=== PATIENT | female | born 1955 | race Caucasian/White ===

== ENCOUNTER 2016-04-29 08:54 | Day surgery (SDC) | payer OTHER ==
[2016-04-29 10:25] LABS: PROTHROMBIN TIME 15.6 SEC (11.4-15.4)
[2016-04-29 10:26] LABS: PARTIAL THROMBOPLASTIN TIME 40.1 SEC (23.5-35.8)
[2016-04-29 15:28] VITALS: BP 128/88
== END 2016-04-29 14:30 | disposition home or self-care (01) ==
LOC: RAD 08:54
PROVIDERS: ATTEND Orthopaedic Surgery
PROC: B01BYZZ Fluoroscopy of Spinal Cord using Other Contrast (ICD-10-PCS; principal; 2016-04-29)
DX: M54.5 Low back pain (principal); M43.12 Spondylolisthesis, cervical region; M54.12 Radiculopathy, cervical region; M54.16 Radiculopathy, lumbar region; K74.60 Unspecified cirrhosis of liver
CPT/HCPCS: 36415; 72126; 72132; 72270; 85610; 85730

== ENCOUNTER 2016-12-21 07:02 | Emergency (ER) | payer MEDICAID ==
--- NOTE | 2016-12-21 07:30 | ER Document Report ---
ED GI/ - General Chief Complaint: Vomiting Stated Complaint: ABDOMINAL PAIN Time Seen by Provider: 12/21/16 07:30 Mode of Arrival: Ambulatory Information source: Patient Notes: 61 yo female "problems for over a year", cirrhosis- no etoh in 2 years, seizures -dilantin, hiatel hernia, chronic neck and back pain, chronic constipation (due to oxycontin 20mg bid: actually having to take 20mg tid to manage the pain this month:, oxycodone 10mg qid- [facility] sees java web architect at [facility]. [facility] for cervical spine fx-1 year. Extreme Vomiting and dull abdominal pain 5/5 since 4 pm yesterday-saw blood, worsening swelled-bloated abdomen (chronic), diarrhea this am (black in stool few days ago-no pepto) No chest pain or SOB. No hx bowel obstruction, Hysterectomy. Ran out of opiates on . TRAVEL OUTSIDE OF THE [place] IN LAST 30 DAYS: No - Related Data Allergies/Adverse Reactions: tetracycline Allergy (Verified 01/02/16 04:01) Past Medical History - General Information source: Patient - Social History Smoking Status: Current Every Day Smoker Frequency of alcohol use: None Drug Abuse: None Lives with: Family Family History: COPD, Hypertension Patient has suicidal ideation: No Patient has homicidal ideation: No Neurological Medical History: Reports: Hx Seizures - ON MEDICATION Renal/ Medical History: Denies: Hx Peritoneal Dialysis GI Medical History: Reports: Hx Cirrhosis Musculoskeltal Medical History: Reports Other - cervical spine fx 1 year ago Psychiatric Medical History: Reports: Hx Depression Past Surgical History: Reports: Hx Orthopedic Surgery - C-spine fusion summer - Immunizations Hx Diphtheria, Pertussis, Tetanus Vaccination: Yes Review of Systems - Review of Systems Constitutional: No symptoms reported EENT: No symptoms reported Cardiovascular: No symptoms reported Respiratory: No symptoms reported Gastrointestinal: See HPI Genitourinary: No symptoms reported Female Genitourinary: No symptoms reported Musculoskeletal: No symptoms reported Skin: No symptoms reported Hematologic/Lymphatic: No symptoms reported Neurological/Psychological: No symptoms reported Physical Exam - Vital signs Vitals: Temp Pulse Resp BP Pulse Ox 98.5 F 71 18 162/81 H 99 12/21/16 07:03 12/21/16 07:03 12/21/16 07:03 12/21/16 07:03 12/21/16 07:03 Interpretation: Normal - General General appearance: Alert Notes: chronically ill, dry - HEENT Head: Normocephalic, Atraumatic Eyes: Normal Conjunctiva: Icteric Pupils: PERRL Neck: Supple. No: Lymphadenopathy - Respiratory Respiratory status: No respiratory distress Chest status: Nontender Breath sounds: Normal Chest palpation: Normal - Cardiovascular Rhythm: Regular Heart sounds: Normal auscultation Murmur: No - Abdominal Inspection: Normal Distension: No distension, Tympanitic, Fluid wave - possible. No: Distended Bowel sounds: Normal Tenderness: Nontender. No: Guarding, Rebound Organomegaly: No organomegaly. No: Hepatomegaly, Splenomegaly - Back Back: Normal, Nontender. No: CVA tenderness - Extremities General upper extremity: Normal inspection, Nontender, Normal color, Normal ROM , Normal temperature General lower extremity: Normal inspection, Nontender, Normal color, Normal ROM , Normal temperature, Normal weight bearing. No: Jazzmine's sign - Neurological Neuro grossly intact: Yes Cognition: Normal Orientation: AAOx4 Traphill Coma Scale Eye Opening: Spontaneous Arcadio Coma Scale Verbal: Oriented Arcadio Coma Scale Motor: Obeys Commands Arcadio Coma Scale Total: 15 Speech: Normal Motor strength normal: LUE, RUE, LLE, RLE Sensory: Normal - Psychological Associated symptoms: Normal affect, Normal mood, Confused, Excessive sleeping - Skin Skin Temperature: Warm Skin Moisture: Dry Skin Color: Normal Course - Re-evaluation Re-evalutation: 12/21/16 07:35 [place] controlled substance database Oxycontin 20mg #60 on 11-24-16, [facility]. 12/21/16 08:52 stool for hem positive, emesis was coffee ground., 12/21/16 09:[address] espinosa, no vomiting at this time, had to awaken her, states she is still nauseated, fell back asleep. 12/21/16 11:44 pt has been able to keep gingerale down and some crackers. She states that the Haldol helped the nausea. No abd pain at this time. 12/21/16 11:54 copy of labwork given to the pt. Dr espinosa said to have her see her gastroenterolist. No vomiting for several hours, no diarrhea.pt saw her GI on , given nexium prescription and has not filled yet - Vital Signs Vital signs: Temp Pulse Resp BP Pulse Ox 98.9 F 69 18 151/62 H 96 12/21/16 12:52 12/21/16 12:52 12/21/16 12:52 12/21/16 12:52 12/21/16 12:52 - Laboratory Result Diagrams: 12/21/16 07:45 12/21/16 07:45 Laboratory results interpreted by me: 12/21/16 12/21/16 12/21/16 07:45 07:45 07:45 Hct 35.2 L RDW 15.0 H Plt Count 111 L Seg Neutrophils % 83.0 H Lymphocytes % 12.1 L PT 22.5 H APTT 47.3 H Potassium 3.2 L Creatinine 0.37 L Glucose 118 H Total Bilirubin 3.3 H Direct Bilirubin 2.7 H AST 76 H ALT 57 H Alkaline Phosphatase 615 H Urine Protein Urine Blood Urine Bilirubin Urine Urobilinogen Ur Leukocyte Esterase Phenytoin 12/21/16 12/21/16 08:11 09:33 Hct RDW Plt Count Seg Neutrophils % Lymphocytes % PT APTT Potassium Creatinine Glucose Total Bilirubin Direct Bilirubin AST ALT Alkaline Phosphatase Urine Protein 30 H Urine Blood LARGE H Urine Bilirubin SMALL H Urine Urobilinogen 4.0 H Ur Leukocyte Esterase TRACE H Phenytoin 23.7 H* Discharge - Discharge Clinical Impression: Hyperbilirubinemia, Dehydration, Liver enzyme elevation, microscopic blood in stool Nausea and vomiting Qualifiers: Vomiting type: unspecified Vomiting Intractability: non-intractable Qualified Code(s): R11.2 - Nausea with vomiting, unspecified Abdominal pain Qualifiers: Abdominal location: generalized Qualified Code(s): R10.84 - Generalized abdominal pain Cirrhosis of liver Qualifiers: Hepatic cirrhosis type: other cirrhosis Qualified Code(s): K74.69 - Other cirrhosis of liver Opiate dependence Qualifiers: Substance use status: uncomplicated Qualified Code(s): F11.20 - Opioid dependence, uncomplicated Urinary tract infection Qualifiers: Urinary tract infection type: site unspecified Hematuria presence: without hematuria Qualified Code(s): N39.0 - Urinary tract infection, site not specified Vomiting blood Qualifiers: Nausea presence: with nausea Qualified Code(s): K92.0 - Hematemesis Condition: Good Disposition: HOME, SELF-CARE Instructions: Antinausea Medication ([facility]), Dehydration ([facility]), Intravenous (IV) Fluids ([facility]), Liver Function Abnormality ([facility]) Additional Instructions: urine culture is pending phenergan and reglan for nausea get the nexium filled that the java web architect gave you on and take daily! drink plenty of fluids see your java web architect for the vomiting and the abnormal liver enzymes, altered clotting studies reduce your dilantin to 400mg per day, the 500mg per day made your level too high see your neurolgoist for follow up dilantin levels to ER if worse Prescriptions: Promethazine HCl [Phenergan 25 mg Tablet] 25 mg PO Q4HP PRN #30 tablet PRN Reason: Cephalexin Monohydrate [Keflex 500 mg Capsule] 500 mg PO QID #28 capsule Metoclopramide HCl [Reglan 10 mg Tablet] 10 mg PO QID #30 tablet Referrals: CRISTELA MERA MD [Primary Care Provider] - Follow up as needed
[2016-12-21] MEDS ORDERED: NORMAL SALINE 1000 ML 2,000 ML IV ONE (07:31)
[2016-12-21] MEDS ORDERED: METOCLOPRAMIDE HCL INJ/PF 10 MG/2 ML SDV IV ONE (07:35)
[2016-12-21] MEDS ORDERED: ONDANSETRON HCL INJ/PF 4 MG/2 ML SDV IV ONE ×2 (07:35→09:18)
[2016-12-21] MEDS ORDERED: DIPHENHYDRAMINE HCL 50 MG/ML VIAL IV ONE (07:35)
[2016-12-21 07:55] LABS: ABSOLUTE MONOCYTES (AUTO) 0.3 10^3/uL (0.1-1.4); ABSOLUTE NEUT (AUTO) 6.6 10^3/uL (1.7-8.2); BASOPHILS % (AUTO) 0.3 % (0-2); EOSINOPHILS % (AUTO) 0.2 % (0-6); HEMATOCRIT 35.2 % (36.0-47.0); HEMOGLOBIN 12.2 g/dL (12.0-15.5); HGB HCT DIFFERENCE 1.4; LYMPHOCYTES % (AUTO) 12.1 % (13-45); MEAN CORPUSCULAR HEMOGLOBIN 32.1 pg (27.0-33.4); MEAN CORPUSCULAR HGB CONC 34.8 g/dL (32.0-36.0); MEAN CORPUSCULAR VOLUME 92 fl (80-97); MONOCYTES % (AUTO) 4.4 % (3-13)
[2016-12-21] MEDS ORDERED: FAMOTIDINE 20 MG TABLET PO ONE (08:08)
[2016-12-21 08:11] LABS: PROTHROMBIN TIME 22.5 SEC (11.4-15.4)
[2016-12-21] MEDS ORDERED: FAMOTIDINE INJ/PF 20 MG/2 ML SDV IV ONE (08:11)
[2016-12-21 08:12] LABS: PARTIAL THROMBOPLASTIN TIME 47.3 SEC (23.5-35.8)
[2016-12-21 08:47] LABS: ALANINE AMINOTRANSFERASE 57 U/L (9-52); ALBUMIN 3.5 g/dL (3.5-5.0); ALKALINE PHOSPHATASE 615 U/L (38-126); ANION GAP 12 (5-19); ASPARTATE AMINO TRANSFERASE 76 U/L (14-36); BILIRUBIN,DIRECT 2.7 mg/dL (0.0-0.4); BILIRUBIN,TOTAL 3.3 mg/dL (0.2-1.3); BLOOD UREA NITROGEN 10 mg/dL (7-20); CALCIUM 8.8 mg/dL (8.4-10.2); CARBON DIOXIDE 23 mmol/L (22-30); CHLORIDE 105 mmol/L (98-107); CREATININE RESULT 0.37 mg/dL (0.52-1.25); GLUCOSE 118 mg/dL (75-110); LIPASE 160.7 U/L (23-300); POTASSIUM 3.2 mmol/L (3.6-5.0); SODIUM 140.1 mmol/L (137-145)
[2016-12-21] MEDS ORDERED: LANSOPRAZOLE 30 MG TAB.RAP.DR PO ONE (09:18)
[2016-12-21 09:52] LABS: AMORPHOUS SEDIMENT,URINE TRACE /HPF; APPEARANCE,URINE CLOUDY; BILIRUBIN,URINE SMALL (NEGATIVE); GLUCOSE, URINE NEGATIVE (NEGATIVE); KETONES,URINE NEGATIVE (NEGATIVE); LEUKOCYTE ESTERASE,URINE TRACE (NEGATIVE); NITRITE,URINE NEGATIVE (NEGATIVE); PROTEIN,URINE 30 mg/dL (NEGATIVE); URINE SPECIFIC GRAVITY 1.018
[2016-12-21] MEDS ORDERED: HALOPERIDOL LACTATE INJ 5 MG/1 ML VIAL IV ONE (10:33)
[2016-12-21] MEDS ORDERED: CEFTRIAXONE 1 GM/D5W RTU 1 GM/50 ML RTUPB IV ONE (12:45)
[2016-12-21 12:53] VITALS: BP 151/62
[2016-12-21] MEDS ORDERED: ACETAMINOPHEN 325 MG TABLET PO ONE (12:55)
[2016-12-21] MEDS ORDERED: PROMETHAZINE HCL INJ 25 MG/1 ML VIAL IM ONE (13:10)
== END 2016-12-21 13:38 | disposition home or self-care (01) ==
LOC: ER 07:02
DX: E80.6 Other disorders of bilirubin metabolism (principal); E86.0 Dehydration; K92.1 Melena; R74.8 Abnormal levels of other serum enzymes; K92.0 Hematemesis; N39.0 Urinary tract infection, site not specified; F11.20 Opioid dependence, uncomplicated; K74.69 Other cirrhosis of liver; R10.84 Generalized abdominal pain; G89.29 Other chronic pain; M54.9 Dorsalgia, unspecified; M54.2 Cervicalgia; F17.200 Nicotine dependence, unspecified, uncomplicated; Z98.1 Arthrodesis status
CPT/HCPCS: 96376; 99284; 96372; 96361; 96375; 96365; 36415; 87086; 83690; 80185; 85025; 85610; 85730; 82272; 80053; 81001; J1200; J1630; J2765; J2550; J2405; J7030; S0028; J0696

== ENCOUNTER 2016-12-23 13:58 | Inpatient (IN) | payer MEDICAID ==
[2016-12-23] MEDS ORDERED: NORMAL SALINE 1000 ML 1,000 ML IV ONE (15:32)
[2016-12-23] MEDS ORDERED: OXYCODONE HCL SR 10 MG TABLET PO ONE (15:32)
[2016-12-23] MEDS ORDERED: ONDANSETRON HCL INJ/PF 4 MG/2 ML SDV IV ONE (15:32)
--- NOTE | 2016-12-23 16:00 | RADIOLOGY REPORT (SQ) ---
EXAM DESCRIPTION: CT HEAD WITHOUT COMPLETED DATE/TIME: 12/23/2016 3:52 pm REASON FOR STUDY: AMS COMPARISON: Postmyelogram CT cervical spine 04/29/2016 TECHNIQUE: Axial images acquired through the brain without intravenous contrast. Images reviewed wi th bone, brain and subdural windows. Images stored on PACS. All CT scanners at this facility use dose modulation, iterative reconstruction, and/or weight based d osing when appropriate to reduce radiation dose to as low as reasonably achievable (ALARA). [facility]: Dose Right [facility]: CareDose [facility]: Dose Right [facility]: Teradose 4D [facility]: Xochitl (So-Shee) [place] RADIATION DOSE: 64 mGy. LIMITATIONS: None. FINDINGS: VENTRICLES: Normal size and contour. CEREBRUM: No masses. No hemorrhage. No midline shift. No evidence for acute infarction. Normal gra y/white matter differentiation. No areas of low density in the white matter. CEREBELLUM: No masses. No hemorrhage. No alteration of density. No evidence for acute infarction. EXTRAAXIAL SPACES: No fluid collections. No masses. ORBITS AND GLOBE: No intra- or extraconal masses. Normal contour of globe without masses. CALVARIUM: No fracture. PARANASAL SINUSES: No fluid or mucosal thickening. SOFT TISSUES: No mass or hematoma. OTHER: Fusion hardware in the upper cervical spine, unchanged from previous cervical spine CT 04/30/19 17 IMPRESSION: No acute findings EVIDENCE OF ACUTE STROKE: NO. COMMENT: Quality ID # [id number]: Final reports with documentation of one or more dose reduction techniques (e.g., Automated exposure control, adjustment of the mA and/or kV according to patient size, use of iterative reconstruction technique) TECHNICAL DOCUMENTATION: JOB ID: [id number]- All Rights Reserved
[2016-12-23 16:03] LABS: ALANINE AMINOTRANSFERASE 94 U/L (9-52); ALBUMIN 2.8 g/dL (3.5-5.0); ALKALINE PHOSPHATASE 325 U/L (38-126); ANION GAP 14 (5-19); ASPARTATE AMINO TRANSFERASE 159 U/L (14-36); BILIRUBIN,DIRECT 3.1 mg/dL (0.0-0.4); BILIRUBIN,TOTAL 3.6 mg/dL (0.2-1.3); BLOOD UREA NITROGEN 32 mg/dL (7-20); CALCIUM 8.2 mg/dL (8.4-10.2); CARBON DIOXIDE 22 mmol/L (22-30); CHLORIDE 104 mmol/L (98-107); CREATINE KINASE 231 U/L (30-135); CREATININE RESULT 0.58 mg/dL (0.52-1.25); GLUCOSE 104 mg/dL (75-110); LIPASE 233.8 U/L (23-300); POTASSIUM 3.6 mmol/L (3.6-5.0); SODIUM 139.8 mmol/L (137-145); TOTAL PROTEIN 5.7 g/dL (6.3-8.2)
[2016-12-23 16:05] LABS: ALCOHOL < 10 mg/dL (NONE DETECTED)
[2016-12-23] MEDS ORDERED: LACTULOSE SYRUP 20 GM/30 ML UDCUP PR ONE ×2 (16:11→20:15)
--- NOTE | 2016-12-23 16:11 | RADIOLOGY REPORT (SQ) ---
EXAM DESCRIPTION: CHEST SINGLE VIEW COMPLETED DATE/TIME: 12/23/2016 3:57 pm REASON FOR STUDY: SOB COMPARISON: CT abdomen pelvis 01/02/2016 EXAM PARAMETERS: NUMBER OF VIEWS: One view. TECHNIQUE: Single frontal radiographic view of the chest acquired. RADIATION DOSE: NA LIMITATIONS: None. FINDINGS: LUNGS AND PLEURA: There is airspace disease in the right lower lobe, atelectasis versus pn eumonia. Aspiration should be considered. Left lung grossly clear. Moderate size retrocardiac hiatal hernia. No pleural effusion. No pneumothorax. MEDIASTINUM AND HILAR STRUCTURES: No masses. Moderate size retrocardiac hiatal hernia HEART AND VASCULAR STRUCTURES: Heart normal in size. Normal vasculature. BONES: Old right humeral head replacement, old healed bilateral upper rib fractures HARDWARE: None in the chest. OTHER: No other significant finding. IMPRESSION: Right lower lobe airspace disease worrisome for pneumonia. Aspiration should be conside red. Large retrocardiac hiatal hernia. TECHNICAL DOCUMENTATION: JOB ID: [id number] [email or web address]- All Rights Reserved
--- NOTE | 2016-12-23 16:13 | ER Document Report ---
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 Patient has been out of her pain medications for the past 2 days and is having vomiting and diarrhea and feeling like she is going through withdrawal. Her orthopedic surgeon and will maintain called in a refill of her pain medications and they are sitting at the pharmacy. Patient also was diagnosed with pyelonephritis a few days ago, but the daughter does not think that she took her antibiotics. Patient is silent and will not answer any questions. TRAVEL OUTSIDE OF THE [place] IN LAST 30 DAYS: No - Related Data Allergies/Adverse Reactions: tetracycline Allergy (Verified 01/02/16 04:01) Past Medical History - General Information source: Relative - Daughter, Emergency Med Personnel - Social History Smoking Status: Current Every Day Smoker Chew tobacco use (# tins/day): No Frequency of alcohol use: Former, Stopped 2 years ago Drug Abuse: None Family History: COPD, Hypertension Patient has suicidal ideation: - unknown Patient has homicidal ideation: - unknown - Past Medical History Cardiac Medical History: Denies: Hx Coronary Artery Disease, Hx Heart Attack, Hx Hypertension Pulmonary Medical History: Denies: Hx Asthma, Hx Bronchitis, Hx COPD, Hx Pneumonia Neurological Medical History: Reports: Hx Seizures - ON MEDICATION. Denies: Hx Cerebrovascular Accident Renal/ Medical History: Comment Only: Hx Peritoneal Dialysis - unknown GI Medical History: Reports: Hx Cirrhosis Musculoskeltal Medical History: Denies Hx Arthritis Psychiatric Medical History: Reports: Hx Depression Past Surgical History: Reports: Hx Hysterectomy, Hx Orthopedic Surgery - C- spine fusion summer - Immunizations Hx Diphtheria, Pertussis, Tetanus Vaccination: Yes Review of Systems - Review of Systems -: Yes ROS unobtainable due to patient's medical condition Physical Exam - Vital signs Vitals: Resp Pulse Ox 38 H 97 12/23/16 16:12 12/23/16 16:12 - Notes Notes: PHYSICAL EXAMINATION: GENERAL: Ill-appearing. Malodorous smell. HEAD: Atraumatic, normocephalic. EYES: Pupils 4mm to 3mm reactive, jaundiced eyes. ENT: nares patent, oropharynx clear without exudates. Moist mucous membranes. NECK: Pt in soft collar (for the past 2 years) LUNGS: Tachypnea. Crackles in right lower lobe. HEART: Tachycardia. ABDOMEN: Soft, nontender, normoactive bowel sounds. Ascites. No guarding, no rebound. EXTREMITIES: No pitting or edema. No cyanosis. Contracted upper extremities. NEUROLOGICAL: Will track people in room with eyes. Non-cooperative. Moving all 4 extremities. Clonic upper extremities. SKIN: Jaundiced skin. Ecchymosis over right upper arm. Course - Re-evaluation Re-evalutation: Patient presents very confused with elevated ammonia. In addition, she has a large right sided pneumonia, which may be related to aspiration. She is in severe sepsis with a lactate of 4.7, new leukocytosis from the past 2 days, elevation of INR from 1.8 to 4.07 today, new anemia from 12 to 7.5, evidence of end-organ damage with elevation of troponin. BP is remaining normal. GI is controls design engineer today to consult for heme positive stool and new anemia. Pt typed and screened. 30 mL/kg IVF provided to the patient with Broad-spectrum Abx. 12/23/16 18:[address] Curtis (Hospitalist) and she has accepted patient to ICU for close monitoring and treatment. - Vital Signs Vital signs: Temp Pulse Resp BP Pulse Ox 33 H 114/72 98 12/23/16 17:07 12/23/16 17:07 12/23/16 17:07 - Laboratory Result Diagrams: 12/23/16 17:03 12/23/16 15:20 Laboratory results interpreted by me: 12/23/16 12/23/16 12/23/16 15:20 15:20 15:20 WBC RBC Hgb Hct RDW Abs Neuts (Manual) Abs Monocytes (Manual) PT APTT VBG pH VBG pCO2 BUN 32 H Lactic Acid 4.9 H Calcium 8.2 L Total Bilirubin 3.6 H Direct Bilirubin 3.1 H AST 159 H ALT 94 H Alkaline Phosphatase 325 H Ammonia 110.7 H Creatine Kinase 231 H Total Protein 5.7 L Albumin 2.8 L Acetaminophen < 10 L 12/23/16 12/23/16 12/23/16 15:20 17:03 17:03 WBC 23.1 H D RBC 2.38 L Hgb 7.5 L D Hct 22.3 L RDW 15.2 H Abs Neuts (Manual) 17.1 H Abs Monocytes (Manual) 2.3 H PT 41.3 H D APTT 42.9 H VBG pH 7.54 H VBG pCO2 29.8 L BUN Lactic Acid Calcium Total Bilirubin Direct Bilirubin AST ALT Alkaline Phosphatase Ammonia Creatine Kinase Total Protein Albumin Acetaminophen - Diagnostic Test Radiology reviewed: Image reviewed, Reports reviewed Radiology results interpreted by me: CXR: RLL pneumonia, possibly aspiration - EKG Interpretation by Me EKG shows normal: Sinus rhythm, [place], Intervals, QRS Complexes Rate: Tachycardia Critical Care Note - Critical Care Note Total time excluding time spent on procedures (mins): 45 Discharge - Discharge Clinical Impression: Severe sepsis, Hepatic encephalopathy, Blood in stool, Multiorgan failure Pneumonia Qualifiers: Pneumonia type: due to unspecified organism Laterality: right Lung location: lower lobe of lung Qualified Code(s): J18.1 - Lobar pneumonia, unspecified organism Anemia Qualifiers: Anemia type: other cause Other causes of anemia: other cause, not classified Qualified Code(s): D64.89 - Other specified anemias Condition: Serious Disposition: ADMITTED INPATIENT Admitting Provider: Hospitalist - [facility] Admitted: ICU
[2016-12-23 16:18] LABS: TROPONIN I 0.108 ng/mL
[2016-12-23] MEDS ORDERED: AZITHROMYCIN INJ 500 MG VIAL IV ONE (16:42)
[2016-12-23] MEDS ORDERED: CEFTRIAXONE 1 GM/D5W RTU 1 GM/50 ML RTUPB IV ONE (16:42)
[2016-12-23] MEDS ORDERED: CLINDAMYCIN 600 MG/D5W RTU 600 MG/50 ML RTUPB IV ONE (16:42)
[2016-12-23 16:47] LABS: VENOUS BLOOD BASE EXCESS 2.5 mmol/L; VENOUS BLOOD HCO3 24.8 mmol/L (20-32); VENOUS BLOOD PCO2 29.8 mmHg (35-63); VENOUS BLOOD PH 7.54 (7.30-7.42)
[2016-12-23] MEDS ORDERED: NORMAL SALINE 500 ML IV ONE (17:12)
[2016-12-23 17:26] LABS: HEMATOCRIT 22.3 % (36.0-47.0); HGB HCT DIFFERENCE 0.2; MEAN CORPUSCULAR HEMOGLOBIN 31.6 pg (27.0-33.4); MEAN CORPUSCULAR HGB CONC 33.8 g/dL (32.0-36.0); MEAN CORPUSCULAR VOLUME 93 fl (80-97); RED BLOOD COUNT 2.38 10^6/uL (3.72-5.28); RED CELL DISTRIBUTION WIDTH 15.2 % (11.5-14.0)
[2016-12-23 17:38] LABS: PARTIAL THROMBOPLASTIN TIME 42.9 SEC (23.5-35.8); WHITE BLOOD COUNT 23.1 10^3/uL (4.0-10.5)
[2016-12-23 17:41] LABS: HEMOGLOBIN 7.5 g/dL (12.0-15.5)
[2016-12-23 17:48] LABS: PROTHROMBIN TIME 41.3 SEC (11.4-15.4)
[2016-12-23 17:50] LABS: BASOPHILS % (MANUAL) 0 % (0-2); EOSINOPHILS % (MANUAL) 0 % (0-6); LYMPHOCYTES % (MANUAL) 16 % (13-45); TOTAL CELLS COUNTED 100
[2016-12-23 17:51] LABS: ANISOCYTOSIS SLIGHT; POIKILOCYTOSIS SLIGHT; POLYCHROMASIA SLIGHT; TOXIC GRANULATION SLIGHT
[2016-12-23 18:55] LABS: APPEARANCE,URINE CLEAR; BILIRUBIN,URINE NEGATIVE (NEGATIVE); GLUCOSE, URINE NEGATIVE (NEGATIVE); KETONES,URINE TRACE mg/dL (NEGATIVE); LEUKOCYTE ESTERASE,URINE NEGATIVE (NEGATIVE); NITRITE,URINE NEGATIVE (NEGATIVE); PROTEIN,URINE NEGATIVE (NEGATIVE)
[2016-12-23] MEDS ORDERED: DEXTROSE 40% GEL 15 GM TUBE PO PRN ×2 (19:00)
[2016-12-23] MEDS ORDERED: NORMAL SALINE 1000 ML 1,000 ML IV PRN (19:00)
[2016-12-23] MEDS ORDERED: GLUCAGON,HUMAN RECOMB 1 MG INJ SUBCUT PRN (19:00)
[2016-12-23] MEDS ORDERED: ONDANSETRON HCL INJ/PF 4 MG/2 ML SDV IV PRN (19:00)
[2016-12-23] MEDS ORDERED: PHARMACY COMMUNICATION ORDER MC NR (19:00)
[2016-12-23] MEDS ORDERED: DEXTROSE 50%-WATER 25 GM/50 ML DISP.SYRIN IV PRN ×2 (19:00)
[2016-12-23] MEDS ORDERED: FUROSEMIDE INJ/PF 40 MG/4 ML SDV IV PRN (19:11)
[2016-12-23] MEDS ORDERED: NORMAL SALINE 250 ML IV PRN ×2 (19:11)
[2016-12-23 19:12] LABS: URINE BARBITURATES SCREEN NEGATIVE; URINE METHADONE SCREEN NEGATIVE; URINE OPIATES LOW NEGATIVE; URINE PHENCYCLIDINE SCREEN NEGATIVE
--- NOTE | 2016-12-23 19:29 | PDOC H&P ---
History of Present Illness Admission Date/PCP: 12/23/16 18:13 History of Present Illness: JENNA BUCHANAN is a 61 year old white female with a past medical history significant for alcoholic cirrhosis who presented to the ED 2 days ago and was diagnosed with pyelonephritis and now Represents today with altered mental status. At her initial ED visit, she was diagnosed with urinary tract infection and was sent home with Keflex. She also was diagnosed with hematemesis and was noted to vomit coffee-ground emesis in the ED and heme positive stools.. She was instructed to follow-up with her raspberry checker, Dr. Wright. It was also noted that her Dilantin level was too high and she was advised to decrease the dose from 500 a day to 400 a day. She was advised to follow with her neurologist and to return to the ED if her symptoms worsened. During that visit her hemoglobin was 12.2 and her INR was normal. She was found to be confused and was brought in by her family member. Apparently during his state of confusion the patient could not take her medications. On re -presentation today, the patient was noted to have an elevated white count of 23 , an ammonia level of 110, hemoglobin of 7.5, and guaiac positive stools. Lactic acid was noted to be 4.9 and an INR of 4. To be tachycardic in the 120s. Cultures from her previous ED visit came back showing it to be a mixed specimen. The patient was given a dose of Rocephin, clindamycin and azithromycin down in the emergency room. She was also given a dose of lactulose as well as Zofran a fluid bolus. CT scan of the head was done and was negative. Chest x-ray shows possible aspiration pneumonia with a right lower lobe infiltrate. Past Medical History Past Medical History: History is obtained from chart review and discussion with the ED. The patient is not conversant at this time. Neurological Medical History: Reports: Seizures - ON MEDICATION GI Medical History: Reports: Cirrhosis Psychiatric Medical History: Reports: Depression Hematology: Reports: Anemia Past Surgical History Past Surgical History: Past surgical history is taken from chart review. The patient is not able to participate in the interview. Past Surgical History: Reports: Hysterectomy, Orthopedic Surgery - C-spine fusion summer Social History Smoking Status: Current Every Day Smoker Frequency of Alcohol Use: Heavy Hx Recreational Drug Use: No Hx Prescription Drug Abuse: No - Advance Directive Resuscitation Status: Full Code Family History Family History: COPD, Hypertension Parental Family History Reviewed: No - The patient is not able to give family history. Children Family History Reviewed: No - The patient is not able to give her history. Sibling(s) Family History Reviewed.: No - The patient is not able to give her history. Medication/Allergy Home Medications: Phenytoin Sodium Extended [Dilantin 100 mg Capsule.er] 500 mg PO DAILY 01/02/16 Cephalexin Monohydrate [Keflex 500 mg Capsule] 500 mg PO Q6 12/23/16 Metoclopramide HCl [Reglan 10 mg Tablet] 10 mg PO Q6 12/23/16 Promethazine HCl [Phenergan 25 mg Tablet] 25 mg PO Q4HP PRN 12/23/16 Allergies/Adverse Reactions: tetracycline Allergy (Verified 01/02/16 04:01) Review of Systems ROS unobtainable: Due to mental status Physical Exam Vital Signs: Temp Pulse Resp BP Pulse Ox 37 H 105/63 100 12/23/16 18:01 12/23/16 18:01 12/23/16 18:01 GENERAL: This is a well-developed frail and chronically ill-appearing white female resting in bed currently looking quite sick. The patient is jaundiced. HEENT: Normocephalic atraumatic. Scleral icterus is present. Dry mucous membranes. Pupillary response on the right is not reactive the left is sluggish. No submandibular lymphadenopathy. Trachea is midline. HEART: Tachycardic at the bedside at 123. No obvious murmurs rubs or gallops. LUNGS: Clear to auscultation from the anterior perspective bilaterally with equal rise and fall of the chest. The patient is tachypneic at around 28. Her breaths are shallow. ABDOMEN: Soft, I do not elicit any grimace on palpation. Positive distention. Diminished bowel sounds. EXTREMETIES: [No clubbing, cyanosis or edema. 2+ peripheral pulses bilaterally. ] NEURO: Awake. The patient is not alert. She barely moans at the sound of my voice. although her eyes are open she is not responsive. Skin: Spider angiomata are present across the neck chest and a few in the abdomen. Caput medusa is not present. No palmar erythema. Her skin is overly bronzed and jaundiced the patient has a very large Area of ecchymosis and induration of the right AC. Results Impressions: Chest X-Ray 12/23/16 14:51 IMPRESSION: Right lower lobe airspace disease worrisome for pneumonia. Aspiration should be considered. Large retrocardiac hiatal hernia. Head CT 12/23/16 14:54 IMPRESSION: No acute findings EVIDENCE OF ACUTE STROKE: NO. Assessment & Plan - Diagnosis (1) Severe sepsis Plan: The patient presents with underlying pneumonia. In the setting of what is likely an acute GI bleed. She has an elevated white count. She has altered mental status that could be traveling sales representative of end organ damage from severe sepsis. Or from underlying encephalopathy due to cirrhosis. Lactic acid is currently at 4 we will repeat this at 730 this evening. (2) Anemia Qualifiers: Anemia type: other cause Plan: This is anemia of acute blood loss. The patient had a declination in her hemoglobin from 12-7 over the last 48 hours. I am going to order stat transfusion of 2 units of packed red blood cells. In addition to this I am going to have the staff place an NG tube. Coffee-ground emesis was witnessed 2 days ago and the patient has a history of underlying cirrhosis. It is unknown to me whether or not she has esophageal varices so we will need to be cautious with placement of the tube. I am also going to start an octreotide drip as well as IV Protonix. We will consult Dr. Wright. (3) Encephalopathy acute Plan: This could be due to either underlying cirrhosis or secondary to her severe sepsis. Patient apparently at baseline is not confused and normal thinking. This would be considered a definite change. Continue to monitor. She received a dose of lactulose p.o. down in the ED. I am going to try to avoid lactulose IN because of suspected underlying GI bleed. GI service has been consulted. Repeat ammonia in the a.m. (4) Alcoholic cirrhosis of liver Plan: She is status post a dose of lactulose down in the ED. (5) Metabolic acidosis Plan: Repeat lactic acid. (6) Urinary tract infection Qualifiers: Urinary tract infection type: site unspecified Hematuria presence: without hematuria Qualified Code(s): N39.0 - Urinary tract infection, site not specified Plan: There was no infection on the recent cultures. Blood cultures and urine cultures are currently pending. The patient is status post antibiotics in the ED. (7) Pneumonia Qualifiers: Pneumonia type: aspiration pneumonia Aspiration pneumonia type: unspecified Laterality: right Lung location: lower lobe of lung Qualified Code(s): J69.0 - Pneumonitis due to inhalation of food and vomit Plan: This is an aspiration pneumonia most likely. The patient has been confused recently and she certainly could have aspirated her own secretions. Continue antibiotics with Levaquin. Continue antibiotics. She is already received 3 different antibiotics done in the ED. (8) GI bleed Plan: This may be upper GI bleed. The patient was noted to have coffee-ground emesis 2 days ago. She is still Hemoccult positive and has had a 5 unit drop in her blood count. Stat transfusion has been ordered. We will cautiously insert NG tube. Repeat H&H is every 4 hours. Begin Protonix and octreotide. Consult was placed to GI. - Time Critical Time spent with patient: 35 or more minutes - Inpatient Certification Medical Necessity: Need Close Monitoring Due to Risk of Patient Decompensation
[2016-12-23 20:26] LABS: HEMATOCRIT 19.9 % (36.0-47.0); HGB HCT DIFFERENCE 0.2; MEAN CORPUSCULAR HEMOGLOBIN 31.9 pg (27.0-33.4); MEAN CORPUSCULAR HGB CONC 33.6 g/dL (32.0-36.0); MEAN CORPUSCULAR VOLUME 95 fl (80-97); RED BLOOD COUNT 2.09 10^6/uL (3.72-5.28); RED CELL DISTRIBUTION WIDTH 15.4 % (11.5-14.0)
[2016-12-23 20:33] LABS: HEMOGLOBIN 6.7 g/dL (12.0-15.5)
[2016-12-23 20:41] LABS: ARTERIAL BLOOD BASE EXCESS -0.2 mmol/L; ARTERIAL BLOOD O2 SATURATION 96.8 % (94-98)
[2016-12-23 20:46] LABS: BASOPHILS % (MANUAL) 0 % (0-2); EOSINOPHILS % (MANUAL) 0 % (0-6); LYMPHOCYTES % (MANUAL) 19 % (13-45); TOTAL CELLS COUNTED 100
[2016-12-23 20:47] LABS: ANISOCYTOSIS SLIGHT; POIKILOCYTOSIS SLIGHT; POLYCHROMASIA SLIGHT; TOXIC GRANULATION SLIGHT
[2016-12-23] MEDS: NORMAL SALINE 500 ML with OCTREOTIDE ACETATE 500 MCG IV PRN ×4 (20:47→20:52)
--- NOTE | 2016-12-23 21:13 | PDOC CONSULTATION ---
Consultation Consult Date: 12/23/16 Attending physician:: BROCK VICTORIA Consult reason:: Etoh use, cirrhosis. new onset anemia likely secondary to GI bleed. elevated coagulation profile History of Present Illness Admission Date/PCP: 12/23/16 18:13 History of Present Illness: Asked to see this patient by the admitting hospitalist I should be noted that patient is actually followed by GI at [facility] Dr Ever had dictated that she was told to follow up me when she presented to the ED 2 days ago, this should reflect that she was told to follow up with her primary GI who she has seen recently when she presented 2 days ago, she was sent home, it is apparent that she may have had a recent EGD , she was told to take Nexium but did not do so she does have a history of cirrhosis, ? due to previous alcohol use and presented to our ED here with a mental status changes consistent with an encphalopathy patient also has noted to have drop of her H/H since 2 days ago, although she likely could have been dehydrated several days ago patient noted to have heme positive stools it is unclear what her previous EGD showed she also has what appears to be sepsis due to a pneumonia, she is receiving antibiotics patient has an elevated coagulation profile, her INR is> 4.0 she is being admitted to the ICU, I do note that she is on a PPI drip, patient also getting antibiotics and in addition Sandostatin , she has a high likelihood of having a previous upper GI bleeding, based on her presentation however her BUN to Creat ratio is also elevated patient however has a an elevated INR, this needs to be corrected to at least < 1.5 prior to being able to be scoped she will need either large volumes of VitK or FFP for this until then she is not a candidate for EGD since her primary GI is at [facility], I would suggest that they be contacted to see if they are able to accept the patient in transfer in the meanwhile , she can receive antibiotics, have her coags reversed, transfusion of blood as needed I would agree with the use of PPI and a Sandostatin drip Past Medical History Cardiac Medical History: Denies: Coronary Artery Disease, Myocardial Infarction, Hypertension Pulmonary Medical History: Denies: Asthma, Bronchitis, Chronic Obstructive Pulmonary Disease (COPD), Pneumonia Neurological Medical History: Reports: Seizures - ON MEDICATION GI Medical History: Reports: Cirrhosis Musculoskeltal Medical History: Denies: Arthritis Psychiatric Medical History: Reports: Depression Hematology: Reports: Anemia Past Surgical History Past Surgical History: Reports: Hysterectomy, Orthopedic Surgery - C-spine fusion summer Social History Smoking Status: Current Every Day Smoker Frequency of Alcohol Use: Heavy Hx Recreational Drug Use: No Hx Prescription Drug Abuse: No - Advance Directive Resuscitation Status: Full Code Family History Family History: COPD, Hypertension Parental Family History Reviewed: Yes Children Family History Reviewed: Unknown Sibling(s) Family History Reviewed.: Unknown Medication/Allergy Home Medications: Phenytoin Sodium Extended [Dilantin 100 mg Capsule.er] 500 mg PO DAILY 01/02/16 Cephalexin Monohydrate [Keflex 500 mg Capsule] 500 mg PO Q6 12/23/16 Metoclopramide HCl [Reglan 10 mg Tablet] 10 mg PO Q6 12/23/16 Promethazine HCl [Phenergan 25 mg Tablet] 25 mg PO Q4HP PRN 12/23/16 Allergies/Adverse Reactions: tetracycline Allergy (Verified 01/02/16 04:01) Review of Systems Constitutional: PRESENT: weakness. ABSENT: fever(s), headache(s), night sweats Eyes: ABSENT: visual disturbances Nose, Mouth, and Throat: ABSENT: sore throat Cardiovascular: ABSENT: chest pain, palpitations Respiratory: ABSENT: dyspnea, hemoptysis Gastrointestinal: PRESENT: melena, nausea, vomiting Genitourinary: ABSENT: dysuria, hematuria Musculoskeletal: ABSENT: deformity, joint swelling Integumentary: ABSENT: lesions, pruritus Neurological: PRESENT: abnormal speech, lack of coordination, weakness. ABSENT : syncope, tremor(s), vertigo Endocrine: ABSENT: polydipsia, polyphagia, polyuria Hematologic/Lymphatic: ABSENT: easy bruising, lymphadenopathy Physical Exam Vital Signs: Temp Pulse Resp BP Pulse Ox 37 H 105/63 100 12/23/16 18:01 12/23/16 18:01 12/23/16 18:01 General appearance: PRESENT: mild distress Head exam: PRESENT: atraumatic, normocephalic Eye exam: PRESENT: EOMI, PERRLA, scleral icterus. ABSENT: periorbital swelling Mouth exam: PRESENT: moist, neck supple Throat exam: ABSENT: tonsillar exudate, tonsillogmegaly Neck exam: ABSENT: meningismus, tenderness, thyromegaly, tracheal deviation Respiratory exam: PRESENT: symmetrical, tachypnea. ABSENT: stridor, wheezes Cardiovascular exam: PRESENT: RRR, +S1, +S2 GI/Abdominal exam: PRESENT: diminished bowel sounds, soft, tenderness. ABSENT: Carcamo's sign, rebound, rigid Gentrourinary exam: ABSENT: testicular tenderness Extremities exam: ABSENT: pedal edema Musculoskeletal exam: PRESENT: normal inspection Neurological exam: PRESENT: altered, CN II-XII grossly intact Skin exam: PRESENT: normal color. ABSENT: mottled, pallor, petechiae, urticaria , vesicles Results Laboratory Results: 12/23/16 12/23/16 12/23/16 19:55 19:55 20:25 Seg Neutrophils % Not Reportable Lymphocytes % Not Reportable Monocytes % Not Reportable Eosinophils % Not Reportable Basophils % Not Reportable Absolute Neutrophils Not Reportable Absolute Lymphocytes Not Reportable Absolute Monocytes Not Reportable Absolute Eosinophils Not Reportable Absolute Basophils Not Reportable Carbonic Acid 0.66 L HCO3/H2CO3 Ratio 31:1 ABG pH 7.60 H* ABG pCO2 21.8 L ABG pO2 71.5 L ABG HCO3 20.8 ABG O2 Saturation 96.8 ABG Base Excess -0.2 FiO2 ROOM AIR Lactic Acid 5.4 H Impressions: Chest X-Ray 12/23/16 14:51 IMPRESSION: Right lower lobe airspace disease worrisome for pneumonia. Aspiration should be considered. Large retrocardiac hiatal hernia. Head CT 12/23/16 14:54 IMPRESSION: No acute findings EVIDENCE OF ACUTE STROKE: NO. Assessment & Plan - Diagnosis (1) Anemia Qualifiers: Anemia type: other cause Plan: multifactorial but likely due to chronic anemia along with acute blood loss she has dropped her Hgb from about 12 to 7 would consider transfusion (2) GI bleed Plan: she likely has bled from esophageal varices would agree with a PPI drip and Sandostatin since she is not currently a candidate for EGD given her profound coagulopathy she will need FPP and correction to INR < 1.5 for EGD to be done (3) Hepatic encephalopathy Plan: she will need lactulose, either per NG tube or per rectum titrate to diarrhea do not need to follow ammonia and clinically she will improve once her ammonia decrease will need treat on going infection as well would cover with broad spectrum antibiotics since she does have cirrhosis, would also have gram negative coverage she may potentially develop ascites along with SBP given all the fluids that she will receive (4) Alcohol abuse Plan: her Hepatitis studies are negative could be due previous alcohol ingestion and abuse her abnormal LFT's would certainly suggest an alcoholic hepatitis at this time (5) Alcoholic cirrhosis of liver Plan: would rule out for other sources would try to get records from [facility] to see if any other etiology has been found would also recommend contacting primary GI and transfer patient to a tertiary institution where there is availability of interventional radiology is present to consider TIPS placement if needed (6) Liver enzyme elevation Plan: likely due to alcoholic hepatitis at this point - Time Time Spent: Greater than 70 Minutes
--- NOTE | 2016-12-23 21:21 | RADIOLOGY REPORT (SQ) ---
EXAM DESCRIPTION: KUB/ABDOMEN (SINGLE VIEW) COMPLETED DATE/TIME: 12/23/2016 9:01 pm REASON FOR STUDY: Check Placement of NG Tube COMPARISON: None. TECHNIQUE: AP view of the lower thorax and upper abdomen LIMITATIONS: None. FINDINGS: NG tube is identified with its tip just to the right of midline presumably in the distal s tomach. IMPRESSION: NG tube with its tip just to the right of midline presumably in the distal stomach. TECHNICAL DOCUMENTATION: JOB ID: [id number] [employer]- All Rights Reserved
[2016-12-23] MEDS ORDERED: LORAZEPAM INJ 2 MG/1 ML VIAL IV PRN (21:41)
[2016-12-23] MEDS ORDERED: FUROSEMIDE INJ/PF 20 MG/2 ML SDV IV PRN (21:45)
[2016-12-23] MEDS ORDERED: PANTOPRAZOLE SODIUM 40 MG VIAL IV ONE (21:49)
[2016-12-23] MEDS ORDERED: PANTOPRAZOLE SODIUM 80 MG in NORMAL SALINE 100 ML IV ONE (22:00)
[2016-12-23] MEDS ORDERED: PHYTONADIONE INJ 10 MG/1 ML AMPULE SUBCUT ONE (22:00)
[2016-12-23] MEDS ORDERED: PANTOPRAZOLE SODIUM 40 MG VIAL IV SCH (22:00)
[2016-12-23] MEDS ORDERED: LEVOFLOXACIN 500 MG/D5W RTU 500 MG/100 ML RTUPB IV SCH (22:00)
[2016-12-23] MEDS: NORMAL SALINE 100 ML with PANTOPRAZOLE SODIUM 80 MG IV PRN ×2 (22:44)
--- NOTE | 2016-12-23 23:18 | OPERATIVE REPORT E ---
Operative Report NAME: JENNA BUCHANAN : 1955 AGE: 61Y DATE OF SURGERY: 12/23/2016 ROOM: [facility] PREOPERATIVE DIAGNOSIS: POOR VEINS FOR IV ACCESS AND COAGULOPATHY. POSTOPERATIVE DIAGNOSIS: POOR VEINS FOR IV ACCESS AND COAGULOPATHY. OPERATION: Insertion of right femoral vein catheter. SURGEON: ANUEL DIANA M.D. ANESTHESIA: Local. INDICATIONS: This is a 61-year-old female who has a history of cirrhosis of the liver and pneumonia and INRs up to 4. She needed a lot of medications and blood and fresh frozen plasma and she does not have any peripheral veins for IV access. PROCEDURE: Patient was placed in the supine position and the right groin prepped and draped in the usual sterile fashion. With the use of ultrasound, the right common femoral vein was then identified. Local anesthesia infiltrated on the path of the common femoral vein. The common femoral vein was then punctured and guidewire passed through the needle into the direction of the inferior vena cava. Needle was removed and the puncture site enlarged. Next, triple lumen catheter was inserted for the guidewire up to about 1 cm from the *------*. All of the three ports were then aspirated of blood easily and infused saline easily. Next, the catheter was anchored to the skin with 3-0 silk. A bypass phase of the insertion site *------* transparent sterile dressing was placed over the Biopatch and catheter. Patient tolerated the procedure well. DICTATING PHYSICIAN: ANUEL DIANA M.D. [id number] Y#: [id number] ID: [id number] JOB#: [id number] ACCT: [id number] cc:ANUEL DIANA M.D. >
--- NOTE | 2016-12-23 23:58 | EKG REPORT ---
SEVERITY:- BORDERLINE ECG - SINUS TACHYCARDIA BORDERLINE T WAVE ABNORMALITIES : Confirmed by: Mandeep Wadsworth 23-Dec-2016 23:57:46
[2016-12-24] MEDS ORDERED: IPRATROPIUM/ALBUTEROL 0.5-2.5 MG/3 ML AMPUL NEB ONE (02:13)
[2016-12-24] MEDS: IPRATROPIUM/ALBUTEROL 0.5-2.5 MG/3 ML AMPUL NEB PRN ×2 (02:56→17:06)
[2016-12-24] MEDS ORDERED: FUROSEMIDE INJ/PF 20 MG/2 ML SDV IV ONE (03:27)
[2016-12-24] MEDS ORDERED: METHYLPREDNISOLONE INJ 40 MG/1 ML SDV IV ONE (03:38)
[2016-12-24 05:23] LABS: ARTERIAL BLOOD BASE EXCESS 2.2 mmol/L
[2016-12-24 05:37] LABS: HEMATOCRIT 32.9 % (36.0-47.0); HGB HCT DIFFERENCE 0.7; MEAN CORPUSCULAR HEMOGLOBIN 30.7 pg (27.0-33.4); MEAN CORPUSCULAR HGB CONC 34.2 g/dL (32.0-36.0); RED BLOOD COUNT 3.66 10^6/uL (3.72-5.28); RED CELL DISTRIBUTION WIDTH 15.5 % (11.5-14.0); WHITE BLOOD COUNT 20.6 10^3/uL (4.0-10.5)
[2016-12-24 05:43] LABS: ANION GAP 13 (5-19); BLOOD UREA NITROGEN 34 mg/dL (7-20); CALCIUM 7.9 mg/dL (8.4-10.2); CARBON DIOXIDE 23 mmol/L (22-30); CHLORIDE 114 mmol/L (98-107); CREATININE RESULT 0.55 mg/dL (0.52-1.25); GLUCOSE 138 mg/dL (75-110); MAGNESIUM 1.6 mg/dL (1.6-2.3); SODIUM 150.3 mmol/L (137-145)
[2016-12-24 05:44] LABS: PROTHROMBIN TIME 21.6 SEC (11.4-15.4)
[2016-12-24 05:48] LABS: POTASSIUM 2.9 mmol/L (3.6-5.0)
[2016-12-24] MEDS ORDERED: POTASSIUM CHLORIDE 20 MEQ/15 ML UDCUP NG ONE (05:57)
[2016-12-24 05:58] LABS: FREE T3 2.63 pg/mL (2.77-5.27)
[2016-12-24] MEDS ORDERED: LACTULOSE SYRUP 20 GM/30 ML UDCUP NG SCH (06:00)
[2016-12-24] MEDS ORDERED: METHYLPREDNISOLONE INJ 40 MG/1 ML SDV IV SCH ×2 (06:00→22:00)
[2016-12-24 06:12] LABS: THYROID STIMULATING HORMONE 0.16 uIU/mL (0.47-4.68)
[2016-12-24 06:22] LABS: BASOPHILS % (MANUAL) 0 % (0-2); EOSINOPHILS % (MANUAL) 0 % (0-6); LYMPHOCYTES % (MANUAL) 13 % (13-45); TOTAL CELLS COUNTED 100
[2016-12-24 06:26] LABS: ANISOCYTOSIS 1+; BURR CELLS SLIGHT; POLYCHROMASIA 1+; SCHISTOCYTES SLIGHT; TOXIC GRANULATION SLIGHT
[2016-12-24 06:27] LABS: HEMOGLOBIN 11.2 g/dL (12.0-15.5)
[2016-12-24 06:28] LABS: MEAN CORPUSCULAR VOLUME 90 fl (80-97)
[2016-12-24] MEDS: MAGNESIUM SULFATE/D5W 1 GM/100 ML RTUPB IV SCH ×3 (06:49→08:39)
[2016-12-24] MEDS: POTASSI CL 20 MEQ/50 ML RIDER 20 MEQ/50 ML RTUPB IV SCH ×2 (06:50→08:38)
[2016-12-24] MEDS: PHENYTOIN SODIUM INJ/PF 100 MG/2 ML SDV IV SCH ×2 (06:50→14:35)
[2016-12-24] MEDS: NORMAL SALINE 500 ML with OCTREOTIDE ACETATE 500 MCG IV PRN ×4 (07:05→18:16)
[2016-12-24] MEDS: NORMAL SALINE 100 ML with PANTOPRAZOLE SODIUM 80 MG IV PRN ×2 (09:52)
[2016-12-24] MEDS ORDERED: ACETAMINOPHEN 100 ML IV PRN (09:59)
--- NOTE | 2016-12-24 10:15 | PDOC PROGRESS REPORT ---
Subjective Progress Note for:: 12/24/16 Subjective:: This is a follow-up visit for GI bleed. The patient is still not responsive. Overnight she had correction of her multiple electrolyte derangements. NG tube was placed and she had approximately 400 mL out of coffee-ground emesis. The GI service did come and see her and clarified that the patient usually follows at [facility] and that she likely had a recent upper endoscopy. We will try and obtain those records. Overnight the patient developed liquid stools. She did receive a dose of lactulose down in the ED and I believe further doses here on the floor. It is unclear as to whether or not she had these liquid stools prior to admission or not. The patient had been prescribed Keflex as an outpatient but as per my conversation with the ED, the patient was not able to take the medication secondary to her mental status change. It seems that overnight her pulse rate did come down from 120s. However, the patient still remains tachypneic at 30. In addition, overnight the patient received a total of 4 units of packed red blood cells as well as FFP to correct Her coagulopathy. Physical Exam Vital Signs: Temp Pulse Resp BP Pulse Ox 100.4 F 101 H 25 H 109/68 99 12/24/16 08:15 12/24/16 08:15 12/24/16 08:15 12/24/16 08:15 12/24/16 08:15 Intake & Output 12/23/16 12/24/16 12/25/16 06:59 06:59 06:59 Intake Total 2405 609 Output Total 1860 250 Balance 545 359 Weight 56 kg Lines: Right femoral CVL Drips: Octreotide GENERAL: This is a well-developed frail and chronically ill-appearing white female resting in bed currently looking quite sick. The patient is jaundiced. HEENT: Normocephalic atraumatic. Scleral icterus is present. Dry mucous membranes. Pupillary response on the right is not reactive the left is sluggish. No submandibular lymphadenopathy. Trachea is midline. NG tube is in place. Scant amount of maroon colored discharges in the container. (It appears as though the container has been emptied) HEART: Regular rate and rhythm in the 90s at the bedside. 1 out of 6 to 2 out of 6 systolic ejection murmur heard best over the left upper sternal border. No gallops or rubs. LUNGS: Clear to auscultation from the anterior perspective bilaterally with equal rise and fall of the chest. Laterally, the patient sounds diminished and slightly coarse. The patient is tachypneic at around 30 at the bedside. Her breaths are shallow. ABDOMEN: Soft, I do not elicit any grimace on palpation. Positive distention, but much less by comparison from yesterday. Diminished bowel sounds. EXTREMETIES: No clubbing, cyanosis or edema. 2+ peripheral pulses bilaterally. Right femoral line is now present. NEURO: Somnolent. the patient is not alert. She does not awaken with shaking of her shoulder, to the sound of my voice or with light nonaggressive sternal rub. Skin: Spider angiomata are present across the neck chest and a few in the abdomen. Caput medusa is not present. No palmar erythema. Her skin is overly bronzed and jaundiced. the patient has a very large Area of ecchymosis and induration of the right AC. Results Laboratory Results: 12/24/16 05:00 12/24/16 05:00 12/23/16 12/23/16 12/23/16 19:55 19:55 20:25 WBC 26.0 H RBC 2.09 L Hgb 6.7 L Hct 19.9 L MCV 95 MCH 31.9 MCHC 33.6 RDW 15.4 H Plt Count 203 Seg Neutrophils % Not Reportable Lymphocytes % Not Reportable Monocytes % Not Reportable Eosinophils % Not Reportable Basophils % Not Reportable Absolute Neutrophils Not Reportable Absolute Lymphocytes Not Reportable Absolute Monocytes Not Reportable Absolute Eosinophils Not Reportable Absolute Basophils Not Reportable Carbonic Acid 0.66 L HCO3/H2CO3 Ratio 31:1 ABG pH 7.60 H* ABG pCO2 21.8 L ABG pO2 71.5 L ABG HCO3 20.8 ABG O2 Saturation 96.8 ABG Base Excess -0.2 FiO2 ROOM AIR Sodium Potassium Chloride Carbon Dioxide Anion Gap BUN Creatinine Est GFR ( Amer) Est GFR (Non-Af Amer) Glucose Lactic Acid 5.4 H Calcium Magnesium Ammonia TSH Free T3 pg/mL 12/24/16 12/24/16 12/24/16 05:00 05:00 05:00 WBC RBC Hgb Hct MCV MCH MCHC RDW Plt Count Seg Neutrophils % Lymphocytes % Monocytes % Eosinophils % Basophils % Absolute Neutrophils Absolute Lymphocytes Absolute Monocytes Absolute Eosinophils Absolute Basophils Carbonic Acid HCO3/H2CO3 Ratio ABG pH ABG pCO2 ABG pO2 ABG HCO3 ABG O2 Saturation ABG Base Excess FiO2 Sodium 150.3 H Potassium 2.9 L* Chloride 114 H Carbon Dioxide 23 Anion Gap 13 BUN 34 H Creatinine 0.55 Est GFR ( Amer) > 60 Est GFR (Non-Af Amer) > 60 Glucose 138 H Lactic Acid Calcium 7.9 L Magnesium 1.6 Ammonia 38.0 H TSH 0.16 L Free T3 pg/mL 2.63 L 12/24/16 12/24/16 05:00 05:00 WBC 20.6 H RBC 3.66 L Hgb 11.2 L D Hct 32.9 L MCV 90 D MCH 30.7 MCHC 34.2 RDW 15.5 H Plt Count 116 L Seg Neutrophils % Not Reportable Lymphocytes % Not Reportable Monocytes % Not Reportable Eosinophils % Not Reportable Basophils % Not Reportable Absolute Neutrophils Not Reportable Absolute Lymphocytes Not Reportable Absolute Monocytes Not Reportable Absolute Eosinophils Not Reportable Absolute Basophils Not Reportable Carbonic Acid 0.79 L HCO3/H2CO3 Ratio 29:1 ABG pH 7.56 H ABG pCO2 26.3 L ABG pO2 62.8 L ABG HCO3 23.2 ABG O2 Saturation 95.0 ABG Base Excess 2.2 FiO2 2L Sodium Potassium Chloride Carbon Dioxide Anion Gap BUN Creatinine Est GFR ( Amer) Est GFR (Non-Af Amer) Glucose Lactic Acid Calcium Magnesium Ammonia TSH Free T3 pg/mL 12/24/16 05:00 NT-Pro-B Natriuret Pep 409 Impressions: Chest X-Ray 12/23/16 14:51 IMPRESSION: Right lower lobe airspace disease worrisome for pneumonia. Aspiration should be considered. Large retrocardiac hiatal hernia. Head CT 12/23/16 14:54 IMPRESSION: No acute findings EVIDENCE OF ACUTE STROKE: NO. KUB X-Ray 12/23/16 19:03 IMPRESSION: NG tube with its tip just to the right of midline presumably in the distal stomach. Assessment & Plan - Diagnosis (1) GI bleed Plan: This may be upper GI bleed. The patient was noted to have coffee-ground emesis 11/13 days ago in the ED prior to being sent home. She is still Hemoccult positive and has had a 5 unit drop in her blood count. Status post 4 units of packed red blood cells. NG tube is in place. Repeat H&H is pending. Continue Protonix and octreotide. GI is following. We will try to identify who her primary planning manager is at [facility] and obtain records. Abdomen appears much less distended. (2) Severe sepsis Plan: Severe sepsis still remains on the differential. The patient did present with tachypnea, tachycardia, fever, and hypotension requiring fluid boluses. She does have a source of underlying aspiration pneumonia and an elevated white blood cell count, and lactic acidosis. Also presented with mental status changes which indicate end organ damage. However, she has other issues going on that could explain all of these things. While severe sepsis still remains part of the differential, I suspect that this is mostly her anemia of acute blood loss that is leading to tachycardia. White blood cell count can typically go up transiently during a GI bleed. Her altered mental status can be accounted for by her underlying alcoholic cirrhosis and ammonia of 110. We will continue her on antibiotics. And continue to monitor. We will provide her with IV Tylenol max dose 2 g per day due to her cirrhosis. (3) Anemia Qualifiers: Anemia type: other cause Other causes of anemia: acute posthemorrhagic Qualified Code(s): D62 - Acute posthemorrhagic anemia Plan: This is anemia of acute blood loss. The patient had a declination in her hemoglobin from 12-7 over a 48 hour period. She is status post a total of 4 units of packed red blood cells at this point. See management of GI bleed further details and management. Repeat H&H is pending. (4) Encephalopathy acute Plan: This could be due to either underlying cirrhosis or secondary to her severe sepsis. Patient apparently at baseline is not confused and normal thinking. This would be considered a definite change. Continue to monitor. She received a dose of lactulose p.o. down in the ED. I am going to try to avoid lactulose TN because of suspected underlying GI bleed. Waiting for repeat ammonia level. (5) Alcoholic cirrhosis of liver Plan: She is status post a dose of lactulose down in the ED. avoid TN lactulose for now. (6) Metabolic acidosis Plan: Patient has combined respiratory alkalosis with metabolic acidosis. Repeat lactic acid up higher at 5.4. Patient is hyperchloremic. See hyponatremia below. The patient is tachypneic. PH on arterial blood gas was 7.6 yesterday and is currently 7.5 today. (7) Urinary tract infection Qualifiers: Urinary tract infection type: site unspecified Hematuria presence: without hematuria Qualified Code(s): N39.0 - Urinary tract infection, site not specified Plan: There was no infection on the recent cultures, as the sample was contaminated. She was sent out 2 days ago on Keflex but not able take the medicine due to confusion. Repeat blood cultures and urine cultures are currently pending. The patient is status post antibiotics in the ED. (8) Pneumonia Qualifiers: Pneumonia type: aspiration pneumonia Aspiration pneumonia type: unspecified Laterality: right Lung location: lower lobe of lung Qualified Code(s): J69.0 - Pneumonitis due to inhalation of food and vomit Plan: This is an aspiration pneumonia most likely. The patient has been confused recently and she certainly could have aspirated her own secretions. Continue antibiotics with Levaquin. The patient was felt to be wheezy overnight and was started on Solu-Medrol 80 every 8 8. We will decrease his today to 40 every 12 and hopefully be able to taper off if appropriate. (9) Coagulopathy Plan: Likely secondary from underlying cirrhosis. The patient has received transfusion of FFP as well as vitamin K. Her INR is now down to 1.7. (10) Hypokalemia Plan: This is currently being replaced. Repeat is pending. (11) Diarrhea Plan: The patient has had copious liquid stools. She had a dose of lactulose in the ER and apparently more doses here rectally down in the ICU. I suspect that this is what caused her diarrhea. Discontinue TN lactulose. Obtain C. difficile specimen. The patient was on outpatient antibiotics but from my understanding she did get to take much of it due to her confusion. Since I cannot verify this will go ahead and check C. difficile. (12) Hypernatremia Plan: Likely secondary to underlying boluses in the ED and any fluids received with transfusion. She is also hyperchloremic. I am going to discontinue normal saline solution and change her to half-normal. Repeat BMP later today. (13) DJD (degenerative joint disease), cervical Plan: Patient is s/p cervical fusion as per family and has been in a soft collar for almost one year (14) Seizure Plan: On dilantin at home. levels pending. No active convulsions. EEG to be considered given mental status changes. Will wait to see if ammonia level improves. CT head negative. - Time Critical Time spent with patient: 35 or more minutes - Inpatient Certification Medical Necessity: Need Close Monitoring Due to Risk of Patient Decompensation - Plan Summary Plan Summary: 47 minutes were spent in the care of this patient.
[2016-12-24 10:17] LABS: ABSOLUTE BASOPHILS # (AUTO) 0.1 10^3/uL (0.0-0.2); ABSOLUTE LYMPHOCYTES (AUTO) 1.8 10^3/uL (0.5-4.7); ABSOLUTE MONOCYTES (AUTO) 0.8 10^3/uL (0.1-1.4); ABSOLUTE NEUT (AUTO) 11.7 10^3/uL (1.7-8.2); BASOPHILS % (AUTO) 0.4 % (0-2); HEMATOCRIT 29.7 % (36.0-47.0); HEMOGLOBIN 10.3 g/dL (12.0-15.5); HGB HCT DIFFERENCE 1.2; LYMPHOCYTES % (AUTO) 12.4 % (13-45); MEAN CORPUSCULAR HEMOGLOBIN 30.8 pg (27.0-33.4); MEAN CORPUSCULAR HGB CONC 34.5 g/dL (32.0-36.0); MEAN CORPUSCULAR VOLUME 89 fl (80-97); MONOCYTES % (AUTO) 5.8 % (3-13); RED BLOOD COUNT 3.33 10^6/uL (3.72-5.28); RED CELL DISTRIBUTION WIDTH 15.3 % (11.5-14.0); SEGMENTED NEUTROPHILS % (AUTO) 81.4 % (42-78); WHITE BLOOD COUNT 14.4 10^3/uL (4.0-10.5)
[2016-12-24] MEDS ORDERED: DEXTROSE 5%-1/2 NORMAL SALINE 1,000 ML IV PRN (10:17)
--- NOTE | 2016-12-24 13:34 | PDOC PROGRESS REPORT ---
Subjective Progress Note for:: 12/24/16 Subjective:: patient is seen at bedside cervical collar is on NG not draining blood vital signs are much improved patient's family member by bedside confirms that patient had EGD at [facility] noted to have varices likely has sustained a variceal bleed, no likely resolved patient's family requesting transfer to [facility] RN is letting Hospitalist physician know about that request patient continue on PPI drip, continue Sandostatin about 72 hours H/H following blood transfusion is stable Coagulopathy has been corrected now has hypernatremia and hypokalemia Physical Exam Vital Signs: Temp Pulse Resp BP Pulse Ox 100.4 F 103 H 27 H 115/70 98 12/24/16 09:40 12/24/16 09:45 12/24/16 09:40 12/24/16 09:40 12/24/16 09:40 Intake & Output 12/23/16 12/24/16 12/25/16 06:59 06:59 06:59 Intake Total 2405 609 Output Total 1860 415 Balance 545 194 Weight 56 kg General appearance: PRESENT: no acute distress Head exam: PRESENT: atraumatic, normocephalic Eye exam: PRESENT: EOMI, PERRLA. ABSENT: nystagmus Mouth exam: PRESENT: moist Throat exam: ABSENT: tonsillar exudate, tonsillogmegaly Neck exam: ABSENT: meningismus, tenderness, thyromegaly Respiratory exam: PRESENT: symmetrical, unlabored. ABSENT: tachypnea, wheezes Cardiovascular exam: PRESENT: RRR, +S1, +S2 GI/Abdominal exam: PRESENT: soft. ABSENT: rebound, rigid, tenderness Extremities exam: ABSENT: joint swelling Musculoskeletal exam: PRESENT: full ROM Neurological exam: PRESENT: CN II-XII grossly intact Skin exam: PRESENT: normal color. ABSENT: mottled, pallor, urticaria, vesicles Results Laboratory Results: 12/24/16 10:03 12/24/16 05:00 12/23/16 12/23/16 12/23/16 19:55 19:55 20:25 WBC 26.0 H RBC 2.09 L Hgb 6.7 L Hct 19.9 L MCV 95 MCH 31.9 MCHC 33.6 RDW 15.4 H Plt Count 203 Seg Neutrophils % Not Reportable Lymphocytes % Not Reportable Monocytes % Not Reportable Eosinophils % Not Reportable Basophils % Not Reportable Absolute Neutrophils Not Reportable Absolute Lymphocytes Not Reportable Absolute Monocytes Not Reportable Absolute Eosinophils Not Reportable Absolute Basophils Not Reportable Carbonic Acid 0.66 L HCO3/H2CO3 Ratio 31:1 ABG pH 7.60 H* ABG pCO2 21.8 L ABG pO2 71.5 L ABG HCO3 20.8 ABG O2 Saturation 96.8 ABG Base Excess -0.2 FiO2 ROOM AIR Sodium Potassium Chloride Carbon Dioxide Anion Gap BUN Creatinine Est GFR ( Amer) Est GFR (Non-Af Amer) Glucose Lactic Acid 5.4 H Calcium Magnesium Ammonia TSH Free T3 pg/mL 12/24/16 12/24/16 12/24/16 05:00 05:00 05:00 WBC RBC Hgb Hct MCV MCH MCHC RDW Plt Count Seg Neutrophils % Lymphocytes % Monocytes % Eosinophils % Basophils % Absolute Neutrophils Absolute Lymphocytes Absolute Monocytes Absolute Eosinophils Absolute Basophils Carbonic Acid HCO3/H2CO3 Ratio ABG pH ABG pCO2 ABG pO2 ABG HCO3 ABG O2 Saturation ABG Base Excess FiO2 Sodium 150.3 H Potassium 2.9 L* Chloride 114 H Carbon Dioxide 23 Anion Gap 13 BUN 34 H Creatinine 0.55 Est GFR ( Amer) > 60 Est GFR (Non-Af Amer) > 60 Glucose 138 H Lactic Acid Calcium 7.9 L Magnesium 1.6 Ammonia 38.0 H TSH 0.16 L Free T3 pg/mL 2.63 L 12/24/16 12/24/16 12/24/16 05:00 05:00 10:03 WBC 20.6 H 14.4 H RBC 3.66 L 3.33 L Hgb 11.2 L D 10.3 L Hct 32.9 L 29.7 L MCV 90 D 89 MCH 30.7 30.8 MCHC 34.2 34.5 RDW 15.5 H 15.3 H Plt Count 116 L 63 L Seg Neutrophils % Not Reportable 81.4 H Lymphocytes % Not Reportable 12.4 L Monocytes % Not Reportable 5.8 Eosinophils % Not Reportable 0.0 Basophils % Not Reportable 0.4 Absolute Neutrophils Not Reportable 11.7 H Absolute Lymphocytes Not Reportable 1.8 Absolute Monocytes Not Reportable 0.8 Absolute Eosinophils Not Reportable 0.0 Absolute Basophils Not Reportable 0.1 Carbonic Acid 0.79 L HCO3/H2CO3 Ratio 29:1 ABG pH 7.56 H ABG pCO2 26.3 L ABG pO2 62.8 L ABG HCO3 23.2 ABG O2 Saturation 95.0 ABG Base Excess 2.2 FiO2 2L Sodium Potassium Chloride Carbon Dioxide Anion Gap BUN Creatinine Est GFR ( Amer) Est GFR (Non-Af Amer) Glucose Lactic Acid Calcium Magnesium Ammonia TSH Free T3 pg/mL 12/24/16 05:00 NT-Pro-B Natriuret Pep 409 Impressions: Chest X-Ray 12/23/16 14:51 IMPRESSION: Right lower lobe airspace disease worrisome for pneumonia. Aspiration should be considered. Large retrocardiac hiatal hernia. Head CT 12/23/16 14:54 IMPRESSION: No acute findings EVIDENCE OF ACUTE STROKE: NO. KUB X-Ray 12/23/16 19:03 IMPRESSION: NG tube with its tip just to the right of midline presumably in the distal stomach. Assessment & Plan - Diagnosis (1) Anemia Qualifiers: Anemia type: other cause Other causes of anemia: acute posthemorrhagic Qualified Code(s): D62 - Acute posthemorrhagic anemia Plan: has improved with blood transfusion patient has a known history of cirrhosis, and esophageal varices by report patient's family says was turned down for hiatal hernia reduction surgery given the above risks. keep systolic on the lower side 120-130 SBP as it will increase the risk of repeat variceal bleeding if > 140mm Hg (2) GI bleed Plan: due to varices as he has had EGD done in the past at [facility] continue transfusion continue with PPI keep on Sandostatin patient's family requesting transfer Dr Curtis will be initiating transfer if rebleed , may need Interventional radiology which is not available yet (3) Hepatic encephalopathy Plan: continue lactulose (4) Alcohol abuse Plan: likely a cause for her cirrhosis (5) Alcoholic cirrhosis of liver Plan: alcoholic hepatitis - Time Time Spent with patient: 25-34 minutes
[2016-12-24] MEDS ORDERED: INFLUENZA ADLT QUAD (36MOS+) 2017-18 VAC 0.5 ML SYR IM PRN (13:59)
[2016-12-24 14:59] LABS: ABSOLUTE LYMPHOCYTES (AUTO) 2.7 10^3/uL (0.5-4.7); BASOPHILS % (AUTO) 0.2 % (0-2); EOSINOPHILS % (AUTO) 0.1 % (0-6); HEMATOCRIT 29.3 % (36.0-47.0); HEMOGLOBIN 10.2 g/dL (12.0-15.5); HGB HCT DIFFERENCE 1.3; LYMPHOCYTES % (AUTO) 18.2 % (13-45); MEAN CORPUSCULAR HEMOGLOBIN 31.1 pg (27.0-33.4); MEAN CORPUSCULAR HGB CONC 34.9 g/dL (32.0-36.0); MEAN CORPUSCULAR VOLUME 89 fl (80-97); MONOCYTES % (AUTO) 6.8 % (3-13); RED BLOOD COUNT 3.29 10^6/uL (3.72-5.28); RED CELL DISTRIBUTION WIDTH 15.4 % (11.5-14.0); SEGMENTED NEUTROPHILS % (AUTO) 74.7 % (42-78); WHITE BLOOD COUNT 14.7 10^3/uL (4.0-10.5)
--- NOTE | 2016-12-24 16:03 | PDOC DISCHARGE SUMMARY ---
General - Admit/Disc Date/PCP Admission Date/Primary Care Provider: 12/23/16 18:13 - Discharge Diagnosis (1) GI bleed Summary: Patient has received a total of 4 units of packed red blood cells. Ultimately her hemoglobin came up to 11.4. At last check it was now down to 10.2. I believe the patient is still actively bleeding. We will transfer her to [facility] for urgent EGD. I suspect she has underlying esophageal varices. Continue Protonix and octreotide drips while in route. We will plan on air lifting the patient to [facility]. She will be accepted to the ICU and GI will be on standby for scoping. (2) Severe sepsis Summary: See today's note (3) Anemia Summary: See today's note (4) Encephalopathy acute Summary: See today's note (5) Alcoholic cirrhosis of liver Summary: See today's note (6) Metabolic acidosis Summary: See today's note (7) Urinary tract infection Summary: See today's note (8) Pneumonia Summary: See today's note (9) Coagulopathy Summary: The patient was transferred 2 units of FFP. INR is come down from 4-1.7. (10) Hypokalemia Summary: See today's note. This is been replaced. Repeat BMP was pending at the time of discharge. (11) Diarrhea Summary: See today's note (12) Hypernatremia Summary: See today's note (13) DJD (degenerative joint disease), cervical Summary: see todays's note (14) Seizure Summary: dilantin level pending - Additional Information Resuscitation Status: Full Code Home Medications: Phenytoin Sodium Extended [Dilantin 100 mg Capsule.er] 500 mg PO DAILY 01/02/16 Cephalexin Monohydrate [Keflex 500 mg Capsule] 500 mg PO Q6 12/23/16 Metoclopramide HCl [Reglan 10 mg Tablet] 10 mg PO Q6 12/23/16 Promethazine HCl [Phenergan 25 mg Tablet] 25 mg PO Q4HP PRN 12/23/16 Ergocalciferol (Vitamin D2) [Drisdol 50,000 Unit (1.25MG) Capsule] 50,000 unit PO 12/24/16 Oxycodone HCl [Oxy-Ir 5 mg Tablet] 10 mg PO Q6HP PRN MDD 4 TABS 12/24/16 Oxycodone HCl [Oxycontin] 20 mg PO Q12 12/24/16 Pregabalin [Lyrica 100 Mg Capsule] 100 mg PO QPM 12/24/16 History of Present Illness History of Present Illness: JENNA BUCHANAN is a 61 year old white female with a past medical history significant for alcoholic cirrhosis who presented to the ED 2 days ago and was diagnosed with pyelonephritis and now Represents today with altered mental status. At her initial ED visit, she was diagnosed with urinary tract infection and was sent home with Keflex. She also was diagnosed with hematemesis and was noted to vomit coffee-ground emesis in the ED and heme positive stools.. She was instructed to follow-up with her sales and service engineer, Dr. Wright. It was also noted that her Dilantin level was too high and she was advised to decrease the dose from 500 a day to 400 a day. She was advised to follow with her neurologist and to return to the ED if her symptoms worsened. During that visit her hemoglobin was 12.2 and her INR was normal. She was found to be confused and was brought in by her family member. Apparently during his state of confusion the patient could not take her medications. On re -presentation today, the patient was noted to have an elevated white count of 23 , an ammonia level of 110, hemoglobin of 7.5, and guaiac positive stools. Lactic acid was noted to be 4.9 and an INR of 4. To be tachycardic in the 120s. Cultures from her previous ED visit came back showing it to be a mixed specimen. The patient was given a dose of Rocephin, clindamycin and azithromycin down in the emergency room. She was also given a dose of lactulose as well as Zofran a fluid bolus. CT scan of the head was done and was negative. Chest x-ray shows possible aspiration pneumonia with a right lower lobe infiltrate. Hospital Course Hospital Course: Patient was admitted to the hospital overnight. She has been treated for multiple electrolyte derangements, received a total of 4 units of packed red blood cells, FFP for her coagulopathy and antibiotics for underlying aspiration pneumonia. She has been seen by the sales and service engineer here who does not feel comfortable performing an EGD on the patient given that we do not have backup of interventional radiology and the patient's primary sales and service engineer is at [facility]. Please see his notes for details. Please see today's notes for details of the patient's current medical management. I have spoken with Dr. Guadarrama in the ICU and Dr. BELLE with gastroenterology at [facility]. They each agreed to see the patient and care for her there. Physical Exam Vital Signs: Temp Pulse Resp BP Pulse Ox 99.9 F 103 H 29 H 112/69 97 12/24/16 14:26 12/24/16 09:45 12/24/16 14:26 12/24/16 14:26 12/24/16 14:26 Intake & Output 12/23/16 12/24/16 12/25/16 06:59 06:59 06:59 Intake Total 2405 1010 Output Total 1860 730 Balance 545 280 Weight 56 kg Unchanged from exam earlier today. Please see today's progress note. Results Laboratory Results: 12/24/16 13:41 12/24/16 05:00 12/23/16 12/23/16 12/23/16 19:55 19:55 20:25 WBC 26.0 H RBC 2.09 L Hgb 6.7 L Hct 19.9 L MCV 95 MCH 31.9 MCHC 33.6 RDW 15.4 H Plt Count 203 Seg Neutrophils % Not Reportable Lymphocytes % Not Reportable Monocytes % Not Reportable Eosinophils % Not Reportable Basophils % Not Reportable Absolute Neutrophils Not Reportable Absolute Lymphocytes Not Reportable Absolute Monocytes Not Reportable Absolute Eosinophils Not Reportable Absolute Basophils Not Reportable Carbonic Acid 0.66 L HCO3/H2CO3 Ratio 31:1 ABG pH 7.60 H* ABG pCO2 21.8 L ABG pO2 71.5 L ABG HCO3 20.8 ABG O2 Saturation 96.8 ABG Base Excess -0.2 FiO2 ROOM AIR Sodium Potassium Chloride Carbon Dioxide Anion Gap BUN Creatinine Est GFR ( Amer) Est GFR (Non-Af Amer) Glucose Lactic Acid 5.4 H Calcium Ionized Calcium Zen Magnesium Ammonia TSH Free T3 pg/mL 12/24/16 12/24/16 12/24/16 05:00 05:00 05:00 WBC RBC Hgb Hct MCV MCH MCHC RDW Plt Count Seg Neutrophils % Lymphocytes % Monocytes % Eosinophils % Basophils % Absolute Neutrophils Absolute Lymphocytes Absolute Monocytes Absolute Eosinophils Absolute Basophils Carbonic Acid HCO3/H2CO3 Ratio ABG pH ABG pCO2 ABG pO2 ABG HCO3 ABG O2 Saturation ABG Base Excess FiO2 Sodium 150.3 H Potassium 2.9 L* Chloride 114 H Carbon Dioxide 23 Anion Gap 13 BUN 34 H Creatinine 0.55 Est GFR ( Amer) > 60 Est GFR (Non-Af Amer) > 60 Glucose 138 H Lactic Acid Calcium 7.9 L Ionized Calcium Zen Magnesium 1.6 Ammonia 38.0 H TSH 0.16 L Free T3 pg/mL 2.63 L 12/24/16 12/24/16 12/24/16 05:00 05:00 10:03 WBC 20.6 H 14.4 H RBC 3.66 L 3.33 L Hgb 11.2 L D 10.3 L Hct 32.9 L 29.7 L MCV 90 D 89 MCH 30.7 30.8 MCHC 34.2 34.5 RDW 15.5 H 15.3 H Plt Count 116 L 63 L Seg Neutrophils % Not Reportable 81.4 H Lymphocytes % Not Reportable 12.4 L Monocytes % Not Reportable 5.8 Eosinophils % Not Reportable 0.0 Basophils % Not Reportable 0.4 Absolute Neutrophils Not Reportable 11.7 H Absolute Lymphocytes Not Reportable 1.8 Absolute Monocytes Not Reportable 0.8 Absolute Eosinophils Not Reportable 0.0 Absolute Basophils Not Reportable 0.1 Carbonic Acid 0.79 L HCO3/H2CO3 Ratio 29:1 ABG pH 7.56 H ABG pCO2 26.3 L ABG pO2 62.8 L ABG HCO3 23.2 ABG O2 Saturation 95.0 ABG Base Excess 2.2 FiO2 2L Sodium Potassium Chloride Carbon Dioxide Anion Gap BUN Creatinine Est GFR ( Amer) Est GFR (Non-Af Amer) Glucose Lactic Acid Calcium Ionized Calcium Zen Magnesium Ammonia TSH Free T3 pg/mL 12/24/16 12/24/16 11:00 13:41 WBC 14.7 H RBC 3.29 L Hgb 10.2 L Hct 29.3 L MCV 89 MCH 31.1 MCHC 34.9 RDW 15.4 H Plt Count 66 L Seg Neutrophils % 74.7 Lymphocytes % 18.2 Monocytes % 6.8 Eosinophils % 0.1 Basophils % 0.2 Absolute Neutrophils 11.0 H Absolute Lymphocytes 2.7 Absolute Monocytes 1.0 Absolute Eosinophils 0.0 Absolute Basophils 0.0 Carbonic Acid HCO3/H2CO3 Ratio ABG pH ABG pCO2 ABG pO2 ABG HCO3 ABG O2 Saturation ABG Base Excess FiO2 Sodium Potassium Chloride Carbon Dioxide Anion Gap BUN Creatinine Est GFR ( Amer) Est GFR (Non-Af Amer) Glucose Lactic Acid Calcium Ionized Calcium Zen 1.04 L Magnesium Ammonia TSH Free T3 pg/mL 12/24/16 05:00 NT-Pro-B Natriuret Pep 409 Impressions: Chest X-Ray 12/23/16 14:51 IMPRESSION: Right lower lobe airspace disease worrisome for pneumonia. Aspiration should be considered. Large retrocardiac hiatal hernia. Head CT 12/23/16 14:54 IMPRESSION: No acute findings EVIDENCE OF ACUTE STROKE: NO. KUB X-Ray 12/23/16 19:03 IMPRESSION: NG tube with its tip just to the right of midline presumably in the distal stomach. Qualifiers PATEINT BEING DISCHARGED WITH ANY OF THE FOLLOWING DIAGNOSIS?: No Plan Time Spent: Greater than 30 Minutes - This time includes coordination of care with [facility], our staff here and consultants here.
[2016-12-24 17:59] VITALS: BP 124/76
[2016-12-24 18:44] LABS: ABSOLUTE LYMPHOCYTES (AUTO) 2.3 10^3/uL (0.5-4.7); ABSOLUTE NEUT (AUTO) 10.3 10^3/uL (1.7-8.2); BASOPHILS % (AUTO) 0.2 % (0-2); EOSINOPHILS % (AUTO) 0.3 % (0-6); HEMATOCRIT 29.4 % (36.0-47.0); HEMOGLOBIN 10.2 g/dL (12.0-15.5); HGB HCT DIFFERENCE 1.2; LYMPHOCYTES % (AUTO) 16.7 % (13-45); MEAN CORPUSCULAR HEMOGLOBIN 31.5 pg (27.0-33.4); MEAN CORPUSCULAR HGB CONC 34.8 g/dL (32.0-36.0); MEAN CORPUSCULAR VOLUME 90 fl (80-97); MONOCYTES % (AUTO) 7.2 % (3-13); RED BLOOD COUNT 3.25 10^6/uL (3.72-5.28); RED CELL DISTRIBUTION WIDTH 15.7 % (11.5-14.0); SEGMENTED NEUTROPHILS % (AUTO) 75.6 % (42-78); WHITE BLOOD COUNT 13.7 10^3/uL (4.0-10.5)
== END 2016-12-24 19:20 | disposition short-term general hospital (02) | DRG 432 ==
LOC: ER 13:58 → EH 18:13 → ICU 20:07
PROVIDERS: ADMIT Hospitalist; ATTEND Emergency Medicine
PROC: 06H033Z Insertion of Infusion Device into Inferior Vena Cava, Percutaneous Approach (ICD-10-PCS; principal; 2016-12-23)
DX: K70.30 Alcoholic cirrhosis of liver without ascites (principal); G93.41 Metabolic encephalopathy; A41.9 Sepsis, unspecified organism; R65.20 Severe sepsis without septic shock; J69.0 Pneumonitis due to inhalation of food and vomit; I85.11 Secondary esophageal varices with bleeding; K92.2 Gastrointestinal hemorrhage, unspecified; N39.0 Urinary tract infection, site not specified; E87.0 Hyperosmolality and hypernatremia; D62 Acute posthemorrhagic anemia; E87.4 Mixed disorder of acid-base balance; K72.90 Hepatic failure, unspecified without coma; D64.9 Anemia, unspecified; E87.6 Hypokalemia; R19.7 Diarrhea, unspecified; M19.90 Unspecified osteoarthritis, unspecified site; G40.909 Epilepsy, unspecified, not intractable, without status epilepticus; F32.9 Major depressive disorder, single episode, unspecified; Z90.710 Acquired absence of both cervix and uterus; Z79.899 Other long term (current) drug therapy; Z88.1 Allergy status to other antibiotic agents; F17.200 Nicotine dependence, unspecified, uncomplicated
CPT/HCPCS: 36415; 36430; 51702; 70450; 71010; 74000; 80048; 80053; 80185; 80186; 80307; 81001; 82140; 82272; 82330; 82550; 82803; 82962; 83010; 83605; 83615; 83690; 83735; 83880; 84443; 84481; 84484; 85025; 85362; 85384; 85610; 85730; 86850; 86900; 86901; 86920; 87040; 87086; 87493; 93005; 93010; 94640; 96365; 99291; C1751; J0696; J1165; J1940; J1956; J2354; J2920; J3430; J3475; J3480; J3490; J7030; J7040; J7620; P9016; P9017; S0164

== ENCOUNTER 2017-01-10 15:41 | Emergency (ER) | payer MEDICAID ==
--- NOTE | 2017-01-10 17:13 | ER Document Report ---
ED Skin Rash/Insect Bite/Abscs - General Chief Complaint: Skin Problem Stated Complaint: LEG PAIN Time Seen by Provider: 01/10/17 16:47 Notes: Patient is complaining of painful red feet. Visiting home health nurse on [place] some lines around the red areas and took pictures and these pictures were sent to this patient's performance consultant at [facility]. Patient was just at this hospital on December 23 and was having internal bleeding and hepatic encephalopathy and was transferred to [facility] where she was hospitalized for 5 days. She came home on December 29, about 12 days ago, and had swelling of both feet, but only a small amount of redness from the ankle area down of both feet when she was discharged from [facility]. It began to get very significantly red , 3 days ago.. Patient has severe cirrhosis of the liver with ascites and esophageal varices and is under the care of the performance consultant at [facility]. Does not have a local PMD. Patient denies any nausea or vomiting or diarrhea. She does not have any significant abdominal pain either. She thinks her abdominal swelling has decreased in recent days. Patient is wearing a soft cervical collar because she had a broken neck a year ago and had a fusion that was not successful. TRAVEL OUTSIDE OF THE [place] IN LAST 30 DAYS: No - Related Data Allergies/Adverse Reactions: tetracycline Allergy (Verified 01/02/16 04:01) Home Medications: Current Home Medications Aspirin [Aspirin EC] 81 mg PO DAILY 01/10/17 [History] Biotin 1,000 mcg PO DAILY 01/10/17 [History] Ferrous Sulfate 325 mg PO DAILY 01/10/17 [History] Folic Acid 1 mg PO DAILY 01/10/17 [History] Furosemide [Lasix 20 mg Tablet] 1 tab PO DAILY 01/10/17 [History] Lactulose [Constulose] 20 gm PO DAILY 01/10/17 [History] Spironolactone 50 mg PO DAILY 01/10/17 [History] Past Medical History - Social History Smoking Status: Unknown if Ever Smoked Frequency of alcohol use: No alcohol intake for 16 months. Family History: Reviewed & Not Pertinent, COPD, Hypertension - Past Medical History Cardiac Medical History: Denies: Hx Coronary Artery Disease, Hx Heart Attack, Hx Hypertension Pulmonary Medical History: Denies: Hx Asthma, Hx Bronchitis, Hx COPD, Hx Pneumonia Neurological Medical History: Reports: Hx Seizures - ON MEDICATION. Denies: Hx Cerebrovascular Accident Endocrine Medical History: Denies: Hx Diabetes Mellitus Type 2 GI Medical History: Reports: Hx Cirrhosis Musculoskeltal Medical History: Denies Hx Arthritis Psychiatric Medical History: Reports: Hx Depression Past Surgical History: Reports: Hx Hysterectomy, Hx Orthopedic Surgery - C- spine fusion summer - Immunizations Hx Diphtheria, Pertussis, Tetanus Vaccination: Yes Review of Systems - Review of Systems Notes: REVIEW OF SYSTEMS: CONSTITUTIONAL : Denies fever. EENT: Denies eye, ear, nose or mouth or throat pain or other symptoms. CARDIOVASCULAR: Denies chest pain. RESPIRATORY: Denies cough, chest congestion, or shortness of breath. GASTROINTESTINAL: Denies abdominal pain or nausea, vomiting, or diarrhea. Patient appears to have a significant amount of ascitic fluid in her abdomen. GENITOURINARY: Denies difficulty or painful urinating, urinary frequency, blood in urine. MUSCULOSKELETAL: Denies back or neck pain. Denies joint pain or swelling. Has swelling of both ankles and eet. SKIN: see HPI. NEUROLOGICAL: Denies LOC or altered mental status. Denies headache. Denies sensory loss or motor deficits. ALL OTHER SYSTEMS REVIEWED AND NEGATIVE. Physical Exam - Vital signs Vitals: Temp Pulse Resp BP Pulse Ox 99.3 F 92 20 99/60 L 95 01/10/17 16:08 01/10/17 16:08 01/10/17 16:08 01/10/17 16:08 01/10/17 16:08 Interpretation: Hypotensive - Very slightly low and probably normal for her because of her size as well as her history of liver disease. - Notes Notes: PHYSICAL EXAMINATION: GENERAL: Well-appearing, in no acute distress. HEAD: Atraumatic, normocephalic. EYES: Pupils equal round and reactive to light, extraocular movements intact. ENT: oropharynx clear without exudates. Moist mucous membranes. NECK: Normal range of motion, supple. LUNGS: Breath sounds clear and equal bilaterally. HEART: Regular rate and rhythm without murmurs. ABDOMEN: Soft, nontender but protuberant and appears to be filled with fluid. Cannot palpate organs. No guarding or rebound. BACK: No tenderness throughout entire back. EXTREMITIES: Patient's lower extremities show erythematous rash from about mid oseguera down the dorsal aspect of both feet. Is rather dark red in color,even blackish or deep burgundy on dorsal feet. Modest swelling of both ankles and proximal feet Patient has warm pink toes and good capillary filling of the toes on both feet. From the distribution and appearance of the red rash, I am not sure if it is an infectious rash or if it could be some form of allergic reaction to socks or some other clothing objects or foot where that stops at mid oseguera and is not anywhere else on her body. NEUROLOGICAL: Normal speech, normal gait. Normal sensory, motor, and reflex exams. Awake, alert, and oriented x3. Cranial nerves normal. PSYCH: Normal mood, normal affect. SKIN: Warm, dry, no rashes. Course - Re-evaluation Re-evalutation: 01/10/17 20:30 Discussed treatment plan with patient. She is on cephalexin 500 mg 4 times a day. I recommended that the patient be admitted for IV antibiotics and further evaluation, but she said she would rather receive antibiotics IV now and go home and come back tomorrow if she is not doing any better. Since we would not actually be doing anything differently with her tonight after getting the Rocephin that she is now getting, that is probably a reasonable alternative , especially since I am not even certain that this is an infectious condition. Patient was advised to return if she starts running a fever, if the red area extends above the mid oseguera area and is elsewhere on her body, etc. Told her that she can return for reevaluation tomorrow, or at anytime that she is concerned and thinks that she needs to have us look at this again. I am going to give her a prescription for triamcinolone cream to try on the rash to see if it might help it if there is an allergic contact dermatitis component. 01/10/17 20:33 - Vital Signs Vital signs: Temp Pulse Resp BP Pulse Ox 99.6 F 84 18 101/61 100 01/10/17 21:21 01/10/17 21:21 01/10/17 21:21 01/10/17 21:21 01/10/17 21:21 - Laboratory Result Diagrams: 01/10/17 17:30 01/10/17 17:30 Laboratory results interpreted by me: 01/10/17 01/10/17 01/10/17 17:30 17:30 17:30 RBC 3.11 L Hgb 9.9 L Hct 28.9 L RDW 16.4 H Plt Count 84 L Seg Neutrophils % 87.9 H Lymphocytes % 6.3 L PT 16.6 H Sodium 133.5 L Potassium 2.6 L* Chloride 91 L Carbon Dioxide 31 H Creatinine 0.44 L Calcium 7.7 L Total Bilirubin 4.4 H Direct Bilirubin 3.6 H AST 65 H ALT 54 H Alkaline Phosphatase 453 H Total Protein 6.0 L Albumin 2.6 L Discharge - Discharge Clinical Impression: Rash Condition: Stable Disposition: HOME, SELF-CARE Additional Instructions: CELLULITIS: You have an infection of your skin and underlying soft tissues called cellulitis. This is due to bacteria, which can enter through any break in the skin, or even through an irritated hair follicle. Untreated, cellulitis will usually worsen. Antibiotics are required. Usually, warm packs or warm soaks, and elevation of the infected area are recommended. You should start getting better within 24 to 36 hours. Most infections respond quickly to the right medication. Follow-up care is important, however, to check for abscess (boil) formation, unsuspected foreign body, or resistant infection. If you develop fever, chills, or if the area of infection is becoming rapidly more swollen or painful, call the doctor at once. Possible allergic Contact Dermatitis You have a local allergic reaction, called contact dermatitis. This an allergy to something in contact with your skin. Poison mirna, jewelry, soaps, perfumes, and chemicals are common causes. Typically, an itchy rash develops a few days after the exposure. If the reaction is severe, blisters may develop. Two to three weeks may be required for healing. Generally, treatment consists of: (1) a thorough washing with soap to remove the offending substance, (2) application of a cortisone cream, and (3) antihistamines for itching. If the reaction is particularly severe, further measures may be required. These can include soaking in epsom salts or Kush's solution, and oral cortisone medications. Call the doctor if the rash worsens despite treatment, or if signs of infection occur such as spreading redness, red streaks, swollen glands, swelling , or fever. Keep taking the cephalexin that you have been prescribed. The antibiotic you've been prescribed is a member of the cephalosporin class. This type of antibiotic covers a wide variety of infections, including those of the skin, lungs, and urinary tract. It's useful for staph infections. This antibiotic is slightly similar to the penicillin family. In rare cases , a person who is allergic to penicillin will also be allergic to this medication. If you have had a severe allergic reaction to penicillin, and have not taken this antibiotic since that time, notify your doctor. Antibiotics which cover many germs ("broad spectrum" antibiotics) are more likely to cause diarrhea or "yeast" infections. Women prone to vaginal yeast problems may suffer an attack after taking this antibiotic. In infants, oral thrush (white spots "stuck" on the cheek) or yeast diaper rash may result. See your doctor if these problems occur. Call at once if you develop itching, hives , shortness of breath, or lightheadedness. STEROID MEDICATION: You have been given a medicine of the cortisone/steroid class. This medication is used to control inflammation or allergy. It is usually only given for a short period of time, until the acute process subsides. There are usually no side effects from short-term use of cortisone-like medications. Some persons feel an increased sense of well-being and are not sleepy at bedtime. Long-term use of cortisone medications is best avoided, unless required for a severe condition. If your condition does not remit, or relapses after the course of corticosteroid medication, you should consult your physician. FOLLOW-UP CARE: If you have been referred to a physician for follow-up care, call the physician s office for an appointment as you were instructed or within the next two days. If you experience worsening or a significant change in your symptoms, notify the physician immediately or return to the Emergency Department at any time for re-evaluation. Return for us to reevaluate your situation if your rash gets worse, you began having fever, or other new symptoms occur. Prescriptions: Triamcinolone Acetonide 80 gm TP TID #1 cream.gm. Referrals: CRISTELA MERA MD [Primary Care Provider] - Follow up as needed
[2017-01-10 17:53] LABS: PROTHROMBIN TIME 16.6 SEC (11.4-15.4)
[2017-01-10 17:54] LABS: ABSOLUTE LYMPHOCYTES (AUTO) 0.5 10^3/uL (0.5-4.7); ABSOLUTE MONOCYTES (AUTO) 0.4 10^3/uL (0.1-1.4); ABSOLUTE NEUT (AUTO) 6.4 10^3/uL (1.7-8.2); BASOPHILS % (AUTO) 0.2 % (0-2); EOSINOPHILS % (AUTO) 0.5 % (0-6); HEMATOCRIT 28.9 % (36.0-47.0); HEMOGLOBIN 9.9 g/dL (12.0-15.5); HGB HCT DIFFERENCE 0.8; LYMPHOCYTES % (AUTO) 6.3 % (13-45); MEAN CORPUSCULAR HEMOGLOBIN 31.8 pg (27.0-33.4); MEAN CORPUSCULAR HGB CONC 34.3 g/dL (32.0-36.0); MEAN CORPUSCULAR VOLUME 93 fl (80-97); MONOCYTES % (AUTO) 5.1 % (3-13); RED BLOOD COUNT 3.11 10^6/uL (3.72-5.28); RED CELL DISTRIBUTION WIDTH 16.4 % (11.5-14.0); SEGMENTED NEUTROPHILS % (AUTO) 87.9 % (42-78); WHITE BLOOD COUNT 7.3 10^3/uL (4.0-10.5)
[2017-01-10 18:08] LABS: ALANINE AMINOTRANSFERASE 54 U/L (9-52); ALBUMIN 2.6 g/dL (3.5-5.0); ALKALINE PHOSPHATASE 453 U/L (38-126); ANION GAP 12 (5-19); ASPARTATE AMINO TRANSFERASE 65 U/L (14-36); BILIRUBIN,DIRECT 3.6 mg/dL (0.0-0.4); BILIRUBIN,TOTAL 4.4 mg/dL (0.2-1.3); BLOOD UREA NITROGEN 8 mg/dL (7-20); CALCIUM 7.7 mg/dL (8.4-10.2); CARBON DIOXIDE 31 mmol/L (22-30); CHLORIDE 91 mmol/L (98-107); CREATININE RESULT 0.44 mg/dL (0.52-1.25); GLUCOSE 91 mg/dL (75-110); SODIUM 133.5 mmol/L (137-145)
[2017-01-10 18:10] LABS: POTASSIUM 2.6 mmol/L (3.6-5.0)
[2017-01-10] MEDS ORDERED: CEFTRIAXONE 1 GM/D5W RTU 1 GM/50 ML RTUPB IV ONE (19:27)
[2017-01-10] MEDS ORDERED: OXYCODONE HCL SR 10 MG TABLET PO ONE (19:28)
[2017-01-10] MEDS ORDERED: POTASSIUM CHLORIDE 10 MEQ TABLET.SA PO ONE (19:29)
[2017-01-10 21:22] VITALS: BP 101/61
== END 2017-01-10 21:22 | disposition home or self-care (01) ==
LOC: ER 15:41
DX: R21 Rash and other nonspecific skin eruption (principal); K74.60 Unspecified cirrhosis of liver; I85.00 Esophageal varices without bleeding; Z98.1 Arthrodesis status; Z90.710 Acquired absence of both cervix and uterus
CPT/HCPCS: 99284; 96365; 36415; 87040; 82140; 85025; 85610; 80053; J3490; J0696

== ENCOUNTER 2017-02-03 07:25 | Day surgery (SDC) | payer MEDICAID ==
[2017-02-03 08:16] LABS: HEMATOCRIT 25.4 % (36.0-47.0); HEMOGLOBIN 8.5 g/dL (12.0-15.5); MEAN CORPUSCULAR HEMOGLOBIN 31.6 pg (27.0-33.4); MEAN CORPUSCULAR HGB CONC 33.5 g/dL (32.0-36.0); MEAN CORPUSCULAR VOLUME 94 fl (80-97); PLATELET COUNT 106 10^3/uL (150-450); RED BLOOD COUNT 2.69 10^6/uL (3.72-5.28); RED CELL DISTRIBUTION WIDTH 18.6 % (11.5-14.0); WHITE BLOOD COUNT 4.2 10^3/uL (4.0-10.5)
[2017-02-03 08:23] LABS: INTERNATIONAL RATION (INR) 1.15; PROTHROMBIN TIME 15.5 SEC (11.4-15.4)
[2017-02-03 08:24] LABS: PARTIAL THROMBOPLASTIN TIME 39.4 SEC (23.5-35.8)
[2017-02-03 08:35] LABS: BLOOD UREA NITROGEN 4 mg/dL (7-20)
--- NOTE | 2017-02-03 10:51 | RADIOLOGY REPORT (SQ) ---
EXAM DESCRIPTION: U/S ABD PARACENTESIS COMPLETED DATE/TIME: 02/03/2017 10:24 am REASON FOR STUDY: ASCITES K74.3 PRIMARY BILIARY CIRRHOSIS R18.8 OTHER ASCITES COMPARISON: None. LIMITATIONS: None. PROCEDURE: Procedure, risks, benefit, and alternative explained to patient who then gave written con sent. The right lower quadrant abdominal wall marked using ultrasound guidance. A time-out was call ed for correct marking verification. Abdomen prepped and draped using sterile technique. Local anest hesia achieved using 10 ml of 1% lidocaine injection. A 6fr [id number]-[id number] set was introduced into the peritoneal cavity. Fluid was drained. The catheter was removed and entry site was covered with sterile bandage. No immediate complications noted. Images acquired during the procedure were stored on PACS. FINDINGS: ENTRY SITE: Right lower quadrant. FLUID VOLUME: 1000 mL. FLUID ANALYSIS: Clear straw-colored. OTHER: Fluid sent to the lab for testing. IMPRESSION: SUCCESSFUL ULTRASOUND GUIDED PARACENTESIS. COMMENT: Patient medication list reviewed:Yes- Quality ID# [id number]:Eligible professional attests to docu menting in the medical record they obtained, updated, or reviewed the patient's current medications. TECHNICAL DOCUMENTATION: JOB ID: [id number] [employer]- All Rights Reserved
[2017-02-03 11:25] VITALS: BP 114/71
[2017-02-03 11:41] LABS: FLUID APPEARANCE CLEAR; FLUID COLOR YELLOW; FLUID SOURCE ASCITES; FLUID TYPE PERITONEAL; FLUID VISCOSITY LIQUID
[2017-02-04 11:54] LABS: ALBUMIN BODY FLUID 0.3 g/dL (.)
== END 2017-02-03 11:25 | disposition home or self-care (01) ==
LOC: RAD 07:25
PROVIDERS: ATTEND Internal Medicine Gastroenterology
PROC: 0W9F3ZZ Drainage of Abdominal Wall, Percutaneous Approach (ICD-10-PCS; principal; 2017-02-03)
DX: K74.3 Primary biliary cirrhosis (principal); R18.8 Other ascites; I10 Essential (primary) hypertension; F17.210 Nicotine dependence, cigarettes, uncomplicated
CPT/HCPCS: 36415; 49083; 82042; 82565; 84157; 84520; 85027; 85610; 85730; 87070; 87075; 87205; 89050

== ENCOUNTER → 2017-03-31 | Day surgery (SDC) | payer MEDICAID ==
[2017-03-31 08:01] VITALS: BP 115/71
[2017-03-31 08:19] LABS: INTERNATIONAL RATION (INR) 1.13; PROTHROMBIN TIME 15.3 SEC (11.4-15.4)
[2017-03-31 08:20] LABS: PARTIAL THROMBOPLASTIN TIME 41.2 SEC (23.5-35.8)
[2017-03-31 08:26] LABS: HEMATOCRIT 26.3 % (36.0-47.0); HEMOGLOBIN 8.9 g/dL (12.0-15.5); MEAN CORPUSCULAR HEMOGLOBIN 29.2 pg (27.0-33.4); MEAN CORPUSCULAR HGB CONC 33.7 g/dL (32.0-36.0); MEAN CORPUSCULAR VOLUME 87 fl (80-97); RED BLOOD COUNT 3.03 10^6/uL (3.72-5.28); RED CELL DISTRIBUTION WIDTH 17.8 % (11.5-14.0); WHITE BLOOD COUNT 3.7 10^3/uL (4.0-10.5)
[2017-03-31 08:31] LABS: BLOOD UREA NITROGEN 6 mg/dL (7-20)
[2017-03-31 09:08] LABS: PLATELET COUNT 93 10^3/uL (150-450)
--- NOTE | 2017-03-31 12:31 | RADIOLOGY REPORT (SQ) ---
EXAM DESCRIPTION: U/S ABDOMEN LIMITED W/O DOP COMPLETED DATE/TIME: 03/31/2017 9:50 am REASON FOR STUDY: ASCITES COMPARISON: None. TECHNIQUE: Limited scanning of the abdomen to evaluate for ascites in the 4 quadrants. Grayscale im ages are submitted. LIMITATIONS: None. FINDINGS: No ascites identified. Paracentesis therefore not performed. IMPRESSION: No abdominal ascites. TECHNICAL DOCUMENTATION: JOB ID: [id number] [employer]- All Rights Reserved
== END ==
LOC: RAD 07:30
PROVIDERS: ATTEND Internal Medicine Gastroenterology
DX: R18.8 Other ascites (principal); Z88.8 Allergy status to other drugs, medicaments and biological substances
CPT/HCPCS: 36415; 76705; 82565; 84520; 85027; 85610; 85730

== ENCOUNTER → 2017-05-31 | Outpatient (CLI) | payer MEDICAID ==
--- NOTE | 2017-05-31 12:26 | RADIOLOGY REPORT (SQ) ---
EXAM DESCRIPTION: U/S ABDOMEN LIMITED W/O DOP COMPLETED DATE/TIME: 05/31/2017 11:42 am REASON FOR STUDY: UNSPECIFIED CIRRHOSIS OF LIVER K74.60 UNSPECIFIED CIRRHOSIS OF LIVER COMPARISON: None. TECHNIQUE: Dynamic and static grayscale images acquired of the abdomen and recorded on PACS. Additio nal selected color Doppler and spectral images recorded. LIMITATIONS: None. FINDINGS: PANCREAS: No masses. Visualized pancreatic duct normal caliber. LIVER: Diffuse coarse echotexture. No masses. LIVER VASCULATURE: Normal directional flow of the main portal vein and hepatic veins. GALLBLADDER: Gallbladder wall is thickened at 7 mm. No gallstones. No pericholecystic fluid. ULTRASOUND-DETECTED CASTANO'S SIGN: Negative. INTRAHEPATIC DUCTS AND COMMON DUCT: CBD and intrahepatic ducts normal caliber. No filling defects. INFERIOR VENA CAVA: Normal flow. AORTA: No aneurysm. RIGHT KIDNEY: Normal size. Normal echogenicity. No solid or suspicious masses. No hydronephrosis. No calcifications. PERITONEAL AND RIGHT PLEURAL SPACE: No ascites or effusions. OTHER: No other significant findings. IMPRESSION: 1. Gallbladder wall thickening, likely related to chronic ascites. No significant ascites on the cur rent exam. 2. Cirrhosis. TECHNICAL DOCUMENTATION: JOB ID: [id number] [employer]- All Rights Reserved Reading location - IP/workstation name: [email or web address]
== END ==
LOC: RAD 10:42
PROVIDERS: ATTEND Internal Medicine Gastroenterology
DX: K74.60 Unspecified cirrhosis of liver (principal)
CPT/HCPCS: 76705

== ENCOUNTER 2017-08-08 18:19 | Inpatient (IN) | payer MEDICAID ==
--- NOTE | 2017-08-08 19:07 | EKG REPORT ---
SEVERITY:- BORDERLINE ECG - SINUS RHYTHM BORDERLINE R WAVE PROGRESSION, ANTERIOR LEADS : Confirmed by: Chary Beach MD 08-Aug-2017 19:07:07
[2017-08-08] MEDS ORDERED: OXYCODONE HCL IR 5 MG TABLET PO ONE (19:58)
[2017-08-08] MEDS ORDERED: IPRATROPIUM/ALBUTEROL 0.5-2.5 MG/3 ML AMPUL NEB ONE (19:58)
[2017-08-08] MEDS ORDERED: METHYLPREDNISOLONE INJ 125 MG/2 ML SDV IV ONE (20:01)
--- NOTE | 2017-08-08 20:02 | ER Document Report ---
ED Respiratory Problem - General Chief Complaint: Shortness Of Breath Stated Complaint: DIFFICULTY BREATHING,CHEST PAIN Time Seen by Provider: 08/08/17 19:46 Notes: Patient is a 61-year-old female who comes emergency department for chief complaint of cough, body aches, chills, and small amount of productive sputum mostly clear, yellow, a little bit of brown. She denies fever. She reports pain across the front of her chest is generally with some soreness, worse with deep breaths and coughing. She reports feeling shortness of breath since last night. She smokes intermittently, she denies history of COPD or asthma. She denies history of pneumonia. Past medical history includes cirrhosis of the liver, ascites, on liver transplant list, on Lasix and Spironolactone, chronic back and neck pain. She is also taking lactulose. TRAVEL OUTSIDE OF THE [place] IN LAST 30 DAYS: No - Related Data Allergies/Adverse Reactions: tetracycline Allergy (Verified 08/08/17 19:22) Past Medical History - Social History Smoking Status: Current Every Day Smoker Frequency of alcohol use: None Drug Abuse: None Family History: Reviewed & Not Pertinent, COPD, Hypertension Patient has suicidal ideation: No Patient has homicidal ideation: No - Past Medical History Cardiac Medical History: Denies: Hx Coronary Artery Disease, Hx Heart Attack, Hx Hypertension Pulmonary Medical History: Denies: Hx Asthma, Hx Bronchitis, Hx COPD, Hx Pneumonia Neurological Medical History: Reports: Hx Seizures - ON MEDs, last seizure 5-6 yrs ago. Denies: Hx Cerebrovascular Accident Endocrine Medical History: Denies: Hx Diabetes Mellitus Type 2 Renal/ Medical History: Denies: Hx Peritoneal Dialysis GI Medical History: Reports: Hx Cirrhosis Musculoskeltal Medical History: Denies Hx Arthritis Psychiatric Medical History: Reports: Hx Depression Past Surgical History: Reports: Hx Hysterectomy, Hx Orthopedic Surgery - C- spine fusion summer - Immunizations Hx Diphtheria, Pertussis, Tetanus Vaccination: No Physical Exam - Vital signs Vitals: Temp Pulse Resp BP Pulse Ox 98.8 F 77 24 H 103/61 98 08/08/17 18:37 08/08/17 18:37 08/08/17 18:37 08/08/17 18:37 08/08/17 18:37 - Notes Notes: GENERAL: Alert, interacts well. Frail and chronically ill-appearing. HEAD: Normocephalic, atraumatic. EYES: Pupils equal, round, and reactive to light. Extraocular movements intact. ENT: Oral mucosa moist, tongue midline. NECK: Full range of motion. Supple. Trachea midline. LUNGS: Expiratory wheezes, mild tachypnea, occasional cough, decreased breath sounds in the right lung. HEART: Regular rate and rhythm. No murmur ABDOMEN: Soft, non-tender. Mild distention suggestive of ascites. Bowel sounds present in all 4 quadrants. EXTREMITIES: Moves all 4 extremities spontaneously. No edema, normal radial and dorsalis pedis pulses bilaterally. No cyanosis. BACK: no cervical, thoracic, lumbar midline tenderness. No saddle anesthesia, normal distal neurovascular exam. NEUROLOGICAL: Alert and oriented x3. Normal speech. [cranial nerves II through XII grossly intact]. PSYCH: Normal affect, normal mood. SKIN: Warm, dry, normal turgor. No rashes or lesions noted. Course - Re-evaluation Re-evalutation: On initial presentation patient has mild tachypnea, expiratory wheezes, decreased breath sounds on the right. However she does not appear to be in respiratory distress, she has no hypoxia. She reports productive cough and chills, no here fever, no hypotension. CBC shows likely chronic microcytic anemia, chemistry shows low potassium, check magnesium. Bilirubin is at patient's baseline. Nonspecific blood gas. Cardiac enzymes are not elevated. On reevaluation after DuoNeb and Solu-Medrol patient's wheezing has resolved. She states she actually feels a lot better. Chest x-ray showing right-sided pneumonia which is large, large pleural effusion as well. Patient is able to get up and ambulate although she does so with some labored breathing, oxygen goes down to 92%. Because of patient's multiple comorbidities, large pneumonia with large pleural effusion concern of risk of severe decompensation at home. Patient states she would like to go home however after I discussed her workup in more detail she states that she would be more comfortable staying. Discussed with Dr. Lovett. Blood cultures pending, antibiotics have been given already. I discussed with . Discussed with Dr. Scanlon, hospitalist, patient will be admitted to telemetry full admission. - Vital Signs Vital signs: Temp Pulse Resp BP Pulse Ox 98.8 F 77 24 H 103/61 98 08/08/17 18:37 08/08/17 18:37 08/08/17 18:37 08/08/17 18:37 08/08/17 18:37 - Laboratory Result Diagrams: 08/08/17 20:51 08/08/17 20:51 Laboratory results interpreted by me: 08/08/17 08/08/17 08/08/17 20:51 20:51 20:51 RBC 3.40 L Hgb 10.7 L Hct 31.0 L RDW 17.0 H Plt Count 108 L Lymphocytes % 12.5 L VBG pH 7.52 H Potassium 3.1 L Creatinine 0.41 L Calcium 8.2 L Total Bilirubin 3.5 H Direct Bilirubin 3.0 H AST 77 H Alkaline Phosphatase 472 H Albumin 3.1 L Discharge - Discharge Clinical Impression: Productive cough, Pleural effusion Pneumonia Qualifiers: Pneumonia type: due to unspecified organism Laterality: right Lung location: lower lobe of lung Qualified Code(s): J18.1 - Lobar pneumonia, unspecified organism Condition: Stable Disposition: ADMITTED INPATIENT Admitting Provider: Hospitalist Unit Admitted: Telemetry
--- NOTE | 2017-08-08 20:28 | RADIOLOGY REPORT (SQ) ---
EXAM DESCRIPTION: CHEST SINGLE VIEW COMPLETED DATE/TIME: 08/08/2017 8:19 pm REASON FOR STUDY: productive cough, chills COMPARISON: 12/23/2016 EXAM PARAMETERS: NUMBER OF VIEWS: One view. TECHNIQUE: Single frontal radiographic view of the chest acquired. RADIATION DOSE: NA LIMITATIONS: None. FINDINGS: LUNGS AND PLEURA: Extensive right basilar opacity and large right effusion. Left lung is clear. MEDIASTINUM AND HILAR STRUCTURES: No masses. Contour normal. HEART AND VASCULAR STRUCTURES: Heart normal in size. Normal vasculature. BONES: No acute findings. HARDWARE: Shoulder replacement on the right. OTHER: No other significant finding. IMPRESSION: Extensive right lower lobe pneumonia and large right effusion. TECHNICAL DOCUMENTATION: JOB ID: [id number] [employer]- All Rights Reserved Reading location - IP/workstation name: [email or web address]
[2017-08-08] MEDS ORDERED: AZITHROMYCIN INJ 500 MG VIAL IV ONE (20:51)
[2017-08-08] MEDS ORDERED: CEFTRIAXONE INJ 1000 MG VIAL IV ONE (20:51)
[2017-08-08 21:13] LABS: ABSOLUTE LYMPHOCYTES (AUTO) 0.9 10^3/uL (0.5-4.7); ABSOLUTE MONOCYTES (AUTO) 0.7 10^3/uL (0.1-1.4); ABSOLUTE NEUT (AUTO) 5.3 10^3/uL (1.7-8.2); BASOPHILS % (AUTO) 0.3 % (0-2); EOSINOPHILS % (AUTO) 0.4 % (0-6); HEMOGLOBIN 10.7 g/dL (12.0-15.5); LYMPHOCYTES % (AUTO) 12.5 % (13-45); MEAN CORPUSCULAR HEMOGLOBIN 31.4 pg (27.0-33.4); MEAN CORPUSCULAR HGB CONC 34.5 g/dL (32.0-36.0); MEAN CORPUSCULAR VOLUME 91 fl (80-97); MONOCYTES % (AUTO) 10.3 % (3-13); PLATELET COUNT 108 10^3/uL (150-450); SEGMENTED NEUTROPHILS % (AUTO) 76.5 % (42-78); TOTAL CELLS COUNTED % (AUTO) 100 %; VENOUS BLOOD BASE EXCESS 5.2 mmol/L; VENOUS BLOOD HCO3 28.1 mmol/L (20-32); VENOUS BLOOD PCO2 35.3 mmHg (35-63); VENOUS BLOOD PH 7.52 (7.30-7.42); WHITE BLOOD COUNT 6.9 10^3/uL (4.0-10.5)
[2017-08-08 21:33] LABS: ALANINE AMINOTRANSFERASE 44 U/L (9-52); ALBUMIN 3.1 g/dL (3.5-5.0); ALKALINE PHOSPHATASE 472 U/L (38-126); ANION GAP 12 (5-19); ASPARTATE AMINO TRANSFERASE 77 U/L (14-36); BILIRUBIN,TOTAL 3.5 mg/dL (0.2-1.3); BLOOD UREA NITROGEN 10 mg/dL (7-20); CALCIUM 8.2 mg/dL (8.4-10.2); CARBON DIOXIDE 28 mmol/L (22-30); CHLORIDE 101 mmol/L (98-107); CREATINE KINASE 74 U/L (30-135); GLUCOSE 82 mg/dL (75-110); POTASSIUM 3.1 mmol/L (3.6-5.0); SODIUM 140.9 mmol/L (137-145); TOTAL PROTEIN 7.1 g/dL (6.3-8.2)
[2017-08-08 21:44] LABS: CREATINE KINASE MB 1.38 ng/mL (<4.55); TROPONIN I 0.012 ng/mL
[2017-08-09] MEDS ORDERED: GUAIFENESIN SYRP 200 MG/10 ML UDC PO PRN (00:20)
--- NOTE | 2017-08-09 00:53 | PDOC H&P ---
History of Present Illness Admission Date/PCP: 08/08/17 23:10 CRISTELA MERA MD Patient complains of: Shortness of breath and cough History of Present Illness: JENNA BUCHANAN is a 61 year old woman with cirrhosis related to what sounds like primary biliary cirrhosis though she does not know that for sure, also underlying past history of alcohol abuse disorder. She states that she is really working with the [facility] liver transplant team but is not yet on the transplant list. She has been feeling wheezy and congested in her chest with a cough for about a week. On Wednesday she started to develop shortness of breath and Wednesday her symptoms became worse and so today she came into the ER because she was scared and she could not breathe. Symptoms are worse with exertion. Chest pain is worse deep inspiration. No fevers or chills. He has been very weak feeling. In the ER she was found to have a right lower lobe extensive pneumonia with right pleural effusion. She is being admitted to the hospitalist service. Past Medical History Cardiac Medical History: Denies: Coronary Artery Disease, Myocardial Infarction, Hypertension Pulmonary Medical History: Denies: Asthma, Bronchitis, Chronic Obstructive Pulmonary Disease (COPD), Pneumonia Neurological Medical History: Reports: Seizures - ON MEDs, last seizure 5-6 yrs ago Endocrine Medical History: Denies: Diabetes Mellitus Type 2 Renal/ Medical History: Denies: Chronic Kidney Disease Malignancy Medical History: Denies: None GI Medical History: Reports: Cirrhosis, Other - Possible primary biliary cirrhosis Musculoskeltal Medical History: Reports: Other - Osteoporosis, hx of C-spine fracture, what sounds like degen T-spine dx Psychiatric Medical History: Reports: Depression Denies: Alcohol Dependency, Substance Abuse, Tobacco Dependency Traumatic Medical History: Reports: Other - Patient has had falls which have led to C-spine fracture and left hip fx Hematology: Denies: Anemia Infectious Medical History: Reports: None Past Surgical History Past Surgical History: Reports: Hysterectomy, Orthopedic Surgery - Failed C- spine fusion summer, left hip fracture repair Social History Information Source: Patient Lives with: Family Smoking Status: Current Every Day Smoker Frequency of Alcohol Use: None Hx Recreational Drug Use: No Drugs: None Hx Prescription Drug Abuse: No Past Social History Note: Quit drinking alcohol years ago she does not recall how many years. She is working with the transplant team at [facility] but is not yet on the transplant list. She moved to [place] from [place] and lives with her daughter and her . Family History Family History: COPD, Hypertension Parental Family History Reviewed: Yes - She is adopted and does not know her parents Children Family History Reviewed: Yes - She has a healthy daughter who is 4 months who works for the [employer] [facility] Sibling(s) Family History Reviewed.: Yes - She is adopted and does not know her siblings Medication/Allergy Home Medications: Phenytoin Sodium Extended [Dilantin 100 mg Capsule.er] 200 mg PO QAM 01/02/16 Oxycodone HCl [Oxy-Ir 5 mg Tablet] 10 mg PO Q6HP PRN MDD 4 TABS 12/24/16 Oxycodone HCl [Oxycontin] 20 mg PO Q12 12/24/16 Aspirin [Aspirin EC] 81 mg PO DAILY 01/10/17 Biotin 1,000 mcg PO DAILY 01/10/17 Ferrous Sulfate 325 mg PO DAILY 01/10/17 Folic Acid 1 mg PO DAILY 01/10/17 Spironolactone 50 mg PO DAILY 01/10/17 Esomeprazole Magnesium [Nexium] 20 mg PO DAILY 02/02/17 Mirtazapine 7.5 mg PO QHS 02/02/17 Naloxegol Oxalate [Movantik] 2 tab PO DAILY 02/02/17 Phenytoin Sodium Extended [Dilantin] 300 mg PO QPM 02/02/17 Furosemide [Lasix 20 mg Tablet] 30 mg PO DAILY 03/31/17 Rifaximin [Xifaxan 550 Mg Tablet] 550 mg PO BID 03/31/17 Thiamine HCl [Vitamin B-1] 250 mg PO DAILY 03/31/17 Ursodiol 750 mg PO DAILY 03/31/17 Allergies/Adverse Reactions: tetracycline Allergy (Verified 08/08/17 19:22) Review of Systems Constitutional: PRESENT: fatigue, weakness Eyes: ABSENT: visual disturbances Ears: ABSENT: hearing changes Nose, Mouth, and Throat: ABSENT: headache(s), mouth pain, sore throat Cardiovascular: PRESENT: dyspnea on exertion, edema. ABSENT: palpitations Respiratory: PRESENT: cough, dyspnea, sputum Gastrointestinal: PRESENT: diarrhea. ABSENT: abdominal pain, bloating, coffee ground emesis, constipation, nausea, vomiting Genitourinary: ABSENT: difficulty urinating, dysuria, hematuria Musculoskeletal: PRESENT: deformity Integumentary: ABSENT: wounds Neurological: PRESENT: weakness. ABSENT: confusion, frequent falls, syncope Psychiatric: PRESENT: anxiety, depression Hematologic/Lymphatic: ABSENT: easy bleeding, easy bruising Physical Exam Vital Signs: Temp Pulse Resp BP Pulse Ox 97.9 F 77 24 H 103/61 98 08/09/17 00:31 08/08/17 18:37 08/08/17 18:37 08/08/17 18:37 08/08/17 18:37 General appearance: PRESENT: no acute distress, cooperative, thin. ABSENT: hard of hearing Head exam: PRESENT: atraumatic, normocephalic Eye exam: PRESENT: conjunctiva pink, EOMI. ABSENT: scleral icterus Ear exam: PRESENT: normal external ear exam Mouth exam: PRESENT: moist, other - Neck in soft collar chronically Respiratory exam: PRESENT: decreased breath sounds, unlabored. ABSENT: chest wall tenderness, clear to auscultation jose g, crackles, rales, rhonchi, tachypnea , wheezes Cardiovascular exam: PRESENT: tachycardia. ABSENT: systolic murmur Pulses: PRESENT: normal radial pulses GI/Abdominal exam: PRESENT: ascites. ABSENT: diminished bowel sounds, distended , guarding, tenderness Rectal exam: PRESENT: deferred Gentrourinary exam: ABSENT: indwelling catheter Extremities exam: ABSENT: pedal edema, tenderness Musculoskeletal exam: PRESENT: normal inspection Neurological exam: PRESENT: alert, awake, oriented to person, oriented to place , oriented to situation Psychiatric exam: PRESENT: anxious, appropriate affect Skin exam: PRESENT: dry, intact, warm Results Impressions: Chest X-Ray 08/08/17 19:56 IMPRESSION: Extensive right lower lobe pneumonia and large right effusion. Assessment & Plan - Diagnosis (1) Pleural effusion Is this a current diagnosis for this admission?: Yes Plan: Patient has right-sided pleural effusion which may be parapneumonic. She also has significant ascites from cirrhosis which may be playing a role with the effusion. Will treat pneumonia and start her on her diuretics and consider thoracentesis if pleural effusion does not improve. (2) Pneumonia Qualifiers: Pneumonia type: due to unspecified organism Laterality: right Lung location: lower lobe of lung Qualified Code(s): J18.1 - Lobar pneumonia, unspecified organism Is this a current diagnosis for this admission?: Yes Plan: Patient will be started on ceftriaxone and azithromycin. Not been hospitalized since May. Hemodynamically stable. (3) Alcoholic cirrhosis of liver Qualifiers: Ascites presence: with ascites Qualified Code(s): K70.31 - Alcoholic cirrhosis of liver with ascites Is this a current diagnosis for this admission?: Yes Plan: Patient has chronic liver disease. She tells me it is a combination of alcohol history and also what sounds like primary biliary cirrhosis but she does not know for sure. She is working with the transplant team at [facility] but is not yet on the transplant list. As soon as we have her medications we will start her on her diuretics and lactulose. No abdominal pain today. (4) Chronic pain Qualifiers: Chronic pain type: due to trauma Qualified Code(s): G89.21 - Chronic pain due to trauma Is this a current diagnosis for this admission?: Yes Plan: Patient has chronic neck, C-spine, and thoracic spine pain. She is up until recently on OxyContin and as needed oxycodone. She does not know her dosing. She was recently weaned down off of these medications and she reports too quickly. Her pain is significant and she is looking for a new pain specialist. I am still awaiting her medication list for reconciliation. (5) DJD (degenerative joint disease), cervical Is this a current diagnosis for this admission?: Yes Plan: Patient has chronic C-spine pain related to a fracture and failed spine fusion surgery. She was up until recently on OxyContin and oxycodone. She was weaned off of those and is now seeking a new pain clinic. I think secondary to her multiple symptoms palliative care consultation is appropriate and I will place that. She is chronically and is see spine soft collar. - Time Time Spent: 50 to 70 Minutes Medications reviewed and adjusted accordingly: Yes - Inpatient Certification Based on my medical assessment, after consideration of the patient's comorbidities, presenting symptoms, or acuity I expect that the services needed warrant INPATIENT care.: Yes I certify that my determination is in accordance with my understanding of Medicare's requirements for reasonable and necessary INPATIENT services [42 CFR 412.3e].: Yes Medical Necessity: Need for IV Antibiotics
[2017-08-09] MEDS ORDERED: AZITHROMYCIN 500 MG in DEXTROSE 5%-WATER 250 ML IV ONE (01:30)
[2017-08-09] MEDS ORDERED: MIRTAZAPINE 15 MG TABLET PO ONE (01:30)
[2017-08-09] MEDS ORDERED: AZITHROMYCIN INJ 500 MG VIAL IV ONE (02:00)
[2017-08-09] MEDS ORDERED: CEFTRIAXONE 1 GM/D5W RTU 1 GM/50 ML RTUPB IV ONE (02:00)
[2017-08-09] MEDS ORDERED: RINGERS SOLUTION,LACTATED 1,000 ML IV PRN (03:14)
[2017-08-09] MEDS ORDERED: HYDROMORPHONE HCL INJ/PF 2 MG/ML AMPULE IV ONE (04:00)
[2017-08-09] MEDS ORDERED: HYDROMORPHONE HCL INJ/PF 2 MG/ML AMPULE IV PRN ×2 (04:42→05:07)
[2017-08-09] MEDS: IPRATROPIUM/ALBUTEROL 0.5-2.5 MG/3 ML AMPUL NEB PRN (09:00)
[2017-08-09] MEDS: RIFAXIMIN 550 MG TABLET PO SCH ×2 (09:54→18:20)
[2017-08-09] MEDS ORDERED: POTASSIUM CHLORIDE 10 MEQ CAPSULE.ER PO ONE (10:00)
[2017-08-09] MEDS ORDERED: MAGNESIUM SULFATE/D5W 1 GM/100 ML RTUPB IV ONE (10:00)
[2017-08-09] MEDS ORDERED: POTASSI CL 20 MEQ/50 ML RIDER 20 MEQ/50 ML RTUPB IV SCH (11:00)
[2017-08-09 11:56] LABS: INTERNATIONAL RATION (INR) 1.28; PROTHROMBIN TIME 16.6 SEC (11.4-15.4)
[2017-08-09] MEDS: MORPHINE SULFATE 10 MG/ML INJ IV PRN ×2 (14:34→22:00)
--- NOTE | 2017-08-09 15:58 | Physician Advisory Note ---
Physician Advisor ProgressNote .: [facility] I have reviewed the medical record for this patient. Physician Advisor Statement: Please consider documenting, if you agree: 1. Type Pneumonia - likely pathogen suspected (GNeg? GPos? ...) STatus: agree w/Inpt. Thanks! CK
[2017-08-09 16:56] LABS: FLUID TYPE PLEURAL
[2017-08-09 16:57] LABS: FLUID APPEARANCE CLEAR; FLUID COLOR YELLOW; FLUID SOURCE LUNG; FLUID VISCOSITY LIQUID
[2017-08-09] MEDS ORDERED: FUROSEMIDE 20 MG TABLET PO SCH (17:30)
--- NOTE | 2017-08-09 17:37 | Progress Note ---
Provider Note Provider Note: JENNA BUCHANAN is a 61 Y.O. F with PMH cirrhosis, primary biliary cirrhosis ETOH abuse, spinal fusion s/p multiple fractures. CXR reveals right lower lobe extensive pneumonia with right pleural effusion. Agree with finger lift operator plan of care: 1. PLEURAL EFFUSION: R sided pleural effusion. Pleural effusion vs. ascites. Initially diuresed overnight for effusion. Plan for thoracentesis today pending COAGS. 2. PNA: Continue empiric antibiotics for community acquired PNA - ceftriaxone and azithromycin 3. CIRRHOSIS: Endorses ETOH abuse history. Continue home dose lasix, spironolactone, rifaxamin 4. CHRONIC PAIN: chronic pain secondary to history of c-spine and thoracic fractures. Currently on Morphine 5mg q 6hr PRN 5. DJD: Continue PRN pain regimen. Chronically in a C spine soft collar
[2017-08-09] MEDS ORDERED: ASPIRIN 81 MG TABLET, ENT COATED PO ONE (18:00)
[2017-08-09] MEDS ORDERED: FUROSEMIDE 40 MG TABLET PO ONE (18:00)
[2017-08-09] MEDS: PHENYTOIN SODIUM EXTENDED 100 MG CAPSULE PO SCH (18:18)
--- NOTE | 2017-08-09 18:32 | RADIOLOGY REPORT (SQ) ---
EXAM DESCRIPTION: CHEST SINGLE VIEW COMPLETED DATE/TIME: 08/09/2017 3:51 pm REASON FOR STUDY: S/P RT THORACENTESIS COMPARISON: 08/08/2017 EXAM PARAMETERS: NUMBER OF VIEWS: One view. TECHNIQUE: Single frontal radiographic view of the chest acquired. RADIATION DOSE: NA LIMITATIONS: None. FINDINGS: LUNGS AND PLEURA: Pulmonary vascular congestion. Mild pulmonary edema. No pneumothorax. Prominent residual right pleural effusion. MEDIASTINUM AND HILAR STRUCTURES: No masses. Contour normal. HEART AND VASCULAR STRUCTURES: Heart size borderline. BONES: No acute findings. HARDWARE: None in the chest. OTHER: No other significant finding. IMPRESSION: No pneumothorax. Residual right pleural effusion. Mild pulmonary edema with borderline cardiomegaly. TECHNICAL DOCUMENTATION: JOB ID: [id number] [email or web address]- All Rights Reserved Reading location - IP/workstation name: [email or web address]
--- NOTE | 2017-08-09 18:36 | RADIOLOGY REPORT (SQ) ---
EXAM DESCRIPTION: CHEST SINGLE VIEW COMPLETED DATE/TIME: 08/09/2017 5:50 pm REASON FOR STUDY: 2 HOURS S/P RT THORACENTESIS COMPARISON: 08/09/2017 EXAM PARAMETERS: NUMBER OF VIEWS: One view. TECHNIQUE: Single frontal radiographic view of the chest acquired. RADIATION DOSE: NA LIMITATIONS: None. FINDINGS: LUNGS AND PLEURA: Residual right pleural effusion. Residual pulmonary edema. No pneumoth orax. MEDIASTINUM AND HILAR STRUCTURES: No masses. Contour normal. Hiatal hernia. HEART AND VASCULAR STRUCTURES: Borderline heart size. BONES: No acute findings. HARDWARE: None in the chest. OTHER: No other significant finding. IMPRESSION: Residual right pleural effusion. No pneumothorax. Borderline cardiomegaly with residua l pulmonary edema. Hiatal hernia. TECHNICAL DOCUMENTATION: JOB ID: [id number]- All Rights Reserved Reading location - IP/workstation name: [email or web address]
--- NOTE | 2017-08-09 18:56 | RADIOLOGY REPORT (SQ) ---
EXAM DESCRIPTION: U/S THORACENTESIS WITH IMAGING COMPLETED DATE/TIME: 08/09/2017 3:29 pm REASON FOR STUDY: R PLEURAL EFFUSION COMPARISON: AP chest 08/08/2017, 12/23/2016 LIMITATIONS: None. PROCEDURE: Procedure, risks, benefit, and alternative explained to patient who then gave written con sent. The posterior right chest wall was marked using ultrasound guidance. A time-out was called fo r correct marking verification. Chest prepped and draped using sterile technique. Local anesthesia a chieved using 6 ml of 1% lidocaine injection. A 6fr Safe-T- Centesis set was introduced into the rig ht pleural space. Fluid was aspirated. The catheter was removed and the entry site was covered with sterile bandage. No immediate complications noted. Fluid was sent for testing. Images acquired during the procedure were stored on PACS. FINDINGS: ENTRY SITE: Right posterior pleural space FLUID VOLUME: 1050 mL FLUID ANALYSIS: Clear yellow fluid OTHER: Sent for testing IMPRESSION: SUCCESSFUL THORACENTESIS USING ULTRASOUND GUIDANCE. COMMENT: Patient medication list reviewed: Yes- Quality ID# [id number]:Eligible professional attests to doc umenting in the medical record they obtained, updated, or reviewed the patient's current medications. TECHNICAL DOCUMENTATION: JOB ID: [id number] [employer]- All Rights Reserved Reading location - IP/workstation name: [email or web address]
[2017-08-09] MEDS: CEFTRIAXONE SODIUM 1,000 MG in DEXTROSE 5%-WATER 50 ML IV SCH (22:00)
[2017-08-09] MEDS: MIRTAZAPINE 15 MG TABLET PO SCH (22:00)
[2017-08-09] MEDS ORDERED: CEFTRIAXONE 1 GM/D5W RTU 1 GM/50 ML RTUPB IV SCH (22:00)
[2017-08-09] MEDS: AZITHROMYCIN 500 MG in DEXTROSE 5%-WATER 250 ML IV SCH (23:02)
[2017-08-10] MEDS: MORPHINE SULFATE 10 MG/ML INJ IV PRN (05:01)
[2017-08-10 05:37] LABS: HEMATOCRIT 30.8 % (36.0-47.0); HEMOGLOBIN 10.6 g/dL (12.0-15.5); MEAN CORPUSCULAR HEMOGLOBIN 31.3 pg (27.0-33.4); MEAN CORPUSCULAR HGB CONC 34.4 g/dL (32.0-36.0); MEAN CORPUSCULAR VOLUME 91 fl (80-97); RED BLOOD COUNT 3.39 10^6/uL (3.72-5.28); RED CELL DISTRIBUTION WIDTH 17.2 % (11.5-14.0); WHITE BLOOD COUNT 7.2 10^3/uL (4.0-10.5)
[2017-08-10 06:15] LABS: ALANINE AMINOTRANSFERASE 41 U/L (9-52); ALBUMIN 2.6 g/dL (3.5-5.0); ALKALINE PHOSPHATASE 410 U/L (38-126); ANION GAP 9 (5-19); ASPARTATE AMINO TRANSFERASE 70 U/L (14-36); BILIRUBIN,DIRECT 2.5 mg/dL (0.0-0.4); BLOOD UREA NITROGEN 7 mg/dL (7-20); CALCIUM 7.9 mg/dL (8.4-10.2); CARBON DIOXIDE 27 mmol/L (22-30); CHLORIDE 108 mmol/L (98-107); GLUCOSE 73 mg/dL (75-110); POTASSIUM 3.2 mmol/L (3.6-5.0); SODIUM 144.2 mmol/L (137-145); TOTAL PROTEIN 6.3 g/dL (6.3-8.2)
[2017-08-10 06:24] LABS: PLATELET COUNT 96 10^3/uL (150-450)
[2017-08-10] MEDS: IPRATROPIUM/ALBUTEROL 0.5-2.5 MG/3 ML AMPUL NEB PRN ×2 (07:56→18:25)
[2017-08-10] MEDS ORDERED: POTASSIUM CHLORIDE 10 MEQ CAPSULE.ER PO ONE ×2 (08:30→13:00)
[2017-08-10] MEDS ORDERED: (PENDING PHARMACY ID) (Thiamine Hcl [Vitamin B-1] 250 MG) PO SCH (10:00)
[2017-08-10] MEDS ORDERED: URSODIOL PO SCH (10:00)
[2017-08-10] MEDS ORDERED: (PENDING PHARMACY ID) (Spironolactone [Spironolactone] 100 MG) PO SCH (10:00)
[2017-08-10] MEDS ORDERED: OXYCODONE HCL IR 5 MG TABLET PO PRN ×2 (10:48→10:50)
[2017-08-10] MEDS: LACTULOSE SYRUP 20 GM/30 ML UDCUP PO SCH ×2 (11:23→17:25)
[2017-08-10] MEDS: PHENYTOIN SODIUM EXTENDED 100 MG CAPSULE PO SCH ×2 (11:24→17:24)
[2017-08-10] MEDS: SPIRONOLACTONE 25 MG TABLET PO SCH (11:24)
[2017-08-10] MEDS: THIAMINE HCL 100 MG TABLET PO SCH (11:25)
[2017-08-10] MEDS: RIFAXIMIN 550 MG TABLET PO SCH ×2 (11:26→17:25)
[2017-08-10] MEDS: FOLIC ACID 1 MG TABLET PO SCH (11:26)
[2017-08-10] MEDS: ASPIRIN 81 MG TABLET, ENT COATED PO SCH (11:27)
[2017-08-10] MEDS: FUROSEMIDE 40 MG TABLET PO SCH (11:27)
[2017-08-10] MEDS ORDERED: PREGABALIN 100 MG CAPSULE PO ONE (11:30)
[2017-08-10] MEDS: OXYCODONE HCL IR 5 MG TABLET PO PRN ×2 (12:45→18:52)
--- NOTE | 2017-08-10 16:06 | RADIOLOGY REPORT (SQ) ---
EXAM DESCRIPTION: U/S ABDOMEN LIMITED W/O DOP COMPLETED DATE/TIME: 08/10/2017 3:40 pm REASON FOR STUDY: acites; therapeutic paracebtesis COMPARISON: Abdominal ultrasound 05/31/2017 TECHNIQUE: 4 quadrant abdominal ultrasound was performed to look for ascites for paracentesis. LIMITATIONS: None. FINDINGS: 4 quadrant abdominal ultrasound was performed. No loculated ascites. No paracentesis was performed. IMPRESSION: No ascites TECHNICAL DOCUMENTATION: JOB ID: [id number] [employer]- All Rights Reserved Reading location - IP/workstation name: [email or web address]
--- NOTE | 2017-08-10 17:17 | PDOC PROGRESS REPORT ---
Subjective Progress Note for:: 08/10/17 Subjective:: The patient is a 61-year-old female with past medical history significant for cirrhosis, primarily biliary cirrhosis with previous EtOH abuse, spinal fusion s /p multiple fractures, osteoporosis, and seizure disorder who was admitted on 08/09/17 for a right lower lobe pneumonia. Patient is seen on morning rounds. She states that she is feeling slightly better today, however, continues to have dyspnea at rest, orthopnea, productive cough, generalized malaise and fatigue. She reports that she feels somewhat improved following thoracentesis yesterday. Primary complaint today is constipation; she reports that her last bowel movement was approximately 4-5 days ago. She also feels that it she has a significant amount of ascites would benefit from a paracentesis. We discussed her current pain medication regimen; patient is agreeable to returning to oral analgesics today. She has no other questions or concerns at this time. Reason For Visit: PNEUMONIA WITH PLEURAL EFFUSION Physical Exam Vital Signs: Temp Pulse Resp BP Pulse Ox 98.6 F 84 20 121/61 99 08/10/17 16:00 08/10/17 16:00 08/10/17 16:00 08/10/17 16:00 08/10/17 16:00 Intake & Output 08/09/17 08/10/17 08/11/17 06:59 06:59 06:59 Intake Total 800 5880 Balance 800 5880 Weight 49.5 kg 55 kg General appearance: PRESENT: no acute distress, cooperative, well-developed, well-nourished Head exam: PRESENT: atraumatic, normocephalic Eye exam: PRESENT: conjunctiva pink, EOMI, PERRLA. ABSENT: scleral icterus Ear exam: PRESENT: normal external ear exam Mouth exam: PRESENT: moist, tongue midline Neck exam: ABSENT: carotid bruit, JVD, lymphadenopathy, thyromegaly Respiratory exam: PRESENT: decreased breath sounds - Bibasilar, prolonged expiratory phas, rhonchi, symmetrical. ABSENT: rales, wheezes Cardiovascular exam: PRESENT: RRR, +S1, +S2. ABSENT: diastolic murmur, rubs, systolic murmur Pulses: PRESENT: normal dorsalis pedis pul Vascular exam: PRESENT: normal capillary refill GI/Abdominal exam: PRESENT: normal bowel sounds, soft. ABSENT: distended, guarding, mass, organolmegaly, rebound, tenderness Rectal exam: PRESENT: deferred Extremities exam: PRESENT: full ROM. ABSENT: calf tenderness, clubbing, pedal edema Neurological exam: PRESENT: alert, awake, oriented to person, oriented to place , oriented to time, oriented to situation, CN II-XII grossly intact. ABSENT: motor sensory deficit Psychiatric exam: PRESENT: appropriate affect, normal mood. ABSENT: homicidal ideation, suicidal ideation Skin exam: PRESENT: dry, intact, warm. ABSENT: cyanosis, rash Results Laboratory Results: 08/10/17 05:09 08/10/17 05:09 08/09/17 08/10/17 08/10/17 15:20 05:09 05:09 WBC 7.2 RBC 3.39 L Hgb 10.6 L Hct 30.8 L MCV 91 MCH 31.3 MCHC 34.4 RDW 17.2 H Plt Count 96 L Sodium 144.2 Potassium 3.2 L Chloride 108 H Carbon Dioxide 27 Anion Gap 9 BUN 7 Creatinine 0.41 L Est GFR ( Amer) > 60 Est GFR (Non-Af Amer) > 60 Glucose 73 L Lactic Acid Calcium 7.9 L Total Bilirubin 3.0 H AST 70 H ALT 41 Alkaline Phosphatase 410 H Total Protein 6.3 Albumin 2.6 L Fluid Type PLEURAL Fluid Source LUNG Fluid Color YELLOW Fluid Appearance CLEAR Fluid Viscosity LIQUID Fluid WBC 16 Fluid RBC 184 08/10/17 05:09 WBC RBC Hgb Hct MCV MCH MCHC RDW Plt Count Sodium Potassium Chloride Carbon Dioxide Anion Gap BUN Creatinine Est GFR ( Amer) Est GFR (Non-Af Amer) Glucose Lactic Acid 1.3 Calcium Total Bilirubin AST ALT Alkaline Phosphatase Total Protein Albumin Fluid Type Fluid Source Fluid Color Fluid Appearance Fluid Viscosity Fluid WBC Fluid RBC Impressions: Chest X-Ray 08/09/17 00:00 IMPRESSION: Residual right pleural effusion. No pneumothorax. Borderline cardiomegaly with residual pulmonary edema. Hiatal hernia. Thoracentesis Ultrasound 08/09/17 10:34 IMPRESSION: SUCCESSFUL THORACENTESIS USING ULTRASOUND GUIDANCE. Abdomen Ultrasound 08/10/17 11:32 IMPRESSION: No ascites Assessment & Plan - Diagnosis (1) Pleural effusion Is this a current diagnosis for this admission?: Yes Plan: The patient had is a right-sided pleural effusion; multifactorial secondary to right lower lobe pneumonia and may also be related to her cirrhosis. However, evaluation for ascites today was negative. She is now status post thoracentesis with removal of approximately 1 L yesterday. Laboratory evaluation and culture results are reassuring. We will continue supportive care with antibiotics for pneumonia, diuretics for ascites, and supplemental oxygen as needed. We will reevaluate with chest x-ray tomorrow morning. (2) Pneumonia Qualifiers: Pneumonia type: due to unspecified organism Laterality: right Lung location: lower lobe of lung Qualified Code(s): J18.1 - Lobar pneumonia, unspecified organism Is this a current diagnosis for this admission?: Yes Plan: Initial chest x-ray revealed an extensive right lower lobe pneumonia with superimposed large pleural effusion; now s/p thoracentesis. Blood cultures have no growth at 24 hours. Sputum cultures are pending. We will continue IV azithromycin and Rocephin. Continue supplemental oxygen as needed to maintain oxygen saturations greater than 90%; wean as able. As needed nebulizer treatments. Incentive spirometry to bedside. Encourage ambulation. (3) Chronic pain Is this a current diagnosis for this admission?: Yes Plan: The patient has chronic pain related to DJD with multiple spinal fusion surgeries per report. [place] database reviewed; it appears that the patient's pain management physician has weaned her off of OxyContin and has begun weaning down on oxycodone. Per patient report, she did have abnormal pill counts 2 which have prompted her pain management doctor to begin weaning her from her opiate medications. Discussed with patient plan for pain management; IV morphine discontinued. Oxycodone 10 mg every 6 hours as needed is initiated (this is admittedly more than her twice daily dose she is currently receiving from her outpatient provider). Patient is aware that she will not be provided a chronic pain medication prescription at time of discharge. Resume outpatient Lyrica. Encourage nonpharmacological intervention; heat, stretching, ambulation, distraction. (4) Opiate dependence, continuous Is this a current diagnosis for this admission?: Yes Plan: As above. (5) Constipation Is this a current diagnosis for this admission?: Yes Plan: Likely a combination of missed lactulose dosing and opiate use. Have resumed the patient's outpatient lactulose dosing. Dulcolax suppository 1 today. The patient does have a prescription for Relistor; if no relief overnight, will have pharmacy reconcile medication allow for home med use tomorrow. (6) Cirrhosis Is this a current diagnosis for this admission?: Yes Plan: Biliary versus EtOH induced; patient reports that she is followed by the [place] liver transplant team and has been actively working towards approval for liver transplant. Abdominal ultrasound today is negative for accumulated ascites; no indication for paracentesis. We will continue the patient's home medications: Rifaximin, lactulose, Lasix, and spironolactone. (7) Seizure Is this a current diagnosis for this admission?: Yes Plan: Continue patient's home dosed Dilantin. (8) History of alcohol abuse Is this a current diagnosis for this admission?: Yes Plan: Remote history of EtOH abuse per patient. Continue thiamine and folate supplementation. - Time Time Spent with patient: 15-24 minutes Medications reviewed and adjusted accordingly: Yes Anticipated discharge: Home - Inpatient Certification Based on my medical assessment, after consideration of the patient's comorbidities, presenting symptoms, or acuity I expect that the services needed warrant INPATIENT care.: Yes I certify that my determination is in accordance with my understanding of Medicare's requirements for reasonable and necessary INPATIENT services [42 CFR 412.3e].: Yes Medical Necessity: Need for Nebulizer Therapy and Monitoring of Response, Need for IV Antibiotics
[2017-08-10] MEDS: PREGABALIN 100 MG CAPSULE PO SCH (17:25)
[2017-08-10] MEDS ORDERED: BISACODYL 10 MG SUPP.RECT PR ONE (18:00)
[2017-08-10] MEDS: MIRTAZAPINE 15 MG TABLET PO SCH (22:29)
[2017-08-10] MEDS: AZITHROMYCIN 500 MG in DEXTROSE 5%-WATER 250 ML IV SCH (22:36)
[2017-08-10] MEDS: CEFTRIAXONE SODIUM 1,000 MG in DEXTROSE 5%-WATER 50 ML IV SCH (22:37)
[2017-08-11] MEDS: IPRATROPIUM/ALBUTEROL 0.5-2.5 MG/3 ML AMPUL NEB PRN ×2 (00:40→10:22)
[2017-08-11] MEDS: OXYCODONE HCL IR 5 MG TABLET PO PRN ×3 (01:17→13:58)
[2017-08-11 05:38] LABS: HEMATOCRIT 31.5 % (36.0-47.0); HEMOGLOBIN 10.6 g/dL (12.0-15.5); MEAN CORPUSCULAR HEMOGLOBIN 30.9 pg (27.0-33.4); MEAN CORPUSCULAR HGB CONC 33.5 g/dL (32.0-36.0); MEAN CORPUSCULAR VOLUME 92 fl (80-97); PLATELET COUNT 104 10^3/uL (150-450); RED BLOOD COUNT 3.43 10^6/uL (3.72-5.28); RED CELL DISTRIBUTION WIDTH 17.5 % (11.5-14.0); WHITE BLOOD COUNT 11.7 10^3/uL (4.0-10.5)
[2017-08-11 05:53] LABS: ALANINE AMINOTRANSFERASE 37 U/L (9-52); ALBUMIN 3.1 g/dL (3.5-5.0); ALKALINE PHOSPHATASE 416 U/L (38-126); ANION GAP 12 (5-19); ASPARTATE AMINO TRANSFERASE 117 U/L (14-36); BILIRUBIN,DIRECT 3.1 mg/dL (0.0-0.4); BILIRUBIN,TOTAL 3.7 mg/dL (0.2-1.3); BLOOD UREA NITROGEN 7 mg/dL (7-20); CALCIUM 8.1 mg/dL (8.4-10.2); CARBON DIOXIDE 26 mmol/L (22-30); CHLORIDE 104 mmol/L (98-107); GLUCOSE 124 mg/dL (75-110); POTASSIUM 3.8 mmol/L (3.6-5.0); SODIUM 141.9 mmol/L (137-145); TOTAL PROTEIN 7.3 g/dL (6.3-8.2)
[2017-08-11] MEDS: PHENYTOIN SODIUM EXTENDED 100 MG CAPSULE PO SCH ×2 (07:41→17:45)
--- NOTE | 2017-08-11 08:39 | RADIOLOGY REPORT (SQ) ---
EXAM DESCRIPTION: CHEST SINGLE VIEW COMPLETED DATE/TIME: 08/11/2017 8:18 am REASON FOR STUDY: PNA COMPARISON: Chest films 08/09/2017, 12/23/2016 EXAM PARAMETERS: NUMBER OF VIEWS: One view. TECHNIQUE: Single frontal radiographic view of the chest acquired. RADIATION DOSE: NA LIMITATIONS: None. FINDINGS: LUNGS AND PLEURA: Dense consolidation is present in the left lung, worrisome for pneumonia . No left pleural effusion. No pneumothorax. On the right side, persistent pleural effusion is present, similar compared to the post thoracentesis films 08/09/2017. MEDIASTINUM AND HILAR STRUCTURES: No masses. Contour normal. HEART AND VASCULAR STRUCTURES: Stable mild cardiomegaly BONES: No acute findings. HARDWARE: Right humeral head replacement OTHER: No other significant finding. IMPRESSION: Dense pneumonia in the left lung. Persistent right pleural effusion TECHNICAL DOCUMENTATION: JOB ID: [id number] [email or web address]- All Rights Reserved Reading location - IP/workstation name: [email or web address]
[2017-08-11] MEDS: ASPIRIN 81 MG TABLET, ENT COATED PO SCH (10:09)
[2017-08-11] MEDS: FUROSEMIDE 40 MG TABLET PO SCH (10:09)
[2017-08-11] MEDS: THIAMINE HCL 100 MG TABLET PO SCH (10:09)
[2017-08-11] MEDS: RIFAXIMIN 550 MG TABLET PO SCH ×2 (10:10→17:46)
[2017-08-11] MEDS: PREGABALIN 100 MG CAPSULE PO SCH ×2 (10:10→17:45)
[2017-08-11] MEDS: SPIRONOLACTONE 25 MG TABLET PO SCH (10:10)
[2017-08-11] MEDS: FOLIC ACID 1 MG TABLET PO SCH (10:10)
[2017-08-11] MEDS: LACTULOSE SYRUP 20 GM/30 ML UDCUP PO SCH ×3 (10:11→21:28)
[2017-08-11] MEDS ORDERED: LORAZEPAM 1 MG TABLET PO ONE (12:30)
[2017-08-11 13:54] LABS: ARTERIAL BLOOD BASE EXCESS 3.8 mmol/L; ARTERIAL BLOOD H2CO3 1.17 mmol/L (1.05-1.35); ARTERIAL BLOOD HCO3 27.7 mmol/L (20-26); ARTERIAL BLOOD O2 SATURATION 90.2 % (94-98); ARTERIAL BLOOD PCO2 38.8 mmHg (35-45); ARTERIAL BLOOD PH 7.47 (7.35-7.45); ARTERIAL BLOOD PO2 54.3 mmHg (80-100); ARTERIAL BLOOD TOTAL CO2 28.9 mmol/L (21-25)
[2017-08-11 13:59] LABS: ARTERIAL BLOOD FIO2 3L
[2017-08-11] MEDS: IPRATROPIUM/ALBUTEROL 0.5-2.5 MG/3 ML AMPUL NEB SCH ×2 (14:47→20:26)
[2017-08-11] MEDS: PREDNISONE 20 MG TABLET PO SCH (17:46)
--- NOTE | 2017-08-11 18:22 | PDOC PROGRESS REPORT ---
Subjective Progress Note for:: 08/11/17 Subjective:: The patient is a 61-year-old female with past medical history significant for cirrhosis, primarily biliary cirrhosis with previous EtOH abuse, spinal fusion s /p multiple fractures, osteoporosis, and seizure disorder who was admitted on 08/09/17 for a right lower lobe pneumonia. Patient is seen on rounds early this afternoon with her present. She is found sitting up to the edge of the bed on supplemental oxygen via nasal cannula at 3 L/min. She is slightly tachypneic with accessory muscle use, but maintaining oxygen saturations in the mid to high 90s and is fully conversational without pauses to catch her breath. She reports that she feels like her dyspnea and cough have actually improved. She reports positive bowel movements yesterday with resolution of her constipation. Her primary complaint at present is a sensation of anxiety and "panic attacks" that worsen when she lies down and resulting in her having not slept in approximately 36 hours. She attributes her anxiety to difficulty breathing, however, shortly thereafter states that she feels that her breathing is better today than it was yesterday. We had a long discussion regarding the likelihood that her pneumonia and dyspnea are causing some anxiety and that her anxiety is further worsening her dyspnea. She seems to be relieved by the correlation as she "thought I was going crazy." At the time of my assessment, the patient was fully alert and oriented 4 without evidence of mental status changes. Approximately 2 hours later I received a phone call from the nursing staff reporting that the patient seemed acutely confused; talking about needing to find a baby and unable to sit still. Stat ABG revealed pH 7.47, pCO2 38.8, pO2 54.3, HCO3 28.9. Discussed with RT; pt is being placed on nonrebreather and will have repeat ABG done in 1 hour. Patient is a FULL CODE. It also was noted that the patient has been refusing her lactulose. At time of dictation, stat Ammonia level is pending. Reason For Visit: PNEUMONIA WITH PLEURAL EFFUSION Physical Exam Vital Signs: Temp Pulse Resp BP Pulse Ox 98.4 F 101 H 19 129/59 H 87 L 08/11/17 15:48 08/11/17 15:48 08/11/17 15:48 08/11/17 15:48 08/11/17 15:48 Intake & Output 08/10/17 08/11/17 08/12/17 06:59 06:59 06:59 Intake Total 5880 5977 Balance 5880 5977 Weight 55 kg 54.9 kg General appearance: PRESENT: cooperative, mild distress, thin, well-developed, well-nourished Head exam: PRESENT: atraumatic, normocephalic Eye exam: PRESENT: conjunctiva pink, EOMI, PERRLA. ABSENT: scleral icterus Ear exam: PRESENT: normal external ear exam Mouth exam: PRESENT: moist, tongue midline Neck exam: ABSENT: carotid bruit, JVD, lymphadenopathy, thyromegaly Respiratory exam: PRESENT: accessory muscle use, decreased breath sounds - Absent right lower lobe, prolonged expiratory phas, rhonchi, tachypnea, other - Supplemental oxygen by nasal cannula. ABSENT: rales, wheezes Cardiovascular exam: PRESENT: RRR, +S1, +S2. ABSENT: diastolic murmur, rubs, systolic murmur Pulses: PRESENT: normal dorsalis pedis pul Vascular exam: PRESENT: normal capillary refill GI/Abdominal exam: PRESENT: ascites, distended, normal bowel sounds, soft. ABSENT: guarding, mass, organolmegaly, rebound, tenderness Rectal exam: PRESENT: deferred Extremities exam: PRESENT: full ROM. ABSENT: calf tenderness, clubbing, pedal edema Neurological exam: PRESENT: alert, awake, oriented to person, oriented to place , oriented to time, oriented to situation, CN II-XII grossly intact. ABSENT: motor sensory deficit Psychiatric exam: PRESENT: anxious, appropriate affect. ABSENT: homicidal ideation, suicidal ideation Skin exam: PRESENT: dry, intact, warm. ABSENT: cyanosis, rash Results Laboratory Results: 08/11/17 04:21 08/11/17 04:21 08/11/17 08/11/17 08/11/17 04:21 04:21 13:35 WBC 11.7 H RBC 3.43 L Hgb 10.6 L Hct 31.5 L MCV 92 MCH 30.9 MCHC 33.5 RDW 17.5 H Plt Count 104 L Carbonic Acid 1.17 HCO3/H2CO3 Ratio 23:1 ABG pH 7.47 H ABG pCO2 38.8 ABG pO2 54.3 L ABG HCO3 27.7 H ABG O2 Saturation 90.2 L ABG Base Excess 3.8 FiO2 3L Sodium 141.9 Potassium 3.8 Chloride 104 Carbon Dioxide 26 Anion Gap 12 BUN 7 Creatinine 0.38 L Est GFR ( Amer) > 60 Est GFR (Non-Af Amer) > 60 Glucose 124 H Calcium 8.1 L Total Bilirubin 3.7 H AST 117 H ALT 37 Alkaline Phosphatase 416 H Total Protein 7.3 Albumin 3.1 L 08/11/17 04:21 NT-Pro-B Natriuret Pep 232 Impressions: Thoracentesis Ultrasound 08/09/17 10:34 IMPRESSION: SUCCESSFUL THORACENTESIS USING ULTRASOUND GUIDANCE. Abdomen Ultrasound 08/10/17 11:32 IMPRESSION: No ascites Chest X-Ray 08/11/17 06:00 IMPRESSION: Dense pneumonia in the left lung. Persistent right pleural effusion Assessment & Plan - Diagnosis (1) Pleural effusion Is this a current diagnosis for this admission?: Yes Plan: The patient had is a right-sided pleural effusion; multifactorial secondary to right lower lobe pneumonia and may also be related to her cirrhosis. However, evaluation for ascites yesterday was negative. She is now status post thoracentesis with removal of approximately 1 L 08/09/17 Laboratory evaluation of pleural effusion is reassuring; transudative. Pleural fluid culture has no growth at 2 days. Repeat chest x-ray today shows persistent right-sided pleural effusion with dense left lung pneumonia. We will continue supportive care with antibiotics for pneumonia, diuretics for ascites, and supplemental oxygen as needed. (2) Pneumonia Qualifiers: Pneumonia type: due to unspecified organism Laterality: right Lung location: lower lobe of lung Qualified Code(s): J18.1 - Lobar pneumonia, unspecified organism Is this a current diagnosis for this admission?: Yes Plan: Initial chest x-ray revealed an extensive right lower lobe pneumonia with superimposed large pleural effusion; now s/p thoracentesis. Blood cultures have no growth at 48 hours. Sputum cultures demonstrating gram positive cocci and rods. ABG demonstrates respiratory alkalosis with hypoxia. We will continue IV azithromycin and Rocephin. Athough sputum culture demonstrates gram positive cocci in pairs, not clusters, will escalate antibiotic coverage to include Vancomycin for possible MRSA as the patient has clinically worsening pneumonia (worsened chest xray, increased WBCs, and profound hypoxia while on supplemental oxygen). Continue supplemental oxygen as needed to maintain oxygen saturations greater than 90%. Discussed with RT; will place patient on nonrebreather and repeat ABG in one hour. Scheduled and as needed nebulizer treatments. Initiate prednisone therapy. Mucinex twice daily. Incentive spirometry to bedside. Encourage ambulation. (3) Chronic pain Is this a current diagnosis for this admission?: Yes Plan: The patient has chronic pain related to DJD with multiple spinal fusion surgeries per report. [place] database reviewed; it appears that the patient's pain management physician has weaned her off of OxyContin and has begun weaning down on oxycodone. Per patient report, she did have abnormal pill counts 2 which have prompted her pain management doctor to begin weaning her from her opiate medications. Continue Oxycodone 10 mg every 6 hours as needed is initiated (this is admittedly more than her twice daily dose she is currently receiving from her outpatient provider). Patient is aware that she will not be provided a chronic pain medication prescription at time of discharge. Resume outpatient Lyrica. Encourage nonpharmacological intervention; heat, stretching, ambulation, distraction. (4) Opiate dependence, continuous Is this a current diagnosis for this admission?: Yes Plan: As above. (5) Constipation Is this a current diagnosis for this admission?: Yes Plan: Resolved. Likely a combination of missed lactulose dosing and opiate use. Have resumed lactulose; will adjust dose to effect. (6) Cirrhosis Is this a current diagnosis for this admission?: Yes Plan: Biliary versus EtOH induced; patient reports that she is followed by the [place] liver transplant team and has been actively working towards approval for liver transplant. Abdominal ultrasound yesterday is negative for accumulated ascites; no indication for paracentesis. LFTs trending up today. Ammonia level is pending. We will continue the patient's home medications: Rifaximin, lactulose, Lasix, and spironolactone. (7) Seizure Is this a current diagnosis for this admission?: Yes Plan: Dilantin level was subtherapeutic. Have increased her a.m. dose from 200 mg to 300 mg. Continue current evening dose of 300 mg. (8) History of alcohol abuse Is this a current diagnosis for this admission?: Yes Plan: Remote history of EtOH abuse per patient; last EtOH intake proximately 3 years ago. Continue thiamine and folate supplementation. (9) Acute encephalopathy Is this a current diagnosis for this admission?: Yes Plan: Multifactorial secondary to acute respiratory failure with hypoxia and missed lactulose dosing. Ammonia level is pending. Plan to correct hypoxia and manage liver disease as above. Minimize sedating medications as able. Provide for patient safety. - Time Time Spent with patient: 35 or more minutes Medications reviewed and adjusted accordingly: Yes
[2017-08-11] MEDS ORDERED: VANCOMYCIN HCL INJ 1000 MG VIAL IV PRN (18:25)
[2017-08-11] MEDS ORDERED: VANCOMYCIN HCL 0 MG in DEXTROSE 5%-WATER 250 ML IV NR (18:30)
[2017-08-11] MEDS ORDERED: VANCOMYCIN HCL 1,000 MG in DEXTROSE 5%-WATER 250 ML IV ONE (18:30)
[2017-08-11 19:08] LABS: ARTERIAL BLOOD BASE EXCESS 3.9 mmol/L; ARTERIAL BLOOD H2CO3 1.58 mmol/L (1.05-1.35); ARTERIAL BLOOD PCO2 52.4 mmHg (35-45); ARTERIAL BLOOD PH 7.38 (7.35-7.45); ARTERIAL BLOOD TOTAL CO2 31.6 mmol/L (21-25)
[2017-08-11 19:35] LABS: ARTERIAL BLOOD FIO2 100%
[2017-08-11 19:36] LABS: ARTERIAL BLOOD PO2 38.1 mmHg (80-100)
[2017-08-11] MEDS ORDERED: VANCOMYCIN HCL 1,000 MG in NORMAL SALINE 250 ML IV ONE (19:45)
[2017-08-11 21:19] LABS: ABSOLUTE LYMPHOCYTES (AUTO) 0.6 10^3/uL (0.5-4.7); ABSOLUTE MONOCYTES (AUTO) 0.6 10^3/uL (0.1-1.4); ABSOLUTE NEUT (AUTO) 9.7 10^3/uL (1.7-8.2); BASOPHILS % (AUTO) 0.2 % (0-2); EOSINOPHILS % (AUTO) 0.4 % (0-6); HEMATOCRIT 31.4 % (36.0-47.0); HEMOGLOBIN 10.7 g/dL (12.0-15.5); LYMPHOCYTES % (AUTO) 5.5 % (13-45); MEAN CORPUSCULAR HEMOGLOBIN 31.3 pg (27.0-33.4); MEAN CORPUSCULAR VOLUME 92 fl (80-97); MONOCYTES % (AUTO) 5.5 % (3-13); PLATELET COUNT 102 10^3/uL (150-450); RED BLOOD COUNT 3.41 10^6/uL (3.72-5.28); RED CELL DISTRIBUTION WIDTH 17.2 % (11.5-14.0); SEGMENTED NEUTROPHILS % (AUTO) 88.4 % (42-78); TOTAL CELLS COUNTED % (AUTO) 100 %
[2017-08-11 21:20] LABS: ARTERIAL BLOOD BASE EXCESS 1.9 mmol/L; ARTERIAL BLOOD H2CO3 1.23 mmol/L (1.05-1.35); ARTERIAL BLOOD HCO3 26.4 mmol/L (20-26); ARTERIAL BLOOD O2 SATURATION 97.6 % (94-98); ARTERIAL BLOOD PCO2 40.8 mmHg (35-45); ARTERIAL BLOOD PH 7.43 (7.35-7.45); ARTERIAL BLOOD PO2 98.9 mmHg (80-100); ARTERIAL BLOOD TOTAL CO2 27.7 mmol/L (21-25)
[2017-08-11 21:22] LABS: ARTERIAL BLOOD FIO2 60%
[2017-08-11] MEDS: AZITHROMYCIN 500 MG in DEXTROSE 5%-WATER 250 ML IV SCH (21:26)
[2017-08-11] MEDS: CEFTRIAXONE SODIUM 1,000 MG in DEXTROSE 5%-WATER 50 ML IV SCH (21:27)
[2017-08-11] MEDS: MIRTAZAPINE 15 MG TABLET PO SCH (21:28)
[2017-08-11] MEDS: GUAIFENESIN 600 MG TABLET.SA PO SCH (21:28)
[2017-08-11 21:36] LABS: ALANINE AMINOTRANSFERASE 45 U/L (9-52); ALBUMIN 2.9 g/dL (3.5-5.0); ALKALINE PHOSPHATASE 405 U/L (38-126); ANION GAP 11 (5-19); ASPARTATE AMINO TRANSFERASE 86 U/L (14-36); BLOOD UREA NITROGEN 7 mg/dL (7-20); CALCIUM 8.2 mg/dL (8.4-10.2); CARBON DIOXIDE 29 mmol/L (22-30); CHLORIDE 102 mmol/L (98-107); GLUCOSE 107 mg/dL (75-110); POTASSIUM 3.2 mmol/L (3.6-5.0); SODIUM 141.9 mmol/L (137-145); TOTAL PROTEIN 6.9 g/dL (6.3-8.2)
--- NOTE | 2017-08-11 23:01 | RADIOLOGY REPORT (SQ) ---
EXAM DESCRIPTION: US ABDOMEN DOPPLER COMPLETED DATE/TME: 08/11/2017 00:00 CLINICAL HISTORY: 61 years Female, ? choledocholith Comparison: 05.31.18 LIMITATIONS: None. FINDINGS: 0.4 cm gallbladder wall thickness, minimal pericholecystic fluid, incomplete gallbladder distention,, negative sonographic Carcamo's test, liver, a 0.8-cm diameter common bile duct, no intrahepatic ductal dilation, -cm right kidney, pancreas, visualized vasculature/abdominal aorta, and no significant ascites appear otherwise unremarkable. IMPRESSION: Minimal pericholecystic fluid. 0.8 cm diameter prominent common bile duct, no intrahepatic ductal dilation. Otherwise, unremarkable.
[2017-08-12] MEDS ORDERED: VANCOMYCIN HCL INJ 1000 MG VIAL ONE (00:26)
[2017-08-12] MEDS: OXYCODONE HCL IR 5 MG TABLET PO PRN (00:50)
[2017-08-12] MEDS: LORAZEPAM 0.5 MG TABLET PO PRN ×2 (00:50→09:17)
[2017-08-12] MEDS: IPRATROPIUM/ALBUTEROL 0.5-2.5 MG/3 ML AMPUL NEB SCH ×4 (02:31→20:29)
[2017-08-12] MEDS ORDERED: VANCOMYCIN HCL 750 MG in DEXTROSE 5%-WATER 250 ML IV ONE (03:00)
[2017-08-12] MEDS ORDERED: VANCOMYCIN HCL 750 MG in NORMAL SALINE 250 ML IV ONE (04:00)
[2017-08-12] MEDS: LACTULOSE SYRUP 20 GM/30 ML UDCUP PO SCH ×4 (05:14→23:41)
[2017-08-12 05:44] LABS: HEMATOCRIT 28.5 % (36.0-47.0); HEMOGLOBIN 9.7 g/dL (12.0-15.5); MEAN CORPUSCULAR HEMOGLOBIN 31.4 pg (27.0-33.4); MEAN CORPUSCULAR HGB CONC 34.1 g/dL (32.0-36.0); MEAN CORPUSCULAR VOLUME 92 fl (80-97); RED CELL DISTRIBUTION WIDTH 17.5 % (11.5-14.0); WHITE BLOOD COUNT 8.8 10^3/uL (4.0-10.5)
[2017-08-12 05:57] LABS: ALANINE AMINOTRANSFERASE 44 U/L (9-52); ALBUMIN 2.6 g/dL (3.5-5.0); ALKALINE PHOSPHATASE 346 U/L (38-126); ANION GAP 10 (5-19); ASPARTATE AMINO TRANSFERASE 68 U/L (14-36); BILIRUBIN,DIRECT 3.2 mg/dL (0.0-0.4); BILIRUBIN,TOTAL 3.9 mg/dL (0.2-1.3); BLOOD UREA NITROGEN 9 mg/dL (7-20); CALCIUM 7.8 mg/dL (8.4-10.2); CARBON DIOXIDE 27 mmol/L (22-30); CHLORIDE 103 mmol/L (98-107); GLUCOSE 98 mg/dL (75-110); POTASSIUM 3.2 mmol/L (3.6-5.0); SODIUM 139.8 mmol/L (137-145); TOTAL PROTEIN 5.8 g/dL (6.3-8.2)
[2017-08-12 06:22] LABS: PLATELET COUNT 91 10^3/uL (150-450)
[2017-08-12] MEDS ORDERED: PHENYTOIN SODIUM EXTENDED 100 MG CAPSULE PO SCH (08:00)
[2017-08-12] MEDS: FOLIC ACID 1 MG TABLET PO SCH (09:09)
[2017-08-12] MEDS: PREDNISONE 20 MG TABLET PO SCH (09:16)
[2017-08-12] MEDS: THIAMINE HCL 100 MG TABLET PO SCH (09:16)
[2017-08-12] MEDS: ASPIRIN 81 MG TABLET, ENT COATED PO SCH (09:16)
[2017-08-12] MEDS: GUAIFENESIN 600 MG TABLET.SA PO SCH ×2 (09:16→21:11)
[2017-08-12] MEDS: SPIRONOLACTONE 25 MG TABLET PO SCH (09:16)
[2017-08-12] MEDS: PREGABALIN 100 MG CAPSULE PO SCH (09:16)
[2017-08-12] MEDS: FUROSEMIDE 40 MG TABLET PO SCH (09:16)
[2017-08-12] MEDS: RIFAXIMIN 550 MG TABLET PO SCH ×2 (09:17→18:49)
[2017-08-12] MEDS: POTASSI CL 20 MEQ/50 ML RIDER 20 MEQ/50 ML RTUPB IV SCH ×2 (09:17→10:43)
[2017-08-12] MEDS ORDERED: MORPHINE SULFATE 10 MG/ML INJ IV PRN ×2 (10:55→16:15)
--- NOTE | 2017-08-12 11:48 | RADIOLOGY REPORT (SQ) ---
EXAM DESCRIPTION: CHEST SINGLE VIEW COMPLETED DATE/TIME: 08/12/2017 11:27 am REASON FOR STUDY: respiratory failure COMPARISON: 08/11/2017 EXAM PARAMETERS: NUMBER OF VIEWS: One view. TECHNIQUE: Single frontal radiographic view of the chest acquired. RADIATION DOSE: NA LIMITATIONS: None. FINDINGS: LUNGS AND PLEURA: Dense opacification in the left lung has increased. Less well-defined o pacification the right upper lung and large right pleural effusion. MEDIASTINUM AND HILAR STRUCTURES: No masses. Contour normal. HEART AND VASCULAR STRUCTURES: Cardiac silhouette is enlarged. BONES: Scoliosis is present. HARDWARE: None in the chest. OTHER: No other significant finding. IMPRESSION: Dense pneumonia in the left lung. Cannot exclude overlying pulmonary edema. Right pleu ral effusion. Cardiomegaly. TECHNICAL DOCUMENTATION: JOB ID: [id number] [employer]- All Rights Reserved Reading location - IP/workstation name: [email or web address]
[2017-08-12] MEDS ORDERED: FUROSEMIDE INJ/PF 100 MG/10 ML SDV IV ONE ×3 (13:30→22:00)
[2017-08-12] MEDS ORDERED: PIPERACILLIN SODIUM/TAZOBACTAM 3.375 GM in NORMAL SALINE 100 ML IV ONE (13:30)
[2017-08-12 15:22] LABS: ARTERIAL BLOOD BASE EXCESS 5.8 mmol/L; ARTERIAL BLOOD H2CO3 1.27 mmol/L (1.05-1.35); ARTERIAL BLOOD O2 SATURATION 91.5 % (94-98); ARTERIAL BLOOD PCO2 42.3 mmHg (35-45); ARTERIAL BLOOD PH 7.47 (7.35-7.45); ARTERIAL BLOOD PO2 57.6 mmHg (80-100); ARTERIAL BLOOD TOTAL CO2 31.3 mmol/L (21-25)
[2017-08-12 15:24] LABS: ARTERIAL BLOOD FIO2 45%
[2017-08-12] MEDS: MAGNESIUM SULFATE/D5W 1 GM/100 ML RTUPB IV SCH ×2 (15:33→16:48)
--- NOTE | 2017-08-12 16:37 | PDOC PROGRESS REPORT ---
Subjective Progress Note for:: 08/12/17 Subjective:: The patient is a 61-year-old female with past medical history significant for cirrhosis, primarily biliary cirrhosis with previous EtOH abuse, spinal fusion s /p multiple fractures, osteoporosis, and seizure disorder who was admitted on 08/09/17 for a right lower lobe pneumonia. The patient was seen this morning on rounds, she is resting in bed on BIPAP currently in upper limb soft restraints. She is complaining of back pain. The patient appears very anxious. The patient is tachypneic with a respiratory rate in the 40s. SPO2 90-94%. She is able to maintain decent tidal volume 470- 550. She is able to answer all questions appropriately but she frequently refers back to her uncontrolled pain. Coarse lung sounds in upper lobes, diminished in the lower lobes. Her chest xray looks significantly worse than yesterday -bilateral opacities (left worse than right) and a large right pleural effusion. Following discussion with hospitalist attending, the decision was made to diurese the patient and evaluate for a cardiac source of pulmonary edema (BNP/ ECHO). Additionally, the antibiotics regimen was changed from Azithromycon, Rocephin and Vancomycin to Zosyn and Azithromycin. Given her tenuous status, the patient was upgraded to ICU. Reason For Visit: PNEUMONIA WITH PLEURAL EFFUSION Physical Exam Vital Signs: Temp Pulse Resp BP Pulse Ox 98.1 F 104 H 45 H 119/44 L 92 08/12/17 08:00 08/12/17 14:08 08/12/17 14:25 08/12/17 08:00 08/12/17 14:25 Pulse Oximeter Continuous Start: 08/12/17 10: 54 Freq: RTQ4 Status: Active Document 08/12/17 14:08 [facility] [place] (Rec: 08/12/17 14:35 [facility] [place] [id number]) Pulse Oximetry Assessment Oxygen Saturation (92-100) 93 Oxygen Delivery Method Bi-pap Fraction of Inspired Oxygen (FIO2) 45 Equipment Usage Equipment Discontinued Continuous SpO2 Machine # N [id number] Intake & Output 08/11/17 08/12/17 08/13/17 06:59 06:59 06:59 Intake Total 5963 2130 Balance 5977 2130 Weight 54.9 kg 54.5 kg General appearance: PRESENT: mild distress Head exam: PRESENT: atraumatic Eye exam: PRESENT: conjunctiva pink, PERRLA, scleral icterus Mouth exam: PRESENT: moist, tongue midline Neck exam: ABSENT: full ROM - secondary to history of cervical spinal surgery Respiratory exam: PRESENT: symmetrical, tachypnea, other - COARSE LUNG SOUNDS IN UPPER LOBES. DIMINISHED IN LOWER LOBES. ABSENT: wheezes Cardiovascular exam: PRESENT: +S1, +S2 Pulses: PRESENT: normal radial pulses, normal dorsalis pedis pul Vascular exam: PRESENT: normal capillary refill GI/Abdominal exam: PRESENT: ascites, soft Rectal exam: PRESENT: deferred Extremities exam: PRESENT: full ROM. ABSENT: pedal edema Musculoskeletal exam: PRESENT: full ROM. ABSENT: ambulatory Neurological exam: PRESENT: alert, awake, oriented to person Psychiatric exam: PRESENT: agitated, anxious Skin exam: PRESENT: dry, jaundice, warm Results Laboratory Results: 08/12/17 03:49 08/12/17 03:49 08/11/17 08/11/17 08/11/17 17:40 18:10 20:40 WBC RBC Hgb Hct MCV MCH MCHC RDW Plt Count Seg Neutrophils % Lymphocytes % Monocytes % Eosinophils % Basophils % Absolute Neutrophils Absolute Lymphocytes Absolute Monocytes Absolute Eosinophils Absolute Basophils Carbonic Acid 1.58 H 1.23 HCO3/H2CO3 Ratio 18:1 21:1 ABG pH 7.38 7.43 ABG pCO2 52.4 H 40.8 ABG pO2 38.1 L* 98.9 ABG HCO3 30.0 H 26.4 H ABG O2 Saturation 70.0 L 97.6 ABG Base Excess 3.9 1.9 FiO2 100% 60% Sodium Potassium Chloride Carbon Dioxide Anion Gap BUN Creatinine Est GFR ( Amer) Est GFR (Non-Af Amer) Glucose Calcium Magnesium Total Bilirubin AST ALT Alkaline Phosphatase Ammonia 25.6 Total Protein Albumin 08/11/17 08/11/17 08/12/17 21:12 21:12 03:49 WBC 11.0 H 8.8 RBC 3.41 L 3.10 L Hgb 10.7 L 9.7 L Hct 31.4 L 28.5 L MCV 92 92 MCH 31.3 31.4 MCHC 34.0 34.1 RDW 17.2 H 17.5 H Plt Count 102 L 91 L Seg Neutrophils % 88.4 H Lymphocytes % 5.5 L Monocytes % 5.5 Eosinophils % 0.4 Basophils % 0.2 Absolute Neutrophils 9.7 H Absolute Lymphocytes 0.6 Absolute Monocytes 0.6 Absolute Eosinophils 0.0 Absolute Basophils 0.0 Carbonic Acid HCO3/H2CO3 Ratio ABG pH ABG pCO2 ABG pO2 ABG HCO3 ABG O2 Saturation ABG Base Excess FiO2 Sodium 141.9 Potassium 3.2 L Chloride 102 Carbon Dioxide 29 Anion Gap 11 BUN 7 Creatinine 0.39 L Est GFR ( Amer) > 60 Est GFR (Non-Af Amer) > 60 Glucose 107 Calcium 8.2 L Magnesium Total Bilirubin 5.0 H AST 86 H ALT 45 Alkaline Phosphatase 405 H Ammonia Total Protein 6.9 Albumin 2.9 L 08/12/17 08/12/17 03:49 03:49 WBC RBC Hgb Hct MCV MCH MCHC RDW Plt Count Seg Neutrophils % Lymphocytes % Monocytes % Eosinophils % Basophils % Absolute Neutrophils Absolute Lymphocytes Absolute Monocytes Absolute Eosinophils Absolute Basophils Carbonic Acid HCO3/H2CO3 Ratio ABG pH ABG pCO2 ABG pO2 ABG HCO3 ABG O2 Saturation ABG Base Excess FiO2 Sodium 139.8 Potassium 3.2 L Chloride 103 Carbon Dioxide 27 Anion Gap 10 BUN 9 Creatinine 0.45 L Est GFR ( Amer) > 60 Est GFR (Non-Af Amer) > 60 Glucose 98 Calcium 7.8 L Magnesium 1.4 L Total Bilirubin 3.9 H AST 68 H ALT 44 Alkaline Phosphatase 346 H Ammonia Total Protein 5.8 L Albumin 2.6 L 08/10/17 07:20 Sputum Gram Stain - Final 08/10/17 07:20 Sputum Sputum Culture - Final NORMAL TANIA 08/09/17 15:20 Pleural Fluid - Not Specified Gram Stain - Final 08/09/17 15:20 Pleural Fluid - Not Specified Body Fluid Culture - Final NO AEROBIC OR ANAEROBIC ORGANISMS RECOVERED 08/11/17 08/12/17 04:21 03:49 NT-Pro-B Natriuret Pep 232 312 Impressions: Thoracentesis Ultrasound 08/09/17 10:34 IMPRESSION: SUCCESSFUL THORACENTESIS USING ULTRASOUND GUIDANCE. Abdomen Ultrasound 08/11/17 00:00 IMPRESSION: Minimal pericholecystic fluid. 0.8 cm diameter prominent common bile duct, no intrahepatic ductal dilation. Otherwise, unremarkable. Chest X-Ray 08/12/17 00:00 IMPRESSION: Dense pneumonia in the left lung. Cannot exclude overlying pulmonary edema. Right pleural effusion. Cardiomegaly. Status: Imported from PACS Assessment & Plan - Diagnosis (1) Pleural effusion Is this a current diagnosis for this admission?: Yes Plan: Right-sided pleural effusion seen on x-ray; multifactorial secondary to right lower lobe pneumonia and possibly related to her cirrhosis. Evaluation for ascites was negative. She is now status post thoracentesis with removal of approximately 1 L 08/09/2017 Laboratory evaluation of the pleural effusion is transudative Pleural fluid culture has no growth 3 days Chest x-ray today shows worsening left lung opacification, persistent right lung opacification, large right-sided pleural effusion. Aggressive diuresis today with IV Lasix 60 mg q12h today, repeat chest x-ray in am, plan to initiate Lasix 40 mg twice daily starting tomorrow. Will repeat R thoracentesis if needed. BNP 312 ECHOcardiogram pending (2) Pneumonia Qualifiers: Pneumonia type: due to unspecified organism Laterality: right Lung location: lower lobe of lung Qualified Code(s): J18.1 - Lobar pneumonia, unspecified organism Is this a current diagnosis for this admission?: Yes Plan: Worsening. Initial CXR revealed extensive right lower lobe pneumonia with superimposed large pleural effusion, now status post thoracentesis. Blood cultures have no growth 72 hours. Sputum cultures only demonstrate normal tania. ABG demonstrates metabolic alkalosis and hypoxia with a pO2 of 57 Antibiotic coverage changed from Azithromycin, Rocephin and vancomycin to Zosyn and Azithromycin. Acute onset of left infiltrate suggestive of aspiration, Zosyn chosen for better gram-positive and gram-negative coverage. Sputum culture only demonstrates normal tania, no need for MRSA coverage. Continue BiPAP to maintain SPO2 greater than 88% Scheduled and as needed nebulizer treatments. Scheduled Solu-Medrol. (3) Chronic pain Qualifiers: Chronic pain type: chronic pain syndrome Qualified Code(s): G89.4 - Chronic pain syndrome Is this a current diagnosis for this admission?: Yes Plan: Chronic pain related to DJD with multiple spinal fusion surgeries. Per [place] database, patient's pain management physician has weaned off her OxyContin and has begun weaning down on oxycodone. Patient reports she did have abnormal pill counts 2 which have prompted her pain management doctor to begin weaning her from her opiate medications. Given the patient's current dependence on BiPAP, converted PO oxycodone regimen to IV morphine. (4) Opiate dependence, continuous Is this a current diagnosis for this admission?: Yes Plan: As above (5) Constipation Qualifiers: Constipation type: drug induced constipation Qualified Code(s): K59.03 - Drug induced constipation Is this a current diagnosis for this admission?: Yes Plan: Likely related to chronic opiate use. Nursing staff reports the patient had a BM today Continue home dose lactulose. (6) Cirrhosis Qualifiers: Hepatic cirrhosis type: alcoholic cirrhosis Is this a current diagnosis for this admission?: Yes Plan: ETOH vs. biliary. Patient reports that she is followed by the liver transplant team at [facility] and has actively been working towards approval for liver transplant. Abdominal ultrasound 08/10 is negative for accumulating ascites, no indication for paracentesis. Ammonia level 25 Liver enzymes trending down today (AST 68 ALT 44) Continue patient's home medication: rifaximin, lactulose, and spironolactone. Lasix has been switched to PO. (7) Seizure Is this a current diagnosis for this admission?: Yes Plan: Dilantin level was subtherapeutic. AM dose increase from 200mg to 300mg. Continue current evening dose of 300 mg. Due to patient's dependence on BIPAP, will change PO Dilantin to IV (8) History of alcohol abuse Is this a current diagnosis for this admission?: Yes Plan: Remote history of EtOH abuse. Last EtOH intake was approximately 3 years ago. Continue thiamine and folate supplementation. (9) Acute encephalopathy Is this a current diagnosis for this admission?: Yes Plan: Multifactorial secondary to acute respiratory failure with hypoxia, missed lactulose dosing, anxiety, hospital induced psychosis Ammonia level 25 Plan to correct hypoxia and manage liver disease as above Minimize sedating medications - Time Time Spent with patient: 15-24 minutes Medications reviewed and adjusted accordingly: Yes Anticipated discharge: Home - Inpatient Certification Based on my medical assessment, after consideration of the patient's comorbidities, presenting symptoms, or acuity I expect that the services needed warrant INPATIENT care.: Yes I certify that my determination is in accordance with my understanding of Medicare's requirements for reasonable and necessary INPATIENT services [42 CFR 412.3e].: Yes Medical Necessity: Risk of Complication if Not Cared For in Hospital - Plan Summary Plan Summary: UPGRADE TO ICU. PLAN FOR AGGRESSIVE DIURESIS TODAY TO MANAGE PULMONARY EDEMA AND PLEURAL EFFUSION. ANTIBIOTIC EXPANSION TO MANAGE PNA. CXR IN AM TO EVALUATE FOR NEED OF REPEAT THORACENTESIS.
[2017-08-12] MEDS: PIPERACILLIN SODIUM/TAZOBACTAM 3.375 GM in NORMAL SALINE 100 ML IV SCH ×2 (18:47→23:39)
[2017-08-12] MEDS: PHENYTOIN SODIUM INJ/PF 100 MG/2 ML SDV IV SCH (18:48)
[2017-08-12] MEDS: VANCOMYCIN HCL 1,000 MG in DEXTROSE 5%-WATER 250 ML IV SCH (18:48)
[2017-08-12] MEDS: LORAZEPAM INJ 2 MG/1 ML VIAL IV PRN (19:40)
[2017-08-12] MEDS: AZITHROMYCIN 500 MG in DEXTROSE 5%-WATER 250 ML IV SCH (21:09)
[2017-08-12] MEDS: METHYLPREDNISOLONE INJ 40 MG/1 ML SDV IV SCH (21:09)
[2017-08-12] MEDS ORDERED: FUROSEMIDE INJ/PF 40 MG/4 ML SDV IV SCH (22:00)
[2017-08-12] MEDS: THIAMINE HCL 100 MG, FOLIC ACID 1 MG in NORMAL SALINE 250 ML IV SCH (22:27)
[2017-08-12] MEDS ORDERED: KETOROLAC TROMETHAMINE INJ/PF 30 MG/1 ML SDV ONE (23:53)
[2017-08-13] MEDS: LORAZEPAM INJ 2 MG/1 ML VIAL IV PRN (02:29)
[2017-08-13] MEDS: IPRATROPIUM/ALBUTEROL 0.5-2.5 MG/3 ML AMPUL NEB SCH ×4 (02:51→20:23)
[2017-08-13] MEDS: LACTULOSE SYRUP 20 GM/30 ML UDCUP PO SCH (05:05)
[2017-08-13] MEDS: PIPERACILLIN SODIUM/TAZOBACTAM 3.375 GM in NORMAL SALINE 100 ML IV SCH ×3 (05:05→22:14)
[2017-08-13] MEDS: VANCOMYCIN HCL 1,000 MG in DEXTROSE 5%-WATER 250 ML IV SCH (05:54)
[2017-08-13 06:30] LABS: HEMATOCRIT 32.2 % (36.0-47.0); HEMOGLOBIN 10.8 g/dL (12.0-15.5); MEAN CORPUSCULAR HEMOGLOBIN 30.7 pg (27.0-33.4); MEAN CORPUSCULAR HGB CONC 33.7 g/dL (32.0-36.0); MEAN CORPUSCULAR VOLUME 91 fl (80-97); PLATELET COUNT 111 10^3/uL (150-450); RED BLOOD COUNT 3.53 10^6/uL (3.72-5.28); RED CELL DISTRIBUTION WIDTH 17.1 % (11.5-14.0); WHITE BLOOD COUNT 9.9 10^3/uL (4.0-10.5)
[2017-08-13 06:50] LABS: ALANINE AMINOTRANSFERASE 44 U/L (9-52); ALBUMIN 2.7 g/dL (3.5-5.0); ALKALINE PHOSPHATASE 338 U/L (38-126); ANION GAP 12 (5-19); ASPARTATE AMINO TRANSFERASE 71 U/L (14-36); BILIRUBIN,DIRECT 3.7 mg/dL (0.0-0.4); BILIRUBIN,TOTAL 4.5 mg/dL (0.2-1.3); BLOOD UREA NITROGEN 13 mg/dL (7-20); CARBON DIOXIDE 26 mmol/L (22-30); CHLORIDE 104 mmol/L (98-107); GLUCOSE 109 mg/dL (75-110); POTASSIUM 3.2 mmol/L (3.6-5.0); SODIUM 141.9 mmol/L (137-145); TOTAL PROTEIN 6.5 g/dL (6.3-8.2)
--- NOTE | 2017-08-13 07:22 | RADIOLOGY REPORT (SQ) ---
EXAM DESCRIPTION: XR CHEST 1 VIEW COMPLETED DATE/TME: 08/13/2017 05:00 CLINICAL HISTORY: 61 years Female, RESPIRATORY FAILURE COMPARISON: One day prior. NUMBER OF VIEWS/TECHNIQUE: 1/AP FINDINGS: Moderate-severe mixed interstitial and airspace opacity includes a pulmonary edema pattern, large opacity-effusion of the right lower is 60% hemithorax, normal cardiac silhouette size, mild leftward cardiac shift/rotation, right total shoulder arthroplasty. No pneumothorax. No acute bone defect. IMPRESSION: No significant change.
[2017-08-13] MEDS ORDERED: PHENYTOIN SODIUM EXTENDED 100 MG CAPSULE PO SCH (08:00)
[2017-08-13] MEDS: PHENYTOIN SODIUM INJ/PF 100 MG/2 ML SDV IV SCH ×2 (08:38→18:46)
[2017-08-13] MEDS ORDERED: POTASSI CL 20 MEQ/50 ML RIDER 20 MEQ/50 ML RTUPB IV SCH (09:15)
[2017-08-13] MEDS ORDERED: ACETYLCYSTEINE 10% NEB 400 MG/4 ML VIAL NEB ONE (09:30)
[2017-08-13 09:47] LABS: INTERNATIONAL RATION (INR) 1.37; PROTHROMBIN TIME 17.6 SEC (11.4-15.4)
[2017-08-13 09:48] LABS: PARTIAL THROMBOPLASTIN TIME 31.2 SEC (23.5-35.8)
[2017-08-13] MEDS: MAGNESIUM SULFATE/D5W 1 GM/100 ML RTUPB IV SCH ×2 (09:51→11:08)
[2017-08-13] MEDS ORDERED: FUROSEMIDE INJ/PF 40 MG/4 ML SDV IV SCH (10:00)
[2017-08-13] MEDS: METHYLPREDNISOLONE INJ 40 MG/1 ML SDV IV SCH ×2 (11:07→22:14)
[2017-08-13] MEDS ORDERED: MIDAZOLAM 2 MG/2 ML INJ IV ONE (11:15)
[2017-08-13] MEDS ORDERED: FENTANYL CITRATE INJ/PF 100 MCG/2 ML AMPUL IV ONE (11:15)
[2017-08-13] MEDS: ACETYLCYSTEINE 10% NEB 400 MG/4 ML VIAL NEB SCH ×2 (13:56→20:23)
[2017-08-13] MEDS: POTASSIUM CHLORIDE 20 MEQ/50 ML RTU IV SCH ×3 (14:18→18:48)
[2017-08-13] MEDS: KETOROLAC TROMETHAMINE INJ/PF 30 MG/1 ML SDV IV PRN (14:34)
--- NOTE | 2017-08-13 14:41 | PDOC CONSULTATION ---
Consultation Consult Date: 08/13/17 Consult reason:: large right pleural effusion History of Present Illness Admission Date/PCP: 08/08/17 23:10 CRISTELA MERA MD History of Present Illness: JENNA BUCHANAN is a 61 year old female seen at the request by Dr. Gilman. The patient has a history of cirrhosis and a large right-sided pleural effusion. Patient is confused and on BiPAP at present. A review of systems is difficult to obtain. All history is obtained from the nursing staff, medical record, and available family. The patient has had increasing shortness of breath over the last several days. She has required supplemental oxygen and pressure with BiPAP. Past Medical History Cardiac Medical History: Denies: Coronary Artery Disease, Myocardial Infarction, Hypertension Pulmonary Medical History: Denies: Asthma, Bronchitis, Chronic Obstructive Pulmonary Disease (COPD), Pneumonia Neurological Medical History: Reports: Seizures - ON MEDs, last seizure 5-6 yrs ago Endocrine Medical History: Denies: Diabetes Mellitus Type 2 Renal/ Medical History: Denies: Chronic Kidney Disease Malignancy Medical History: Denies: None GI Medical History: Reports: Cirrhosis, Other - Possible primary biliary cirrhosis Musculoskeltal Medical History: Reports: Other - Osteoporosis, hx of C-spine fracture, what sounds like degen T-spine dx Denies: Arthritis Psychiatric Medical History: Reports: Depression Denies: Alcohol Dependency, Substance Abuse, Tobacco Dependency Traumatic Medical History: Reports: Other - Patient has had falls which have led to C-spine fracture and left hip fx Hematology: Denies: Anemia Infectious Medical History: Reports: None Past Surgical History Past Surgical History: Reports: Hysterectomy, Orthopedic Surgery - Failed C- spine fusion summer, left hip fracture repair Social History Lives with: Family Smoking Status: Current Some Day Smoker Frequency of Alcohol Use: None Hx Recreational Drug Use: No Drugs: None Hx Prescription Drug Abuse: No Family History Family History: COPD, Hypertension Parental Family History Reviewed: Yes Children Family History Reviewed: Yes Sibling(s) Family History Reviewed.: Yes Medication/Allergy Home Medications: Phenytoin Sodium Extended [Dilantin 100 mg Capsule.er] 200 mg PO QAM 01/02/16 Oxycodone HCl [Oxy-Ir 5 mg Tablet] 10 mg PO Q12HP PRN MDD 2 TABS 12/24/16 Aspirin [Aspirin EC] 81 mg PO DAILY 01/10/17 Folic Acid 1 mg PO DAILY 01/10/17 Spironolactone 100 mg PO DAILY 01/10/17 Esomeprazole Magnesium [Nexium] 20 mg PO DAILY 02/02/17 Phenytoin Sodium Extended [Dilantin] 300 mg PO QPM 02/02/17 Furosemide [Lasix 20 mg Tablet] 40 mg PO DAILY 03/31/17 Thiamine HCl [Vitamin B-1] 250 mg PO DAILY 03/31/17 Ursodiol 750 mg PO DAILY 03/31/17 Alendronate Sodium [Fosamax 70 mg Tablet] 70 mg PO MO@0600 08/09/17 Lactulose [Cephulac 20 gm/30 ml Syrup UD Cup] 20 gm PO BID 08/09/17 Allergies/Adverse Reactions: tetracycline Allergy (Verified 08/08/17 19:22) Review of Systems ROS unobtainable: Due to mental status Physical Exam Vital Signs: Temp Pulse Resp BP Pulse Ox 98.8 F 89 24 H 108/61 98 08/13/17 08:00 08/13/17 13:56 08/13/17 13:56 08/13/17 09:47 08/13/17 13:56 Pulse Oximeter Continuous Start: 08/12/17 10: 54 Freq: RTQ4 Status: Hold Document 08/12/17 14:08 [facility] [place] (Rec: 08/12/17 14:35 [facility] [place] [id number]) Pulse Oximetry Assessment Oxygen Saturation (92-100) 93 Oxygen Delivery Method Bi-pap Fraction of Inspired Oxygen (FIO2) 45 Equipment Usage Equipment Discontinued Continuous SpO2 Machine # N 10 Intake & Output 08/12/17 08/13/17 08/14/17 06:59 06:59 06:59 Intake Total 2130 1643 Output Total 3100 255 Balance 2130 -1117 -255 Weight 54.5 kg 55 kg General appearance: PRESENT: severe distress Head exam: PRESENT: atraumatic, normocephalic Eye exam: PRESENT: EOMI, PERRLA, scleral icterus Mouth exam: PRESENT: neck supple Neck exam: ABSENT: meningismus, tenderness, thyromegaly, tracheal deviation Respiratory exam: PRESENT: decreased breath sounds, rhonchi, tachypnea. ABSENT : unlabored Cardiovascular exam: PRESENT: RRR Pulses: PRESENT: normal radial pulses Vascular exam: PRESENT: pallor GI/Abdominal exam: PRESENT: ascites, distended, soft. ABSENT: guarding Rectal exam: PRESENT: deferred Extremities exam: PRESENT: pedal edema Musculoskeletal exam: PRESENT: normal inspection Neurological exam: PRESENT: awake, CN II-XII grossly intact. ABSENT: alert, oriented to person, oriented to place, oriented to time, oriented to situation, motor sensory deficit Psychiatric exam: PRESENT: agitated, anxious Skin exam: PRESENT: jaundice. ABSENT: cyanosis Results Laboratory Results: 08/13/17 06:15 08/13/17 06:15 08/12/17 08/13/17 08/13/17 15:10 06:15 06:15 WBC 9.9 RBC 3.53 L Hgb 10.8 L Hct 32.2 L MCV 91 MCH 30.7 MCHC 33.7 RDW 17.1 H Plt Count 111 L Carbonic Acid 1.27 HCO3/H2CO3 Ratio 23:1 ABG pH 7.47 H ABG pCO2 42.3 ABG pO2 57.6 L ABG HCO3 30.0 H ABG O2 Saturation 91.5 L ABG Base Excess 5.8 FiO2 45% Sodium 141.9 Potassium 3.2 L Chloride 104 Carbon Dioxide 26 Anion Gap 12 BUN 13 Creatinine 0.59 Est GFR ( Amer) > 60 Est GFR (Non-Af Amer) > 60 Glucose 109 Calcium 8.0 L Magnesium Total Bilirubin 4.5 H AST 71 H ALT 44 Alkaline Phosphatase 338 H Total Protein 6.5 Albumin 2.7 L 08/13/17 06:15 WBC RBC Hgb Hct MCV MCH MCHC RDW Plt Count Carbonic Acid HCO3/H2CO3 Ratio ABG pH ABG pCO2 ABG pO2 ABG HCO3 ABG O2 Saturation ABG Base Excess FiO2 Sodium Potassium Chloride Carbon Dioxide Anion Gap BUN Creatinine Est GFR ( Amer) Est GFR (Non-Af Amer) Glucose Calcium Magnesium 1.9 Total Bilirubin AST ALT Alkaline Phosphatase Total Protein Albumin 08/10/17 07:20 Sputum Gram Stain - Final 08/10/17 07:20 Sputum Sputum Culture - Final NORMAL NATE 08/11/17 08/12/17 04:21 03:49 NT-Pro-B Natriuret Pep 232 312 Impressions: Thoracentesis Ultrasound 08/09/17 10:34 IMPRESSION: SUCCESSFUL THORACENTESIS USING ULTRASOUND GUIDANCE. Abdomen Ultrasound 08/11/17 00:00 IMPRESSION: Minimal pericholecystic fluid. 0.8 cm diameter prominent common bile duct, no intrahepatic ductal dilation. Otherwise, unremarkable. Chest X-Ray 08/13/17 05:00 IMPRESSION: No significant change. Assessment & Plan - Diagnosis (1) Pleural effusion, right Is this a current diagnosis for this admission?: Yes - Plan Summary Plan Summary: This is a 61-year-old female with a large right-sided pleural effusion. Thoracentesis was obtained several days ago, but the effusion has now recurred. I have discussed etiologies with the patient's family including parapneumonic versus transudative/ascites. Tube thoracostomy will allow reexpansion of her lung and may help her breathing however, if the underlying medical issues are not addressed, the tube may not be able to be removed. The patient's family is aware of the risks and benefits of the procedure. They have requested the procedure be performed. Informed consent was obtained and all questions answered.
--- NOTE | 2017-08-13 14:47 | Operative Report ---
Nonrecallable Operative Report DATE OF SURGERY: 08/13/17 PREOPERATIVE DIAGNOSIS: Large right-sided pleural effusion POSTOPERATIVE DIAGNOSIS: Same as above OPERATION: Right sided tube thoracostomy SURGEON: ROSINA RICKETTS ANESTHESIA: Moderate Sedation TISSUE REMOVED OR ALTERED: 1600 cc of right-sided pleural fluid COMPLICATIONS: None apparent ESTIMATED BLOOD LOSS: Minimal PROCEDURE: Drains/implants: 28 Nigerian tube thoracostomy. Procedure in detail: After informed consent was obtained, the patient was sat in the semi-upright position in the intensive care unit. 4 mg of Versed and 50 mcg of fentanyl were administered. Adequate sedation was obtained. 1% lidocaine was used to infiltrate the skin of the right lateral chest wall in the mid axillary line. An incision was created approximately 2 cm in total diameter. Dissection was carried to the chest wall bluntly. A large Kasey clamp was used to enter the chest over top of a rib, bluntly. After entry into the chest, there was a large gush of clear yellow fluid. A finger was inserted and no loculations could be identified. The 28 Nigerian chest tube was inserted and directed posteriorly. The chest tube was sutured to the chest wall using 0 silk suture. A dressing was fashioned, and the chest tube was attached to 20 cm of water suction. Approximately 1600 cc of clear yellow fluid was removed from the chest. The patient tolerated the procedure well. Condition: Fair.
[2017-08-13 15:44] LABS: ARTERIAL BLOOD BASE EXCESS 2.3 mmol/L; ARTERIAL BLOOD FIO2 15L; ARTERIAL BLOOD H2CO3 1.33 mmol/L (1.05-1.35); ARTERIAL BLOOD HCO3 27.4 mmol/L (20-26); ARTERIAL BLOOD O2 SATURATION 89.9 % (94-98); ARTERIAL BLOOD PCO2 44.2 mmHg (35-45); ARTERIAL BLOOD PH 7.41 (7.35-7.45); ARTERIAL BLOOD PO2 57.2 mmHg (80-100); ARTERIAL BLOOD TOTAL CO2 28.7 mmol/L (21-25)
[2017-08-13] MEDS: FUROSEMIDE INJ/PF 40 MG/4 ML SDV IV SCH ×2 (15:53→22:13)
[2017-08-13 16:04] LABS: APPEARANCE,URINE CLOUDY; BILIRUBIN,URINE NEGATIVE (NEGATIVE); COLOR,URINE AMBER; GLUCOSE, URINE NEGATIVE (NEGATIVE); KETONES,URINE NEGATIVE (NEGATIVE); LEUKOCYTE ESTERASE,URINE SMALL (NEGATIVE); NITRITE,URINE NEGATIVE (NEGATIVE); PROTEIN,URINE 100 mg/dL (NEGATIVE); URINE SPECIFIC GRAVITY 1.017; UROBILINOGEN,URINE NEGATIVE mg/dL (<2.0)
--- NOTE | 2017-08-13 16:13 | RADIOLOGY REPORT (SQ) ---
EXAM DESCRIPTION: CHEST SINGLE VIEW COMPLETED DATE/TIME: 08/13/2017 3:58 pm REASON FOR STUDY: pleural, POST CHEST TUBE PLACEMENT COMPARISON: AP chest 08/13/2017 EXAM PARAMETERS: NUMBER OF VIEWS: One view. TECHNIQUE: Single frontal radiographic view of the chest acquired. RADIATION DOSE: NA LIMITATIONS: None. FINDINGS: LUNGS AND PLEURA: Post right-sided large bore chest tube placement. Tube tip is over the midline upper mediastinum. Side-port well within the pleural space. No pneumothorax. No residual right pleural effusion. There is dense bilateral airspace disease ARDS versus edema versus pneumonia. This is increased comp ared to films earlier today. MEDIASTINUM AND HILAR STRUCTURES: No masses. Contour normal. HEART AND VASCULAR STRUCTURES: Heart normal in size. Normal vasculature. BONES: No acute findings. HARDWARE: Right-sided chest tube in good positioning. OTHER: No other significant finding. IMPRESSION: Right-sided chest tube in good position. No pneumothorax. No residual pleural effusion . Increasing bilateral airspace disease from ARDS. Edema or pneumonia could mimic this appearance TECHNICAL DOCUMENTATION: JOB ID: [id number]- All Rights Reserved Reading location - IP/workstation name: [email or web address]
[2017-08-13] MEDS ORDERED: PROPOFOL 1,000 MG/100 ML INFUS..BTL IV ONE (16:50)
[2017-08-13] MEDS ORDERED: NOREPINEPHRINE BITARTRATE INJ/PF 4 MG/4 ML SDV IV ONE (16:50)
[2017-08-13] MEDS ORDERED: NORMAL SALINE 1000 ML 1,000 ML IV ONE ×2 (16:57→17:38)
--- NOTE | 2017-08-13 17:10 | PDOC CONSULTATION ---
Consultation Consult Date: 08/13/17 Attending physician:: ERIN DANGELO Consult reason:: tachypnea//pleural effusion History of Present Illness Admission Date/PCP: 08/08/17 23:10 CRISTELA MERA MD History of Present Illness: JENNA BUCHANAN is a 61 year old female,Presents to the emergency room with increasing shortness of breath there is worsened over the last several days to the point where she was afraid however emergency room it was noted she had a small pleural effusion and an abnormal chest x-ray she was subsequently admitted however over the course of hospitalization her to be increased and should her pleural effusion increased she has subsequently been placed on BiPAP and is currently in ICU awake but not particularly responsive. 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 Musculoskeltal Medical History: Reports: Other - Osteoporosis, hx of C-spine fracture, what sounds like degen T-spine dx Denies: Arthritis Skin Medical History: Denies: Psoriasis Psychiatric Medical History: Reports: Depression Denies: Alcohol Dependency, Substance Abuse, Tobacco Dependency Traumatic Medical History: Reports: Other - Patient has had falls which have led to C-spine fracture and left hip fx Hematology: Denies: Anemia Infectious Medical History: Denies: Clostridium Difficile Past Surgical History Past Surgical History: Reports: Hysterectomy, Orthopedic Surgery - Failed C- spine fusion summer, left hip fracture repair Social History Information Source: [facility] Records Lives with: Family Smoking Status: Current Some Day Smoker Frequency of Alcohol Use: None Hx Recreational Drug Use: No Drugs: None Hx Prescription Drug Abuse: No Family History Family History: COPD, Hypertension Parental Family History Reviewed: No Children Family History Reviewed: No Sibling(s) Family History Reviewed.: No Medication/Allergy Home Medications: Phenytoin Sodium Extended [Dilantin 100 mg Capsule.er] 200 mg PO QAM 01/02/16 Oxycodone HCl [Oxy-Ir 5 mg Tablet] 10 mg PO Q12HP PRN MDD 2 TABS 12/24/16 Aspirin [Aspirin EC] 81 mg PO DAILY 01/10/17 Folic Acid 1 mg PO DAILY 01/10/17 Spironolactone 100 mg PO DAILY 01/10/17 Esomeprazole Magnesium [Nexium] 20 mg PO DAILY 02/02/17 Phenytoin Sodium Extended [Dilantin] 300 mg PO QPM 02/02/17 Furosemide [Lasix 20 mg Tablet] 40 mg PO DAILY 03/31/17 Thiamine HCl [Vitamin B-1] 250 mg PO DAILY 03/31/17 Ursodiol 750 mg PO DAILY 03/31/17 Alendronate Sodium [Fosamax 70 mg Tablet] 70 mg PO MO@0600 08/09/17 Lactulose [Cephulac 20 gm/30 ml Syrup UD Cup] 20 gm PO BID 08/09/17 Allergies/Adverse Reactions: tetracycline Allergy (Verified 08/08/17 19:22) Review of Systems ROS unobtainable: Due to mental status Physical Exam Vital Signs: Temp Pulse Resp BP Pulse Ox 98.8 F 87 29 H 118/65 93 08/13/17 08:00 08/13/17 08:00 08/13/17 08:00 08/13/17 08:00 08/13/17 08:00 Pulse Oximeter Continuous Start: 08/12/17 10: 54 Freq: RTQ4 Status: Hold Document 08/12/17 14:08 [facility] [place] (Rec: 08/12/17 14:35 [facility] [place] [id number]) Pulse Oximetry Assessment Oxygen Saturation (92-100) 93 Oxygen Delivery Method Bi-pap Fraction of Inspired Oxygen (FIO2) 45 Equipment Usage Equipment Discontinued Continuous SpO2 Machine # N 10 Intake & Output 08/12/17 08/13/17 08/14/17 06:59 06:59 06:59 Intake Total 2130 1643 Output Total 2760 50 Balance 2130 -1117 -50 Weight 54.5 kg 55 kg General appearance: PRESENT: disheveled, mild distress, thin. ABSENT: cooperative Head exam: PRESENT: atraumatic, normocephalic Eye exam: PRESENT: conjunctiva pale. ABSENT: nystagmus, periorbital swelling Mouth exam: PRESENT: dry mucosa, neck supple, tongue midline Neck exam: ABSENT: carotid bruit, JVD, lymphadenopathy, thyromegaly, tracheal deviation, tracheostomy Respiratory exam: PRESENT: crackles, decreased breath sounds, prolonged expiratory phas, rhonchi, tachypnea, wheezes. ABSENT: retraction, stridor, unlabored Cardiovascular exam: PRESENT: RRR, +S1, +S2, tachycardia Pulses: PRESENT: normal carotid pulses GI/Abdominal exam: PRESENT: diminished bowel sounds, soft Extremities exam: ABSENT: clubbing, joint swelling Musculoskeletal exam: ABSENT: deformity, dislocation Neurological exam: ABSENT: awake, oriented to person, oriented to place Skin exam: PRESENT: dry, warm Results Laboratory Results: 08/13/17 06:15 08/13/17 06:15 08/12/17 08/12/17 08/13/17 03:49 15:10 06:15 WBC 9.9 RBC 3.53 L Hgb 10.8 L Hct 32.2 L MCV 91 MCH 30.7 MCHC 33.7 RDW 17.1 H Plt Count 111 L Carbonic Acid 1.27 HCO3/H2CO3 Ratio 23:1 ABG pH 7.47 H ABG pCO2 42.3 ABG pO2 57.6 L ABG HCO3 30.0 H ABG O2 Saturation 91.5 L ABG Base Excess 5.8 FiO2 45% Sodium Potassium Chloride Carbon Dioxide Anion Gap BUN Creatinine Est GFR ( Amer) Est GFR (Non-Af Amer) Glucose Calcium Magnesium 1.4 L Total Bilirubin AST ALT Alkaline Phosphatase Total Protein Albumin 08/13/17 06:15 WBC RBC Hgb Hct MCV MCH MCHC RDW Plt Count Carbonic Acid HCO3/H2CO3 Ratio ABG pH ABG pCO2 ABG pO2 ABG HCO3 ABG O2 Saturation ABG Base Excess FiO2 Sodium 141.9 Potassium 3.2 L Chloride 104 Carbon Dioxide 26 Anion Gap 12 BUN 13 Creatinine 0.59 Est GFR ( Amer) > 60 Est GFR (Non-Af Amer) > 60 Glucose 109 Calcium 8.0 L Magnesium Total Bilirubin 4.5 H AST 71 H ALT 44 Alkaline Phosphatase 338 H Total Protein 6.5 Albumin 2.7 L 08/10/17 07:20 Sputum Gram Stain - Final 08/10/17 07:20 Sputum Sputum Culture - Final NORMAL NATE 08/09/17 15:20 Pleural Fluid - Not Specified Gram Stain - Final 08/09/17 15:20 Pleural Fluid - Not Specified Body Fluid Culture - Final NO AEROBIC OR ANAEROBIC ORGANISMS RECOVERED 08/11/17 08/12/17 04:21 03:49 NT-Pro-B Natriuret Pep 232 312 Impressions: Thoracentesis Ultrasound 08/09/17 10:34 IMPRESSION: SUCCESSFUL THORACENTESIS USING ULTRASOUND GUIDANCE. Abdomen Ultrasound 08/11/17 00:00 IMPRESSION: Minimal pericholecystic fluid. 0.8 cm diameter prominent common bile duct, no intrahepatic ductal dilation. Otherwise, unremarkable. Chest X-Ray 08/13/17 05:00 IMPRESSION: No significant change. Assessment & Plan - Diagnosis (1) Tachypnea Is this a current diagnosis for this admission?: Yes Plan: Tachypnea has been sustained even though patient's had a thoracentesis and relief of her pleural effusion (2) Cirrhosis Qualifiers: Hepatic cirrhosis type: alcoholic cirrhosis Is this a current diagnosis for this admission?: Yes Plan: Additional possibility of primary biliary cirrhosis (3) Pleural effusion, right Is this a current diagnosis for this admission?: Yes Plan: Suggest placing chest tube call surgeon who agrees to do the sameHopefully this will preclude patient being intubated and if it would reduce her tachypnea we can probably be successful with BiPAP (4) ARDS (adult respiratory distress syndrome) Is this a current diagnosis for this admission?: Yes Plan: PaO2/FiO2 = 128.8 Also substantiated with radiographic evidence - Time Total Critical Time (Minutes): 75
[2017-08-13] MEDS ORDERED: FENTANYL CITRATE INJ/PF 100 MCG/2 ML AMPUL IV PRN (17:35)
[2017-08-13] MEDS ORDERED: FENTANYL CITRATE INJ/PF 100 MCG/2 ML AMPUL ONE (17:40)
[2017-08-13] MEDS ORDERED: LORAZEPAM INJ 2 MG/1 ML VIAL ONE (17:40)
[2017-08-13] MEDS ORDERED: NORMAL SALINE 1000 ML 1,000 ML IV PRN (17:46)
[2017-08-13 18:05] LABS: ARTERIAL BLOOD BASE EXCESS -0.4 mmol/L; ARTERIAL BLOOD H2CO3 1.27 mmol/L (1.05-1.35); ARTERIAL BLOOD HCO3 24.7 mmol/L (20-26); ARTERIAL BLOOD PCO2 42.2 mmHg (35-45); ARTERIAL BLOOD PH 7.39 (7.35-7.45); ARTERIAL BLOOD PO2 92.4 mmHg (80-100)
[2017-08-13 18:06] LABS: ARTERIAL BLOOD FIO2 50%
--- NOTE | 2017-08-13 18:10 | PDOC PROGRESS REPORT ---
Subjective Progress Note for:: 08/13/17 Subjective:: The patient is a 61-year-old female with past medical history significant for cirrhosis, primarily biliary cirrhosis with previous EtOH abuse, spinal fusion s /p multiple fractures, osteoporosis, and seizure disorder who was admitted on 08/09/17 for a right lower lobe pneumonia. The patient was seen this morning on rounds, she is resting in bed on BIPAP (18/ 8/45%) currently in upper limb soft restraints. The patient appears very anxious. The patient is tachypneic with a respiratory rate 30-40s. SPO2 90-94% . She is able to maintain decent tidal volume 375-475. She is able to answer all questions appropriately. Coarse lung sounds in upper lobes, otherwise diminished throughout. Her chest xray looks relatively unchanged from yesterday -bilateral opacities (left worse than right) and a large right pleural effusion. These findings are concerning because the patient's clinical picture remains unchanged despite initiation of aggressive diureses yesterday. Following discussion with hospitalist attending and pulomologist, the decision was made to place a chest tube to continuously drain the large R pleural effusion. Surgery, Dr Mcginnis, at bedside to place chest tube. Initially drained 1.5 L following placement. Of note, the patient and her state that if the patient were to decompensate, she would want to be intubated. At 1700 nursing staff reported that patient remained tachypnic, despite chest tube placement and large amount of volume removed from pleural effusion. CXR following chest tube placement shows improved airation but underlying ARDS vs. pulmonary edema. Her SBP (80-90) is low but her MAP remains in the 60s. SPO2 in the low 90s. ABG on 15L facemask demonstrates hypoxia (PO2 57) no evidence of acidosis (pH 7.4). Decision was made to preemptively intubate the patient before her clinical status becomes worse. was updated about clinical decision making, agrees with plan for intubation. Reason For Visit: PULMONARY EDEMA CIRRHOSIS RESPIRATORY FAILURE Physical Exam Vital Signs: Temp Pulse Resp BP Pulse Ox 98.8 F 89 34 H 84/56 L 97 08/13/17 08:00 08/13/17 13:56 08/13/17 15:16 08/13/17 15:16 08/13/17 15:24 Pulse Oximeter Continuous Start: 08/12/17 10: 54 Freq: RTQ4 Status: Hold Document 08/12/17 14:08 [facility] [place]Rec: 08/12/17 14:35 [facility] [id number]) Pulse Oximetry Assessment Oxygen Saturation (92-100) 93 Oxygen Delivery Method Bi-pap Fraction of Inspired Oxygen (FIO2) 45 Equipment Usage Equipment Discontinued Continuous SpO2 Machine # N 10 Intake & Output 08/12/17 08/13/17 08/14/17 06:59 06:59 06:59 Intake Total 2130 1643 Output Total 2760 255 Balance 2130 -1117 -255 Weight 54.5 kg 55 kg General appearance: PRESENT: mild distress Head exam: PRESENT: other - POOR ROM OF NECK 2/2 PREVIOUS CSPINE SURGERIES Eye exam: PRESENT: conjunctiva pink, PERRLA Mouth exam: PRESENT: moist, neck supple Neck exam: PRESENT: full ROM. ABSENT: JVD Respiratory exam: PRESENT: symmetrical, other - LABORED. REQUIRING BIPAP. DIMINISHED BREATH SOUNDS BILATERALLY. ABSENT: unlabored - LABORED Cardiovascular exam: PRESENT: +S1, +S2 Pulses: PRESENT: normal radial pulses, normal dorsalis pedis pul Vascular exam: PRESENT: normal capillary refill GI/Abdominal exam: PRESENT: normal bowel sounds, soft. ABSENT: tenderness Rectal exam: PRESENT: deferred Extremities exam: PRESENT: full ROM. ABSENT: joint swelling, pedal edema Musculoskeletal exam: PRESENT: full ROM. ABSENT: ambulatory - ON BEDREST. NO AMBULATION Neurological exam: PRESENT: alert, awake, oriented to person, oriented to place , oriented to time, oriented to situation Psychiatric exam: PRESENT: anxious Skin exam: PRESENT: dry, intact, normal color, warm Results Laboratory Results: 08/13/17 06:15 08/13/17 08/13/17 08/13/17 06:15 06:15 06:15 WBC 9.9 RBC 3.53 L Hgb 10.8 L Hct 32.2 L MCV 91 MCH 30.7 MCHC 33.7 RDW 17.1 H Plt Count 111 L Carbonic Acid HCO3/H2CO3 Ratio ABG pH ABG pCO2 ABG pO2 ABG HCO3 ABG O2 Saturation ABG Base Excess FiO2 Sodium 141.9 Potassium 3.2 L Chloride 104 Carbon Dioxide 26 Anion Gap 12 BUN 13 Creatinine 0.59 Est GFR ( Amer) > 60 Est GFR (Non-Af Amer) > 60 Glucose 109 Calcium 8.0 L Magnesium 1.9 Total Bilirubin 4.5 H AST 71 H ALT 44 Alkaline Phosphatase 338 H Total Protein 6.5 Albumin 2.7 L Urine Color Urine Appearance Urine pH Ur Specific [place] Urine Protein Urine Glucose (UA) Urine Ketones Urine Blood Urine Nitrite Ur Leukocyte Esterase Urine WBC (Auto) Urine RBC (Auto) 08/13/17 08/13/17 15:30 15:41 WBC RBC Hgb Hct MCV MCH MCHC RDW Plt Count Carbonic Acid 1.33 HCO3/H2CO3 Ratio 20:1 ABG pH 7.41 ABG pCO2 44.2 ABG pO2 57.2 L ABG HCO3 27.4 H ABG O2 Saturation 89.9 L ABG Base Excess 2.3 FiO2 15L Sodium Potassium Chloride Carbon Dioxide Anion Gap BUN Creatinine Est GFR ( Amer) Est GFR (Non-Af Amer) Glucose Calcium Magnesium Total Bilirubin AST ALT Alkaline Phosphatase Total Protein Albumin Urine Color MONICA Urine Appearance CLOUDY Urine pH 5.0 Ur Specific [place] 1.017 Urine Protein 100 H Urine Glucose (UA) NEGATIVE Urine Ketones NEGATIVE Urine Blood LARGE H Urine Nitrite NEGATIVE Ur Leukocyte Esterase SMALL H Urine WBC (Auto) 149 Urine RBC (Auto) >182 08/11/17 08/12/17 04:21 03:49 NT-Pro-B Natriuret Pep 232 312 Impressions: Thoracentesis Ultrasound 08/09/17 10:34 IMPRESSION: SUCCESSFUL THORACENTESIS USING ULTRASOUND GUIDANCE. Abdomen Ultrasound 08/11/17 00:00 IMPRESSION: Minimal pericholecystic fluid. 0.8 cm diameter prominent common bile duct, no intrahepatic ductal dilation. Otherwise, unremarkable. Chest X-Ray 08/13/17 15:00 IMPRESSION: Right-sided chest tube in good position. No pneumothorax. No residual pleural effusion. Increasing bilateral airspace disease from ARDS. Edema or pneumonia could mimic this appearance Status: Imported from PACS Assessment & Plan - Diagnosis (1) Acute respiratory failure with hypoxemia Is this a current diagnosis for this admission?: Yes Plan: Worsening, requiring intubation. Vent settings PRVC TV 500 RR 20 FiO2 50% PEEP 7 PS 20 Multifactoral: ARDS vs. pulmonary edema vs. PNA vs. pleural effusion Chest tube inserted today for continuous drainage of large R pleural effusion Large amount (1.5L) initially drained upon placement. Anticipated drop in BP following large volume output. Bolused 2L IVF and continue with maintenance IVF. CXR demonstrates ARDS vs pulmonary edema Maintain current vent settings, will readjust following post-intubation ABG Broad spectrum antibiotics for PNA (see below) (2) Pleural effusion Is this a current diagnosis for this admission?: Yes Plan: Worsening today. Multi-factorial secondary to pneumonia vs. cirrhosis vs. heart failure ( although less likely). Evaluation for ascites by US revealed that there was not enough to drain via paracentesis Ammonia 25. AST ALT mildly elevated. Cirrhosis confirmed on previous Abd CT scan from 201408/09/2017 status post thoracentesis with removal of approximately 1 L Interventional non destructive testing technician stated that 1L was the maximum amount that could be drained (per policy). He stated that there was still a significant amount of pleural fluid left s/p thoracentesis. Laboratory evaluation of the pleural effusion is transudative Initial pleural fluid culture has no growth 3 days Chest x-ray today shows worsening left lung opacification, persistent right lung opacification, large right-sided pleural effusion. No change despite aggressive diuresis yesterday Chest tube placed by surgery for continuous drainage of large effusion. Re-sent culture, gram stain, fungal smear, cytology and histology No history of heart disease. Cardiac source of pleural effusion is less likely. BNP 312. ECHOcardiogram pending. (3) Pneumonia Qualifiers: Pneumonia type: due to unspecified organism Laterality: right Lung location: lower lobe of lung Qualified Code(s): J18.1 - Lobar pneumonia, unspecified organism Is this a current diagnosis for this admission?: Yes Plan: Worsening. Initial CXR revealed extensive right lower lobe pleural effusion with possible underlying PNA, now status post thoracentesis. Blood cultures have no growth 72 hours. Initial sputum cultures only demonstrate normal tania. Initial ABG demonstrates metabolic alkalosis and hypoxia with a pO2 of 57 Antibiotic coverage changed from Azithromycin, Rocephin and vancomycin to Zosyn and Vancomycin. Acute onset of left infiltrate suggestive of aspiration, Zosyn chosen for better gram-positive and gram-negative coverage. Broad coverage required since patient developed bilateral infiltrates after 48hrs inpatient, treating for hospital acquired PNA Initial sputum culture only demonstrates normal tania Febrile today to 38.5 repeat sputum culture, repeat blood cultures, send urinalysis Scheduled and as needed nebulizer treatments Scheduled Solu-Medrol. 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 Per [place] database, patient's pain management physician has weaned off her OxyContin and has begun weaning down on oxycodone. Patient reports she did have abnormal pill counts 2 which have prompted her pain management doctor to begin weaning her from her opiate medications. Currently using Propofol for sedation while intubated PRN fentanyl for pain PRN ativan for agitation (5) Opiate dependence, continuous Is this a current diagnosis for this admission?: Yes Plan: As above (6) Constipation Qualifiers: Constipation type: drug induced constipation Qualified Code(s): K59.03 - Drug induced constipation Is this a current diagnosis for this admission?: Yes Plan: Likely related to chronic opiate use. Nursing staff reports the patient had multiple BMs yesterday Will attempt to restart PO medication tomorrow AM, plan to resume lactulose (7) Cirrhosis Qualifiers: Hepatic cirrhosis type: alcoholic cirrhosis Is this a current diagnosis for this admission?: Yes Plan: ETOH vs. biliary. Patient reports that she is followed by the liver transplant team at [facility] and has actively been working towards approval for liver transplant. Abdominal ultrasound 08/10 is negative for accumulating ascites, no indication for paracentesis. Ammonia level 25, plan to recheck in AM PO lactulose on hold because patient unable to tolerate removal from BIPAP. Now with chest tube in place, will restart tomorrow. Liver enzymes relatively unchanged today (AST 71 ALT 41) Continue patient's home medication: rifaximin, lactulose, and spironolactone. (8) Seizure Is this a current diagnosis for this admission?: Yes Plan: Dilantin level was subtherapeutic. AM dose increased from 200mg to 300mg. Continue current evening dose of 300 mg. PO Dilantin changed to IV due to patient's inability to tolerate removal of BIPAP mask (9) History of alcohol abuse Is this a current diagnosis for this admission?: Yes Plan: Remote history of EtOH abuse. Last EtOH intake was approximately 3 years ago. Continue thiamine and folate supplementation. (10) Acute encephalopathy Is this a current diagnosis for this admission?: Yes Plan: Multifactorial secondary to acute respiratory failure with hypoxia, anxiety, hospital induced psychosis Ammonia level 25, plan to recheck in AM Plan to correct hypoxia and manage liver disease as above Minimize sedating medications - Time Time Spent with patient: 35 or more minutes Total Critical Time (Minutes): 30 - chest tube. intubation. Medications reviewed and adjusted accordingly: Yes - Inpatient Certification Based on my medical assessment, after consideration of the patient's comorbidities, presenting symptoms, or acuity I expect that the services needed warrant INPATIENT care.: Yes I certify that my determination is in accordance with my understanding of Medicare's requirements for reasonable and necessary INPATIENT services [42 CFR 412.3e].: Yes Medical Necessity: Need for IV Antibiotics, Risk of Complication if Not Cared For in Hospital - Plan Summary Plan Summary: REMAIN INTUBATED TODAY/TONIGHT. RE-EVALUATE DAILY FOR CONTINUED NEED OF ETT/ VENTILATOR. CONTINUE BROAD SPECTRUM ABX.
[2017-08-13] MEDS ORDERED: PHARMACY COMMUNICATION ORDER MC NR (18:15)
--- NOTE | 2017-08-13 18:28 | RADIOLOGY REPORT (SQ) ---
EXAM DESCRIPTION: CHEST SINGLE VIEW COMPLETED DATE/TIME: 08/13/2017 6:13 pm REASON FOR STUDY: POST INTUBATION COMPARISON: 08/13/2017 EXAM PARAMETERS: NUMBER OF VIEWS: One view. TECHNIQUE: Single frontal radiographic view of the chest acquired. RADIATION DOSE: NA LIMITATIONS: None. FINDINGS: LUNGS AND PLEURA: Increased pulmonary edema. MEDIASTINUM AND HILAR STRUCTURES: No masses. Contour normal. HEART AND VASCULAR STRUCTURES: Heart size borderline. Marked pulmonary edema. BONES: No acute findings. HARDWARE: Endotracheal tube is in the right mainstem bronchus. An NG tube extends to the stomach. T horacotomy tube is present on the right. OTHER: No other significant finding. IMPRESSION: Marked pulmonary edema. Life lines as described. COMMENT: Findings were discussed with the ordering physician at 1822 hours on this date. TECHNICAL DOCUMENTATION: JOB ID: [id number] [employer]- All Rights Reserved Reading location - IP/workstation name: [email or web address]
--- NOTE | 2017-08-13 18:37 | RADIOLOGY REPORT (SQ) ---
EXAM DESCRIPTION: KUB/ABDOMEN (SINGLE VIEW) COMPLETED DATE/TIME: 08/13/2017 6:13 pm REASON FOR STUDY: NG PLACEMENT COMPARISON: None. NUMBER OF VIEWS: One view. TECHNIQUE: Supine radiographic image of the abdomen acquired. LIMITATIONS: None. FINDINGS: BOWEL GAS PATTERN: There is large amount of bowel gas with dilated loops of bowel. CALCIFICATIONS: No suspicious calcifications. SOFT TISSUES: No gross mass or suggestion of organomegaly. HARDWARE: In the NG tube has its tip in the body of the stomach. BONES: No acute fracture. No worrisome bone lesions. OTHER: No other significant finding. IMPRESSION: Bowel obstruction versus ileus. NG tube placement. TECHNICAL DOCUMENTATION: JOB ID: [id number] [employer]- All Rights Reserved Reading location - IP/workstation name: [email or web address]
--- NOTE | 2017-08-13 19:26 | XCELERA REPORT ---
[address] [address] Transthoracic Echocardiogram Report Name: JENNA BUCHANAN Age: 61 yrs Gender: Female : 1955 Patient Status: Inpatient Patient Location: ICU^609^A Study Date: 08/13/2017 02:36 PM Height: 62 in Weight: 120 lb BSA: 1.5 m2 Procedure: A two-dimensional transthoracic echocardiogram with color flow and Doppler was performed. Study Quality: Fair. Reason For Study: ACUTE PULMONARY EDEMA History: ACUTE PULMONARY EDEMA. Ordering Physician: ERIN DANGELO Performed By: Charlotte Neumann Interpretation Summary The left ventricle is normal in size. There is normal left ventricular wall thickness. LV EF is 65% Left ventricular systolic function is normal. Doppler measurements suggest normal left ventricular diastolic function The left ventricular wall motion is normal. There is no thrombus. The right ventricle is grossly normal size. The right atrium is normal. The left atrial size is normal. There is no evidence of mitral valve prolapse. There is no vegetation seen on the mitral valve. There is no mitral valve stenosis. There is a trace amount of mitral regurgitation There is no aortic valve stenosis There is no LVOT obstruction. No aortic regurgitation is present. There is no tricuspid stenosis. There is a trace amount of tricuspid regurgitation There is mild pulmonary hypertension by echo RVSP is 35 mm of Hg , with RA mean of 5. There is no pericardial effusion. MMode/2D Measurements & Calculations RVDd: 3.2 cm LVIDd: 4.7 cm FS: 39.4 % Ao root diam: 2.7 cm IVSd: 0.87 cm LVIDs: 2.9 cm EDV(Teich): 103.5 ml LVPWd: 0.92 cm ESV(Teich): 31.2 ml Ao root area: 5.5 cm2 EF(Teich): 69.8 % LA dimension: 3.3 cm Doppler Measurements & Calculations MV E max chari: MV P1/2t max chari: Ao V2 max: LV V1 max P.8 cm/sec 119.1 cm/sec 183.9 cm/sec 10.1 mmHg MV A max chari: MV P1/2t: 69.2 msec Ao max PG: LV V1 max: 78.4 cm/sec 13.5 mmHg 159.2 cm/sec MV E/A: 1.5 MVA(P1/2t): 3.2 cm2 MV dec slope: 504.1 cm/sec2 MV dec time: 0.25 sec PA V2 max: TR max chari: 125.2 cm/sec 274.2 cm/sec PA max PG: TR max P.1 mmHg 6.3 mmHg Left Ventricle The left ventricle is normal in size. There is normal left ventricular wall thickness. LV EF is 65%. Left ventricular systolic function is normal. Doppler measurements suggest normal left ventricular diastolic function. The left ventricular wall motion is normal. There is no thrombus. Right Ventricle The right ventricle is grossly normal size. The right ventricle is not well visualized secondary to technical limitations. Atria The right atrium is normal. The left atrial size is normal. Mitral Valve There is mild mitral annular calcification. There is no evidence of mitral valve prolapse. There is no vegetation seen on the mitral valve. There is no mitral valve stenosis. There is a trace amount of mitral regurgitation. Aortic Valve The aortic valve is mildly calcified. There is no aortic valvular vegetation. There is no aortic valve stenosis. There is no LVOT obstruction. No aortic regurgitation is present. Tricuspid Valve There is no tricuspid stenosis. There is a trace amount of tricuspid regurgitation. There is mild pulmonary hypertension by echo. RVSP is 35 mm of Hg , with RA mean of 5. Pulmonic Valve There is no pulmonic valvular stenosis. There is no pulmonic valvular regurgitation. Great Vessels The aortic root is not well visualized. Effusions There is no pericardial effusion. : ERIN DANGELO > [place]
--- NOTE | 2017-08-13 19:38 | RADIOLOGY REPORT (SQ) ---
EXAM DESCRIPTION: CHEST SINGLE VIEW COMPLETED DATE/TIME: 08/13/2017 7:21 pm REASON FOR STUDY: ETT retraction COMPARISON: Earlier exam at 1805 hours EXAM PARAMETERS: NUMBER OF VIEWS: One view. TECHNIQUE: Single frontal radiographic view of the chest acquired. RADIATION DOSE: NA LIMITATIONS: None. FINDINGS: Endotracheal tube tip still remains overlying the right mainstem bronchus and should be wi thdrawn approximately 4 cm for more ideal placement. Radiographs otherwise unchanged. OTHER: No other significant finding. IMPRESSION: As described on the prior study, the endotracheal tube tip overlies the proximal right m ainstem bronchus and should be withdrawn approximately 4 cm for more ideal placement. TECHNICAL DOCUMENTATION: JOB ID: [id number] [id number] 2010 [employer]- All Rights Reserved Reading location - IP/workstation name: [email or web address]
[2017-08-13] MEDS ORDERED: SUCCINYLCHOLINE CHLORIDE INJ 200 MG/10 ML VIAL ONE (19:56)
[2017-08-13] MEDS: THIAMINE HCL 100 MG, FOLIC ACID 1 MG in NORMAL SALINE 250 ML IV SCH (22:14)
[2017-08-13] MEDS: MIRTAZAPINE 15 MG TABLET PO SCH (22:17)
[2017-08-14] MEDS: DEXTROSE 5%-WATER 250 ML with NOREPINEPHRINE BITARTRATE 4 MG IV PRN ×6 (00:39→13:08)
[2017-08-14] MEDS: IPRATROPIUM/ALBUTEROL 0.5-2.5 MG/3 ML AMPUL NEB SCH ×4 (02:08→20:41)
[2017-08-14] MEDS: ACETYLCYSTEINE 10% NEB 400 MG/4 ML VIAL NEB SCH ×3 (02:09→20:41)
[2017-08-14] MEDS: PIPERACILLIN SODIUM/TAZOBACTAM 3.375 GM in NORMAL SALINE 100 ML IV SCH ×4 (03:39→21:23)
[2017-08-14] MEDS: LORAZEPAM INJ 2 MG/1 ML VIAL IV PRN (04:15)
[2017-08-14] MEDS: PROPOFOL 1,000 MG/100 ML INFUS..BTL IV PRN ×4 (04:16→22:22)
[2017-08-14 04:41] LABS: ALANINE AMINOTRANSFERASE 33 U/L (9-52); ALBUMIN 2.3 g/dL (3.5-5.0); ALKALINE PHOSPHATASE 273 U/L (38-126); ANION GAP 11 (5-19); ASPARTATE AMINO TRANSFERASE 65 U/L (14-36); BILIRUBIN,DIRECT 4.8 mg/dL (0.0-0.4); BILIRUBIN,TOTAL 5.6 mg/dL (0.2-1.3); BLOOD UREA NITROGEN 16 mg/dL (7-20); CALCIUM 7.3 mg/dL (8.4-10.2); CARBON DIOXIDE 23 mmol/L (22-30); CHLORIDE 108 mmol/L (98-107); GLUCOSE 154 mg/dL (75-110); PHOSPHORUS 2.8 mg/dL (2.5-4.5); SODIUM 142.1 mmol/L (137-145); TOTAL PROTEIN 5.6 g/dL (6.3-8.2)
[2017-08-14 05:19] LABS: ABSOLUTE MONOCYTES (AUTO) 0.8 10^3/uL (0.1-1.4); ABSOLUTE NEUT (AUTO) 15.4 10^3/uL (1.7-8.2); BASOPHILS % (AUTO) 0.1 % (0-2); EOSINOPHILS % (AUTO) 0.1 % (0-6); HEMOGLOBIN 9.6 g/dL (12.0-15.5); LYMPHOCYTES % (AUTO) 5.9 % (13-45); MEAN CORPUSCULAR HEMOGLOBIN 31.4 pg (27.0-33.4); MEAN CORPUSCULAR HGB CONC 34.2 g/dL (32.0-36.0); MEAN CORPUSCULAR VOLUME 92 fl (80-97); MONOCYTES % (AUTO) 4.8 % (3-13); PLATELET COUNT 222 10^3/uL (150-450); RED BLOOD COUNT 3.05 10^6/uL (3.72-5.28); RED CELL DISTRIBUTION WIDTH 17.3 % (11.5-14.0); SEGMENTED NEUTROPHILS % (AUTO) 89.1 % (42-78); TOTAL CELLS COUNTED % (AUTO) 100 %; WHITE BLOOD COUNT 17.2 10^3/uL (4.0-10.5)
[2017-08-14] MEDS ORDERED: NOREPINEPHRINE BITARTRATE INJ/PF 4 MG/4 ML SDV IV ONE (06:10)
[2017-08-14] MEDS ORDERED: POTASSIUM CHLORIDE 20 MEQ/15 ML UDCUP NG ONE (06:15)
[2017-08-14 06:19] LABS: ARTERIAL BLOOD BASE EXCESS -0.1 mmol/L; ARTERIAL BLOOD H2CO3 0.88 mmol/L (1.05-1.35); ARTERIAL BLOOD HCO3 22.2 mmol/L (20-26); ARTERIAL BLOOD O2 SATURATION 99.5 % (94-98); ARTERIAL BLOOD PCO2 29.4 mmHg (35-45); ARTERIAL BLOOD PO2 205.4 mmHg (80-100); ARTERIAL BLOOD TOTAL CO2 23.1 mmol/L (21-25)
[2017-08-14 06:20] LABS: ARTERIAL BLOOD FIO2 50%
[2017-08-14] MEDS: POTASSIUM CHLORIDE 20 MEQ/50 ML RTU IV SCH ×2 (06:42→09:01)
[2017-08-14] MEDS: FUROSEMIDE INJ/PF 40 MG/4 ML SDV IV SCH ×2 (06:44→17:43)
--- NOTE | 2017-08-14 08:08 | RADIOLOGY REPORT (SQ) ---
EXAM DESCRIPTION: CHEST SINGLE VIEW COMPLETED DATE/TIME: 08/14/2017 7:20 am REASON FOR STUDY: respiratory failure COMPARISON: AP chest 08/13/2017, 08/12/2017, 08/11/2017, 08/09/2017 EXAM PARAMETERS: NUMBER OF VIEWS: One view. TECHNIQUE: Single frontal radiographic view of the chest acquired. RADIATION DOSE: NA LIMITATIONS: None. FINDINGS: LUNGS AND PLEURA: Partial clearing of the bilateral dense alveolar and interstitial infilt rates compared to [id number] hours. There is still fairly dense consolidation in the right mid and low er lung. No pleural effusion. No pneumothorax. MEDIASTINUM AND HILAR STRUCTURES: No masses. Contour normal. HEART AND VASCULAR STRUCTURES: No cardiomegaly in BONES: No acute findings. HARDWARE: Endotracheal tube tip 1 cm above the julieta. Nasogastric tube tip and side port in the sto mach. Right chest tube in good position OTHER: No other significant finding. IMPRESSION: Partial clearing of the bilateral dense alveolar and interstitial infiltrates compared t o 08/13/2017 1904 hours Endotracheal tube tip 1 cm above the julieta Nasogastric tube tip and side port in the stomach. Right chest tube in good positioning, no pneumoth orax. TECHNICAL DOCUMENTATION: JOB ID: [id number] [employer]- All Rights Reserved Reading location - IP/workstation name: [email or web address]
[2017-08-14] MEDS ORDERED: DIAZEPAM INJ 10 MG/2 ML DISP.SYRIN IV PRN (08:51)
[2017-08-14] MEDS: DIAZEPAM INJ 10 MG/2 ML DISP.SYRIN IV SCH ×3 (09:06→21:24)
--- NOTE | 2017-08-14 09:50 | PDOC PROGRESS REPORT ---
Subjective Progress Note for:: 08/14/17 Subjective:: intubated, sedated Reason For Visit: PULMONARY EDEMA CIRRHOSIS RESPIRATORY FAILURE Physical Exam Vital Signs: Temp Pulse Resp BP Pulse Ox 99.5 F 78 22 H 97/69 L 97 08/14/17 05:36 08/14/17 08:37 08/14/17 08:37 08/14/17 06:16 08/14/17 08:37 Pulse Oximeter Continuous Start: 08/12/17 10: 54 Freq: RTQ4 Status: Hold Document 08/12/17 14:08 [facility] [place] (Rec: 08/12/17 14:35 [facility] [place] [id number]) Pulse Oximetry Assessment Oxygen Saturation (92-100) 93 Oxygen Delivery Method Bi-pap Fraction of Inspired Oxygen (FIO2) 45 Equipment Usage Equipment Discontinued Continuous SpO2 Machine # N 10 Intake & Output 08/13/17 08/14/17 08/15/17 06:59 06:59 06:59 Intake Total 1643 4288 Output Total 3911 4401 Balance -1117 -147 Weight 55 kg 54.4 kg General appearance: PRESENT: other - sedated Respiratory exam: PRESENT: other - right chest: chest tube in place Results Laboratory Results: 08/14/17 05:04 08/14/17 03:56 08/13/17 08/13/17 08/13/17 12:30 15:30 15:41 WBC RBC Hgb Hct MCV MCH MCHC RDW Plt Count Seg Neutrophils % Lymphocytes % Monocytes % Eosinophils % Basophils % Absolute Neutrophils Absolute Lymphocytes Absolute Monocytes Absolute Eosinophils Absolute Basophils Carbonic Acid 1.33 HCO3/H2CO3 Ratio 20:1 ABG pH 7.41 ABG pCO2 44.2 ABG pO2 57.2 L ABG HCO3 27.4 H ABG O2 Saturation 89.9 L ABG Base Excess 2.3 FiO2 15L Sodium Potassium Chloride Carbon Dioxide Anion Gap BUN Creatinine Cancelled Est GFR ( Amer) Cancelled Est GFR (Non-Af Amer) Cancelled Glucose Calcium Phosphorus Magnesium Total Bilirubin AST ALT Alkaline Phosphatase Ammonia Total Protein Albumin Urine Color MONICA Urine Appearance CLOUDY Urine pH 5.0 Ur Specific [place] 1.017 Urine Protein 100 H Urine Glucose (UA) NEGATIVE Urine Ketones NEGATIVE Urine Blood LARGE H Urine Nitrite NEGATIVE Ur Leukocyte Esterase SMALL H Urine WBC (Auto) 149 Urine RBC (Auto) >182 08/13/17 08/14/17 08/14/17 17:40 03:56 03:56 WBC RBC Hgb Hct MCV MCH MCHC RDW Plt Count Seg Neutrophils % Lymphocytes % Monocytes % Eosinophils % Basophils % Absolute Neutrophils Absolute Lymphocytes Absolute Monocytes Absolute Eosinophils Absolute Basophils Carbonic Acid 1.27 HCO3/H2CO3 Ratio 19:1 ABG pH 7.39 ABG pCO2 42.2 ABG pO2 92.4 ABG HCO3 24.7 ABG O2 Saturation 97.0 ABG Base Excess -0.4 FiO2 50% Sodium 142.1 Potassium 3.0 L* Chloride 108 H Carbon Dioxide 23 Anion Gap 11 BUN 16 Creatinine 0.56 Est GFR ( Amer) > 60 Est GFR (Non-Af Amer) > 60 Glucose 154 H Calcium 7.3 L Phosphorus 2.8 Magnesium 1.8 Total Bilirubin 5.6 H AST 65 H ALT 33 Alkaline Phosphatase 273 H Ammonia 35.3 H Total Protein 5.6 L Albumin 2.3 L Urine Color Urine Appearance Urine pH Ur Specific [place] Urine Protein Urine Glucose (UA) Urine Ketones Urine Blood Urine Nitrite Ur Leukocyte Esterase Urine WBC (Auto) Urine RBC (Auto) 08/14/17 08/14/17 08/14/17 03:56 05:04 05:53 WBC Cancelled 17.2 H RBC Cancelled 3.05 L Hgb Cancelled 9.6 L Hct Cancelled 28.0 L MCV Cancelled 92 MCH Cancelled 31.4 MCHC Cancelled 34.2 RDW Cancelled 17.3 H Plt Count Cancelled 222 Seg Neutrophils % Cancelled 89.1 H Lymphocytes % Cancelled 5.9 L Monocytes % Cancelled 4.8 Eosinophils % Cancelled 0.1 Basophils % Cancelled 0.1 Absolute Neutrophils Cancelled 15.4 H Absolute Lymphocytes Cancelled 1.0 Absolute Monocytes Cancelled 0.8 Absolute Eosinophils Cancelled 0.0 Absolute Basophils Cancelled 0.0 Carbonic Acid 0.88 L HCO3/H2CO3 Ratio 25:1 ABG pH 7.50 H ABG pCO2 29.4 L ABG pO2 205.4 H ABG HCO3 22.2 ABG O2 Saturation 99.5 H ABG Base Excess -0.1 FiO2 50% Sodium Potassium Chloride Carbon Dioxide Anion Gap BUN Creatinine Est GFR ( Amer) Est GFR (Non-Af Amer) Glucose Calcium Phosphorus Magnesium Total Bilirubin AST ALT Alkaline Phosphatase Ammonia Total Protein Albumin Urine Color Urine Appearance Urine pH Ur Specific [place] Urine Protein Urine Glucose (UA) Urine Ketones Urine Blood Urine Nitrite Ur Leukocyte Esterase Urine WBC (Auto) Urine RBC (Auto) 08/11/17 08/12/17 08/14/17 04:21 03:49 03:56 NT-Pro-B Natriuret Pep 232 017 525 Impressions: Thoracentesis Ultrasound 08/09/17 10:34 IMPRESSION: SUCCESSFUL THORACENTESIS USING ULTRASOUND GUIDANCE. Abdomen Ultrasound 08/11/17 00:00 IMPRESSION: Minimal pericholecystic fluid. 0.8 cm diameter prominent common bile duct, no intrahepatic ductal dilation. Otherwise, unremarkable. KUB X-Ray 08/13/17 00:00 IMPRESSION: Bowel obstruction versus ileus. NG tube placement. Chest X-Ray 08/14/17 05:00 IMPRESSION: Partial clearing of the bilateral dense alveolar and interstitial infiltrates compared to 08/13/2017 1904 hours Endotracheal tube tip 1 cm above the julieta Nasogastric tube tip and side port in the stomach. Right chest tube in good positioning, no pneumothorax. Assessment & Plan - Diagnosis (1) Need for intravenous access Is this a current diagnosis for this admission?: Yes (2) Pleural effusion Is this a current diagnosis for this admission?: Yes - Plan Summary Plan Summary: A/ POD#1 S/P right chest tube placement for effusion More than [address] Need IV access P/ Plan placement of CVL Continue right chest tube suction
--- NOTE | 2017-08-14 09:51 | Operative Report ---
Nonrecallable Operative Report DATE OF SURGERY: 08/14/17 PREOPERATIVE DIAGNOSIS: need IV access POSTOPERATIVE DIAGNOSIS: same OPERATION: rigth subclavian CVL SURGEON: NORMAN NELSON ANESTHESIA: Local TISSUE REMOVED OR ALTERED: n/a COMPLICATIONS: none INTRAOPERATIVE FINDINGS: as above PROCEDURE: see dictation
[2017-08-14] MEDS: POTASSI CL 20 MEQ/50 ML RIDER 20 MEQ/50 ML RTUPB IV SCH ×2 (09:58→10:10)
[2017-08-14] MEDS: POTASSIUM CHLORIDE 10 MEQ CAPSULE.ER PO SCH (10:10)
[2017-08-14] MEDS: PHENYTOIN SODIUM INJ/PF 100 MG/2 ML SDV IV SCH ×2 (10:10→17:43)
--- NOTE | 2017-08-14 10:16 | RADIOLOGY REPORT (SQ) ---
EXAM DESCRIPTION: CHEST SINGLE VIEW COMPLETED DATE/TIME: 08/14/2017 10:06 am REASON FOR STUDY: central line placement COMPARISON: AP chest 08/14/2017, 08/13/2017 EXAM PARAMETERS: NUMBER OF VIEWS: One view. TECHNIQUE: Single frontal radiographic view of the chest acquired. RADIATION DOSE: NA LIMITATIONS: None. FINDINGS: LUNGS AND PLEURA: Diffuse bilateral airspace disease edema versus ARDS versus pneumonia un changed from 0709 hours. No pneumothorax. No pleural effusion. MEDIASTINUM AND HILAR STRUCTURES: No masses. Contour normal. HEART AND VASCULAR STRUCTURES: No cardiomegaly BONES: No acute findings. HARDWARE: Interval placement of a right jugular central line with the tip in the superior vena cava. No pneumothorax. Right chest tube, nasogastric tube in good positioning. Endotracheal tube tip 1 cm above the julieta. OTHER: No other significant finding. IMPRESSION: No pneumothorax post right jugular central line placement with the tip in the superior v ed cava. Endotracheal tube tip 1 cm above the julieta. No change in diffuse bilateral airspace disease since 08/14/2017 0709 hours TECHNICAL DOCUMENTATION: JOB ID: [id number] [employer]- All Rights Reserved Reading location - IP/workstation name: [email or web address]
[2017-08-14] MEDS: METHYLPREDNISOLONE INJ 40 MG/1 ML SDV IV SCH ×2 (10:20→22:20)
--- NOTE | 2017-08-14 10:50 | OPERATIVE REPORT E ---
Operative Report NAME: JENNA BUCHANAN : 1955 AGE: 61Y DATE OF SURGERY: 08/14/2017 ROOM: 609 PREOPERATIVE DIAGNOSIS: Need of IV access. POSTOPERATIVE DIAGNOSIS: Need of IV access. PROCEDURE: Right subclavian vein central venous line. SURGEON: NORMAN NELSON M.D. LOG CUT OFF SAWYER: none COMPLICATION: None. ANESTHESIA: Local, 5 mL of 1% lidocaine. INDICATIONS/FINDINGS: The patient is a 61-year-old, intubated and sedated in the ICU with liver cirrhosis, in need of IV access. DESCRIPTION OF PROCEDURE: Procedure was done at bedside. The patient was placed in supine position. The right side of the chest and neck were prepped and draped in usual fashion. The area was infiltrated with lidocaine. The subclavian vein was approached with a 16-gauge needle. The guidewire was inserted and the needle was removed over the guidewire. A tissue dilator was inserted and removed. A triple-lumen catheter was inserted over the guidewire up to 15 cm and the guidewire was removed. Each port of the triple-lumen catheter was then aspirated and flushed with saline without any difficulty and the catheter was secured to the skin with silk sutures and dressing. The patient tolerated the procedure well. Chest x-ray was obtained to verify position of the line. DICTATING PHYSICIAN: NORMAN NELSON M.D. [id number] PHY#: [id number] ID: [id number] JOB#: [id number] ACCT: [id number] cc:ONRMAN NELSON M.D. > MTDD
--- NOTE | 2017-08-14 11:08 | RADIOLOGY REPORT (SQ) ---
EXAM DESCRIPTION: CHEST SINGLE VIEW COMPLETED DATE/TIME: 08/14/2017 10:31 am REASON FOR STUDY: ETT placement COMPARISON: Multiple chest films 08/14/2017, 08/13/2017 EXAM PARAMETERS: NUMBER OF VIEWS: One view. TECHNIQUE: Single frontal radiographic view of the chest acquired. RADIATION DOSE: NA LIMITATIONS: None. FINDINGS: LUNGS AND PLEURA: On the current film, 08/14/2017 1022 hours, the endotracheal tube is 2 cm above the julieta. Decrease in left-sided pulmonary edema pattern. Persistent right mid and lower lung airspace disease atelectasis versus pneumonia. Right chest tube in place, no pneumothorax. No right pleural effusion. MEDIASTINUM AND HILAR STRUCTURES: No masses. Contour normal. HEART AND VASCULAR STRUCTURES: Heart normal in size. Normal vasculature. BONES: No acute findings. HARDWARE: Endotracheal tube tip 2 cm above the julieta. Right subclavian line tip superior vena cava. Right chest tube tip and side port over the right hemithorax. Nasogastric tube tip and side port i n the stomach. ET tube tip 2 cm above the julieta. OTHER: No other significant finding. IMPRESSION: Endotracheal tube tip 2 cm above the juileta. Further clearing of left-sided airspace disease. Persistent right mid and lower lung airspace diseas e. No right pneumothorax or pleural effusion TECHNICAL DOCUMENTATION: JOB ID: [id number] [employer]- All Rights Reserved Reading location - IP/workstation name: [email or web address]
[2017-08-14 12:41] LABS: ARTERIAL BLOOD BASE EXCESS -0.8 mmol/L; ARTERIAL BLOOD H2CO3 0.91 mmol/L (1.05-1.35); ARTERIAL BLOOD HCO3 21.6 mmol/L (20-26); ARTERIAL BLOOD O2 SATURATION 96.7 % (94-98); ARTERIAL BLOOD PCO2 30.2 mmHg (35-45); ARTERIAL BLOOD PH 7.47 (7.35-7.45); ARTERIAL BLOOD PO2 81.2 mmHg (80-100); ARTERIAL BLOOD TOTAL CO2 22.6 mmol/L (21-25)
[2017-08-14 12:42] LABS: ARTERIAL BLOOD FIO2 30%
[2017-08-14] MEDS ORDERED: PANTOPRAZOLE SODIUM 40 MG VIAL IV ONE ×2 (13:19→14:00)
--- NOTE | 2017-08-14 19:54 | PDOC PROGRESS REPORT ---
Subjective Progress Note for:: 08/14/17 Subjective:: intubated Reason For Visit: PULMONARY EDEMA CIRRHOSIS RESPIRATORY FAILURE Physical Exam Vital Signs: Temp Pulse Resp BP Pulse Ox 99.5 F 78 22 H 97/69 L 97 08/14/17 05:36 08/14/17 08:37 08/14/17 08:37 08/14/17 06:16 08/14/17 08:37 Pulse Oximeter Continuous Start: 08/12/17 10: 54 Freq: RTQ4 Status: Hold Document 08/12/17 14:[address] [facility] [place] (Rec: 08/12/17 14:[address] [facility] [place] [id number]) Pulse Oximetry Assessment Oxygen Saturation (92-100) 93 Oxygen Delivery Method Bi-pap Fraction of Inspired Oxygen (FIO2) 45 Equipment Usage Equipment Discontinued Continuous SpO2 Machine # N 10 Intake & Output 08/13/17 08/14/17 08/15/17 06:59 06:59 06:59 Intake Total 1643 4288 Output Total 2760 4435 Balance -1117 -147 Weight 55 kg 54.4 kg General appearance: PRESENT: no acute distress, disheveled, thin Head exam: PRESENT: atraumatic, normocephalic Eye exam: PRESENT: conjunctiva pale. ABSENT: EOMI, nystagmus Mouth exam: PRESENT: dry mucosa, neck supple, tongue midline, other - ET Neck exam: PRESENT: tracheostomy. ABSENT: carotid bruit, JVD, lymphadenopathy, thyromegaly, tracheal deviation Respiratory exam: PRESENT: crackles, rhonchi, unlabored, wheezes. ABSENT: decreased breath sounds, prolonged expiratory phas, retraction, stridor Cardiovascular exam: PRESENT: RRR, +S2, systolic murmur, tachycardia Pulses: PRESENT: normal radial pulses Extremities exam: ABSENT: calf tenderness, clubbing, joint swelling, pedal edema Musculoskeletal exam: ABSENT: deformity, dislocation Neurological exam: ABSENT: awake, oriented to person Skin exam: PRESENT: dry, warm Results Laboratory Results: 08/14/17 05:04 08/14/17 03:56 08/13/17 08/13/17 08/13/17 12:30 15:30 15:41 WBC RBC Hgb Hct MCV MCH MCHC RDW Plt Count Seg Neutrophils % Lymphocytes % Monocytes % Eosinophils % Basophils % Absolute Neutrophils Absolute Lymphocytes Absolute Monocytes Absolute Eosinophils Absolute Basophils Carbonic Acid 1.33 HCO3/H2CO3 Ratio 20:1 ABG pH 7.41 ABG pCO2 44.2 ABG pO2 57.2 L ABG HCO3 27.4 H ABG O2 Saturation 89.9 L ABG Base Excess 2.3 FiO2 15L Sodium Potassium Chloride Carbon Dioxide Anion Gap BUN Creatinine Cancelled Est GFR ( Amer) Cancelled Est GFR (Non-Af Amer) Cancelled Glucose Calcium Phosphorus Magnesium Total Bilirubin AST ALT Alkaline Phosphatase Ammonia Total Protein Albumin Urine Color MONICA Urine Appearance CLOUDY Urine pH 5.0 Ur Specific [place] 1.017 Urine Protein 100 H Urine Glucose (UA) NEGATIVE Urine Ketones NEGATIVE Urine Blood LARGE H Urine Nitrite NEGATIVE Ur Leukocyte Esterase SMALL H Urine WBC (Auto) 149 Urine RBC (Auto) >182 08/13/17 08/14/17 08/14/17 17:40 03:56 03:56 WBC RBC Hgb Hct MCV MCH MCHC RDW Plt Count Seg Neutrophils % Lymphocytes % Monocytes % Eosinophils % Basophils % Absolute Neutrophils Absolute Lymphocytes Absolute Monocytes Absolute Eosinophils Absolute Basophils Carbonic Acid 1.27 HCO3/H2CO3 Ratio 19:1 ABG pH 7.39 ABG pCO2 42.2 ABG pO2 92.4 ABG HCO3 24.7 ABG O2 Saturation 97.0 ABG Base Excess -0.4 FiO2 50% Sodium 142.1 Potassium 3.0 L* Chloride 108 H Carbon Dioxide 23 Anion Gap 11 BUN 16 Creatinine 0.56 Est GFR ( Amer) > 60 Est GFR (Non-Af Amer) > 60 Glucose 154 H Calcium 7.3 L Phosphorus 2.8 Magnesium 1.8 Total Bilirubin 5.6 H AST 65 H ALT 33 Alkaline Phosphatase 273 H Ammonia 35.3 H Total Protein 5.6 L Albumin 2.3 L Urine Color Urine Appearance Urine pH Ur Specific [place] Urine Protein Urine Glucose (UA) Urine Ketones Urine Blood Urine Nitrite Ur Leukocyte Esterase Urine WBC (Auto) Urine RBC (Auto) 08/14/17 08/14/17 08/14/17 03:56 05:04 05:53 WBC Cancelled 17.2 H RBC Cancelled 3.05 L Hgb Cancelled 9.6 L Hct Cancelled 28.0 L MCV Cancelled 92 MCH Cancelled 31.4 MCHC Cancelled 34.2 RDW Cancelled 17.3 H Plt Count Cancelled 222 Seg Neutrophils % Cancelled 89.1 H Lymphocytes % Cancelled 5.9 L Monocytes % Cancelled 4.8 Eosinophils % Cancelled 0.1 Basophils % Cancelled 0.1 Absolute Neutrophils Cancelled 15.4 H Absolute Lymphocytes Cancelled 1.0 Absolute Monocytes Cancelled 0.8 Absolute Eosinophils Cancelled 0.0 Absolute Basophils Cancelled 0.0 Carbonic Acid 0.88 L HCO3/H2CO3 Ratio 25:1 ABG pH 7.50 H ABG pCO2 29.4 L ABG pO2 205.4 H ABG HCO3 22.2 ABG O2 Saturation 99.5 H ABG Base Excess -0.1 FiO2 50% Sodium Potassium Chloride Carbon Dioxide Anion Gap BUN Creatinine Est GFR ( Amer) Est GFR (Non-Af Amer) Glucose Calcium Phosphorus Magnesium Total Bilirubin AST ALT Alkaline Phosphatase Ammonia Total Protein Albumin Urine Color Urine Appearance Urine pH Ur Specific [place] Urine Protein Urine Glucose (UA) Urine Ketones Urine Blood Urine Nitrite Ur Leukocyte Esterase Urine WBC (Auto) Urine RBC (Auto) 08/11/17 08/12/17 08/14/17 04:21 03:49 03:56 NT-Pro-B Natriuret Pep 232 312 685 Impressions: Thoracentesis Ultrasound 08/09/17 10:34 IMPRESSION: SUCCESSFUL THORACENTESIS USING ULTRASOUND GUIDANCE. Abdomen Ultrasound 08/11/17 00:00 IMPRESSION: Minimal pericholecystic fluid. 0.8 cm diameter prominent common bile duct, no intrahepatic ductal dilation. Otherwise, unremarkable. KUB X-Ray 08/13/17 00:00 IMPRESSION: Bowel obstruction versus ileus. NG tube placement. Chest X-Ray 08/14/17 05:00 IMPRESSION: Partial clearing of the bilateral dense alveolar and interstitial infiltrates compared to 08/13/2017 1904 hours Endotracheal tube tip 1 cm above the julieta Nasogastric tube tip and side port in the stomach. Right chest tube in good positioning, no pneumothorax. Assessment & Plan - Diagnosis (1) Tachypnea Is this a current diagnosis for this admission?: Yes Plan: intubated will decrease resp rate (2) Cirrhosis Qualifiers: Hepatic cirrhosis type: alcoholic cirrhosis Is this a current diagnosis for this admission?: Yes Plan: Additional possibility of primary biliary cirrhosis (3) Pleural effusion, right Is this a current diagnosis for this admission?: Yes Plan: Suggest placing chest tube call surgeon who agrees to do the sameHopefully this will preclude patient being intubated and if it would reduce her tachypnea we can probably be successful with BiPAP (4) ARDS (adult respiratory distress syndrome) Is this a current diagnosis for this admission?: Yes Plan: improved PAO2/FIO2 = 80/.5 = 60 improved - Time Total Critical Time (Minutes): 45
--- NOTE | 2017-08-14 19:56 | PDOC PROGRESS REPORT ---
Subjective Progress Note for:: 08/14/17 - seen on rounds this morning Subjective:: ventilator dependent and sedated Reason For Visit: PULMONARY EDEMA CIRRHOSIS RESPIRATORY FAILURE Physical Exam Vital Signs: Temp Pulse Resp BP Pulse Ox 99.5 F 78 22 H 97/69 L 97 08/14/17 05:36 08/14/17 08:37 08/14/17 08:37 08/14/17 06:16 08/14/17 08:37 Pulse Oximeter Continuous Start: 08/12/17 10: 54 Freq: RTQ4 Status: Hold Document 08/12/17 14:08 [facility] (Rec: 08/12/17 14:35 [facility] [id number]) Pulse Oximetry Assessment Oxygen Saturation (92-100) 93 Oxygen Delivery Method Bi-pap Fraction of Inspired Oxygen (FIO2) 45 Equipment Usage Equipment Discontinued Continuous SpO2 Machine # N 10 Intake & Output 08/13/17 08/14/17 08/15/17 06:59 06:59 06:59 Intake Total 1643 4288 Output Total 2760 4435 Balance -1117 -147 Weight 121 lb 4.068 oz 119 lb 14.903 oz General appearance: PRESENT: no acute distress, other - ventilator dependent Head exam: PRESENT: atraumatic, normocephalic Eye exam: PRESENT: other - pinpoint pupils. ABSENT: conjunctival injection, scleral icterus Ear exam: PRESENT: normal external ear exam Mouth exam: PRESENT: moist, other - ET and OGT noted Neck exam: ABSENT: JVD, tracheal deviation Cardiovascular exam: PRESENT: RRR, +S1, +S2, other - right chest ube Pulses: PRESENT: +2 pedal pulses bilateral GI/Abdominal exam: PRESENT: distended, normal bowel sounds, soft Gentrourinary exam: PRESENT: indwelling catheter Extremities exam: PRESENT: +1 edema - bilateraly hands Musculoskeletal exam: PRESENT: other - sedated and unable to follow commands Neurological exam: PRESENT: other - under sedation and unable to follow command Skin exam: PRESENT: dry, warm Results Laboratory Results: 08/14/17 05:04 08/14/17 03:56 08/13/17 08/13/17 08/13/17 12:30 15:30 15:41 WBC RBC Hgb Hct MCV MCH MCHC RDW Plt Count Seg Neutrophils % Lymphocytes % Monocytes % Eosinophils % Basophils % Absolute Neutrophils Absolute Lymphocytes Absolute Monocytes Absolute Eosinophils Absolute Basophils Carbonic Acid 1.33 HCO3/H2CO3 Ratio 20:1 ABG pH 7.41 ABG pCO2 44.2 ABG pO2 57.2 L ABG HCO3 27.4 H ABG O2 Saturation 89.9 L ABG Base Excess 2.3 FiO2 15L Sodium Potassium Chloride Carbon Dioxide Anion Gap BUN Creatinine Cancelled Est GFR ( Amer) Cancelled Est GFR (Non-Af Amer) Cancelled Glucose Calcium Phosphorus Magnesium Total Bilirubin AST ALT Alkaline Phosphatase Ammonia Total Protein Albumin Urine Color MONICA Urine Appearance CLOUDY Urine pH 5.0 Ur Specific [place] 1.017 Urine Protein 100 H Urine Glucose (UA) NEGATIVE Urine Ketones NEGATIVE Urine Blood LARGE H Urine Nitrite NEGATIVE Ur Leukocyte Esterase SMALL H Urine WBC (Auto) 149 Urine RBC (Auto) >182 08/13/17 08/14/17 08/14/17 17:40 03:56 03:56 WBC RBC Hgb Hct MCV MCH MCHC RDW Plt Count Seg Neutrophils % Lymphocytes % Monocytes % Eosinophils % Basophils % Absolute Neutrophils Absolute Lymphocytes Absolute Monocytes Absolute Eosinophils Absolute Basophils Carbonic Acid 1.27 HCO3/H2CO3 Ratio 19:1 ABG pH 7.39 ABG pCO2 42.2 ABG pO2 92.4 ABG HCO3 24.7 ABG O2 Saturation 97.0 ABG Base Excess -0.4 FiO2 50% Sodium 142.1 Potassium 3.0 L* Chloride 108 H Carbon Dioxide 23 Anion Gap 11 BUN 16 Creatinine 0.56 Est GFR ( Amer) > 60 Est GFR (Non-Af Amer) > 60 Glucose 154 H Calcium 7.3 L Phosphorus 2.8 Magnesium 1.8 Total Bilirubin 5.6 H AST 65 H ALT 33 Alkaline Phosphatase 273 H Ammonia 35.3 H Total Protein 5.6 L Albumin 2.3 L Urine Color Urine Appearance Urine pH Ur Specific [place] Urine Protein Urine Glucose (UA) Urine Ketones Urine Blood Urine Nitrite Ur Leukocyte Esterase Urine WBC (Auto) Urine RBC (Auto) 08/14/17 08/14/17 08/14/17 03:56 05:04 05:53 WBC Cancelled 17.2 H RBC Cancelled 3.05 L Hgb Cancelled 9.6 L Hct Cancelled 28.0 L MCV Cancelled 92 MCH Cancelled 31.4 MCHC Cancelled 34.2 RDW Cancelled 17.3 H Plt Count Cancelled 222 Seg Neutrophils % Cancelled 89.1 H Lymphocytes % Cancelled 5.9 L Monocytes % Cancelled 4.8 Eosinophils % Cancelled 0.1 Basophils % Cancelled 0.1 Absolute Neutrophils Cancelled 15.4 H Absolute Lymphocytes Cancelled 1.0 Absolute Monocytes Cancelled 0.8 Absolute Eosinophils Cancelled 0.0 Absolute Basophils Cancelled 0.0 Carbonic Acid 0.88 L HCO3/H2CO3 Ratio 25:1 ABG pH 7.50 H ABG pCO2 29.4 L ABG pO2 205.4 H ABG HCO3 22.2 ABG O2 Saturation 99.5 H ABG Base Excess -0.1 FiO2 50% Sodium Potassium Chloride Carbon Dioxide Anion Gap BUN Creatinine Est GFR ( Amer) Est GFR (Non-Af Amer) Glucose Calcium Phosphorus Magnesium Total Bilirubin AST ALT Alkaline Phosphatase Ammonia Total Protein Albumin Urine Color Urine Appearance Urine pH Ur Specific [place] Urine Protein Urine Glucose (UA) Urine Ketones Urine Blood Urine Nitrite Ur Leukocyte Esterase Urine WBC (Auto) Urine RBC (Auto) 08/11/17 08/12/17 08/14/17 04:21 03:49 03:56 NT-Pro-B Natriuret Pep [phone] Impressions: Thoracentesis Ultrasound 08/09/17 10:34 IMPRESSION: SUCCESSFUL THORACENTESIS USING ULTRASOUND GUIDANCE. Abdomen Ultrasound 08/11/17 00:00 IMPRESSION: Minimal pericholecystic fluid. 0.8 cm diameter prominent common bile duct, no intrahepatic ductal dilation. Otherwise, unremarkable. KUB X-Ray 08/13/17 00:00 IMPRESSION: Bowel obstruction versus ileus. NG tube placement. Chest X-Ray 08/14/17 05:00 IMPRESSION: Partial clearing of the bilateral dense alveolar and interstitial infiltrates compared to 08/13/2017 1904 hours Endotracheal tube tip 1 cm above the julieta Nasogastric tube tip and side port in the stomach. Right chest tube in good positioning, no pneumothorax. Assessment & Plan - Diagnosis (2) Acute respiratory failure with hypoxemia Is this a current diagnosis for this admission?: Yes (3) Pleural effusion, right Is this a current diagnosis for this admission?: Yes (4) Pneumonia Qualifiers: Pneumonia type: due to unspecified organism Laterality: right Lung location: lower lobe of lung Qualified Code(s): J18.1 - Lobar pneumonia, unspecified organism Is this a current diagnosis for this admission?: Yes (5) Alcoholic cirrhosis of liver Qualifiers: Ascites presence: with ascites Qualified Code(s): K70.31 - Alcoholic cirrhosis of liver with ascites Is this a current diagnosis for this admission?: Yes (6) Status post thoracentesis Is this a current diagnosis for this admission?: Yes - Time Total Critical Time (Minutes): 55 Medications reviewed and adjusted accordingly: Yes - Plan Summary Plan Summary: Acute respiratory failure with hypoxemia currently ventilator dependent. Patient is doing well. Pulmonology is consulted-appreciate assistance. I have stopped her fentanyl. I saw patient today for the first time. She is currently on propofol and levophed and requiring high doses. I added Valium 10 mg every 6 which hopefully will help her sedation. ABG and chest x-ray daily in the morning. Acute respiratory failure with hypoxemia most likely secondary due to pleural effusion and or pneumonia. She is currently on Zosyn and I am not sure if it is complete coverage. She has a white count of 17,000 currently but that could also be secondary to use of Solu-Medrol. Her blood cultures have remained negative. Her fluid studies from her thoracentesis have also remained negative. Her Gram stains and sputum culture also negative. I will try to adjust her antibiotics tomorrow if she remains afebrile and her white count increases. I have spoken with respiratory therapist today regarding her nebulizer treatments and adjusted her inhalers and nebulizers. Alcoholic cirrhosis of the liver-currently on spironolactone 100 mg and she was on Lasix 40 mg q. 8. This is too much diuretic for her at this time and probably was good when she had a questionable ARDS. I will cut back on as Lasix to 40 IV every 12. Her potassium was low today secondary to Lasix use-I repleted her potassium and added 20 M EQ of potassium daily. She is on spironolactone which should help with the potassium. I have decreased her IV normal saline from 1 25 cc an hour to 50 cc an hour. If she remains on ventilator for another 2-3 days we may have to consider tube feeds for nutrition. Pleural effusion on the right side-she had a chest tube placed and is still draining but it has slowed down. Continue to monitor. Will get repeat chest x- ray in the morning. Will reassess for 1 week and discontinue the chest tube.
[2017-08-14] MEDS: PANTOPRAZOLE SODIUM 40 MG VIAL IV SCH (22:19)
[2017-08-14] MEDS: GUAIFENESIN SYRP 200 MG/10 ML UDC NG SCH (22:19)
[2017-08-14] MEDS: HEPARIN SOD (PORCINE) 5,000 UNIT/ML 1 ML SYRINGE SUBCUT SCH (22:20)
[2017-08-14] MEDS: THIAMINE HCL 100 MG, FOLIC ACID 1 MG in NORMAL SALINE 250 ML IV SCH (22:21)
[2017-08-15] MEDS: IPRATROPIUM/ALBUTEROL 0.5-2.5 MG/3 ML AMPUL NEB SCH ×4 (02:41→20:38)
[2017-08-15] MEDS: PIPERACILLIN SODIUM/TAZOBACTAM 3.375 GM in NORMAL SALINE 100 ML IV SCH ×4 (03:30→20:31)
[2017-08-15] MEDS: DIAZEPAM INJ 10 MG/2 ML DISP.SYRIN IV SCH ×4 (03:31→17:37)
[2017-08-15 05:04] LABS: ARTERIAL BLOOD BASE EXCESS -1.5 mmol/L; ARTERIAL BLOOD H2CO3 1.01 mmol/L (1.05-1.35); ARTERIAL BLOOD HCO3 22.1 mmol/L (20-26); ARTERIAL BLOOD O2 SATURATION 97.9 % (94-98); ARTERIAL BLOOD PCO2 33.5 mmHg (35-45); ARTERIAL BLOOD PH 7.44 (7.35-7.45); ARTERIAL BLOOD PO2 101.4 mmHg (80-100); ARTERIAL BLOOD TOTAL CO2 23.2 mmol/L (21-25)
[2017-08-15 05:09] LABS: ABSOLUTE LYMPHOCYTES (AUTO) 0.6 10^3/uL (0.5-4.7); ABSOLUTE MONOCYTES (AUTO) 0.4 10^3/uL (0.1-1.4); ABSOLUTE NEUT (AUTO) 7.1 10^3/uL (1.7-8.2); BASOPHILS % (AUTO) 0.1 % (0-2); EOSINOPHILS % (AUTO) 0.6 % (0-6); HEMATOCRIT 27.7 % (36.0-47.0); HEMOGLOBIN 9.6 g/dL (12.0-15.5); LYMPHOCYTES % (AUTO) 7.8 % (13-45); MEAN CORPUSCULAR HEMOGLOBIN 31.7 pg (27.0-33.4); MEAN CORPUSCULAR HGB CONC 34.8 g/dL (32.0-36.0); MEAN CORPUSCULAR VOLUME 91 fl (80-97); MONOCYTES % (AUTO) 4.6 % (3-13); RED BLOOD COUNT 3.04 10^6/uL (3.72-5.28); RED CELL DISTRIBUTION WIDTH 17.3 % (11.5-14.0); SEGMENTED NEUTROPHILS % (AUTO) 86.9 % (42-78); TOTAL CELLS COUNTED % (AUTO) 100 %; WHITE BLOOD COUNT 8.2 10^3/uL (4.0-10.5)
[2017-08-15 05:18] LABS: ALANINE AMINOTRANSFERASE 38 U/L (9-52); ALBUMIN 2.2 g/dL (3.5-5.0); ALKALINE PHOSPHATASE 274 U/L (38-126); ANION GAP 11 (5-19); ASPARTATE AMINO TRANSFERASE 53 U/L (14-36); BILIRUBIN,DIRECT 3.7 mg/dL (0.0-0.4); BILIRUBIN,TOTAL 3.9 mg/dL (0.2-1.3); BLOOD UREA NITROGEN 17 mg/dL (7-20); CALCIUM 7.4 mg/dL (8.4-10.2); CARBON DIOXIDE 23 mmol/L (22-30); CHLORIDE 111 mmol/L (98-107); GLUCOSE 111 mg/dL (75-110); POTASSIUM 3.6 mmol/L (3.6-5.0); SODIUM 145.2 mmol/L (137-145); TOTAL PROTEIN 5.5 g/dL (6.3-8.2)
[2017-08-15] MEDS: NORMAL SALINE 1000 ML 1,000 ML IV PRN (05:40)
[2017-08-15] MEDS: FUROSEMIDE INJ/PF 40 MG/4 ML SDV IV SCH ×2 (05:41→17:37)
[2017-08-15] MEDS: PROPOFOL 1,000 MG/100 ML INFUS..BTL IV PRN ×2 (05:41→19:31)
[2017-08-15 05:42] LABS: ARTERIAL BLOOD FIO2 30%
[2017-08-15] MEDS: HEPARIN SOD (PORCINE) 5,000 UNIT/ML 1 ML SYRINGE SUBCUT SCH ×2 (05:42→13:14)
[2017-08-15 06:11] LABS: PLATELET COUNT 92 10^3/uL (150-450)
[2017-08-15] MEDS: ACETYLCYSTEINE 10% NEB 400 MG/4 ML VIAL NEB SCH ×2 (08:14→20:38)
[2017-08-15] MEDS: MIRTAZAPINE 15 MG TABLET PO SCH (08:34)
[2017-08-15] MEDS: PHENYTOIN SODIUM INJ/PF 100 MG/2 ML SDV IV SCH ×2 (08:35→17:38)
[2017-08-15] MEDS: GUAIFENESIN SYRP 200 MG/10 ML UDC NG SCH ×2 (08:35→21:11)
[2017-08-15] MEDS: PANTOPRAZOLE SODIUM 40 MG VIAL IV SCH ×2 (08:37→21:11)
[2017-08-15] MEDS: METHYLPREDNISOLONE INJ 40 MG/1 ML SDV IV SCH ×2 (08:38→21:11)
--- NOTE | 2017-08-15 09:50 | RADIOLOGY REPORT (SQ) ---
EXAM DESCRIPTION: CHEST SINGLE VIEW COMPLETED DATE/TIME: 08/15/2017 6:48 am REASON FOR STUDY: pna/resp fail COMPARISON: 08/14/2017 EXAM PARAMETERS: NUMBER OF VIEWS: One view TECHNIQUE: Single frontal radiograph of the chest. RADIATION DOSE: N/A LIMITATIONS: None. FINDINGS: TEMPORARY SUPPORT DEVICES:ETT in expected location. NG tube courses below the mason-diaphr agm in to the stomach. PICC catheter from right peripheral approach is in expected location. LUNGS AND PLEURA: Improvement in the basilar opacities. No pneumothorax. No effusions. No masses. N o pneumothorax. MEDIASTINUM AND HILAR STRUCTURES: No masses. Contour normal. HEART AND VASCULAR STRUCTURES: Heart normal in size. normal vascularity. Aorta normal for age. BONES: No acute findings. OTHER: No other significant finding. IMPRESSION: Improvement in the basilar opacities. SUPPORT DEVICE(S) IN EXPECTED LOCATIONS. TECHNICAL DOCUMENTATION: JOB ID: [id number] [employer]- All Rights Reserved Reading location - IP/workstation name: [email or web address]
[2017-08-15] MEDS ORDERED: ASPIRIN 81 MG TABLET, CHEWABLE NG SCH ×2 (10:00)
[2017-08-15] MEDS ORDERED: POTASSIUM CHLORIDE 20 MEQ/15 ML UDCUP PO ONE (11:00)
--- NOTE | 2017-08-15 11:12 | PDOC PROGRESS REPORT ---
Subjective Progress Note for:: 08/15/17 Subjective:: sedated on Propofol, not responsive Reason For Visit: PULMONARY EDEMA CIRRHOSIS RESPIRATORY FAILURE Physical Exam Vital Signs: Temp Pulse Resp BP Pulse Ox 99.5 F 81 16 88/60 L 97 08/14/17 05:36 08/15/17 08:17 08/15/17 10:02 08/15/17 10:02 08/15/17 10:02 Pulse Oximeter Continuous Start: 08/12/17 10: 54 Freq: RTQ4 Status: Hold Document 08/12/17 14:08 [facility] [place] (Rec: 08/12/17 14:35 [facility] [id number]) Pulse Oximetry Assessment Oxygen Saturation (92-100) 93 Oxygen Delivery Method Bi-pap Fraction of Inspired Oxygen (FIO2) 45 Equipment Usage Equipment Discontinued Continuous SpO2 Machine # N 10 Intake & Output 08/14/17 08/15/17 08/16/17 06:59 06:59 06:59 Intake Total 4288 2879 0 Output Total 4435 4600 640 Balance -340 -1171 -640 Weight 54.4 kg 54 kg General appearance: PRESENT: other - sedated Respiratory exam: PRESENT: clear to auscultation jose g, other - rigth chest tube secured Cardiovascular exam: PRESENT: RRR GI/Abdominal exam: PRESENT: distended - for ascites, soft, other - reducible umbiical hernia Results Laboratory Results: 08/15/17 04:30 08/15/17 04:30 08/13/17 08/14/17 08/15/17 12:30 12:00 04:30 WBC 8.2 RBC 3.04 L Hgb 9.6 L Hct 27.7 L MCV 91 MCH 31.7 MCHC 34.8 RDW 17.3 H Plt Count 92 L Seg Neutrophils % 86.9 H Lymphocytes % 7.8 L Monocytes % 4.6 Eosinophils % 0.6 Basophils % 0.1 Absolute Neutrophils 7.1 Absolute Lymphocytes 0.6 Absolute Monocytes 0.4 Absolute Eosinophils 0.0 Absolute Basophils 0.0 Carbonic Acid 0.91 L HCO3/H2CO3 Ratio 23:1 ABG pH 7.47 H ABG pCO2 30.2 L ABG pO2 81.2 ABG HCO3 21.6 ABG O2 Saturation 96.7 ABG Base Excess -0.8 FiO2 30% Sodium Potassium Chloride Carbon Dioxide Anion Gap BUN Creatinine Est GFR ( Amer) Est GFR (Non-Af Amer) Glucose Calcium Magnesium Total Bilirubin AST ALT Alkaline Phosphatase Total Protein Albumin Fluid Amylase 18 08/15/17 08/15/17 04:30 04:38 WBC RBC Hgb Hct MCV MCH MCHC RDW Plt Count Seg Neutrophils % Lymphocytes % Monocytes % Eosinophils % Basophils % Absolute Neutrophils Absolute Lymphocytes Absolute Monocytes Absolute Eosinophils Absolute Basophils Carbonic Acid 1.01 L HCO3/H2CO3 Ratio 21:1 ABG pH 7.44 ABG pCO2 33.5 L ABG pO2 101.4 H ABG HCO3 22.1 ABG O2 Saturation 97.9 ABG Base Excess -1.5 FiO2 30% Sodium 145.2 H Potassium 3.6 Chloride 111 H Carbon Dioxide 23 Anion Gap 11 BUN 17 Creatinine 0.66 Est GFR ( Amer) > 60 Est GFR (Non-Af Amer) > 60 Glucose 111 H Calcium 7.4 L Magnesium 1.8 Total Bilirubin 3.9 H AST 53 H ALT 38 Alkaline Phosphatase 274 H Total Protein 5.5 L Albumin 2.2 L Fluid Amylase 08/13/17 17:25 Tracheal Aspirate Gram Stain - Final 08/11/17 08/12/17 08/14/17 04:21 03:49 03:56 NT-Pro-B Natriuret Pep [phone] Impressions: Thoracentesis Ultrasound 08/09/17 10:34 IMPRESSION: SUCCESSFUL THORACENTESIS USING ULTRASOUND GUIDANCE. Abdomen Ultrasound 08/11/17 00:00 IMPRESSION: Minimal pericholecystic fluid. 0.8 cm diameter prominent common bile duct, no intrahepatic ductal dilation. Otherwise, unremarkable. KUB X-Ray 08/13/17 00:00 IMPRESSION: Bowel obstruction versus ileus. NG tube placement. Chest X-Ray 08/15/17 06:00 IMPRESSION: Improvement in the basilar opacities. SUPPORT DEVICE(S) IN EXPECTED LOCATIONS. Assessment & Plan - Diagnosis (1) Need for intravenous access Is this a current diagnosis for this admission?: Yes (2) Pleural effusion Is this a current diagnosis for this admission?: Yes - Plan Summary Plan Summary: A/ POD #2 abd 1 after rigth chest tube and right CVL placement, respectively Elevated CT output (1,880 mL past 24 hrs) Chest Xray shows improvement of bilateral infiltrates P/ Continue to monitor CT output, possible removal next week as the patient is improving
[2017-08-15] MEDS: POTASSIUM CHLORIDE 10 MEQ CAPSULE.ER PO SCH (14:00)
--- NOTE | 2017-08-15 15:37 | PDOC PROGRESS REPORT ---
Subjective Progress Note for:: 08/15/17 Subjective:: intubated Reason For Visit: PULMONARY EDEMA CIRRHOSIS RESPIRATORY FAILURE Physical Exam Vital Signs: Temp Pulse Resp BP Pulse Ox 99.5 F 81 16 88/60 L 97 08/14/17 05:36 08/15/17 08:17 08/15/17 10:02 08/15/17 10:02 08/15/17 10:02 Pulse Oximeter Continuous Start: 08/12/17 10: 54 Freq: RTQ4 Status: Hold Document 08/12/17 14:08 [facility] (Rec: 08/12/17 14:35 [facility] [id number]) Pulse Oximetry Assessment Oxygen Saturation (92-100) 93 Oxygen Delivery Method Bi-pap Fraction of Inspired Oxygen (FIO2) 45 Equipment Usage Equipment Discontinued Continuous SpO2 Machine # N 10 Intake & Output 08/14/17 08/15/17 08/16/17 06:59 06:59 06:59 Intake Total 4288 2879 0 Output Total 4435 4600 640 Balance -147 -0288 -640 Weight 54.4 kg 54 kg General appearance: PRESENT: no acute distress, disheveled, thin. ABSENT: cooperative Head exam: PRESENT: atraumatic, normocephalic Eye exam: PRESENT: conjunctiva pale. ABSENT: EOMI, nystagmus Mouth exam: PRESENT: dry mucosa, neck supple, tongue midline, other - ET tube Neck exam: ABSENT: carotid bruit, JVD, lymphadenopathy, thyromegaly, tracheal deviation, tracheostomy Respiratory exam: PRESENT: crackles, decreased breath sounds, prolonged expiratory phas, rhonchi, unlabored. ABSENT: retraction, stridor Cardiovascular exam: PRESENT: irregular rhythm, +S1, +S2 Pulses: PRESENT: normal carotid pulses GI/Abdominal exam: PRESENT: hypoactive bowel sounds, soft Gentrourinary exam: PRESENT: indwelling catheter Extremities exam: ABSENT: calf tenderness, clubbing, joint swelling Musculoskeletal exam: ABSENT: deformity, dislocation Neurological exam: ABSENT: awake, oriented to person Skin exam: PRESENT: dry, warm Results Laboratory Results: 08/15/17 04:30 08/15/17 04:30 08/13/17 08/14/17 08/15/17 12:30 12:00 04:30 WBC 8.2 RBC 3.04 L Hgb 9.6 L Hct 27.7 L MCV 91 MCH 31.7 MCHC 34.8 RDW 17.3 H Plt Count 92 L Seg Neutrophils % 86.9 H Lymphocytes % 7.8 L Monocytes % 4.6 Eosinophils % 0.6 Basophils % 0.1 Absolute Neutrophils 7.1 Absolute Lymphocytes 0.6 Absolute Monocytes 0.4 Absolute Eosinophils 0.0 Absolute Basophils 0.0 Carbonic Acid 0.91 L HCO3/H2CO3 Ratio 23:1 ABG pH 7.47 H ABG pCO2 30.2 L ABG pO2 81.2 ABG HCO3 21.6 ABG O2 Saturation 96.7 ABG Base Excess -0.8 FiO2 30% Sodium Potassium Chloride Carbon Dioxide Anion Gap BUN Creatinine Est GFR ( Amer) Est GFR (Non-Af Amer) Glucose Calcium Magnesium Total Bilirubin AST ALT Alkaline Phosphatase Total Protein Albumin Fluid Amylase 18 08/15/17 08/15/17 04:30 04:38 WBC RBC Hgb Hct MCV MCH MCHC RDW Plt Count Seg Neutrophils % Lymphocytes % Monocytes % Eosinophils % Basophils % Absolute Neutrophils Absolute Lymphocytes Absolute Monocytes Absolute Eosinophils Absolute Basophils Carbonic Acid 1.01 L HCO3/H2CO3 Ratio 21:1 ABG pH 7.44 ABG pCO2 33.5 L ABG pO2 101.4 H ABG HCO3 22.1 ABG O2 Saturation 97.9 ABG Base Excess -1.5 FiO2 30% Sodium 145.2 H Potassium 3.6 Chloride 111 H Carbon Dioxide 23 Anion Gap 11 BUN 17 Creatinine 0.66 Est GFR ( Amer) > 60 Est GFR (Non-Af Amer) > 60 Glucose 111 H Calcium 7.4 L Magnesium 1.8 Total Bilirubin 3.9 H AST 53 H ALT 38 Alkaline Phosphatase 274 H Total Protein 5.5 L Albumin 2.2 L Fluid Amylase 08/13/17 17:25 Tracheal Aspirate Gram Stain - Final 08/11/17 08/12/17 08/14/17 04:21 03:49 03:56 NT-Pro-B Natriuret Pep [phone] Impressions: Thoracentesis Ultrasound 08/09/17 10:34 IMPRESSION: SUCCESSFUL THORACENTESIS USING ULTRASOUND GUIDANCE. Abdomen Ultrasound 08/11/17 00:00 IMPRESSION: Minimal pericholecystic fluid. 0.8 cm diameter prominent common bile duct, no intrahepatic ductal dilation. Otherwise, unremarkable. KUB X-Ray 08/13/17 00:00 IMPRESSION: Bowel obstruction versus ileus. NG tube placement. Chest X-Ray 08/15/17 06:00 IMPRESSION: Improvement in the basilar opacities. SUPPORT DEVICE(S) IN EXPECTED LOCATIONS. Assessment & Plan - Diagnosis (1) Tachypnea Is this a current diagnosis for this admission?: Yes Plan: intubated set rr decreasing (2) Cirrhosis Qualifiers: Hepatic cirrhosis type: alcoholic cirrhosis Is this a current diagnosis for this admission?: Yes Plan: Additional possibility of primary biliary cirrhosis (3) Pleural effusion, right Is this a current diagnosis for this admission?: Yes Plan: Suggest placing chest tube call surgeon who agrees to do the sameHopefully this will preclude patient being intubated and if it would reduce her tachypnea we can probably be successful with BiPAP (4) ARDS (adult respiratory distress syndrome) Is this a current diagnosis for this admission?: Yes Plan: CXR improved;PAO2/FIO2 = 101/.3 = 337 - Time Total Critical Time (Minutes): 45
--- NOTE | 2017-08-15 16:39 | PDOC PROGRESS REPORT ---
Subjective Reason For Visit: PULMONARY EDEMA CIRRHOSIS RESPIRATORY FAILURE Physical Exam Vital Signs: Temp Pulse Resp BP Pulse Ox 99.5 F 88 18 120/75 100 08/14/17 05:36 08/15/17 14:10 08/15/17 14:10 08/15/17 11:47 08/15/17 14:10 Pulse Oximeter Continuous Start: 08/12/17 10: 54 Freq: RTQ4 Status: Hold Document 08/12/17 14:08 [facility] [place] (Rec: 08/12/17 14:35 [facility] [place] [id number]) Pulse Oximetry Assessment Oxygen Saturation (92-100) 93 Oxygen Delivery Method Bi-pap Fraction of Inspired Oxygen (FIO2) 45 Equipment Usage Equipment Discontinued Continuous SpO2 Machine # N 10 Intake & Output 08/14/17 08/15/17 08/16/17 06:59 06:59 06:59 Intake Total 4288 2879 0 Output Total 4435 4600 870 Balance -147 -1721 -870 Weight 119 lb 14.903 oz 119 lb 0.794 oz General appearance: PRESENT: no acute distress, other - ventilated and sedated Eye exam: PRESENT: other - PERRL. ABSENT: conjunctival injection, conjunctiva pink, scleral icterus Ear exam: PRESENT: normal external ear exam Mouth exam: PRESENT: moist Neck exam: PRESENT: tracheal deviation. ABSENT: JVD Respiratory exam: PRESENT: rhonchi, symmetrical, wheezes - decreased breath sounds on the right with some rhonchi and scattered wheezing Cardiovascular exam: PRESENT: RRR, +S1, +S2 Pulses: PRESENT: +2 pedal pulses bilateral GI/Abdominal exam: PRESENT: normal bowel sounds, soft. ABSENT: tenderness Musculoskeletal exam: PRESENT: other - sedated- unable to evaluate Neurological exam: PRESENT: other - under sedation Skin exam: PRESENT: dry, warm Results Laboratory Results: 08/15/17 04:30 08/15/17 04:30 08/13/17 08/15/17 08/15/17 12:30 04:30 04:30 WBC 8.2 RBC 3.04 L Hgb 9.6 L Hct 27.7 L MCV 91 MCH 31.7 MCHC 34.8 RDW 17.3 H Plt Count 92 L Seg Neutrophils % 86.9 H Lymphocytes % 7.8 L Monocytes % 4.6 Eosinophils % 0.6 Basophils % 0.1 Absolute Neutrophils 7.1 Absolute Lymphocytes 0.6 Absolute Monocytes 0.4 Absolute Eosinophils 0.0 Absolute Basophils 0.0 Carbonic Acid HCO3/H2CO3 Ratio ABG pH ABG pCO2 ABG pO2 ABG HCO3 ABG O2 Saturation ABG Base Excess FiO2 Sodium 145.2 H Potassium 3.6 Chloride 111 H Carbon Dioxide 23 Anion Gap 11 BUN 17 Creatinine 0.66 Est GFR ( Amer) > 60 Est GFR (Non-Af Amer) > 60 Glucose 111 H Calcium 7.4 L Magnesium 1.8 Total Bilirubin 3.9 H AST 53 H ALT 38 Alkaline Phosphatase 274 H Total Protein 5.5 L Albumin 2.2 L Fluid Amylase 18 08/15/17 04:38 WBC RBC Hgb Hct MCV MCH MCHC RDW Plt Count Seg Neutrophils % Lymphocytes % Monocytes % Eosinophils % Basophils % Absolute Neutrophils Absolute Lymphocytes Absolute Monocytes Absolute Eosinophils Absolute Basophils Carbonic Acid 1.01 L HCO3/H2CO3 Ratio 21:1 ABG pH 7.44 ABG pCO2 33.5 L ABG pO2 101.4 H ABG HCO3 22.1 ABG O2 Saturation 97.9 ABG Base Excess -1.5 FiO2 30% Sodium Potassium Chloride Carbon Dioxide Anion Gap BUN Creatinine Est GFR ( Amer) Est GFR (Non-Af Amer) Glucose Calcium Magnesium Total Bilirubin AST ALT Alkaline Phosphatase Total Protein Albumin Fluid Amylase 08/13/17 17:25 Tracheal Aspirate Gram Stain - Final 08/13/17 17:25 Tracheal Aspirate Sputum Culture - Final C.albicans/C.dubliniensis Normal Roma Absent 08/11/17 08/12/17 08/14/17 04:21 03:49 03:56 NT-Pro-B Natriuret Pep 232 929 035 Impressions: Thoracentesis Ultrasound 08/09/17 10:34 IMPRESSION: SUCCESSFUL THORACENTESIS USING ULTRASOUND GUIDANCE. Abdomen Ultrasound 08/11/17 00:00 IMPRESSION: Minimal pericholecystic fluid. 0.8 cm diameter prominent common bile duct, no intrahepatic ductal dilation. Otherwise, unremarkable. KUB X-Ray 08/13/17 00:00 IMPRESSION: Bowel obstruction versus ileus. NG tube placement. Chest X-Ray 08/15/17 06:00 IMPRESSION: Improvement in the basilar opacities. SUPPORT DEVICE(S) IN EXPECTED LOCATIONS. Assessment & Plan - Diagnosis (1) Ventilator dependent Is this a current diagnosis for this admission?: Yes Plan: Remains ventilator dependent. Sedation has been titrated down. Propofol at 5mcg and levophed has been titrated off. I had added valium 10mg q6 for better sedating since she was not well controlled on the propofol alone. I will decrease her valium dosing now since she's better sedated now. Vent settings as per ICU attending- appreciate his assistance. continue with VAP protocol. (2) Acute respiratory failure with hypoxemia Is this a current diagnosis for this admission?: Yes Plan: likely 2/2 left pleural effusion and likely ARDS. Diuresed well over the past 2 days. currently on lasix 40mg BID. still having good output. c/w potassium supplements daily (3) Pleural effusion, right Is this a current diagnosis for this admission?: Yes Plan: continues to drain from right chest tube POD #2. appreciate assistance from surgery. (4) Pneumonia Qualifiers: Pneumonia type: due to unspecified organism Laterality: right Lung location: lower lobe of lung Qualified Code(s): J18.1 - Lobar pneumonia, unspecified organism Is this a current diagnosis for this admission?: Yes Plan: currently on Zosyn for empiric coverage- BCx remains negative. all his other cultures are negative so far. (5) Alcoholic cirrhosis of liver Qualifiers: Ascites presence: with ascites Qualified Code(s): K70.31 - Alcoholic cirrhosis of liver with ascites Is this a current diagnosis for this admission?: Yes Plan: likely alcohol related cirrhosis. spoke ICU technical producer and was told that patient told him she has PBC and was diagnosed at [facility] and possibly waiting for liver transplant. I can't verify any of this- no family at bedside. will not send out blood work for cirrhosis work up at this time. continue with aldactone and lasix at this time. Ursodial ordered but not given. (6) Status post thoracentesis Is this a current diagnosis for this admission?: Yes - Time Total Critical Time (Minutes): 55 - 50% time spent counseling and coordinating care - Plan Summary Plan Summary: Line check- c/w rooney in critically ill patient Central line placed yesterday due to administration of pressors- Levophed and multiple blood draws ET tube in place OGT in place I am hoping we can start weaning trials from tomorrow and see how she does since propofol has been titrated down. will titrate valium also.
[2017-08-15] MEDS: KETOROLAC TROMETHAMINE INJ/PF 30 MG/1 ML SDV IV PRN (21:10)
[2017-08-15] MEDS: THIAMINE HCL 100 MG, FOLIC ACID 1 MG in NORMAL SALINE 250 ML IV SCH (21:12)
[2017-08-16] MEDS: IPRATROPIUM/ALBUTEROL 0.5-2.5 MG/3 ML AMPUL NEB SCH ×4 (02:19→20:31)
[2017-08-16] MEDS: PIPERACILLIN SODIUM/TAZOBACTAM 3.375 GM in NORMAL SALINE 100 ML IV SCH ×4 (02:38→20:11)
[2017-08-16] MEDS: KETOROLAC TROMETHAMINE INJ/PF 30 MG/1 ML SDV IV PRN ×2 (02:40→09:41)
[2017-08-16] MEDS: DIAZEPAM INJ 10 MG/2 ML DISP.SYRIN IV SCH ×2 (05:02→16:39)
[2017-08-16] MEDS: FUROSEMIDE INJ/PF 40 MG/4 ML SDV IV SCH ×2 (05:02→16:41)
[2017-08-16] MEDS: NORMAL SALINE 1000 ML 1,000 ML IV PRN (05:10)
[2017-08-16 05:28] LABS: ABSOLUTE LYMPHOCYTES (AUTO) 0.8 10^3/uL (0.5-4.7); ABSOLUTE MONOCYTES (AUTO) 0.5 10^3/uL (0.1-1.4); ABSOLUTE NEUT (AUTO) 7.2 10^3/uL (1.7-8.2); BASOPHILS % (AUTO) 0.2 % (0-2); EOSINOPHILS % (AUTO) 0.5 % (0-6); HEMATOCRIT 25.3 % (36.0-47.0); HEMOGLOBIN 8.9 g/dL (12.0-15.5); LYMPHOCYTES % (AUTO) 9.5 % (13-45); MEAN CORPUSCULAR HEMOGLOBIN 31.7 pg (27.0-33.4); MEAN CORPUSCULAR VOLUME 90 fl (80-97); PLATELET COUNT 100 10^3/uL (150-450); RED BLOOD COUNT 2.79 10^6/uL (3.72-5.28); RED CELL DISTRIBUTION WIDTH 17.9 % (11.5-14.0); SEGMENTED NEUTROPHILS % (AUTO) 83.8 % (42-78); TOTAL CELLS COUNTED % (AUTO) 100 %; WHITE BLOOD COUNT 8.6 10^3/uL (4.0-10.5)
[2017-08-16 05:30] LABS: ARTERIAL BLOOD BASE EXCESS -1.2 mmol/L; ARTERIAL BLOOD FIO2 25%; ARTERIAL BLOOD H2CO3 0.94 mmol/L (1.05-1.35); ARTERIAL BLOOD HCO3 22.1 mmol/L (20-26); ARTERIAL BLOOD O2 SATURATION 97.7 % (94-98); ARTERIAL BLOOD PCO2 31.3 mmHg (35-45); ARTERIAL BLOOD PH 7.47 (7.35-7.45); ARTERIAL BLOOD PO2 95.1 mmHg (80-100)
[2017-08-16 05:51] LABS: ALANINE AMINOTRANSFERASE 37 U/L (9-52); ALBUMIN 2.1 g/dL (3.5-5.0); ALKALINE PHOSPHATASE 350 U/L (38-126); ANION GAP 14 (5-19); ASPARTATE AMINO TRANSFERASE 55 U/L (14-36); BILIRUBIN,DIRECT 3.1 mg/dL (0.0-0.4); BLOOD UREA NITROGEN 24 mg/dL (7-20); CALCIUM 7.3 mg/dL (8.4-10.2); CARBON DIOXIDE 21 mmol/L (22-30); CHLORIDE 112 mmol/L (98-107); GLUCOSE 95 mg/dL (75-110); POTASSIUM 3.4 mmol/L (3.6-5.0); SODIUM 146.8 mmol/L (137-145); TOTAL PROTEIN 5.2 g/dL (6.3-8.2)
[2017-08-16] MEDS ORDERED: (PENDING PHARMACY ID) (Alendronate Sodium [Fosamax 70 Mg Tablet] 70 MG) PO SCH (06:00)
--- NOTE | 2017-08-16 07:11 | RADIOLOGY REPORT (SQ) ---
EXAM DESCRIPTION: CHEST SINGLE VIEW COMPLETED DATE/TIME: 08/16/2017 6:56 am REASON FOR STUDY: pna/resp failure COMPARISON: 08/15/2017 EXAM PARAMETERS: NUMBER OF VIEWS: One view. TECHNIQUE: Single frontal radiographic view of the chest acquired. RADIATION DOSE: NA LIMITATIONS: None. FINDINGS: LUNGS AND PLEURA: Increasing left basilar opacity. Minimal right lung opacity. MEDIASTINUM AND HILAR STRUCTURES: No masses. Contour normal. HEART AND VASCULAR STRUCTURES: Heart normal in size. Normal vasculature. BONES: No acute findings. HARDWARE: ETT, NG tube, venous access catheter all unchanged. OTHER: No other significant finding. IMPRESSION: Increasing left basilar opacity and effusion. TECHNICAL DOCUMENTATION: JOB ID: [id number] [employer]- All Rights Reserved Reading location - IP/workstation name: [email or web address]
[2017-08-16] MEDS: PROPOFOL 1,000 MG/100 ML INFUS..BTL IV PRN ×2 (07:32→16:35)
[2017-08-16] MEDS: LORAZEPAM INJ 2 MG/1 ML VIAL IV PRN (07:34)
[2017-08-16] MEDS: PHENYTOIN SODIUM INJ/PF 100 MG/2 ML SDV IV SCH ×2 (07:40→16:35)
[2017-08-16] MEDS: MIRTAZAPINE 15 MG TABLET NG SCH (07:43)
[2017-08-16] MEDS ORDERED: POTASSI CL 20 MEQ/50 ML RIDER 20 MEQ/50 ML RTUPB IV SCH (07:45)
[2017-08-16] MEDS: ACETYLCYSTEINE 10% NEB 400 MG/4 ML VIAL NEB SCH ×2 (07:50→20:32)
[2017-08-16 08:01] LABS: BILIRUBIN,TOTAL 3.3 mg/dL (0.2-1.3)
[2017-08-16] MEDS: METHYLPREDNISOLONE INJ 40 MG/1 ML SDV IV SCH ×2 (09:41→21:54)
[2017-08-16] MEDS: POTASSIUM CHLORIDE 20 MEQ/15 ML UDCUP NG SCH (09:42)
[2017-08-16] MEDS: PANTOPRAZOLE SODIUM 40 MG VIAL IV SCH ×2 (09:42→21:54)
[2017-08-16] MEDS: GUAIFENESIN SYRP 200 MG/10 ML UDC NG SCH ×2 (09:42→21:53)
--- NOTE | 2017-08-16 09:58 | PDOC PROGRESS REPORT ---
Subjective Progress Note for:: 08/16/17 Reason For Visit: PULMONARY EDEMA CIRRHOSIS RESPIRATORY FAILURE Patient remains in intensive care unit on the ventilator. No acute problems overnight. Physical Exam Vital Signs: Temp Pulse Resp BP Pulse Ox 99.5 F 84 17 101/77 95 08/16/17 07:46 08/16/17 08:00 08/16/17 07:50 08/16/17 07:46 08/16/17 07:50 Pulse Oximeter Continuous Start: 08/12/17 10: 54 Freq: RTQ4 Status: Hold Document 08/12/17 14:08 [facility] [place] (Rec: 08/12/17 14:35 [facility] [place] [id number]) Pulse Oximetry Assessment Oxygen Saturation (92-100) 93 Oxygen Delivery Method Bi-pap Fraction of Inspired Oxygen (FIO2) 45 Equipment Usage Equipment Discontinued Continuous SpO2 Machine # N 10 Intake & Output 08/15/17 08/16/17 08/17/17 06:59 06:59 06:59 Intake Total 2879 9 Output Total 4606 4065 60 Balance -1720 Weight 54 kg 51.3 kg General appearance: PRESENT: other - Patient sedated Respiratory exam: PRESENT: other - Chest tube drained 1000 cc of serous fluid placed to waterseal; Results Laboratory Results: 08/16/17 05:05 08/16/17 05:05 08/16/17 08/16/17 08/16/17 05:05 05:05 05:05 WBC 8.6 RBC 2.79 L Hgb 8.9 L Hct 25.3 L MCV 90 MCH 31.7 MCHC 35.0 RDW 17.9 H Plt Count 100 L Seg Neutrophils % 83.8 H Lymphocytes % 9.5 L Monocytes % 6.0 Eosinophils % 0.5 Basophils % 0.2 Absolute Neutrophils 7.2 Absolute Lymphocytes 0.8 Absolute Monocytes 0.5 Absolute Eosinophils 0.0 Absolute Basophils 0.0 Carbonic Acid HCO3/H2CO3 Ratio ABG pH ABG pCO2 ABG pO2 ABG HCO3 ABG O2 Saturation ABG Base Excess FiO2 Sodium 146.8 H Potassium 3.4 L Chloride 112 H Carbon Dioxide 21 L Anion Gap 14 BUN 24 H Creatinine 0.91 Est GFR ( Amer) > 60 Est GFR (Non-Af Amer) > 60 Glucose 95 Calcium 7.3 L Magnesium 1.7 Total Bilirubin 3.3 H AST 55 H ALT 37 Alkaline Phosphatase 350 H Ammonia 12.4 Total Protein 5.2 L Albumin 2.1 L 08/16/17 05:05 WBC RBC Hgb Hct MCV MCH MCHC RDW Plt Count Seg Neutrophils % Lymphocytes % Monocytes % Eosinophils % Basophils % Absolute Neutrophils Absolute Lymphocytes Absolute Monocytes Absolute Eosinophils Absolute Basophils Carbonic Acid 0.94 L HCO3/H2CO3 Ratio 23:1 ABG pH 7.47 H ABG pCO2 31.3 L ABG pO2 95.1 ABG HCO3 22.1 ABG O2 Saturation 97.7 ABG Base Excess -1.2 FiO2 25% Sodium Potassium Chloride Carbon Dioxide Anion Gap BUN Creatinine Est GFR ( Amer) Est GFR (Non-Af Amer) Glucose Calcium Magnesium Total Bilirubin AST ALT Alkaline Phosphatase Ammonia Total Protein Albumin 08/13/17 17:25 Tracheal Aspirate Gram Stain - Final 08/13/17 17:25 Tracheal Aspirate Sputum Culture - Final C.albicans/C.dubliniensis Normal Roma Absent 08/11/17 08/12/17 08/14/17 04:21 03:49 03:56 NT-Pro-B Natriuret Pep [phone] Impressions: Thoracentesis Ultrasound 08/09/17 10:34 IMPRESSION: SUCCESSFUL THORACENTESIS USING ULTRASOUND GUIDANCE. Abdomen Ultrasound 08/11/17 00:00 IMPRESSION: Minimal pericholecystic fluid. 0.8 cm diameter prominent common bile duct, no intrahepatic ductal dilation. Otherwise, unremarkable. KUB X-Ray 08/13/17 00:00 IMPRESSION: Bowel obstruction versus ileus. NG tube placement. Chest X-Ray 08/16/17 06:00 IMPRESSION: Increasing left basilar opacity and effusion. Assessment & Plan - Diagnosis (1) Pleural effusion, right Is this a current diagnosis for this admission?: Yes Plan: Chest tube draining serous fluid; this is a transudate. We will place the chest tube to waterseal, continue daily dressing changes. Suggest leaving chest tube in until patient is off ventilatory support
[2017-08-16] MEDS ORDERED: POTASSIUM CHLORIDE 20 MEQ/15 ML UDCUP PO SCH (10:00)
[2017-08-16] MEDS: POTASSIUM CHLORIDE 20 MEQ/50 ML RTU IV SCH ×2 (10:15→13:53)
[2017-08-16] MEDS ORDERED: NORMAL SALINE 1000 ML 1,000 ML IV PRN (17:04)
[2017-08-16] MEDS: ALBUMIN HUMAN 12.5 GM/50 ML RTUINJ IV SCH (17:21)
--- NOTE | 2017-08-16 17:21 | PDOC PROGRESS REPORT ---
Subjective Progress Note for:: 08/16/17 Subjective:: sedated- unresponsive Reason For Visit: PULMONARY EDEMA CIRRHOSIS RESPIRATORY FAILURE Physical Exam Vital Signs: Temp Pulse Resp BP Pulse Ox 98.8 F 77 18 107/59 L 95 08/16/17 16:00 08/16/17 16:00 08/16/17 16:00 08/16/17 16:00 08/16/17 16:00 Pulse Oximeter Continuous Start: 08/12/17 10: 54 Freq: RTQ4 Status: Hold Document 08/12/17 14:08 [facility] [place] (Rec: 08/12/17 14:35 [facility] [place] [id number]) Pulse Oximetry Assessment Oxygen Saturation (92-100) 93 Oxygen Delivery Method Bi-pap Fraction of Inspired Oxygen (FIO2) 45 Equipment Usage Equipment Discontinued Continuous SpO2 Machine # N 10 Intake & Output 08/15/17 08/16/17 08/17/17 06:59 06:59 06:59 Intake Total 2879 9 Output Total 4600 4065 405 Balance -1721 -6 -405 Weight 119 lb 0.794 oz 113 lb 1.554 oz General appearance: PRESENT: no acute distress, thin Head exam: PRESENT: atraumatic, normocephalic Eye exam: PRESENT: other - PERRL. ABSENT: conjunctival injection, scleral icterus Ear exam: PRESENT: normal external ear exam Mouth exam: PRESENT: moist, neck supple Neck exam: PRESENT: full ROM. ABSENT: JVD, tenderness Respiratory exam: PRESENT: decreased breath sounds - decreased breath sounds bilaterally- R>L. occasional rhonchi, symmetrical Cardiovascular exam: PRESENT: RRR, +S1, +S2, other - right sided chest tube noted with fluid draining- dressing C/D/I Pulses: PRESENT: +2 pedal pulses bilateral GI/Abdominal exam: PRESENT: normal bowel sounds, soft Extremities exam: ABSENT: joint swelling, pedal edema Neurological exam: PRESENT: other - Intubated and sedated-response to painful stimuli but not verbal commands. Skin exam: PRESENT: dry - patient intubated and sedated currently- responds to painful stimuli but not verbal commands, warm Results Laboratory Results: 08/16/17 05:05 08/16/17 05:05 08/16/17 08/16/17 08/16/17 05:05 05:05 05:05 WBC 8.6 RBC 2.79 L Hgb 8.9 L Hct 25.3 L MCV 90 MCH 31.7 MCHC 35.0 RDW 17.9 H Plt Count 100 L Seg Neutrophils % 83.8 H Lymphocytes % 9.5 L Monocytes % 6.0 Eosinophils % 0.5 Basophils % 0.2 Absolute Neutrophils 7.2 Absolute Lymphocytes 0.8 Absolute Monocytes 0.5 Absolute Eosinophils 0.0 Absolute Basophils 0.0 Carbonic Acid HCO3/H2CO3 Ratio ABG pH ABG pCO2 ABG pO2 ABG HCO3 ABG O2 Saturation ABG Base Excess FiO2 Sodium 146.8 H Potassium 3.4 L Chloride 112 H Carbon Dioxide 21 L Anion Gap 14 BUN 24 H Creatinine 0.91 Est GFR ( Amer) > 60 Est GFR (Non-Af Amer) > 60 Glucose 95 Calcium 7.3 L Magnesium 1.7 Total Bilirubin 3.3 H AST 55 H ALT 37 Alkaline Phosphatase 350 H Ammonia 12.4 Total Protein 5.2 L Albumin 2.1 L 08/16/17 05:05 WBC RBC Hgb Hct MCV MCH MCHC RDW Plt Count Seg Neutrophils % Lymphocytes % Monocytes % Eosinophils % Basophils % Absolute Neutrophils Absolute Lymphocytes Absolute Monocytes Absolute Eosinophils Absolute Basophils Carbonic Acid 0.94 L HCO3/H2CO3 Ratio 23:1 ABG pH 7.47 H ABG pCO2 31.3 L ABG pO2 95.1 ABG HCO3 22.1 ABG O2 Saturation 97.7 ABG Base Excess -1.2 FiO2 25% Sodium Potassium Chloride Carbon Dioxide Anion Gap BUN Creatinine Est GFR ( Amer) Est GFR (Non-Af Amer) Glucose Calcium Magnesium Total Bilirubin AST ALT Alkaline Phosphatase Ammonia Total Protein Albumin 08/11/17 08/12/17 08/14/17 04:21 03:49 03:56 NT-Pro-B Natriuret Pep 232 778 652 Impressions: Thoracentesis Ultrasound 08/09/17 10:34 IMPRESSION: SUCCESSFUL THORACENTESIS USING ULTRASOUND GUIDANCE. Abdomen Ultrasound 08/11/17 00:00 IMPRESSION: Minimal pericholecystic fluid. 0.8 cm diameter prominent common bile duct, no intrahepatic ductal dilation. Otherwise, unremarkable. KUB X-Ray 08/13/17 00:00 IMPRESSION: Bowel obstruction versus ileus. NG tube placement. Chest X-Ray 08/16/17 06:00 IMPRESSION: Increasing left basilar opacity and effusion. Assessment & Plan - Diagnosis (1) Ventilator dependent Is this a current diagnosis for this admission?: Yes (2) Acute respiratory failure with hypoxemia Is this a current diagnosis for this admission?: Yes (3) Pleural effusion, right Is this a current diagnosis for this admission?: Yes (4) Pneumonia Qualifiers: Pneumonia type: due to unspecified organism Laterality: right Lung location: lower lobe of lung Qualified Code(s): J18.1 - Lobar pneumonia, unspecified organism Is this a current diagnosis for this admission?: Yes (5) Alcoholic cirrhosis of liver Qualifiers: Ascites presence: with ascites Qualified Code(s): K70.31 - Alcoholic cirrhosis of liver with ascites Is this a current diagnosis for this admission?: Yes (6) Status post thoracentesis Is this a current diagnosis for this admission?: Yes - Time Total Critical Time (Minutes): 55 - 50% of time spent counseling and coordination care Within: Other - Ongoing treatment-no discharge plans yet - Plan Summary Plan Summary: Ventilator dependent-pharmaceutical sales is on board along with RT. I appreciate their assistance with this critically ill patient. With management per pharmaceutical sales physician in the ICU. Propofol has been weaned off and today I have decreased her Valium dosing to 10 mg every 12. I think we can start weaning trials from tomorrow. We will decrease Valium to 5 mg twice daily if she tolerates. She is no longer requiring levophed to maintain BP. Acute respiratory failure with hypoxemia-most likely secondary to pleural effusion and likely ARDS. She is currently on Lasix IV 40mg twice daily. Chest x-ray this a.m. shows increasing opacity on the left side although when I personally reviewed it it seems same if not better than yesterday. We will continue with IV Lasix at this time and hopefully gradually wean it down. She is having good urine output so far. Monitor potassium which has been running a little low. I have started on daily potassium doses. Pleural effusion, right-chest tube was placed by surgery postop day #3. She continues to drain from the chest tube-yesterday she drained about 1.5 L. I appreciate assistance from surgery. Alcoholic cirrhosis of liver-this seems to be multifactorial as we have found records of positive antimitochondrial antibody reflecting a picture of primary biliary cirrhosis. Unfortunately patient still sedated and cannot answer these questions and no family at bedside at this time. We will continue with the spironolactone and Lasix. I have held up on ordering workup for her cirrhosis at this time given these results. Ursodiol is ordered but has not yet been given and I have asked nursing to look into it. Pneumonia-currently on Zosyn-I think we can DC the Zosyn and 1-2 days for a total course of 5-7 days. Line check- c/w rooney in critically ill patient Central line placed due to administration of pressors- Levophed and multiple blood draws-Levophed has been weaned off. ET tube in place OGT in place
[2017-08-16] MEDS: THIAMINE HCL 100 MG, FOLIC ACID 1 MG in NORMAL SALINE 250 ML IV SCH (21:53)
[2017-08-16] MEDS: DEXTROSE 5%-WATER 250 ML with NOREPINEPHRINE BITARTRATE 4 MG IV PRN ×2 (23:19)
[2017-08-17] MEDS: IPRATROPIUM/ALBUTEROL 0.5-2.5 MG/3 ML AMPUL NEB SCH ×4 (01:57→19:50)
[2017-08-17] MEDS: PIPERACILLIN SODIUM/TAZOBACTAM 3.375 GM in NORMAL SALINE 100 ML IV SCH ×3 (03:13→15:05)
[2017-08-17] MEDS: PROPOFOL 1,000 MG/100 ML INFUS..BTL IV PRN (03:53)
[2017-08-17] MEDS: LORAZEPAM INJ 2 MG/1 ML VIAL IV PRN ×2 (03:53→15:20)
[2017-08-17 04:57] LABS: ABSOLUTE EOSINOPHILS # (AUTO) 0.1 10^3/uL (0.0-0.6); ABSOLUTE LYMPHOCYTES (AUTO) 0.9 10^3/uL (0.5-4.7); ABSOLUTE MONOCYTES (AUTO) 0.6 10^3/uL (0.1-1.4); BASOPHILS % (AUTO) 0.3 % (0-2); EOSINOPHILS % (AUTO) 0.8 % (0-6); HEMATOCRIT 26.7 % (36.0-47.0); HEMOGLOBIN 9.2 g/dL (12.0-15.5); LYMPHOCYTES % (AUTO) 8.4 % (13-45); MEAN CORPUSCULAR HEMOGLOBIN 31.6 pg (27.0-33.4); MEAN CORPUSCULAR HGB CONC 34.3 g/dL (32.0-36.0); MEAN CORPUSCULAR VOLUME 92 fl (80-97); MONOCYTES % (AUTO) 5.4 % (3-13); PLATELET COUNT 122 10^3/uL (150-450); RED CELL DISTRIBUTION WIDTH 17.7 % (11.5-14.0); SEGMENTED NEUTROPHILS % (AUTO) 85.1 % (42-78); TOTAL CELLS COUNTED % (AUTO) 100 %; WHITE BLOOD COUNT 10.6 10^3/uL (4.0-10.5)
[2017-08-17 05:04] LABS: ARTERIAL BLOOD BASE EXCESS -2.6 mmol/L; ARTERIAL BLOOD H2CO3 1.03 mmol/L (1.05-1.35); ARTERIAL BLOOD HCO3 21.5 mmol/L (20-26); ARTERIAL BLOOD O2 SATURATION 97.7 % (94-98); ARTERIAL BLOOD PCO2 34.1 mmHg (35-45); ARTERIAL BLOOD PH 7.42 (7.35-7.45); ARTERIAL BLOOD PO2 100.7 mmHg (80-100); ARTERIAL BLOOD TOTAL CO2 22.5 mmol/L (21-25)
[2017-08-17 05:19] LABS: ANION GAP 13 (5-19); BLOOD UREA NITROGEN 32 mg/dL (7-20); CALCIUM 7.3 mg/dL (8.4-10.2); CARBON DIOXIDE 22 mmol/L (22-30); CHLORIDE 115 mmol/L (98-107); GLUCOSE 133 mg/dL (75-110); POTASSIUM 4.1 mmol/L (3.6-5.0); TRIGLYCERIDES 232 mg/dL (<150)
[2017-08-17] MEDS: ALBUMIN HUMAN 12.5 GM/50 ML RTUINJ IV SCH ×2 (05:21→17:35)
[2017-08-17] MEDS: FUROSEMIDE INJ/PF 40 MG/4 ML SDV IV SCH ×2 (05:22→17:35)
[2017-08-17] MEDS: DIAZEPAM INJ 10 MG/2 ML DISP.SYRIN IV SCH (05:22)
[2017-08-17 05:35] LABS: ARTERIAL BLOOD FIO2 25%
--- NOTE | 2017-08-17 07:35 | RADIOLOGY REPORT (SQ) ---
EXAM DESCRIPTION: CHEST SINGLE VIEW COMPLETED DATE/TIME: 08/17/2017 6:00 am REASON FOR STUDY: pna/resp failure COMPARISON: None. EXAM PARAMETERS: NUMBER OF VIEWS: One view TECHNIQUE: Single frontal radiograph of the chest. RADIATION DOSE: N/A LIMITATIONS: None. FINDINGS: TEMPORARY SUPPORT DEVICES:ETT in expected location. NG tube courses below the mason-diaphr agm in to the stomach. Central venous access catheter tip is in expected location. LUNGS AND PLEURA: Slight improved aeration of the left base. Right lung remains clear. No effusions. No masses. No pneumothorax. MEDIASTINUM AND HILAR STRUCTURES: No masses. Contour normal. HEART AND VASCULAR STRUCTURES: Heart normal in size. normal vascularity. Aorta normal for age. BONES: No acute findings. OTHER: No other significant finding. IMPRESSION: Slight improved aeration of the left base. SUPPORT DEVICE(S) IN EXPECTED LOCATIONS. TECHNICAL DOCUMENTATION: JOB ID: [id number] [employer]- All Rights Reserved Reading location - IP/workstation name: [email or web address]
[2017-08-17] MEDS: ACETYLCYSTEINE 10% NEB 400 MG/4 ML VIAL NEB SCH ×2 (07:56→19:50)
[2017-08-17] MEDS: MIRTAZAPINE 15 MG TABLET NG SCH (09:35)
[2017-08-17] MEDS: METHYLPREDNISOLONE INJ 40 MG/1 ML SDV IV SCH ×2 (09:36→21:28)
[2017-08-17] MEDS: PANTOPRAZOLE SODIUM 40 MG VIAL IV SCH ×2 (09:36→21:30)
[2017-08-17] MEDS: PHENYTOIN SODIUM INJ/PF 100 MG/2 ML SDV IV SCH ×2 (09:36→17:36)
[2017-08-17] MEDS: POTASSIUM CHLORIDE 20 MEQ/15 ML UDCUP NG SCH (09:37)
[2017-08-17] MEDS: GUAIFENESIN SYRP 200 MG/10 ML UDC NG SCH ×2 (09:37→21:27)
--- NOTE | 2017-08-17 11:34 | PDOC PROGRESS REPORT ---
Subjective Progress Note for:: 08/16/17 Subjective:: intubated Reason For Visit: PULMONARY EDEMA CIRRHOSIS RESPIRATORY FAILURE Physical Exam Vital Signs: Temp Pulse Resp BP Pulse Ox 99.5 F 80 13 101/77 96 08/16/17 07:46 08/16/17 07:46 08/16/17 07:46 08/16/17 07:46 08/16/17 07:46 Pulse Oximeter Continuous Start: 08/12/17 10: 54 Freq: RTQ4 Status: Hold Document 08/12/17 14:08 [facility] [place] (Rec: 08/12/17 14:35 [facility] [place] [id number]) Pulse Oximetry Assessment Oxygen Saturation (92-100) 93 Oxygen Delivery Method Bi-pap Fraction of Inspired Oxygen (FIO2) 45 Equipment Usage Equipment Discontinued Continuous SpO2 Machine # N 10 Intake & Output 08/15/17 08/16/17 08/17/17 06:59 06:59 06:59 Intake Total 2879 9 Output Total 4600 4065 60 Balance -1721 -203560 Weight 54 kg 51.3 kg General appearance: PRESENT: no acute distress, disheveled, thin. ABSENT: cooperative Head exam: PRESENT: atraumatic, normocephalic Eye exam: PRESENT: conjunctiva pale. ABSENT: EOMI, nystagmus, scleral icterus Mouth exam: PRESENT: dry mucosa, neck supple, tongue midline, other - ET tube Neck exam: ABSENT: carotid bruit, JVD, lymphadenopathy, thyromegaly, tracheal deviation, tracheostomy Respiratory exam: PRESENT: decreased breath sounds, prolonged expiratory phas, rales, rhonchi, unlabored. ABSENT: retraction, stridor Cardiovascular exam: PRESENT: irregular rhythm, tachycardia Pulses: PRESENT: normal radial pulses GI/Abdominal exam: PRESENT: diminished bowel sounds, soft Gentrourinary exam: PRESENT: indwelling catheter Extremities exam: ABSENT: calf tenderness, clubbing, joint swelling Musculoskeletal exam: ABSENT: ambulatory, deformity, dislocation Neurological exam: ABSENT: awake, oriented to person Skin exam: PRESENT: dry, warm Results Laboratory Results: 08/16/17 05:05 08/16/17 05:05 08/13/17 08/16/17 08/16/17 12:30 05:05 05:05 WBC 8.6 RBC 2.79 L Hgb 8.9 L Hct 25.3 L MCV 90 MCH 31.7 MCHC 35.0 RDW 17.9 H Plt Count 100 L Seg Neutrophils % 83.8 H Lymphocytes % 9.5 L Monocytes % 6.0 Eosinophils % 0.5 Basophils % 0.2 Absolute Neutrophils 7.2 Absolute Lymphocytes 0.8 Absolute Monocytes 0.5 Absolute Eosinophils 0.0 Absolute Basophils 0.0 Carbonic Acid HCO3/H2CO3 Ratio ABG pH ABG pCO2 ABG pO2 ABG HCO3 ABG O2 Saturation ABG Base Excess FiO2 Sodium 146.8 H Potassium 3.4 L Chloride 112 H Carbon Dioxide 21 L Anion Gap 14 BUN 24 H Creatinine 0.91 Est GFR ( Amer) > 60 Est GFR (Non-Af Amer) > 60 Glucose 95 Calcium 7.3 L Magnesium 1.7 Total Bilirubin 3.3 H AST 55 H ALT 37 Alkaline Phosphatase 350 H Ammonia Total Protein 5.2 L Albumin 2.1 L Fluid Amylase 18 08/16/17 08/16/17 05:05 05:05 WBC RBC Hgb Hct MCV MCH MCHC RDW Plt Count Seg Neutrophils % Lymphocytes % Monocytes % Eosinophils % Basophils % Absolute Neutrophils Absolute Lymphocytes Absolute Monocytes Absolute Eosinophils Absolute Basophils Carbonic Acid 0.94 L HCO3/H2CO3 Ratio 23:1 ABG pH 7.47 H ABG pCO2 31.3 L ABG pO2 95.1 ABG HCO3 22.1 ABG O2 Saturation 97.7 ABG Base Excess -1.2 FiO2 25% Sodium Potassium Chloride Carbon Dioxide Anion Gap BUN Creatinine Est GFR ( Amer) Est GFR (Non-Af Amer) Glucose Calcium Magnesium Total Bilirubin AST ALT Alkaline Phosphatase Ammonia 12.4 Total Protein Albumin Fluid Amylase 08/13/17 17:25 Tracheal Aspirate Gram Stain - Final 08/13/17 17:25 Tracheal Aspirate Sputum Culture - Final C.albicans/C.dubliniensis Normal [place] Absent 08/11/17 08/12/17 08/14/17 04:21 03:49 03:56 NT-Pro-B Natriuret Pep 232 995 916 Impressions: Thoracentesis Ultrasound 08/09/17 10:34 IMPRESSION: SUCCESSFUL THORACENTESIS USING ULTRASOUND GUIDANCE. Abdomen Ultrasound 08/11/17 00:00 IMPRESSION: Minimal pericholecystic fluid. 0.8 cm diameter prominent common bile duct, no intrahepatic ductal dilation. Otherwise, unremarkable. KUB X-Ray 08/13/17 00:00 IMPRESSION: Bowel obstruction versus ileus. NG tube placement. Chest X-Ray 08/16/17 06:00 IMPRESSION: Increasing left basilar opacity and effusion. Assessment & Plan - Diagnosis (1) Tachypnea Is this a current diagnosis for this admission?: Yes Plan: improved (2) Cirrhosis Qualifiers: Hepatic cirrhosis type: alcoholic cirrhosis Is this a current diagnosis for this admission?: Yes Plan: Additional possibility of primary biliary cirrhosis (3) Pleural effusion, right Is this a current diagnosis for this admission?: Yes Plan: >1 liter last 24h (4) ARDS (adult respiratory distress syndrome) Is this a current diagnosis for this admission?: Yes Plan: CXR improved;PAO2/FIO2 = 95/.25 = 380 - Time Total Critical Time (Minutes): 45
--- NOTE | 2017-08-17 11:37 | PDOC PROGRESS REPORT ---
Subjective Progress Note for:: 08/17/17 Subjective:: intubated/sedated Reason For Visit: PULMONARY EDEMA CIRRHOSIS RESPIRATORY FAILURE Physical Exam Vital Signs: Temp Pulse Resp BP Pulse Ox 97.7 F 77 15 99/64 L 97 08/17/17 08:00 08/17/17 07:56 08/17/17 07:56 08/17/17 06:04 08/17/17 08:44 Pulse Oximeter Continuous Start: 08/12/17 10: 54 Freq: RTQ4 Status: Hold Document 08/12/17 14:08 [facility] [place] (Rec: 08/12/17 14:35 [facility] [place] [id number]) Pulse Oximetry Assessment Oxygen Saturation (92-100) 93 Oxygen Delivery Method Bi-pap Fraction of Inspired Oxygen (FIO2) 45 Equipment Usage Equipment Discontinued Continuous SpO2 Machine # N 10 Intake & Output 08/16/17 08/17/17 08/18/17 06:59 06:59 06:59 Intake Total 2028 1706 Output Total 3015 1960 450 Balance -6 -253 -450 Weight 51.3 kg 51.5 kg General appearance: PRESENT: no acute distress, disheveled, thin Head exam: PRESENT: atraumatic, normocephalic Eye exam: PRESENT: conjunctiva pale. ABSENT: EOMI, nystagmus, periorbital swelling, scleral icterus Mouth exam: PRESENT: dry mucosa, neck supple, tongue midline, other - ET tube Neck exam: ABSENT: carotid bruit, JVD, lymphadenopathy, thyromegaly, tracheal deviation, tracheostomy Respiratory exam: PRESENT: decreased breath sounds, prolonged expiratory phas, rales, rhonchi, unlabored. ABSENT: retraction, stridor, tachypnea Cardiovascular exam: PRESENT: RRR, +S1 Pulses: PRESENT: normal radial pulses GI/Abdominal exam: PRESENT: soft Gentrourinary exam: PRESENT: indwelling catheter Extremities exam: ABSENT: calf tenderness, clubbing, joint swelling Musculoskeletal exam: ABSENT: ambulatory, deformity, dislocation Neurological exam: ABSENT: awake, oriented to person Skin exam: PRESENT: dry, warm Results Laboratory Results: 08/17/17 04:40 08/17/17 04:40 08/17/17 08/17/17 08/17/17 04:40 04:40 04:40 WBC 10.6 H RBC 2.90 L Hgb 9.2 L Hct 26.7 L MCV 92 MCH 31.6 MCHC 34.3 RDW 17.7 H Plt Count 122 L Seg Neutrophils % 85.1 H Lymphocytes % 8.4 L Monocytes % 5.4 Eosinophils % 0.8 Basophils % 0.3 Absolute Neutrophils 9.0 H Absolute Lymphocytes 0.9 Absolute Monocytes 0.6 Absolute Eosinophils 0.1 Absolute Basophils 0.0 Carbonic Acid 1.03 L HCO3/H2CO3 Ratio 20:1 ABG pH 7.42 ABG pCO2 34.1 L ABG pO2 100.7 H ABG HCO3 21.5 ABG O2 Saturation 97.7 ABG Base Excess -2.6 FiO2 25% Sodium 150.0 H Potassium 4.1 Chloride 115 H Carbon Dioxide 22 Anion Gap 13 BUN 32 H Creatinine 0.91 Est GFR ( Amer) > 60 Est GFR (Non-Af Amer) > 60 Glucose 133 H Calcium 7.3 L Magnesium 1.9 Triglycerides 232 H 08/11/17 08/12/17 08/14/17 04:21 03:49 03:56 NT-Pro-B Natriuret Pep 232 312 685 Impressions: Thoracentesis Ultrasound 08/09/17 10:34 IMPRESSION: SUCCESSFUL THORACENTESIS USING ULTRASOUND GUIDANCE. Abdomen Ultrasound 08/11/17 00:00 IMPRESSION: Minimal pericholecystic fluid. 0.8 cm diameter prominent common bile duct, no intrahepatic ductal dilation. Otherwise, unremarkable. KUB X-Ray 08/13/17 00:00 IMPRESSION: Bowel obstruction versus ileus. NG tube placement. Chest X-Ray 08/17/17 06:00 IMPRESSION: Slight improved aeration of the left base. SUPPORT DEVICE(S) IN EXPECTED LOCATIONS. Assessment & Plan - Diagnosis (1) Tachypnea Is this a current diagnosis for this admission?: Yes Plan: improved (2) Cirrhosis Qualifiers: Hepatic cirrhosis type: alcoholic cirrhosis Is this a current diagnosis for this admission?: Yes Plan: Additional possibility of primary biliary cirrhosis (3) Pleural effusion, right Is this a current diagnosis for this admission?: Yes Plan: 900cc out (4) ARDS (adult respiratory distress syndrome) Is this a current diagnosis for this admission?: Yes Plan: CXR improved;PAO2/FIO2 = 102/.25 = 408 - Time Total Critical Time (Minutes): 50
--- NOTE | 2017-08-17 16:01 | PDOC PROGRESS REPORT ---
Subjective Progress Note for:: 08/17/17 Subjective:: 61-year-old female with past medical history of Primary biliary cirrhosis Prior history of alcohol abuse Multiple fracture status post spinal fusion Osteoporosis Seizure disorder She was admitted on August 09 with right lower lobe pneumonia. On August 12 the patient developed worsening respiratory distress and was placed on BiPAP and transferred to the intensive care unit. She was found to have a right-sided pleural effusion and was evaluated by Dr. Gilman from the pulmonology service and diagnosed with ARDS. The surgical service placed a chest tube which initially drained 1.5 L of fluid. Unfortunately I do not see a pH or protein or other studies performed on the pleural fluid, although the surgical notes that it is a transudate. The chest tube is currently to waterseal. She was eventually intubated for increased respiratory distress, and was diuresed with intravenous Lasix. The patient completed a course of Zosyn. Echocardiogram done on August 13 showed a left ventricular ejection fraction of 65 % with normal left ventricular diastolic function and no significant valvular abnormalities. Mild pulmonary hypertension was noted. The plan is to possibly extubate her today. Reason For Visit: PULMONARY EDEMA CIRRHOSIS RESPIRATORY FAILURE Physical Exam Vital Signs: Temp Pulse Resp BP Pulse Ox 97.7 F 66 17 98/61 L 97 08/17/17 10:00 08/17/17 08:00 08/17/17 10:34 08/17/17 10:34 08/17/17 10:34 Pulse Oximeter Continuous Start: 08/12/17 10: 54 Freq: RTQ4 Status: Hold Document 08/12/17 14:08 [facility] [place]Rec: 08/12/17 14:35 [facility] [place] [id number]) Pulse Oximetry Assessment Oxygen Saturation (92-100) 93 Oxygen Delivery Method Bi-pap Fraction of Inspired Oxygen (FIO2) 45 Equipment Usage Equipment Discontinued Continuous SpO2 Machine # N 10 Intake & Output 08/16/17 08/17/17 08/18/17 06:59 06:59 06:59 Intake Total 2028 0270 Output Total 2742 5556 410 Balance -6 -253 -950 Weight 51.3 kg 51.5 kg General appearance: PRESENT: no acute distress, thin Head exam: PRESENT: normocephalic Ear exam: PRESENT: normal external ear exam Mouth exam: PRESENT: other - Intubated Respiratory exam: PRESENT: symmetrical, unlabored. ABSENT: wheezes Cardiovascular exam: PRESENT: RRR GI/Abdominal exam: PRESENT: organolmegaly, soft. ABSENT: tenderness Rectal exam: PRESENT: deferred Gentrourinary exam: PRESENT: indwelling catheter Neurological exam: PRESENT: other - sedated Results Laboratory Results: 08/17/17 04:40 08/17/17 04:40 08/17/17 08/17/17 08/17/17 04:40 04:40 04:40 WBC 10.6 H RBC 2.90 L Hgb 9.2 L Hct 26.7 L MCV 92 MCH 31.6 MCHC 34.3 RDW 17.7 H Plt Count 122 L Seg Neutrophils % 85.1 H Lymphocytes % 8.4 L Monocytes % 5.4 Eosinophils % 0.8 Basophils % 0.3 Absolute Neutrophils 9.0 H Absolute Lymphocytes 0.9 Absolute Monocytes 0.6 Absolute Eosinophils 0.1 Absolute Basophils 0.0 Carbonic Acid 1.03 L HCO3/H2CO3 Ratio 20:1 ABG pH 7.42 ABG pCO2 34.1 L ABG pO2 100.7 H ABG HCO3 21.5 ABG O2 Saturation 97.7 ABG Base Excess -2.6 FiO2 25% Sodium 150.0 H Potassium 4.1 Chloride 115 H Carbon Dioxide 22 Anion Gap 13 BUN 32 H Creatinine 0.91 Est GFR ( Amer) > 60 Est GFR (Non-Af Amer) > 60 Glucose 133 H Calcium 7.3 L Magnesium 1.9 Triglycerides 232 H 08/13/17 12:30 Pleural Fluid Gram Stain - Final 08/13/17 12:30 Pleural Fluid Body Fluid Culture - Final NO AEROBIC OR ANAEROBIC ORGANISMS RECOVERED 08/11/17 08/12/17 08/14/17 04:21 03:49 03:56 NT-Pro-B Natriuret Pep 232 312 685 Impressions: Thoracentesis Ultrasound 08/09/17 10:34 IMPRESSION: SUCCESSFUL THORACENTESIS USING ULTRASOUND GUIDANCE. Abdomen Ultrasound 08/11/17 00:00 IMPRESSION: Minimal pericholecystic fluid. 0.8 cm diameter prominent common bile duct, no intrahepatic ductal dilation. Otherwise, unremarkable. KUB X-Ray 08/13/17 00:00 IMPRESSION: Bowel obstruction versus ileus. NG tube placement. Chest X-Ray 08/17/17 06:00 IMPRESSION: Slight improved aeration of the left base. SUPPORT DEVICE(S) IN EXPECTED LOCATIONS. Assessment & Plan - Diagnosis (1) ARDS (adult respiratory distress syndrome) Is this a current diagnosis for this admission?: Yes Plan: Continue vent support. (2) Acute respiratory failure with hypoxemia Is this a current diagnosis for this admission?: Yes Plan: Improving with antibiotic steroids and diuretics. (3) History of alcohol abuse Is this a current diagnosis for this admission?: Yes Plan: Ativan as needed. (4) Opiate dependence, continuous Is this a current diagnosis for this admission?: Yes (5) Pleural effusion, right Is this a current diagnosis for this admission?: Yes (6) Status post thoracentesis Is this a current diagnosis for this admission?: Yes Plan: Continue to maintain chest tube. Management per surgical service. (7) Alcoholic cirrhosis of liver Qualifiers: Ascites presence: with ascites Qualified Code(s): K70.31 - Alcoholic cirrhosis of liver with ascites Is this a current diagnosis for this admission?: Yes - Time Time Spent with patient: 35 or more minutes
[2017-08-17] MEDS: DEXTROSE 5%-WATER 1000 ML 1,000 ML IV PRN (19:27)
[2017-08-17] MEDS: MIDAZOLAM 2 MG/2 ML INJ IV PRN ×2 (19:27→23:22)
--- NOTE | 2017-08-17 21:00 | PDOC PROGRESS REPORT ---
Subjective Progress Note for:: 08/17/17 Subjective:: This is a 61-year-old female with end-stage liver disease and ascites. She had a large right pleural effusion, for which a chest tube was placed. She remains on the ventilator. A review of systems is unable to be obtained due to her mental status and intubation. Reason For Visit: PULMONARY EDEMA CIRRHOSIS RESPIRATORY FAILURE Physical Exam Vital Signs: Temp Pulse Resp BP Pulse Ox 99.1 F 86 20 91/53 L 94 08/17/17 19:44 08/17/17 20:00 08/17/17 18:19 08/17/17 18:19 08/17/17 18:19 Pulse Oximeter Continuous Start: 08/12/17 10: 54 Freq: RTQ4 Status: Hold Document 08/12/17 14:08 [facility] [place]Rec: 08/12/17 14:35 [facility] [place] [id number][place] Pulse Oximetry Assessment Oxygen Saturation (92-100) 93 Oxygen Delivery Method Bi-pap Fraction of Inspired Oxygen (FIO2) 45 Equipment Usage Equipment Discontinued Continuous SpO2 Machine # N 10 Intake & Output 08/16/17 08/17/17 08/18/17 06:59 06:59 06:59 Intake Total 2028 1707 1231 Output Total 4091 6630 5286 Balance -2035 Weight 51.3 kg 51.5 kg General appearance: PRESENT: no acute distress, other - Intubated Head exam: PRESENT: atraumatic, normocephalic Eye exam: PRESENT: EOMI, PERRLA Mouth exam: PRESENT: neck supple Neck exam: ABSENT: thyromegaly, tracheal deviation Respiratory exam: PRESENT: rhonchi Cardiovascular exam: PRESENT: RRR Pulses: PRESENT: normal radial pulses GI/Abdominal exam: PRESENT: distended, soft. ABSENT: tenderness Musculoskeletal exam: ABSENT: deformity Neurological exam: ABSENT: alert, awake Psychiatric exam: PRESENT: agitated, anxious Skin exam: PRESENT: jaundice. ABSENT: cyanosis, erythema Results Laboratory Results: 08/17/17 04:40 08/17/17 04:40 08/17/17 08/17/17 08/17/17 04:40 04:40 04:40 WBC 10.6 H RBC 2.90 L Hgb 9.2 L Hct 26.7 L MCV 92 MCH 31.6 MCHC 34.3 RDW 17.7 H Plt Count 122 L Seg Neutrophils % 85.1 H Lymphocytes % 8.4 L Monocytes % 5.4 Eosinophils % 0.8 Basophils % 0.3 Absolute Neutrophils 9.0 H Absolute Lymphocytes 0.9 Absolute Monocytes 0.6 Absolute Eosinophils 0.1 Absolute Basophils 0.0 Carbonic Acid 1.03 L HCO3/H2CO3 Ratio 20:1 ABG pH 7.42 ABG pCO2 34.1 L ABG pO2 100.7 H ABG HCO3 21.5 ABG O2 Saturation 97.7 ABG Base Excess -2.6 FiO2 25% Sodium 150.0 H Potassium 4.1 Chloride 115 H Carbon Dioxide 22 Anion Gap 13 BUN 32 H Creatinine 0.91 Est GFR ( Amer) > 60 Est GFR (Non-Af Amer) > 60 Glucose 133 H Calcium 7.3 L Magnesium 1.9 Triglycerides 232 H 08/13/17 12:30 Pleural Fluid Gram Stain - Final 08/13/17 12:30 Pleural Fluid Body Fluid Culture - Final NO AEROBIC OR ANAEROBIC ORGANISMS RECOVERED 08/11/17 08/12/17 08/14/17 04:21 03:49 03:56 NT-Pro-B Natriuret Pep 232 312 685 Impressions: Thoracentesis Ultrasound 08/09/17 10:34 IMPRESSION: SUCCESSFUL THORACENTESIS USING ULTRASOUND GUIDANCE. Abdomen Ultrasound 08/11/17 00:00 IMPRESSION: Minimal pericholecystic fluid. 0.8 cm diameter prominent common bile duct, no intrahepatic ductal dilation. Otherwise, unremarkable. KUB X-Ray 08/13/17 00:00 IMPRESSION: Bowel obstruction versus ileus. NG tube placement. Chest X-Ray 08/17/17 06:00 IMPRESSION: Slight improved aeration of the left base. SUPPORT DEVICE(S) IN EXPECTED LOCATIONS. Assessment & Plan - Diagnosis (1) Pleural effusion, right Is this a current diagnosis for this admission?: Yes - Plan Summary Plan Summary: This is a 61-year-old female with a large right-sided pleural effusion. Her chest tube drained greater than 1500 cc yesterday. It has drained more than 1200 cc in the first 12 hour shift today. Continue chest tube to waterseal. Her pleural effusion is likely related to her ascites. Will follow.
[2017-08-17] MEDS: THIAMINE HCL 100 MG, FOLIC ACID 1 MG in NORMAL SALINE 250 ML IV SCH (21:29)
[2017-08-18] MEDS: IPRATROPIUM/ALBUTEROL 0.5-2.5 MG/3 ML AMPUL NEB SCH ×4 (02:24→20:16)
[2017-08-18] MEDS: MIDAZOLAM 2 MG/2 ML INJ IV PRN ×2 (03:48→21:15)
[2017-08-18] MEDS: ALBUMIN HUMAN 12.5 GM/50 ML RTUINJ IV SCH ×2 (05:17→18:14)
[2017-08-18] MEDS: FUROSEMIDE INJ/PF 40 MG/4 ML SDV IV SCH (05:17)
[2017-08-18] MEDS: DEXTROSE 5%-WATER 1000 ML 1,000 ML IV PRN (05:18)
[2017-08-18 05:20] LABS: ABSOLUTE EOSINOPHILS # (AUTO) 0.1 10^3/uL (0.0-0.6); ABSOLUTE LYMPHOCYTES (AUTO) 0.9 10^3/uL (0.5-4.7); ABSOLUTE MONOCYTES (AUTO) 0.4 10^3/uL (0.1-1.4); ABSOLUTE NEUT (AUTO) 5.6 10^3/uL (1.7-8.2); BASOPHILS % (AUTO) 0.1 % (0-2); EOSINOPHILS % (AUTO) 2.1 % (0-6); HEMOGLOBIN 8.8 g/dL (12.0-15.5); LYMPHOCYTES % (AUTO) 13.1 % (13-45); MEAN CORPUSCULAR HGB CONC 34.1 g/dL (32.0-36.0); MEAN CORPUSCULAR VOLUME 91 fl (80-97); MONOCYTES % (AUTO) 6.2 % (3-13); RED BLOOD COUNT 2.86 10^6/uL (3.72-5.28); RED CELL DISTRIBUTION WIDTH 17.4 % (11.5-14.0); SEGMENTED NEUTROPHILS % (AUTO) 78.5 % (42-78); TOTAL CELLS COUNTED % (AUTO) 100 %; WHITE BLOOD COUNT 7.1 10^3/uL (4.0-10.5)
[2017-08-18 05:22] LABS: ANION GAP 13 (5-19); BLOOD UREA NITROGEN 19 mg/dL (7-20); CALCIUM 7.8 mg/dL (8.4-10.2); CARBON DIOXIDE 25 mmol/L (22-30); CHLORIDE 114 mmol/L (98-107); GLUCOSE 143 mg/dL (75-110); PHOSPHORUS 2.8 mg/dL (2.5-4.5); POTASSIUM 3.2 mmol/L (3.6-5.0); SODIUM 151.8 mmol/L (137-145)
[2017-08-18 06:04] LABS: PLATELET COUNT 85 10^3/uL (150-450)
[2017-08-18] MEDS: ACETYLCYSTEINE 10% NEB 400 MG/4 ML VIAL NEB SCH ×2 (07:51→20:16)
[2017-08-18] MEDS ORDERED: DEXMEDETOMIDINE 400 MCG/NS 100 ML BOT IV PRN (08:59)
[2017-08-18] MEDS ORDERED: POTASSIUM CHLORIDE 20 MEQ/15 ML UDCUP NG ONE (09:30)
[2017-08-18] MEDS ORDERED: ENOXAPARIN SODIUM INJ 40 MG/0.4 ML DISP.SYRIN SUBCUT SCH (10:00)
[2017-08-18] MEDS: PHENYTOIN SODIUM INJ/PF 100 MG/2 ML SDV IV SCH ×2 (12:47→18:14)
[2017-08-18] MEDS: METHYLPREDNISOLONE INJ 40 MG/1 ML SDV IV SCH ×2 (12:48→21:15)
[2017-08-18] MEDS: PANTOPRAZOLE SODIUM 40 MG VIAL IV SCH ×2 (12:48→21:15)
[2017-08-18] MEDS: GUAIFENESIN SYRP 200 MG/10 ML UDC NG SCH ×2 (13:32→22:41)
[2017-08-18] MEDS: POTASSIUM CHLORIDE 20 MEQ/15 ML UDCUP NG SCH (13:35)
[2017-08-18 13:36] LABS: ARTERIAL BLOOD BASE EXCESS 2.5 mmol/L; ARTERIAL BLOOD H2CO3 1.19 mmol/L (1.05-1.35); ARTERIAL BLOOD HCO3 26.7 mmol/L (20-26); ARTERIAL BLOOD O2 SATURATION 92.9 % (94-98); ARTERIAL BLOOD PCO2 39.7 mmHg (35-45); ARTERIAL BLOOD PH 7.45 (7.35-7.45); ARTERIAL BLOOD PO2 62.6 mmHg (80-100); ARTERIAL BLOOD TOTAL CO2 27.9 mmol/L (21-25)
[2017-08-18 13:55] LABS: ARTERIAL BLOOD FIO2 ROOM AIR
[2017-08-18] MEDS: POTASSI CL 20 MEQ/D5LR 1L 20 MEQ/1,000 ML RTUINJ IV PRN ×2 (14:15→22:47)
--- NOTE | 2017-08-18 18:22 | PDOC PROGRESS REPORT ---
Subjective Progress Note for:: 08/18/17 Subjective:: 61-year-old female with past medical history of Primary biliary cirrhosis Prior history of alcohol abuse Multiple fracture status post spinal fusion Osteoporosis Seizure disorder She was admitted on August 09 with right lower lobe pneumonia. On August 12 the patient developed worsening respiratory distress and was placed on BiPAP and transferred to the intensive care unit. She was found to have a right-sided pleural effusion and was evaluated by Dr. Gilman from the pulmonology service and diagnosed with ARDS. The surgical service placed a chest tube which initially drained 1.5 L of fluid. Unfortunately I do not see a pH or protein or other studies performed on the pleural fluid, although the surgical notes that it is a transudate. The chest tube is currently to waterseal. She was eventually intubated for increased respiratory distress, and was diuresed with intravenous Lasix. The patient completed a course of Zosyn. Echocardiogram done on August 13 showed a left ventricular ejection fraction of 65 % with normal left ventricular diastolic function and no significant valvular abnormalities. Mild pulmonary hypertension was noted. She was successfully extubated earlier today. Reason For Visit: PULMONARY EDEMA CIRRHOSIS RESPIRATORY FAILURE Physical Exam Vital Signs: Temp Pulse Resp BP Pulse Ox 97.9 F 82 28 H 135/77 H 99 08/18/17 16:00 08/18/17 16:00 08/18/17 16:00 08/18/17 16:00 08/18/17 16:00 Pulse Oximeter Continuous Start: 08/12/17 10: 54 Freq: RTQ4 Status: Hold Document 08/12/17 14:08 [facility] [place] (Rec: 08/12/17 14:35 [facility] [place] [id number]) Pulse Oximetry Assessment Oxygen Saturation (92-100) 93 Oxygen Delivery Method Bi-pap Fraction of Inspired Oxygen (FIO2) 45 Equipment Usage Equipment Discontinued Continuous SpO2 Machine # N 10 Intake & Output 08/17/17 08/18/17 08/19/17 06:59 06:59 06:59 Intake Total 8973 0694 Output Total 4992 0201 1145 Balance -136 -2992 -1145 Weight 51.5 kg 49.1 kg General appearance: PRESENT: no acute distress, thin Head exam: PRESENT: normocephalic Ear exam: PRESENT: normal external ear exam Mouth exam: PRESENT: dry mucosa Neck exam: ABSENT: tracheal deviation Respiratory exam: PRESENT: rhonchi, symmetrical, unlabored, other - Chest tube present Cardiovascular exam: PRESENT: RRR GI/Abdominal exam: PRESENT: normal bowel sounds, soft - Ricco Rectal exam: PRESENT: deferred Skin exam: ABSENT: petechiae Results Laboratory Results: 08/18/17 04:45 08/18/17 04:45 08/18/17 08/18/17 08/18/17 04:45 04:45 04:45 WBC 7.1 RBC 2.86 L Hgb 8.8 L Hct 26.0 L MCV 91 MCH 31.0 MCHC 34.1 RDW 17.4 H Plt Count 85 L Seg Neutrophils % 78.5 H Lymphocytes % 13.1 Monocytes % 6.2 Eosinophils % 2.1 Basophils % 0.1 Absolute Neutrophils 5.6 Absolute Lymphocytes 0.9 Absolute Monocytes 0.4 Absolute Eosinophils 0.1 Absolute Basophils 0.0 Carbonic Acid HCO3/H2CO3 Ratio ABG pH ABG pCO2 ABG pO2 ABG HCO3 ABG O2 Saturation ABG Base Excess FiO2 Sodium 151.8 H Potassium 3.2 L Chloride 114 H Carbon Dioxide 25 Anion Gap 13 BUN 19 Creatinine 0.59 Est GFR ( Amer) > 60 Est GFR (Non-Af Amer) > 60 Glucose 143 H Calcium 7.8 L Phosphorus 2.8 Magnesium 2.0 Ammonia < 8.7 L 08/18/17 13:20 WBC RBC Hgb Hct MCV MCH MCHC RDW Plt Count Seg Neutrophils % Lymphocytes % Monocytes % Eosinophils % Basophils % Absolute Neutrophils Absolute Lymphocytes Absolute Monocytes Absolute Eosinophils Absolute Basophils Carbonic Acid 1.19 HCO3/H2CO3 Ratio 22:1 ABG pH 7.45 ABG pCO2 39.7 ABG pO2 62.6 L ABG HCO3 26.7 H ABG O2 Saturation 92.9 L ABG Base Excess 2.5 FiO2 ROOM AIR Sodium Potassium Chloride Carbon Dioxide Anion Gap BUN Creatinine Est GFR ( Amer) Est GFR (Non-Af Amer) Glucose Calcium Phosphorus Magnesium Ammonia 08/13/17 12:30 Pleural Fluid Fungal Smear - Final 08/13/17 12:30 Pleural Fluid Fungal Smear - Final 08/09/17 15:20 Pleural Fluid Fungal Smear - Final 08/09/17 15:20 Pleural Fluid Fungal Smear - Final 08/13/17 15:15 Blood Blood Culture - Final NO GROWTH IN 5 DAYS 08/13/17 13:27 Blood Blood Culture - Final NO GROWTH IN 5 DAYS 08/11/17 08/12/17 08/14/17 04:21 03:49 03:56 NT-Pro-B Natriuret Pep 232 570 951 Impressions: Thoracentesis Ultrasound 08/09/17 10:34 IMPRESSION: SUCCESSFUL THORACENTESIS USING ULTRASOUND GUIDANCE. Abdomen Ultrasound 08/11/17 00:00 IMPRESSION: Minimal pericholecystic fluid. 0.8 cm diameter prominent common bile duct, no intrahepatic ductal dilation. Otherwise, unremarkable. KUB X-Ray 08/13/17 00:00 IMPRESSION: Bowel obstruction versus ileus. NG tube placement. Chest X-Ray 08/17/17 06:00 IMPRESSION: Slight improved aeration of the left base. SUPPORT DEVICE(S) IN EXPECTED LOCATIONS. Assessment & Plan - Diagnosis (1) ARDS (adult respiratory distress syndrome) Is this a current diagnosis for this admission?: Yes Plan: Improving. Taper steroids. Lasix discontinued. Continue to monitor. (2) Acute respiratory failure with hypoxemia Is this a current diagnosis for this admission?: Yes Plan: Resolved. (3) History of alcohol abuse Is this a current diagnosis for this admission?: Yes Plan: Ativan as needed. (4) Opiate dependence, continuous Is this a current diagnosis for this admission?: Yes (5) Pleural effusion, right Is this a current diagnosis for this admission?: Yes Plan: Chest tube management per surgical service. (6) Status post thoracentesis Is this a current diagnosis for this admission?: Yes - Time Time Spent with patient: 35 or more minutes
--- NOTE | 2017-08-18 21:12 | PDOC PROGRESS REPORT ---
Subjective Progress Note for:: 08/18/17 Subjective:: Extubated Reason For Visit: PULMONARY EDEMA CIRRHOSIS RESPIRATORY FAILURE Physical Exam Vital Signs: Temp Pulse Resp BP Pulse Ox 98.3 F 76 24 H 114/102 H 97 08/18/17 20:00 08/18/17 18:00 08/18/17 19:00 08/18/17 18:51 08/18/17 19:00 Pulse Oximeter Continuous Start: 08/12/17 10: 54 Freq: RTQ4 Status: Hold Document 08/12/17 14:08 [facility] [place] 08[place]12/17 14:[place] [facility] [id number][place] Pulse Oximetry Assessment Oxygen Saturation (92-100) 93 Oxygen Delivery Method Bi-pap Fraction of Inspired Oxygen (FIO2) 45 Equipment Usage Equipment Discontinued Continuous SpO2 Machine # N 10 Intake & Output 08/17/17 08/18/17 08/19/17 06:59 06:59 06:59 Intake Total 1707 2183 968 Output Total 3861 3191 8587 Balance -983 -2724 -9055 Weight 51.5 kg 49.1 kg Exam: Chest tube drained 800 ccs past 12 hrs. Keep chest tube to suction for now. Hopefully drainage will decrease with improve nutrition with increase in albumin Results Laboratory Results: 08/18/17 04:45 08/18/17 04:45 08/18/17 08/18/17 08/18/17 04:45 04:45 04:45 WBC 7.1 RBC 2.86 L Hgb 8.8 L Hct 26.0 L MCV 91 MCH 31.0 MCHC 34.1 RDW 17.4 H Plt Count 85 L Seg Neutrophils % 78.5 H Lymphocytes % 13.1 Monocytes % 6.2 Eosinophils % 2.1 Basophils % 0.1 Absolute Neutrophils 5.6 Absolute Lymphocytes 0.9 Absolute Monocytes 0.4 Absolute Eosinophils 0.1 Absolute Basophils 0.0 Carbonic Acid HCO3/H2CO3 Ratio ABG pH ABG pCO2 ABG pO2 ABG HCO3 ABG O2 Saturation ABG Base Excess FiO2 Sodium 151.8 H Potassium 3.2 L Chloride 114 H Carbon Dioxide 25 Anion Gap 13 BUN 19 Creatinine 0.59 Est GFR ( Amer) > 60 Est GFR (Non-Af Amer) > 60 Glucose 143 H Calcium 7.8 L Phosphorus 2.8 Magnesium 2.0 Ammonia < 8.7 L 08/18/17 13:20 WBC RBC Hgb Hct MCV MCH MCHC RDW Plt Count Seg Neutrophils % Lymphocytes % Monocytes % Eosinophils % Basophils % Absolute Neutrophils Absolute Lymphocytes Absolute Monocytes Absolute Eosinophils Absolute Basophils Carbonic Acid 1.19 HCO3/H2CO3 Ratio 22:1 ABG pH 7.45 ABG pCO2 39.7 ABG pO2 62.6 L ABG HCO3 26.7 H ABG O2 Saturation 92.9 L ABG Base Excess 2.5 FiO2 ROOM AIR Sodium Potassium Chloride Carbon Dioxide Anion Gap BUN Creatinine Est GFR ( Amer) Est GFR (Non-Af Amer) Glucose Calcium Phosphorus Magnesium Ammonia 08/13/17 12:30 Pleural Fluid Fungal Smear - Final 08/13/17 12:30 Pleural Fluid Fungal Smear - Final 08/09/17 15:20 Pleural Fluid Fungal Smear - Final 08/09/17 15:20 Pleural Fluid Fungal Smear - Final 08/13/17 15:15 Blood Blood Culture - Final NO GROWTH IN 5 DAYS 08/13/17 13:27 Blood Blood Culture - Final NO GROWTH IN 5 DAYS 08/11/17 08/12/17 08/14/17 04:21 03:49 03:56 NT-Pro-B Natriuret Pep 232 710 845 Impressions: Thoracentesis Ultrasound 08/09/17 10:34 IMPRESSION: SUCCESSFUL THORACENTESIS USING ULTRASOUND GUIDANCE. Abdomen Ultrasound 08/11/17 00:00 IMPRESSION: Minimal pericholecystic fluid. 0.8 cm diameter prominent common bile duct, no intrahepatic ductal dilation. Otherwise, unremarkable. KUB X-Ray 08/13/17 00:00 IMPRESSION: Bowel obstruction versus ileus. NG tube placement. Chest X-Ray 08/17/17 06:00 IMPRESSION: Slight improved aeration of the left base. SUPPORT DEVICE(S) IN EXPECTED LOCATIONS.
[2017-08-18] MEDS: THIAMINE HCL 100 MG, FOLIC ACID 1 MG in NORMAL SALINE 250 ML IV SCH (22:39)
[2017-08-18] MEDS: MIRTAZAPINE 15 MG TABLET NG SCH (22:41)
[2017-08-19] MEDS: IPRATROPIUM/ALBUTEROL 0.5-2.5 MG/3 ML AMPUL NEB SCH ×2 (02:15→08:21)
[2017-08-19 05:07] LABS: ARTERIAL BLOOD BASE EXCESS 2.3 mmol/L; ARTERIAL BLOOD H2CO3 1.02 mmol/L (1.05-1.35); ARTERIAL BLOOD HCO3 25.4 mmol/L (20-26); ARTERIAL BLOOD PCO2 33.9 mmHg (35-45); ARTERIAL BLOOD PH 7.49 (7.35-7.45); ARTERIAL BLOOD PO2 54.4 mmHg (80-100); ARTERIAL BLOOD TOTAL CO2 26.5 mmol/L (21-25)
[2017-08-19 05:10] LABS: ARTERIAL BLOOD FIO2 ROOM AIR
[2017-08-19 05:17] LABS: HEMATOCRIT 27.6 % (36.0-47.0); HEMOGLOBIN 9.4 g/dL (12.0-15.5); MEAN CORPUSCULAR HEMOGLOBIN 31.2 pg (27.0-33.4); MEAN CORPUSCULAR HGB CONC 34.1 g/dL (32.0-36.0); MEAN CORPUSCULAR VOLUME 92 fl (80-97); RED BLOOD COUNT 3.02 10^6/uL (3.72-5.28); RED CELL DISTRIBUTION WIDTH 17.2 % (11.5-14.0); WHITE BLOOD COUNT 9.1 10^3/uL (4.0-10.5)
[2017-08-19] MEDS: ALBUMIN HUMAN 12.5 GM/50 ML RTUINJ IV SCH (05:19)
[2017-08-19 05:36] LABS: ALANINE AMINOTRANSFERASE 48 U/L (9-52); ALBUMIN 3.1 g/dL (3.5-5.0); ALKALINE PHOSPHATASE 544 U/L (38-126); ANION GAP 12 (5-19); ASPARTATE AMINO TRANSFERASE 82 U/L (14-36); BILIRUBIN,DIRECT 3.3 mg/dL (0.0-0.4); BLOOD UREA NITROGEN 10 mg/dL (7-20); CALCIUM 8.3 mg/dL (8.4-10.2); CARBON DIOXIDE 27 mmol/L (22-30); CHLORIDE 117 mmol/L (98-107); GLUCOSE 138 mg/dL (75-110); POTASSIUM 3.3 mmol/L (3.6-5.0); SODIUM 155.7 mmol/L (137-145); TOTAL PROTEIN 6.6 g/dL (6.3-8.2)
[2017-08-19 05:37] LABS: INTERNATIONAL RATION (INR) 1.24; PROTHROMBIN TIME 16.2 SEC (11.4-15.4)
[2017-08-19 07:02] LABS: PLATELET COUNT 99 10^3/uL (150-450)
--- NOTE | 2017-08-19 08:16 | PDOC PROGRESS REPORT ---
Subjective Progress Note for:: 08/18/17 Subjective:: intubated Reason For Visit: PULMONARY EDEMA CIRRHOSIS RESPIRATORY FAILURE Physical Exam Vital Signs: Temp Pulse Resp BP Pulse Ox 98.6 F 80 17 135/90 H 98 08/18/17 03:49 08/18/17 07:50 08/18/17 07:50 08/18/17 05:50 08/18/17 07:50 Pulse Oximeter Continuous Start: 08/12/17 10: 54 Freq: RTQ4 Status: Hold Document 08/12/17 14:08 [facility] [place] (Rec: 08/12/17 14:35 [facility] [place] [id number]) Pulse Oximetry Assessment Oxygen Saturation (92-100) 93 Oxygen Delivery Method Bi-pap Fraction of Inspired Oxygen (FIO2) 45 Equipment Usage Equipment Discontinued Continuous SpO2 Machine # N 10 Intake & Output 08/17/17 08/18/17 08/19/17 06:59 06:59 06:59 Intake Total 1707 2183 Output Total 1360 5175 Balance -253 -2992 Weight 51.5 kg 49.1 kg General appearance: PRESENT: no acute distress, cooperative, disheveled, thin Head exam: PRESENT: atraumatic, normocephalic Eye exam: PRESENT: conjunctiva pale, EOMI. ABSENT: nystagmus, scleral icterus Mouth exam: PRESENT: dry mucosa, neck supple, tongue midline, other - ET Neck exam: ABSENT: carotid bruit, JVD, lymphadenopathy, thyromegaly, tracheal deviation, tracheostomy Respiratory exam: PRESENT: decreased breath sounds, prolonged expiratory phas, rales, rhonchi, unlabored, other - r chest tube draining > 1 L/day. ABSENT: stridor Cardiovascular exam: PRESENT: RRR, +S1, +S2, systolic murmur Pulses: PRESENT: normal radial pulses GI/Abdominal exam: PRESENT: distended Gentrourinary exam: PRESENT: indwelling catheter Extremities exam: ABSENT: clubbing, joint swelling, pedal edema Musculoskeletal exam: ABSENT: deformity, dislocation Neurological exam: PRESENT: awake, oriented to person, oriented to place Psychiatric exam: PRESENT: anxious, flat affect Skin exam: PRESENT: dry, warm Results Laboratory Results: 08/18/17 04:45 08/18/17 04:45 08/18/17 08/18/17 08/18/17 04:45 04:45 04:45 WBC 7.1 RBC 2.86 L Hgb 8.8 L Hct 26.0 L MCV 91 MCH 31.0 MCHC 34.1 RDW 17.4 H Plt Count 85 L Seg Neutrophils % 78.5 H Lymphocytes % 13.1 Monocytes % 6.2 Eosinophils % 2.1 Basophils % 0.1 Absolute Neutrophils 5.6 Absolute Lymphocytes 0.9 Absolute Monocytes 0.4 Absolute Eosinophils 0.1 Absolute Basophils 0.0 Sodium 151.8 H Potassium 3.2 L Chloride 114 H Carbon Dioxide 25 Anion Gap 13 BUN 19 Creatinine 0.59 Est GFR ( Amer) > 60 Est GFR (Non-Af Amer) > 60 Glucose 143 H Calcium 7.8 L Phosphorus 2.8 Magnesium 2.0 Ammonia < 8.7 L 08/13/17 12:30 Pleural Fluid Gram Stain - Final 08/13/17 12:30 Pleural Fluid Body Fluid Culture - Final NO AEROBIC OR ANAEROBIC ORGANISMS RECOVERED 08/11/17 08/12/17 08/14/17 04:21 03:49 03:56 NT-Pro-B Natriuret Pep 232 312 685 Impressions: Thoracentesis Ultrasound 08/09/17 10:34 IMPRESSION: SUCCESSFUL THORACENTESIS USING ULTRASOUND GUIDANCE. Abdomen Ultrasound 08/11/17 00:00 IMPRESSION: Minimal pericholecystic fluid. 0.8 cm diameter prominent common bile duct, no intrahepatic ductal dilation. Otherwise, unremarkable. KUB X-Ray 08/13/17 00:00 IMPRESSION: Bowel obstruction versus ileus. NG tube placement. Chest X-Ray 08/17/17 06:00 IMPRESSION: Slight improved aeration of the left base. SUPPORT DEVICE(S) IN EXPECTED LOCATIONS. Assessment & Plan - Diagnosis (1) Tachypnea Is this a current diagnosis for this admission?: Yes Plan: improved (2) Cirrhosis Qualifiers: Hepatic cirrhosis type: alcoholic cirrhosis Is this a current diagnosis for this admission?: Yes Plan: Additional possibility of primary biliary cirrhosis (3) Pleural effusion, right Is this a current diagnosis for this admission?: Yes Plan: >1 liter last 24h (4) ARDS (adult respiratory distress syndrome) Is this a current diagnosis for this admission?: Yes Plan: rr , min vol,fio2 airway pressure ok responding to commands will extubate - Time Total Critical Time (Minutes): 55
--- NOTE | 2017-08-19 08:20 | RADIOLOGY REPORT (SQ) ---
EXAM DESCRIPTION: CHEST SINGLE VIEW COMPLETED DATE/TIME: 08/19/2017 6:35 am REASON FOR STUDY: resp failure/pna/pleural effusion COMPARISON: 08/17/2017 EXAM PARAMETERS: NUMBER OF VIEWS: One view. TECHNIQUE: Single frontal radiographic view of the chest acquired. RADIATION DOSE: NA LIMITATIONS: None. FINDINGS: LUNGS AND PLEURA: Basilar opacities increased on the right since the previous study. Left base stable. MEDIASTINUM AND HILAR STRUCTURES: No masses. Contour normal. HEART AND VASCULAR STRUCTURES: Heart enlarged. Mild vascular congestion. BONES: No acute findings. HARDWARE: Venous access catheter. OTHER: No other significant finding. IMPRESSION: Slight deterioration in the chest with increasing right opacities. TECHNICAL DOCUMENTATION: JOB ID: [id number] [employer]- All Rights Reserved Reading location - IP/workstation name: [email or web address]
[2017-08-19] MEDS: ACETYLCYSTEINE 10% NEB 400 MG/4 ML VIAL NEB SCH ×2 (08:21→20:07)
--- NOTE | 2017-08-19 08:27 | PDOC PROGRESS REPORT ---
Subjective Progress Note for:: 08/19/17 Subjective:: 24h x s/p extubation Reason For Visit: PULMONARY EDEMA CIRRHOSIS RESPIRATORY FAILURE Physical Exam Vital Signs: Temp Pulse Resp BP Pulse Ox 98.7 F 78 25 H 144/105 H 94 08/19/17 04:00 08/19/17 02:17 08/19/17 06:00 08/19/17 05:50 08/19/17 06:00 Pulse Oximeter Continuous Start: 08/12/17 10: 54 Freq: RTQ4 Status: Hold Document 08/12/17 14:08 [facility] [place] (Rec: 08/12/17 14:35 [facility] [place] [id number]) Pulse Oximetry Assessment Oxygen Saturation (92-100) 93 Oxygen Delivery Method Bi-pap Fraction of Inspired Oxygen (FIO2) 45 Equipment Usage Equipment Discontinued Continuous SpO2 Machine # N 10 Intake & Output 08/18/17 08/19/17 08/20/17 06:59 06:59 06:59 Intake Total 2183 2281 Output Total 5172 1155 Balance -2992 -374 Weight 49.1 kg 45.7 kg General appearance: PRESENT: no acute distress, disheveled, thin Head exam: PRESENT: atraumatic, normocephalic Eye exam: PRESENT: conjunctiva pale, EOMI. ABSENT: nystagmus, scleral icterus Mouth exam: PRESENT: dry mucosa, neck supple, tongue midline Neck exam: ABSENT: carotid bruit, JVD, lymphadenopathy, thyromegaly, tracheal deviation, tracheostomy Respiratory exam: PRESENT: decreased breath sounds, prolonged expiratory phas, rales, rhonchi, unlabored, other - R chest tube. ABSENT: retraction, stridor Cardiovascular exam: PRESENT: RRR, +S1, +S2 Pulses: PRESENT: normal radial pulses GI/Abdominal exam: PRESENT: diminished bowel sounds, distended, soft Gentrourinary exam: PRESENT: indwelling catheter Extremities exam: ABSENT: calf tenderness, clubbing, joint swelling Musculoskeletal exam: ABSENT: deformity, dislocation Neurological exam: PRESENT: awake. ABSENT: oriented to place, oriented to time , oriented to situation Psychiatric exam: PRESENT: flat affect Skin exam: PRESENT: dry, warm Results Laboratory Results: 08/19/17 04:55 08/19/17 04:55 08/18/17 08/19/17 08/19/17 13:20 04:55 04:55 WBC RBC Hgb Hct MCV MCH MCHC RDW Plt Count Carbonic Acid 1.19 1.02 L HCO3/H2CO3 Ratio 22:1 24:1 ABG pH 7.45 7.49 H ABG pCO2 39.7 33.9 L ABG pO2 62.6 L 54.4 L ABG HCO3 26.7 H 25.4 ABG O2 Saturation 92.9 L 91.0 L ABG Base Excess 2.5 2.3 FiO2 ROOM AIR ROOM AIR Sodium Potassium Chloride Carbon Dioxide Anion Gap BUN Creatinine Est GFR ( Amer) Est GFR (Non-Af Amer) Glucose Calcium Magnesium Total Bilirubin AST ALT Alkaline Phosphatase Ammonia 31.8 Total Protein Albumin 08/19/17 08/19/17 04:55 04:55 WBC 9.1 RBC 3.02 L Hgb 9.4 L Hct 27.6 L MCV 92 MCH 31.2 MCHC 34.1 RDW 17.2 H Plt Count 99 L Carbonic Acid HCO3/H2CO3 Ratio ABG pH ABG pCO2 ABG pO2 ABG HCO3 ABG O2 Saturation ABG Base Excess FiO2 Sodium 155.7 H Potassium 3.3 L Chloride 117 H Carbon Dioxide 27 Anion Gap 12 BUN 10 Creatinine 0.43 L Est GFR ( Amer) > 60 Est GFR (Non-Af Amer) > 60 Glucose 138 H Calcium 8.3 L Magnesium 2.0 Total Bilirubin 4.0 H AST 82 H ALT 48 Alkaline Phosphatase 544 H Ammonia Total Protein 6.6 Albumin 3.1 L 08/13/17 12:30 Pleural Fluid Fungal Smear - Final 08/13/17 12:30 Pleural Fluid Fungal Smear - Final 08/09/17 15:20 Pleural Fluid Fungal Smear - Final 08/09/17 15:20 Pleural Fluid Fungal Smear - Final 08/13/17 15:15 Blood Blood Culture - Final NO GROWTH IN 5 DAYS 08/13/17 13:27 Blood Blood Culture - Final NO GROWTH IN 5 DAYS 08/11/17 08/12/17 08/14/17 04:21 03:49 03:56 NT-Pro-B Natriuret Pep 232 312 685 08/19/17 04:55 NT-Pro-B Natriuret Pep 1230 H Impressions: Thoracentesis Ultrasound 08/09/17 10:34 IMPRESSION: SUCCESSFUL THORACENTESIS USING ULTRASOUND GUIDANCE. Abdomen Ultrasound 08/11/17 00:00 IMPRESSION: Minimal pericholecystic fluid. 0.8 cm diameter prominent common bile duct, no intrahepatic ductal dilation. Otherwise, unremarkable. KUB X-Ray 08/13/17 00:00 IMPRESSION: Bowel obstruction versus ileus. NG tube placement. Assessment & Plan - Diagnosis (1) Tachypnea Is this a current diagnosis for this admission?: Yes (2) Cirrhosis Qualifiers: Hepatic cirrhosis type: alcoholic cirrhosis Is this a current diagnosis for this admission?: Yes Plan: Additional possibility of primary biliary cirrhosis (3) Pleural effusion, right Is this a current diagnosis for this admission?: Yes Plan: >1 liter last 24h (4) ARDS (adult respiratory distress syndrome) Is this a current diagnosis for this admission?: Yes Plan: 24h s/p extubation stable - Time Total Critical Time (Minutes): 40
[2017-08-19] MEDS ORDERED: LANSOPRAZOLE 15 MG TAB.RAP.DR PO ONE ×2 (09:30→12:00)
[2017-08-19] MEDS ORDERED: (PENDING PHARMACY ID) (Esomeprazole Magnesium [Nexium] 20 MG) PO SCH (10:00)
[2017-08-19] MEDS ORDERED: SPIRONOLACTONE 25 MG TABLET PO SCH (10:00)
[2017-08-19] MEDS: FOLIC ACID 1 MG TABLET PO SCH (11:04)
[2017-08-19] MEDS: LACTULOSE SYRUP 20 GM/30 ML UDCUP PO SCH ×2 (11:04→17:27)
[2017-08-19] MEDS: THIAMINE HCL 100 MG TABLET PO SCH (11:05)
[2017-08-19] MEDS: RISPERIDONE 0.25 MG TABLET PO SCH (11:05)
[2017-08-19] MEDS: PHENYTOIN SODIUM EXTENDED 100 MG CAPSULE PO SCH ×2 (11:05→22:01)
[2017-08-19] MEDS: ASPIRIN 81 MG TABLET, ENT COATED PO SCH (11:06)
[2017-08-19] MEDS: POTASSI CL 20 MEQ/D5LR 1L 20 MEQ/1,000 ML RTUINJ IV PRN ×2 (11:19→17:36)
[2017-08-19] MEDS ORDERED: SPIRONOLACTONE 25 MG TABLET PO ONE (12:00)
[2017-08-19] MEDS ORDERED: LORAZEPAM INJ 2 MG/1 ML VIAL IV PRN (16:40)
[2017-08-19] MEDS ORDERED: METOCLOPRAMIDE HCL INJ/PF 10 MG/2 ML SDV IV PRN (16:42)
[2017-08-19] MEDS ORDERED: ONDANSETRON 4 MG TAB.RAPDIS PO PRN (16:42)
--- NOTE | 2017-08-19 17:07 | PDOC PROGRESS REPORT ---
Subjective Progress Note for:: 08/19/17 Subjective:: Doing better. She is more alert today. Transfer to [facility]. Reason For Visit: PULMONARY EDEMA CIRRHOSIS RESPIRATORY FAILURE Physical Exam Vital Signs: Temp Pulse Resp BP Pulse Ox 97.5 F 73 20 131/65 H 98 08/19/17 16:00 08/19/17 16:00 08/19/17 16:00 08/19/17 16:00 08/19/17 16:00 Pulse Oximeter Continuous Start: 08/12/17 10: 54 Freq: RTQ4 Status: Hold Document 08/12/17 14:08 [facility] [place] (Rec: 08/12/17 14:35 [facility] [place] [id number]) Pulse Oximetry Assessment Oxygen Saturation (92-100) 93 Oxygen Delivery Method Bi-pap Fraction of Inspired Oxygen (FIO2) 45 Equipment Usage Equipment Discontinued Continuous SpO2 Machine # N 10 Intake & Output 08/18/17 08/19/17 08/20/17 06:59 06:59 06:59 Intake Total 2183 2281 800 Output Total 8033 2659 665 Balance -2992 -374 135 Weight 49.1 kg 45.7 kg Results Laboratory Results: 08/19/17 04:55 08/19/17 04:55 08/19/17 08/19/17 08/19/17 04:55 04:55 04:55 WBC 9.1 RBC 3.02 L Hgb 9.4 L Hct 27.6 L MCV 92 MCH 31.2 MCHC 34.1 RDW 17.2 H Plt Count 99 L Carbonic Acid 1.02 L HCO3/H2CO3 Ratio 24:1 ABG pH 7.49 H ABG pCO2 33.9 L ABG pO2 54.4 L ABG HCO3 25.4 ABG O2 Saturation 91.0 L ABG Base Excess 2.3 FiO2 ROOM AIR Sodium Potassium Chloride Carbon Dioxide Anion Gap BUN Creatinine Est GFR ( Amer) Est GFR (Non-Af Amer) Glucose Calcium Magnesium Total Bilirubin AST ALT Alkaline Phosphatase Ammonia 31.8 Total Protein Albumin 08/19/17 04:55 WBC RBC Hgb Hct MCV MCH MCHC RDW Plt Count Carbonic Acid HCO3/H2CO3 Ratio ABG pH ABG pCO2 ABG pO2 ABG HCO3 ABG O2 Saturation ABG Base Excess FiO2 Sodium 155.7 H Potassium 3.3 L Chloride 117 H Carbon Dioxide 27 Anion Gap 12 BUN 10 Creatinine 0.43 L Est GFR ( Amer) > 60 Est GFR (Non-Af Amer) > 60 Glucose 138 H Calcium 8.3 L Magnesium 2.0 Total Bilirubin 4.0 H AST 82 H ALT 48 Alkaline Phosphatase 544 H Ammonia Total Protein 6.6 Albumin 3.1 L 08/13/17 12:30 Pleural Fluid Fungal Smear - Final 08/13/17 12:30 Pleural Fluid Fungal Smear - Final 08/09/17 15:20 Pleural Fluid Fungal Smear - Final 08/09/17 15:20 Pleural Fluid Fungal Smear - Final 08/13/17 15:15 Blood Blood Culture - Final NO GROWTH IN 5 DAYS 08/13/17 13:27 Blood Blood Culture - Final NO GROWTH IN 5 DAYS 08/11/17 08/12/17 08/14/17 04:21 03:49 03:56 NT-Pro-B Natriuret Pep 232 312 685 08/19/17 04:55 NT-Pro-B Natriuret Pep 1230 H Impressions: Thoracentesis Ultrasound 08/09/17 10:34 IMPRESSION: SUCCESSFUL THORACENTESIS USING ULTRASOUND GUIDANCE. Abdomen Ultrasound 08/11/17 00:00 IMPRESSION: Minimal pericholecystic fluid. 0.8 cm diameter prominent common bile duct, no intrahepatic ductal dilation. Otherwise, unremarkable. KUB X-Ray 08/13/17 00:00 IMPRESSION: Bowel obstruction versus ileus. NG tube placement. Chest X-Ray 08/19/17 06:00 IMPRESSION: Slight deterioration in the chest with increasing right opacities. Assessment & Plan - Diagnosis (1) ARDS (adult respiratory distress syndrome) Is this a current diagnosis for this admission?: Yes Plan: Improving. Taper steroids. Lasix discontinued. Continue to monitor. (2) Acute respiratory failure with hypoxemia Is this a current diagnosis for this admission?: Yes Plan: Resolved. She was successfully extubated on August 18, 2017. (3) History of alcohol abuse Is this a current diagnosis for this admission?: Yes Plan: Ativan as needed. Thiamine and folic acid. (4) Opiate dependence, continuous Is this a current diagnosis for this admission?: Yes (5) Pleural effusion, right Is this a current diagnosis for this admission?: Yes Plan: Chest tube management per surgical service. (6) Status post thoracentesis Is this a current diagnosis for this admission?: Yes Plan: Continue to maintain chest tube. Management per surgical service. (7) Primary biliary cirrhosis Is this a current diagnosis for this admission?: Yes Plan: Resume spironolactone and lactulose (8) Epilepsy Is this a current diagnosis for this admission?: Yes Plan: Continue Dilantin. (9) Agitation Is this a current diagnosis for this admission?: Yes Plan: She has had psychomotor agitation with yelling and attempting to pull out catheters. She has required periodic soft limb restraints. I started her on risperidone. (10) Aspiration pneumonia Is this a current diagnosis for this admission?: Yes Plan: Completed a course of antibiotics - Time Time Spent with patient: 35 or more minutes
[2017-08-19] MEDS: RISPERIDONE 1 MG TABLET PO SCH (17:27)
[2017-08-19] MEDS: LORAZEPAM INJ 2 MG/1 ML VIAL IV PRN (17:34)
[2017-08-19] MEDS ORDERED: RISPERIDONE 0.5 MG TAB.RAPDIS PO SCH (18:00)
[2017-08-19] MEDS: LEVALBUTEROL HCL NEB 1.25 MG/3 ML AMPUL NEB PRN (20:11)
--- NOTE | 2017-08-19 20:16 | PDOC PROGRESS REPORT ---
Subjective Progress Note for:: 08/19/17 Subjective:: looks very weak and not very responsive Reason For Visit: PULMONARY EDEMA CIRRHOSIS RESPIRATORY FAILURE Physical Exam Vital Signs: Temp Pulse Resp BP Pulse Ox 97.5 F 73 20 131/65 H 99 08/19/17 16:00 08/19/17 16:00 08/19/17 16:00 08/19/17 16:00 08/19/17 17:02 Pulse Oximeter Continuous Start: 08/12/17 10: 54 Freq: RTQ4 Status: Hold Document 08/12/17 14:08 [facility] [place]Rec: 08/12/17 14:35 [facility] [id number][place] Pulse Oximetry Assessment Oxygen Saturation (92-100) 93 Oxygen Delivery Method Bi-pap Fraction of Inspired Oxygen (FIO2) 45 Equipment Usage Equipment Discontinued Continuous SpO2 Machine # N 10 Intake & Output 08/18/17 08/19/17 08/20/17 06:59 06:59 06:59 Intake Total 2183 2281 1400 Output Total 4031 3170 1040 Balance -2992 -374 360 Weight 49.1 kg 45.7 kg Exam: Very weak. Right chest tube draining >1 liter of clear light yellow fluid Results Laboratory Results: 08/19/17 04:55 08/19/17 04:55 08/19/17 08/19/17 08/19/17 04:55 04:55 04:55 WBC 9.1 RBC 3.02 L Hgb 9.4 L Hct 27.6 L MCV 92 MCH 31.2 MCHC 34.1 RDW 17.2 H Plt Count 99 L Carbonic Acid 1.02 L HCO3/H2CO3 Ratio 24:1 ABG pH 7.49 H ABG pCO2 33.9 L ABG pO2 54.4 L ABG HCO3 25.4 ABG O2 Saturation 91.0 L ABG Base Excess 2.3 FiO2 ROOM AIR Sodium Potassium Chloride Carbon Dioxide Anion Gap BUN Creatinine Est GFR ( Amer) Est GFR (Non-Af Amer) Glucose Calcium Magnesium Total Bilirubin AST ALT Alkaline Phosphatase Ammonia 31.8 Total Protein Albumin 08/19/17 04:55 WBC RBC Hgb Hct MCV MCH MCHC RDW Plt Count Carbonic Acid HCO3/H2CO3 Ratio ABG pH ABG pCO2 ABG pO2 ABG HCO3 ABG O2 Saturation ABG Base Excess FiO2 Sodium 155.7 H Potassium 3.3 L Chloride 117 H Carbon Dioxide 27 Anion Gap 12 BUN 10 Creatinine 0.43 L Est GFR ( Amer) > 60 Est GFR (Non-Af Amer) > 60 Glucose 138 H Calcium 8.3 L Magnesium 2.0 Total Bilirubin 4.0 H AST 82 H ALT 48 Alkaline Phosphatase 544 H Ammonia Total Protein 6.6 Albumin 3.1 L 08/13/17 12:30 Pleural Fluid Fungal Smear - Final 08/13/17 12:30 Pleural Fluid Fungal Smear - Final 08/09/17 15:20 Pleural Fluid Fungal Smear - Final 08/09/17 15:20 Pleural Fluid Fungal Smear - Final 08/11/17 08/12/17 08/14/17 04:21 03:49 03:56 NT-Pro-B Natriuret Pep 232 312 685 08/19/17 04:55 NT-Pro-B Natriuret Pep 1230 H Impressions: Thoracentesis Ultrasound 08/09/17 10:34 IMPRESSION: SUCCESSFUL THORACENTESIS USING ULTRASOUND GUIDANCE. Abdomen Ultrasound 08/11/17 00:00 IMPRESSION: Minimal pericholecystic fluid. 0.8 cm diameter prominent common bile duct, no intrahepatic ductal dilation. Otherwise, unremarkable. KUB X-Ray 08/13/17 00:00 IMPRESSION: Bowel obstruction versus ileus. NG tube placement. Chest X-Ray 08/19/17 06:00 IMPRESSION: Slight deterioration in the chest with increasing right opacities. Assessment & Plan - Time Time Spent with patient: 15-24 minutes - Plan Summary Plan Summary: Continue right chest tube Appears dehydrated. May need to address code status
--- NOTE | 2017-08-19 20:36 | EKG REPORT ---
SEVERITY:- NORMAL ECG - SINUS RHYTHM : Confirmed by: Chary Beach MD 19-Aug-2017 20:35:38
[2017-08-19] MEDS: MIRTAZAPINE 15 MG TABLET NG SCH (22:01)
[2017-08-20] MEDS: LORAZEPAM INJ 2 MG/1 ML VIAL IV PRN ×2 (01:57→09:47)
[2017-08-20] MEDS: POTASSI CL 20 MEQ/D5LR 1L 20 MEQ/1,000 ML RTUINJ IV PRN ×2 (01:57→10:57)
[2017-08-20 05:20] LABS: HEMATOCRIT 31.1 % (36.0-47.0); HEMOGLOBIN 10.6 g/dL (12.0-15.5); MEAN CORPUSCULAR HEMOGLOBIN 31.1 pg (27.0-33.4); MEAN CORPUSCULAR VOLUME 91 fl (80-97); PLATELET COUNT 118 10^3/uL (150-450); RED BLOOD COUNT 3.41 10^6/uL (3.72-5.28); RED CELL DISTRIBUTION WIDTH 17.5 % (11.5-14.0)
[2017-08-20 05:26] LABS: ALANINE AMINOTRANSFERASE 56 U/L (9-52); ALBUMIN 3.3 g/dL (3.5-5.0); ALKALINE PHOSPHATASE 594 U/L (38-126); ANION GAP 12 (5-19); ASPARTATE AMINO TRANSFERASE 102 U/L (14-36); BILIRUBIN,DIRECT 3.2 mg/dL (0.0-0.4); BILIRUBIN,TOTAL 4.2 mg/dL (0.2-1.3); BLOOD UREA NITROGEN 6 mg/dL (7-20); CALCIUM 8.5 mg/dL (8.4-10.2); CARBON DIOXIDE 26 mmol/L (22-30); CHLORIDE 109 mmol/L (98-107); GLUCOSE 128 mg/dL (75-110); POTASSIUM 3.5 mmol/L (3.6-5.0); SODIUM 146.9 mmol/L (137-145); TOTAL PROTEIN 6.9 g/dL (6.3-8.2); TRIGLYCERIDES 105 mg/dL (<150)
[2017-08-20] MEDS: LANSOPRAZOLE 15 MG TAB.RAP.DR PO SCH (06:13)
[2017-08-20] MEDS: LEVALBUTEROL HCL NEB 1.25 MG/3 ML AMPUL NEB PRN ×2 (07:57→20:13)
[2017-08-20] MEDS: ACETYLCYSTEINE 10% NEB 400 MG/4 ML VIAL NEB SCH ×2 (07:57→20:13)
[2017-08-20 09:36] LABS: APPEARANCE,URINE SLIGHTLY-CLOUDY; BILIRUBIN,URINE SMALL (NEGATIVE); COLOR,URINE DARK YELLOW; GLUCOSE, URINE NEGATIVE (NEGATIVE); KETONES,URINE TRACE mg/dL (NEGATIVE); LEUKOCYTE ESTERASE,URINE MODERATE (NEGATIVE); NITRITE,URINE NEGATIVE (NEGATIVE); PROTEIN,URINE 30 mg/dL (NEGATIVE); URINE SPECIFIC GRAVITY 1.016
[2017-08-20] MEDS: ASPIRIN 81 MG TABLET, ENT COATED PO SCH (09:36)
[2017-08-20] MEDS: RISPERIDONE 0.25 MG TABLET PO SCH (09:36)
[2017-08-20] MEDS: LACTULOSE SYRUP 20 GM/30 ML UDCUP PO SCH ×2 (09:36→18:06)
[2017-08-20] MEDS: THIAMINE HCL 100 MG TABLET PO SCH (09:36)
[2017-08-20] MEDS: SPIRONOLACTONE 25 MG TABLET PO SCH (09:37)
[2017-08-20] MEDS: PHENYTOIN SODIUM EXTENDED 100 MG CAPSULE PO SCH (09:37)
[2017-08-20] MEDS: FOLIC ACID 1 MG TABLET PO SCH (09:38)
[2017-08-20] MEDS ORDERED: POTASSIUM CHLORIDE 10 MEQ CAPSULE.ER PO ONE (10:30)
[2017-08-20] MEDS: FUROSEMIDE 40 MG TABLET PO SCH (10:48)
--- NOTE | 2017-08-20 15:03 | PDOC PROGRESS REPORT ---
Subjective Progress Note for:: 08/20/17 Subjective:: Appears more alert but offers no c/o. Reason For Visit: PULMONARY EDEMA CIRRHOSIS RESPIRATORY FAILURE Physical Exam Vital Signs: Temp Pulse Resp BP Pulse Ox 98.0 F 98 14 133/77 H 97 08/20/17 11:21 08/20/17 14:00 08/20/17 11:21 08/20/17 11:21 08/20/17 11:21 Pulse Oximeter Continuous Start: 08/12/17 10: 54 Freq: RTQ4 Status: Hold Document 08/12/17 14:08 [facility] [place] (Rec: 08/12/17 14:35 [facility] [place] [id number]) Pulse Oximetry Assessment Oxygen Saturation (92-100) 93 Oxygen Delivery Method Bi-pap Fraction of Inspired Oxygen (FIO2) 45 Equipment Usage Equipment Discontinued Continuous SpO2 Machine # N 10 Intake & Output 08/19/17 08/20/17 08/21/17 06:59 06:59 06:59 Intake Total 2281 2750 100 Output Total 2655 2340 100 Balance -374 410 0 Weight 45.7 kg 50.6 kg Exam: Right chest tube drained about 1 liter yesterday and so far today has about 500 ccs of clear light yellow fluid Results Laboratory Results: 08/20/17 04:55 08/20/17 04:55 08/20/17 08/20/17 08/20/17 04:55 04:55 09:00 WBC 12.0 H RBC 3.41 L Hgb 10.6 L Hct 31.1 L MCV 91 MCH 31.1 MCHC 34.0 RDW 17.5 H Plt Count 118 L Sodium 146.9 H Potassium 3.5 L Chloride 109 H Carbon Dioxide 26 Anion Gap 12 BUN 6 L Creatinine 0.35 L Est GFR ( Amer) > 60 Est GFR (Non-Af Amer) > 60 Glucose 128 H Calcium 8.5 Magnesium 1.8 Total Bilirubin 4.2 H AST 102 H ALT 56 H Alkaline Phosphatase 594 H Total Protein 6.9 Albumin 3.3 L Triglycerides 105 Urine Color DARK YELLOW Urine Appearance SLIGHTLY-CLOUDY Urine pH 6.0 Ur Specific [place] 1.016 Urine Protein 30 H Urine Glucose (UA) NEGATIVE Urine Ketones TRACE H Urine Blood MODERATE H Urine Nitrite NEGATIVE Ur Leukocyte Esterase MODERATE H Urine WBC (Auto) 64 Urine RBC (Auto) 116 07/0408/12/17 08/14/17 04:21 03:49 03:56 NT-Pro-B Natriuret Pep 232 312 685 08/19/17 04:55 NT-Pro-B Natriuret Pep 1230 H Impressions: Thoracentesis Ultrasound 08/09/17 10:34 IMPRESSION: SUCCESSFUL THORACENTESIS USING ULTRASOUND GUIDANCE. Abdomen Ultrasound 08/11/17 00:00 IMPRESSION: Minimal pericholecystic fluid. 0.8 cm diameter prominent common bile duct, no intrahepatic ductal dilation. Otherwise, unremarkable. KUB X-Ray 08/13/17 00:00 IMPRESSION: Bowel obstruction versus ileus. NG tube placement. Chest X-Ray 08/19/17 06:00 IMPRESSION: Slight deterioration in the chest with increasing right opacities. Assessment & Plan - Time Time Spent with patient: 15-24 minutes - Plan Summary Plan Summary: Continue to leave chest tube to suction. Not ready to remove chest tube yet because of considerable drainage
--- NOTE | 2017-08-20 16:03 | PDOC PROGRESS REPORT ---
Subjective Progress Note for:: 08/20/17 Subjective:: 11-year-old female with past medical history of Primary biliary cirrhosis Prior history of alcohol abuse Multiple fracture status post spinal fusion Osteoporosis Seizure disorder She was admitted on August 09 with right lower lobe pneumonia. On August 12 the patient developed worsening respiratory distress and was placed on BiPAP and transferred to the intensive care unit. She was found to have a right-sided pleural effusion and was evaluated by Dr. Gilman from the pulmonology service and diagnosed with ARDS. The surgical service placed a chest tube which initially drained 1.5 L of fluid. Unfortunately I do not see a pH or protein or other studies performed on the pleural fluid, although the surgical notes that it is a transudate. The chest tube is currently to waterseal. She was eventually intubated for increased respiratory distress, and was diuresed with intravenous Lasix. The patient completed a course of Zosyn. Echocardiogram done on August 13 showed a left ventricular ejection fraction of 65 % with normal left ventricular diastolic function and no significant valvular abnormalities. Mild pulmonary hypertension was noted. She was successfully extubated on 08/18/17. Continues to have significant fluid drainage from the chest tube. She has had periods of agitation with attempts to pull out the chest tube, requiring restraints. She has been started on risperidone and is doing well with as needed Ativan as well. Reason For Visit: PULMONARY EDEMA CIRRHOSIS RESPIRATORY FAILURE Physical Exam Vital Signs: Temp Pulse Resp BP Pulse Ox 98.0 F 98 14 133/77 H 97 08/20/17 11:21 08/20/17 14:00 08/20/17 11:21 08/20/17 11:21 08/20/17 11:21 Pulse Oximeter Continuous Start: 08/12/17 10: 54 Freq: RTQ4 Status: Hold Document 08/12/17 14:08 [facility] [place]Rec: 08/12/17 14:35 [facility] [id number][place] Pulse Oximetry Assessment Oxygen Saturation (92-100) 93 Oxygen Delivery Method Bi-pap Fraction of Inspired Oxygen (FIO2) 45 Equipment Usage Equipment Discontinued Continuous SpO2 Machine # N 10 Intake & Output 08/19/17 08/20/17 08/21/17 06:59 06:59 06:59 Intake Total 2281 2750 100 Output Total 2655 2340 100 Balance -374 410 0 Weight 45.7 kg 50.6 kg General appearance: PRESENT: disheveled, thin Head exam: PRESENT: normocephalic Eye exam: PRESENT: scleral icterus Teeth exam: PRESENT: poor dentation Respiratory exam: PRESENT: rhonchi, symmetrical, unlabored, other - R chest tube present Cardiovascular exam: PRESENT: RRR GI/Abdominal exam: PRESENT: normal bowel sounds, soft Rectal exam: PRESENT: deferred Extremities exam: ABSENT: pedal edema Neurological exam: PRESENT: alert, awake Results Laboratory Results: 08/20/17 04:55 08/20/17 04:55 08/20/17 08/20/17 08/20/17 04:55 04:55 09:00 WBC 12.0 H RBC 3.41 L Hgb 10.6 L Hct 31.1 L MCV 91 MCH 31.1 MCHC 34.0 RDW 17.5 H Plt Count 118 L Sodium 146.9 H Potassium 3.5 L Chloride 109 H Carbon Dioxide 26 Anion Gap 12 BUN 6 L Creatinine 0.35 L Est GFR ( Amer) > 60 Est GFR (Non-Af Amer) > 60 Glucose 128 H Calcium 8.5 Magnesium 1.8 Total Bilirubin 4.2 H AST 102 H ALT 56 H Alkaline Phosphatase 594 H Total Protein 6.9 Albumin 3.3 L Triglycerides 105 Urine Color DARK YELLOW Urine Appearance SLIGHTLY-CLOUDY Urine pH 6.0 Ur Specific Chapman 1.016 Urine Protein 30 H Urine Glucose (UA) NEGATIVE Urine Ketones TRACE H Urine Blood MODERATE H Urine Nitrite NEGATIVE Ur Leukocyte Esterase MODERATE H Urine WBC (Auto) 64 Urine RBC (Auto) 116 08/11/17 08/12/17 08/14/17 04:21 03:49 03:56 NT-Pro-B Natriuret Pep 232 312 685 08/19/17 04:55 NT-Pro-B Natriuret Pep 1230 H Impressions: Thoracentesis Ultrasound 08/09/17 10:34 IMPRESSION: SUCCESSFUL THORACENTESIS USING ULTRASOUND GUIDANCE. Abdomen Ultrasound 08/11/17 00:00 IMPRESSION: Minimal pericholecystic fluid. 0.8 cm diameter prominent common bile duct, no intrahepatic ductal dilation. Otherwise, unremarkable. KUB X-Ray 08/13/17 00:00 IMPRESSION: Bowel obstruction versus ileus. NG tube placement. Chest X-Ray 08/19/17 06:00 IMPRESSION: Slight deterioration in the chest with increasing right opacities. Assessment & Plan - Diagnosis (1) ARDS (adult respiratory distress syndrome) Is this a current diagnosis for this admission?: Yes Plan: Resolved (2) Acute respiratory failure with hypoxemia Is this a current diagnosis for this admission?: Yes Plan: Resolved. She was successfully extubated on August 18, 2017. (3) History of alcohol abuse Is this a current diagnosis for this admission?: Yes Plan: Ativan as needed. Thiamine and folic acid. (4) Opiate dependence, continuous Is this a current diagnosis for this admission?: Yes (5) Pleural effusion, right Is this a current diagnosis for this admission?: Yes Plan: Chest tube management per surgical service. (6) Status post thoracentesis Is this a current diagnosis for this admission?: Yes (7) Primary biliary cirrhosis Is this a current diagnosis for this admission?: Yes Plan: Lasix, spironolactone and lactulose (8) Epilepsy Is this a current diagnosis for this admission?: Yes Plan: Continue Dilantin. (9) Agitation Is this a current diagnosis for this admission?: Yes Plan: She has had psychomotor agitation with yelling and attempting to pull out catheters. She has required periodic soft limb restraints. Continue risperidone. (10) Aspiration pneumonia Is this a current diagnosis for this admission?: Yes Plan: Completed a course of antibiotics - Time Time Spent with patient: 35 or more minutes
[2017-08-20] MEDS: RISPERIDONE 1 MG TABLET PO SCH (18:04)
[2017-08-21] MEDS: POTASSI CL 20 MEQ/D5LR 1L 20 MEQ/1,000 ML RTUINJ IV PRN ×2 (00:08→13:06)
[2017-08-21] MEDS: PHENYTOIN SODIUM EXTENDED 100 MG CAPSULE PO SCH ×3 (00:11→23:30)
[2017-08-21] MEDS: MIRTAZAPINE 15 MG TABLET NG SCH ×2 (00:11→23:31)
[2017-08-21] MEDS: LORAZEPAM INJ 2 MG/1 ML VIAL IV PRN ×4 (02:59→18:48)
[2017-08-21 06:52] LABS: HEMATOCRIT 31.5 % (36.0-47.0); HEMOGLOBIN 10.6 g/dL (12.0-15.5); MEAN CORPUSCULAR HEMOGLOBIN 30.8 pg (27.0-33.4); MEAN CORPUSCULAR HGB CONC 33.6 g/dL (32.0-36.0); MEAN CORPUSCULAR VOLUME 92 fl (80-97); PLATELET COUNT 122 10^3/uL (150-450); RED BLOOD COUNT 3.44 10^6/uL (3.72-5.28); RED CELL DISTRIBUTION WIDTH 17.4 % (11.5-14.0); WHITE BLOOD COUNT 11.9 10^3/uL (4.0-10.5)
[2017-08-21 07:28] LABS: ALANINE AMINOTRANSFERASE 74 U/L (9-52); ALBUMIN 2.9 g/dL (3.5-5.0); ALKALINE PHOSPHATASE 696 U/L (38-126); ANION GAP 11 (5-19); ASPARTATE AMINO TRANSFERASE 160 U/L (14-36); BILIRUBIN,DIRECT 3.3 mg/dL (0.0-0.4); BLOOD UREA NITROGEN 7 mg/dL (7-20); CALCIUM 8.3 mg/dL (8.4-10.2); CARBON DIOXIDE 25 mmol/L (22-30); CHLORIDE 113 mmol/L (98-107); GLUCOSE 123 mg/dL (75-110); POTASSIUM 4.3 mmol/L (3.6-5.0); SODIUM 148.5 mmol/L (137-145); TOTAL PROTEIN 6.6 g/dL (6.3-8.2)
[2017-08-21] MEDS: ACETYLCYSTEINE 10% NEB 400 MG/4 ML VIAL NEB SCH ×2 (08:23→19:48)
[2017-08-21] MEDS: LEVALBUTEROL HCL NEB 1.25 MG/3 ML AMPUL NEB PRN ×2 (08:24→19:49)
--- NOTE | 2017-08-21 08:30 | PDOC PROGRESS REPORT ---
Subjective Progress Note for:: 08/21/17 Subjective:: Patient arouses follows simple commands Reason For Visit: PULMONARY EDEMA CIRRHOSIS RESPIRATORY FAILURE Physical Exam Vital Signs: Temp Pulse Resp BP Pulse Ox 97.9 F 92 21 H 143/85 H 94 08/21/17 00:07 08/21/17 02:00 08/21/17 00:07 08/21/17 00:07 08/20/17 20:13 Pulse Oximeter Continuous Start: 08/12/17 10: 54 Freq: RTQ4 Status: Hold Document 08/12/17 14:08 [facility] [place] (Rec: 08/12/17 14:35 [facility] [place] [id number]) Pulse Oximetry Assessment Oxygen Saturation (92-100) 93 Oxygen Delivery Method Bi-pap Fraction of Inspired Oxygen (FIO2) 45 Equipment Usage Equipment Discontinued Continuous SpO2 Machine # N 10 Intake & Output 08/20/17 08/21/17 08/22/17 06:59 06:59 06:59 Intake Total 2750 2268 Output Total 2340 2965 Balance 410 -697 Weight 50.6 kg 47.7 kg General appearance: PRESENT: no acute distress Respiratory exam: PRESENT: other - Chest tube site with slight serous drainage. Chest tube to waterseal, no air leak, draining approximately 1 L a day Results Laboratory Results: 08/21/17 05:45 08/21/17 05:45 08/20/17 08/21/17 08/21/17 09:00 05:45 05:45 WBC 11.9 H RBC 3.44 L Hgb 10.6 L Hct 31.5 L MCV 92 MCH 30.8 MCHC 33.6 RDW 17.4 H Plt Count 122 L Sodium 148.5 H Potassium 4.3 Chloride 113 H Carbon Dioxide 25 Anion Gap 11 BUN 7 Creatinine 0.38 L Est GFR ( Amer) > 60 Est GFR (Non-Af Amer) > 60 Glucose 123 H Calcium 8.3 L Total Bilirubin 4.0 H AST 160 H ALT 74 H Alkaline Phosphatase 696 H Total Protein 6.6 Albumin 2.9 L Urine Color DARK YELLOW Urine Appearance SLIGHTLY-CLOUDY Urine pH 6.0 Ur Specific [place]pi[place] 1.016 Urine Protein 30 H Urine Glucose (UA) NEGATIVE Urine Ketones TRACE H Urine Blood MODERATE H Urine Nitrite NEGATIVE Ur Leukocyte Esterase MODERATE H Urine WBC (Auto) 64 Urine RBC (Auto) 116 Stool Occult Blood 08/21/17 06:05 WBC RBC Hgb Hct MCV MCH MCHC RDW Plt Count Sodium Potassium Chloride Carbon Dioxide Anion Gap BUN Creatinine Est GFR ( Amer) Est GFR (Non-Af Amer) Glucose Calcium Total Bilirubin AST ALT Alkaline Phosphatase Total Protein Albumin Urine Color Urine Appearance Urine pH Ur Specific Spi[place] Urine Protein Urine Glucose (UA) Urine Ketones Urine Blood Urine Nitrite Ur Leukocyte Esterase Urine WBC (Auto) Urine RBC (Auto) Stool Occult Blood POSITIVE 08/11/17 08/12/17 08/14/17 04:21 03:49 03:56 NT-Pro-B Natriuret Pep 232 312 685 08/19/17 04:55 NT-Pro-B Natriuret Pep 1230 H Impressions: Thoracentesis Ultrasound 08/09/17 10:34 IMPRESSION: SUCCESSFUL THORACENTESIS USING ULTRASOUND GUIDANCE. Abdomen Ultrasound 08/11/17 00:00 IMPRESSION: Minimal pericholecystic fluid. 0.8 cm diameter prominent common bile duct, no intrahepatic ductal dilation. Otherwise, unremarkable. KUB X-Ray 08/13/17 00:00 IMPRESSION: Bowel obstruction versus ileus. NG tube placement. Chest X-Ray 08/19/17 06:00 IMPRESSION: Slight deterioration in the chest with increasing right opacities. Assessment & Plan - Diagnosis (1) Pleural effusion, right Is this a current diagnosis for this admission?: Yes Plan: Impression: Persisting sympathetic right pleural effusion related to hypoalbuminemia, end-stage liver failure Recommendations: 1. Leave chest tube in; 2. Level of aggressiveness including CODE STATUS should be addressed 2. We will sign off for now. If chest tube needs to be removed, please reconsult surgery.
[2017-08-21] MEDS: ASPIRIN 81 MG TABLET, ENT COATED PO SCH (10:36)
[2017-08-21] MEDS: RISPERIDONE 0.25 MG TABLET PO SCH (10:36)
[2017-08-21] MEDS: LANSOPRAZOLE 15 MG TAB.RAP.DR PO SCH (10:36)
[2017-08-21] MEDS: SPIRONOLACTONE 25 MG TABLET PO SCH (10:36)
[2017-08-21] MEDS: LACTULOSE SYRUP 20 GM/30 ML UDCUP PO SCH ×2 (10:36→17:13)
[2017-08-21] MEDS: THIAMINE HCL 100 MG TABLET PO SCH (10:37)
[2017-08-21] MEDS: FOLIC ACID 1 MG TABLET PO SCH (10:37)
--- NOTE | 2017-08-21 10:46 | PROGRESS NOTE E ---
Progress Note NAME: JENNA BUCHANAN : 1955 AGE: 61Y DATE: 08/21/2017 ROOM: 317 SUBJECTIVE: The patient is currently lying in bed. The patient will awaken and answer simple yes or no questions, but goes right back to sleep. There has been no reported episode of vomiting or diarrhea. The patient appears quite comfortable. The patient is unable to elaborate on much history and has had no reported episodes of fevers, no diarrhea or vomiting. The patient is unable to voice any specific concerns at this time. REVIEW OF SYSTEMS: Full review of systems cannot be appreciated given the patient's mental status. MEDICATIONS: Medications have been reviewed. OBJECTIVE: GENERAL: The patient is a 61-year-old female who is awake and alert. She does not appear to be distressed. VITAL SIGNS: Temperature 97.9, pulse 97, respirations 21, blood pressure 143/85, oxygen saturation is 100% on 1 liter nasal cannula. SKIN: Jaundiced, dry. No rashes, not diaphoretic. HEENT: Pupils are reactive. Sclerae slightly icteric with pale conjunctivae. The patient does have petechial bruising on her mouth. No evidence of JVP. CVS: Heart is regular. No rub. CHEST: Diminished, symmetrical, unlabored. Chest tube appears to have transudative drainage. ABDOMEN: Mildly distended. No area of focal tenderness. EXTREMITIES: No clubbing, cyanosis, or edema. PSYCHIATRIC: Unable to fully assess. The patient is groggy. DIAGNOSTICS/LAB VALUES: Hematology obtained on 08/21/2017: WBC 11.9, hemoglobin 10.6, hematocrit 31.6, platelet count 123,000. Chemistry obtained on 08/21/2017: Sodium 148, potassium 4.3, chloride 113, carbon dioxide 25, BUN 7, creatinine 0.38, glucose 122, calcium 8.3. Bilirubin is 4. AST 160, ALT 764, alkaline phosphatase 697. Total protein. Albumin 2.9. ASSESSMENT AND PLAN: 1. ADULT RESPIRATORY DISTRESS SYNDROME. This has resolved. 2. ACUTE MOST LIKELY ON CHRONIC HYPOXEMIC RESPIRATORY FAILURE. The patient was extubated on 08/18/2017 and is currently only on 1 liter nasal cannula. 3. ALCOHOL DEPENDENCY. Most likely continuous. The patient may have had some DTs but should be through this at this point. Continue as needed Ativan, thiamine, folic acid. 4. OPIATE DEPENDENCY. Continue home medications. 5. RIGHT PLEURAL EFFUSION. Chest tube management as per Surgery. 6. STATUS POST THORACENTESIS. 7. PRIMARY BILIARY CIRRHOSIS. Continue Lasix, spironolactone, lactulose. 8. EPILEPSY. Continue Dilantin. 9. AGITATION. The patient does have psychomotor agitation with yelling and attempting to pull out catheters. At times, she has required periodic soft limb restraints. However, she has responded well to risperidone. 10. ASPIRATION PNEUMONIA. The patient has completed her course of antibiotics. DISPOSITION: The patient is a full code at this point. Depending on the patient's symptomatology and diagnostic findings, will reevaluate in the a.m. The patient is to go to a jail facility. Time spent on this followup including assessment, plan, physical examination, patient education, review of records, is 35 minutes. DICTATING PHYSICIAN: CARIN WARREN NP [id number] PHY#: [id number] ID: [id number] JOB#: [id number] ACCT: [id number] cc: > MTDD
[2017-08-21] MEDS: RISPERIDONE 1 MG TABLET PO SCH (17:13)
[2017-08-22] MEDS: LORAZEPAM INJ 2 MG/1 ML VIAL IV PRN ×2 (03:45→06:31)
[2017-08-22] MEDS: LANSOPRAZOLE 15 MG TAB.RAP.DR PO SCH (06:33)
[2017-08-22] MEDS: LEVALBUTEROL HCL NEB 1.25 MG/3 ML AMPUL NEB PRN ×2 (08:34→19:59)
[2017-08-22] MEDS: ACETYLCYSTEINE 10% NEB 400 MG/4 ML VIAL NEB SCH ×2 (08:34→19:59)
[2017-08-22] MEDS: LACTULOSE SYRUP 20 GM/30 ML UDCUP PO SCH ×4 (09:15→18:06)
[2017-08-22] MEDS: FOLIC ACID 1 MG TABLET PO SCH (09:16)
[2017-08-22] MEDS: THIAMINE HCL 100 MG TABLET PO SCH (09:16)
[2017-08-22] MEDS: RISPERIDONE 0.25 MG TABLET PO SCH (09:16)
[2017-08-22] MEDS: ASPIRIN 81 MG TABLET, ENT COATED PO SCH (09:16)
[2017-08-22] MEDS: SPIRONOLACTONE 25 MG TABLET PO SCH (09:16)
[2017-08-22] MEDS: PHENYTOIN SODIUM EXTENDED 100 MG CAPSULE PO SCH (09:16)
--- NOTE | 2017-08-22 12:40 | PDOC PROGRESS REPORT ---
Subjective Progress Note for:: 08/22/17 Subjective:: The patient is babbling nonsensically. She is skeletal and blair in color. She is awake. She does not appear to be in any acute distress. is at bedside. Reason For Visit: PULMONARY EDEMA CIRRHOSIS RESPIRATORY FAILURE Physical Exam Vital Signs: Temp Pulse Resp BP Pulse Ox 97.3 F 61 20 141/77 H 94 08/22/17 03:16 08/22/17 08:34 08/22/17 08:34 08/22/17 03:16 08/22/17 08:34 Pulse Oximeter Continuous Start: 08/12/17 10: 54 Freq: RTQ4 Status: Hold Document 08/12/17 14:08 [facility] [place]: 08/12/17 14:35 [id number] Pulse Oximetry Assessment Oxygen Saturation (92-100) 93 Oxygen Delivery Method Bi-pap Fraction of Inspired Oxygen (FIO2) 45 Equipment Usage Equipment Discontinued Continuous SpO2 Machine # N 10 Intake & Output 08/21/17 08/22/17 08/23/17 06:59 06:59 06:59 Intake Total 3268 2100 Output Total 3065 1300 Balance 203 800 Weight 47.7 kg 46.8 kg General appearance: PRESENT: no acute distress, other - The patient is skeletal and is babbling nonsensically. Head exam: PRESENT: atraumatic, normocephalic Mouth exam: PRESENT: moist Neck exam: ABSENT: carotid bruit, JVD, lymphadenopathy, thyromegaly Respiratory exam: PRESENT: other - No increased work of breathing. No tactile fremitus.. ABSENT: rales, rhonchi, wheezes Cardiovascular exam: PRESENT: RRR. ABSENT: diastolic murmur, rubs, systolic murmur Pulses: PRESENT: other - Diminished distal pulses. GI/Abdominal exam: PRESENT: distended, normal bowel sounds, soft, other - Distended. Positive fluid wave.. ABSENT: guarding, mass, organolmegaly, rebound , tenderness Rectal exam: PRESENT: deferred Extremities exam: PRESENT: full ROM, other - cachectic. ABSENT: calf tenderness , clubbing, pedal edema Neurological exam: PRESENT: CN II-XII grossly intact, other - The patient is confused and disoriented.. ABSENT: motor sensory deficit Psychiatric exam: PRESENT: other - Confused. Agitated.. ABSENT: homicidal ideation, suicidal ideation Skin exam: PRESENT: dry, intact, warm. ABSENT: cyanosis, rash Results Laboratory Results: 08/21/17 05:45 08/21/17 05:45 08/11/17 08/12/17 08/14/17 04:21 03:49 03:56 NT-Pro-B Natriuret Pep 232 312 685 08/19/17 04:55 NT-Pro-B Natriuret Pep 1230 H Impressions: Thoracentesis Ultrasound 08/09/17 10:34 IMPRESSION: SUCCESSFUL THORACENTESIS USING ULTRASOUND GUIDANCE. Abdomen Ultrasound 08/11/17 00:00 IMPRESSION: Minimal pericholecystic fluid. 0.8 cm diameter prominent common bile duct, no intrahepatic ductal dilation. Otherwise, unremarkable. KUB X-Ray 08/13/17 00:00 IMPRESSION: Bowel obstruction versus ileus. NG tube placement. Chest X-Ray 08/19/17 06:00 IMPRESSION: Slight deterioration in the chest with increasing right opacities. Assessment & Plan - Diagnosis (1) Agitation Is this a current diagnosis for this admission?: Yes Plan: Related to hepatic encephalopathy. (2) Opiate dependence, continuous Is this a current diagnosis for this admission?: Yes Plan: Currently on non opiates. I believe that the period for withdrawal has passed. (3) Pleural effusion, right Is this a current diagnosis for this admission?: Yes Plan: Chest tube placed and will be left in place. Pleural effusion is secondary to patient's cirrhosis and will reaccumulate with removal of chest tube and will continue to leak out of chest tube site. (4) Primary biliary cirrhosis Is this a current diagnosis for this admission?: Yes Plan: The states that the patient was attempting to get on a transplant list, but has been turned down prior to admission. Given her current condition, it is difficult to understand how she will ever get on a transplant list much less make it to transplant. I told the that I will attempt to improved her encephalopathy, but that I was concerned that she will not get better and will probably prior to making it onto any transplant list. He said that he was losing hope. I encouraged him to find hope for something other than a cure for her liver disease. I explained that comfort care could give him and his hope for a peaceful and comfortable end of life experience. I also encouraged him to reconsider her code status. He stated that he would work on it. (5) Hepatic encephalopathy Is this a current diagnosis for this admission?: Yes Plan: Likely cause for the patient's encephalopathy. I will increase her lactulose dosing. - Time Time Spent with patient: 35 or more minutes Medications reviewed and adjusted accordingly: Yes Anticipated discharge: Hospice
[2017-08-22] MEDS: POTASSI CL 20 MEQ/D5LR 1L 20 MEQ/1,000 ML RTUINJ IV PRN (15:21)
[2017-08-22] MEDS: RISPERIDONE 1 MG TABLET PO SCH (18:08)
[2017-08-22] MEDS: MIRTAZAPINE 15 MG TABLET NG SCH (21:21)
[2017-08-23] MEDS: LORAZEPAM INJ 2 MG/1 ML VIAL IV PRN ×5 (00:41→20:21)
[2017-08-23] MEDS: POTASSI CL 20 MEQ/D5LR 1L 20 MEQ/1,000 ML RTUINJ IV PRN ×2 (04:07→16:28)
[2017-08-23] MEDS: LANSOPRAZOLE 15 MG TAB.RAP.DR PO SCH (05:39)
[2017-08-23 06:08] LABS: HEMOGLOBIN 10.6 g/dL (12.0-15.5); MEAN CORPUSCULAR HEMOGLOBIN 30.7 pg (27.0-33.4); MEAN CORPUSCULAR HGB CONC 33.2 g/dL (32.0-36.0); MEAN CORPUSCULAR VOLUME 92 fl (80-97); PLATELET COUNT 148 10^3/uL (150-450); RED BLOOD COUNT 3.46 10^6/uL (3.72-5.28); RED CELL DISTRIBUTION WIDTH 17.7 % (11.5-14.0); WHITE BLOOD COUNT 14.9 10^3/uL (4.0-10.5)
[2017-08-23 06:14] LABS: APPEARANCE,URINE SLIGHTLY-CLOUDY; BILIRUBIN,URINE SMALL (NEGATIVE); CALCIUM OXALATE CRYSTALS,URINE MODERATE /HPF; GLUCOSE, URINE NEGATIVE (NEGATIVE); KETONES,URINE NEGATIVE (NEGATIVE); LEUKOCYTE ESTERASE,URINE SMALL (NEGATIVE); NITRITE,URINE NEGATIVE (NEGATIVE); PROTEIN,URINE 100 mg/dL (NEGATIVE); URINE SPECIFIC GRAVITY 1.017
[2017-08-23 06:16] LABS: COLOR,URINE DARK YELLOW
[2017-08-23] MEDS: ACETYLCYSTEINE 10% NEB 400 MG/4 ML VIAL NEB SCH ×2 (08:26→19:51)
[2017-08-23] MEDS: LEVALBUTEROL HCL NEB 1.25 MG/3 ML AMPUL NEB PRN ×2 (08:26→19:51)
[2017-08-23] MEDS: ASPIRIN 81 MG TABLET, ENT COATED PO SCH (09:32)
[2017-08-23] MEDS: SPIRONOLACTONE 25 MG TABLET PO SCH (09:32)
[2017-08-23] MEDS: THIAMINE HCL 100 MG TABLET PO SCH (09:32)
[2017-08-23] MEDS: RISPERIDONE 0.25 MG TABLET PO SCH (09:32)
[2017-08-23] MEDS: LACTULOSE SYRUP 20 GM/30 ML UDCUP PO SCH ×3 (09:33→17:21)
[2017-08-23] MEDS: FUROSEMIDE 40 MG TABLET PO SCH (09:33)
[2017-08-23] MEDS: FOLIC ACID 1 MG TABLET PO SCH (09:33)
[2017-08-23 09:55] LABS: ALANINE AMINOTRANSFERASE 86 U/L (9-52); ALBUMIN 2.8 g/dL (3.5-5.0); ALKALINE PHOSPHATASE 684 U/L (38-126); ANION GAP 11 (5-19); ASPARTATE AMINO TRANSFERASE 157 U/L (14-36); BILIRUBIN,DIRECT 3.7 mg/dL (0.0-0.4); BILIRUBIN,TOTAL 4.9 mg/dL (0.2-1.3); BLOOD UREA NITROGEN 7 mg/dL (7-20); CALCIUM 8.2 mg/dL (8.4-10.2); CARBON DIOXIDE 23 mmol/L (22-30); CHLORIDE 117 mmol/L (98-107); GLUCOSE 126 mg/dL (75-110); POTASSIUM 4.4 mmol/L (3.6-5.0); SODIUM 150.9 mmol/L (137-145); TOTAL PROTEIN 6.4 g/dL (6.3-8.2)
--- NOTE | 2017-08-23 12:36 | PDOC PROGRESS REPORT ---
Subjective Progress Note for:: 08/23/17 Subjective:: The patient continues to be confused, although she is somewhat less agitated. No new complaints. Reason For Visit: PULMONARY EDEMA CIRRHOSIS RESPIRATORY FAILURE Physical Exam Vital Signs: Temp Pulse Resp BP Pulse Ox 97.9 F 96 20 117/74 99 08/23/17 11:47 08/23/17 11:47 08/23/17 11:47 08/23/17 11:47 08/23/17 11:47 Pulse Oximeter Continuous Start: 08/12/17 10: 54 Freq: RTQ4 Status: Hold Document 08/12/17 14:08 [facility] [place]: 08/12/17 14:35 [facility] [place] [id number][place] Pulse Oximetry Assessment Oxygen Saturation (92-100) 93 Oxygen Delivery Method Bi-pap Fraction of Inspired Oxygen (FIO2) 45 Equipment Usage Equipment Discontinued Continuous SpO2 Machine # N 10 Intake & Output 08/22/17 08/23/17 08/24/17 06:59 06:59 06:59 Intake Total 2100 1352 Output Total 1300 1550 Balance 800 -198 Weight 46.8 kg 48.5 kg General appearance: PRESENT: no acute distress, other - The patient is skeletal. She is babbling incoherently. No new complaints. Neck exam: ABSENT: JVD, lymphadenopathy, thyromegaly Respiratory exam: PRESENT: other - No increased work of breathing. No wheezes, rales, or rhonchi. Chest tube is in place and is draining fluid. Cardiovascular exam: PRESENT: RRR. ABSENT: gallop, rubs, systolic murmur Pulses: PRESENT: other - diminished distal pulses GI/Abdominal exam: PRESENT: ascites, distended, hypoactive bowel sounds, soft. ABSENT: hernia, organolmegaly Extremities exam: PRESENT: other - cachectic Neurological exam: PRESENT: other - The patient is confused and agitated. She is unable to cooperate with a neurological exam. She is moving all extremities. Psychiatric exam: PRESENT: other - The patient is agitated and confused. She is unable to cooperate with a psychiatric exam. Results Laboratory Results: 08/23/17 05:30 08/23/17 08:58 08/23/17 08/23/17 08/23/17 05:30 05:30 05:30 WBC 14.9 H RBC 3.46 L Hgb 10.6 L Hct 32.0 L MCV 92 MCH 30.7 MCHC 33.2 RDW 17.7 H Plt Count 148 L Sodium Potassium Chloride Carbon Dioxide Anion Gap BUN Creatinine Est GFR ( Amer) Est GFR (Non-Af Amer) Glucose Calcium Total Bilirubin AST ALT Alkaline Phosphatase Total Protein Albumin Triglycerides 73 Urine Color DARK YELLOW Urine Appearance SLIGHTLY-CLOUDY Urine pH 5.0 Ur Specific [place]ons 1.017 Urine Protein 100 H Urine Glucose (UA) NEGATIVE Urine Ketones NEGATIVE Urine Blood LARGE H Urine Nitrite NEGATIVE Ur Leukocyte Esterase SMALL H Urine WBC (Auto) 58 Urine RBC (Auto) >182 08/23/17 08:58 WBC RBC Hgb Hct MCV MCH MCHC RDW Plt Count Sodium 150.9 H Potassium 4.4 Chloride 117 H Carbon Dioxide 23 Anion Gap 11 BUN 7 Creatinine 0.42 L Est GFR ( Amer) > 60 Est GFR (Non-Af Amer) > 60 Glucose 126 H Calcium 8.2 L Total Bilirubin 4.9 H AST 157 H ALT 86 H Alkaline Phosphatase 684 H Total Protein 6.4 Albumin 2.8 L Triglycerides Urine Color Urine Appearance Urine pH Ur Specific Allons Urine Protein Urine Glucose (UA) Urine Ketones Urine Blood Urine Nitrite Ur Leukocyte Esterase Urine WBC (Auto) Urine RBC (Auto) 08/11/17 08/12/17 08/14/17 04:21 03:49 03:56 NT-Pro-B Natriuret Pep 232 312 685 08/19/17 04:55 NT-Pro-B Natriuret Pep 1230 H Impressions: Thoracentesis Ultrasound 08/09/17 10:34 IMPRESSION: SUCCESSFUL THORACENTESIS USING ULTRASOUND GUIDANCE. Abdomen Ultrasound 08/11/17 00:00 IMPRESSION: Minimal pericholecystic fluid. 0.8 cm diameter prominent common bile duct, no intrahepatic ductal dilation. Otherwise, unremarkable. KUB X-Ray 08/13/17 00:00 IMPRESSION: Bowel obstruction versus ileus. NG tube placement. Chest X-Ray 08/19/17 06:00 IMPRESSION: Slight deterioration in the chest with increasing right opacities. Assessment & Plan - Diagnosis (1) Agitation Is this a current diagnosis for this admission?: Yes (2) Opiate dependence, continuous Is this a current diagnosis for this admission?: Yes (3) Pleural effusion, right Is this a current diagnosis for this admission?: Yes (4) Primary biliary cirrhosis Is this a current diagnosis for this admission?: Yes (5) Hepatic encephalopathy Is this a current diagnosis for this admission?: Yes
[2017-08-23] MEDS: RISPERIDONE 1 MG TABLET PO SCH (17:21)
[2017-08-23] MEDS ORDERED: HYDROMORPHONE HCL INJ/PF 2 MG/ML AMPULE IV ONE (18:00)
[2017-08-23] MEDS: MIRTAZAPINE 15 MG TABLET PO SCH (22:18)
[2017-08-24] MEDS: LORAZEPAM INJ 2 MG/1 ML VIAL IV PRN ×2 (00:34→07:21)
[2017-08-24] MEDS: POTASSI CL 20 MEQ/D5LR 1L 20 MEQ/1,000 ML RTUINJ IV PRN ×2 (04:46→17:56)
[2017-08-24] MEDS: LANSOPRAZOLE 15 MG TAB.RAP.DR PO SCH (05:19)
[2017-08-24 05:47] LABS: HEMATOCRIT 29.2 % (36.0-47.0); HEMOGLOBIN 9.7 g/dL (12.0-15.5); MEAN CORPUSCULAR HEMOGLOBIN 30.9 pg (27.0-33.4); MEAN CORPUSCULAR VOLUME 93 fl (80-97); PLATELET COUNT 129 10^3/uL (150-450); RED BLOOD COUNT 3.13 10^6/uL (3.72-5.28); RED CELL DISTRIBUTION WIDTH 17.9 % (11.5-14.0); WHITE BLOOD COUNT 13.7 10^3/uL (4.0-10.5)
[2017-08-24 06:07] LABS: ALANINE AMINOTRANSFERASE 84 U/L (9-52); ALBUMIN 2.6 g/dL (3.5-5.0); ALKALINE PHOSPHATASE 616 U/L (38-126); ANION GAP 9 (5-19); ASPARTATE AMINO TRANSFERASE 127 U/L (14-36); BILIRUBIN,DIRECT 3.6 mg/dL (0.0-0.4); BILIRUBIN,TOTAL 4.9 mg/dL (0.2-1.3); BLOOD UREA NITROGEN 6 mg/dL (7-20); CALCIUM 8.1 mg/dL (8.4-10.2); CARBON DIOXIDE 23 mmol/L (22-30); CHLORIDE 118 mmol/L (98-107); GLUCOSE 123 mg/dL (75-110); POTASSIUM 4.1 mmol/L (3.6-5.0); SODIUM 150.3 mmol/L (137-145); TOTAL PROTEIN 5.9 g/dL (6.3-8.2)
[2017-08-24] MEDS: LEVALBUTEROL HCL NEB 1.25 MG/3 ML AMPUL NEB PRN ×2 (08:22→20:19)
[2017-08-24] MEDS: ACETYLCYSTEINE 10% NEB 400 MG/4 ML VIAL NEB SCH ×2 (08:22→20:19)
[2017-08-24] MEDS: RISPERIDONE 0.25 MG TABLET PO SCH (10:23)
[2017-08-24] MEDS: THIAMINE HCL 100 MG TABLET PO SCH (10:23)
[2017-08-24] MEDS: LACTULOSE SYRUP 20 GM/30 ML UDCUP PO SCH ×3 (10:23→17:56)
[2017-08-24] MEDS: FOLIC ACID 1 MG TABLET PO SCH (10:23)
[2017-08-24] MEDS: ASPIRIN 81 MG TABLET, ENT COATED PO SCH (10:24)
[2017-08-24] MEDS: SPIRONOLACTONE 25 MG TABLET PO SCH (10:25)
--- NOTE | 2017-08-24 10:34 | PDOC PROGRESS REPORT ---
Subjective Progress Note for:: 08/24/17 Subjective:: The patient continues to be confused, although she is somewhat less agitated, and speech is clearer. No new complaints. Reason For Visit: PULMONARY EDEMA CIRRHOSIS RESPIRATORY FAILURE Physical Exam Vital Signs: Temp Pulse Resp BP Pulse Ox 97.4 F 96 16 128/74 H 100 08/24/17 07:15 08/24/17 08:22 08/24/17 08:22 08/24/17 07:15 08/24/17 08:22 Pulse Oximeter Continuous Start: 08/12/17 10: 54 Freq: RTQ4 Status: Hold Document 08/12/17 14:08 [place] (Rec: 08/12/17 14:35 [place] [id number]) Pulse Oximetry Assessment Oxygen Saturation (92-100) 93 Oxygen Delivery Method Bi-pap Fraction of Inspired Oxygen (FIO2) 45 Equipment Usage Equipment Discontinued Continuous SpO2 Machine # N 10 Intake & Output 08/23/17 08/24/17 08/25/17 06:59 06:59 06:59 Intake Total 1352 2251 Output Total 1550 1855 Balance -198 396 Weight 48.5 kg 46.2 kg General appearance: PRESENT: no acute distress, thin Neck exam: ABSENT: carotid bruit, JVD, lymphadenopathy, thyromegaly Respiratory exam: PRESENT: other - No increased work of breathing.. ABSENT: rales, rhonchi, wheezes Cardiovascular exam: PRESENT: RRR, other - No lateral PMI. No thrills.. ABSENT : diastolic murmur, rubs, systolic murmur Pulses: PRESENT: normal femoral pulses, normal dorsalis pedis pul Vascular exam: PRESENT: normal capillary refill GI/Abdominal exam: PRESENT: normal bowel sounds, soft. ABSENT: distended, guarding, mass, organolmegaly, rebound, tenderness Rectal exam: PRESENT: deferred Extremities exam: PRESENT: full ROM. ABSENT: calf tenderness, clubbing, pedal edema Neurological exam: PRESENT: altered, awake, CN II-XII grossly intact. ABSENT: motor sensory deficit Skin exam: PRESENT: dry, intact, warm. ABSENT: cyanosis, rash Results Laboratory Results: 08/24/17 05:20 08/24/17 05:20 08/24/17 08/24/17 05:20 05:20 WBC 13.7 H RBC 3.13 L Hgb 9.7 L Hct 29.2 L MCV 93 MCH 30.9 MCHC 33.0 RDW 17.9 H Plt Count 129 L Sodium 150.3 H Potassium 4.1 Chloride 118 H Carbon Dioxide 23 Anion Gap 9 BUN 6 L Creatinine 0.43 L Est GFR ( Amer) > 60 Est GFR (Non-Af Amer) > 60 Glucose 123 H Calcium 8.1 L Total Bilirubin 4.9 H AST 127 H ALT 84 H Alkaline Phosphatase 616 H Total Protein 5.9 L Albumin 2.6 L 08/11/17 08/12/17 08/14/17 04:21 03:49 03:56 NT-Pro-B Natriuret Pep 232 312 685 08/19/17 04:55 NT-Pro-B Natriuret Pep 1230 H Impressions: Thoracentesis Ultrasound 08/09/17 10:34 IMPRESSION: SUCCESSFUL THORACENTESIS USING ULTRASOUND GUIDANCE. Abdomen Ultrasound 08/11/17 00:00 IMPRESSION: Minimal pericholecystic fluid. 0.8 cm diameter prominent common bile duct, no intrahepatic ductal dilation. Otherwise, unremarkable. KUB X-Ray 08/13/17 00:00 IMPRESSION: Bowel obstruction versus ileus. NG tube placement. Chest X-Ray 08/19/17 06:00 IMPRESSION: Slight deterioration in the chest with increasing right opacities. Assessment & Plan - Diagnosis (1) Agitation Is this a current diagnosis for this admission?: Yes Plan: Related to hepatic encephalopathy, and opiod dependence. (2) Opiate dependence, continuous Is this a current diagnosis for this admission?: Yes Plan: Currently on non opiates. I believe that the period for withdrawal has passed. (3) Pleural effusion, right Is this a current diagnosis for this admission?: Yes Plan: Chest tube placed and will be left in place. Pleural effusion is secondary to patient's cirrhosis and will reaccumulate with removal of chest tube and will continue to leak out of chest tube site. (4) Primary biliary cirrhosis Is this a current diagnosis for this admission?: Yes Plan: The states that the patient was attempting to get on a transplant list, but has been turned down prior to admission. Given her current condition, it is difficult to understand how she will ever get on a transplant list much less make it to transplant. I told the that I will attempt to improved her encephalopathy, but that I was concerned that she will not get better and will probably prior to making it onto any transplant list. He said that he was losing hope. I encouraged him to find hope for something other than a cure for her liver disease. I explained that comfort care could give him and his hope for a peaceful and comfortable end of life experience. I also encouraged him to reconsider her code status. He stated that he would work on it. The patient's daughter was here yesterday and I repeated this discussion with her. She was going to talk to the patient's liver doctors and see if they would want her transferred or what they would recommend. I have not heard back from her. The patient's had a seizure on the floor yesterday afternoon. He was not present in the room today. (5) Hepatic encephalopathy Is this a current diagnosis for this admission?: Yes Plan: Likely cause for the patient's encephalopathy. Increased lactulose. The patient seems less lethargic, but still confused. - Time Time Spent with patient: 35 or more minutes Medications reviewed and adjusted accordingly: Yes
[2017-08-24] MEDS: LORAZEPAM 1 MG TABLET PO PRN ×3 (13:25→22:31)
[2017-08-24] MEDS: RISPERIDONE 1 MG TABLET PO SCH (17:56)
[2017-08-24] MEDS ORDERED: LORAZEPAM 0.5 MG TABLET PO ONE (20:30)
[2017-08-24] MEDS: MIRTAZAPINE 15 MG TABLET PO SCH (22:31)
[2017-08-25] MEDS: LORAZEPAM 1 MG TABLET PO PRN ×2 (03:28→17:21)
[2017-08-25] MEDS: LANSOPRAZOLE 15 MG TAB.RAP.DR PO SCH (05:28)
[2017-08-25] MEDS: POTASSI CL 20 MEQ/D5LR 1L 20 MEQ/1,000 ML RTUINJ IV PRN (05:30)
[2017-08-25 06:01] LABS: HEMATOCRIT 29.2 % (36.0-47.0); HEMOGLOBIN 9.8 g/dL (12.0-15.5); MEAN CORPUSCULAR HEMOGLOBIN 31.4 pg (27.0-33.4); MEAN CORPUSCULAR HGB CONC 33.7 g/dL (32.0-36.0); MEAN CORPUSCULAR VOLUME 93 fl (80-97); PLATELET COUNT 126 10^3/uL (150-450); RED BLOOD COUNT 3.14 10^6/uL (3.72-5.28); RED CELL DISTRIBUTION WIDTH 18.4 % (11.5-14.0); WHITE BLOOD COUNT 13.7 10^3/uL (4.0-10.5)
[2017-08-25] MEDS: LEVALBUTEROL HCL NEB 1.25 MG/3 ML AMPUL NEB PRN (08:18)
[2017-08-25] MEDS: ACETYLCYSTEINE 10% NEB 400 MG/4 ML VIAL NEB SCH (08:18)
[2017-08-25] MEDS: THIAMINE HCL 100 MG TABLET PO SCH (11:28)
[2017-08-25] MEDS: ASPIRIN 81 MG TABLET, ENT COATED PO SCH (11:28)
[2017-08-25] MEDS: RISPERIDONE 0.25 MG TABLET PO SCH (11:28)
[2017-08-25] MEDS: FOLIC ACID 1 MG TABLET PO SCH (11:28)
[2017-08-25] MEDS: SPIRONOLACTONE 25 MG TABLET PO SCH (11:28)
[2017-08-25] MEDS: LACTULOSE SYRUP 20 GM/30 ML UDCUP PO SCH ×3 (11:29→17:23)
[2017-08-25] MEDS: LORAZEPAM INJ 2 MG/1 ML VIAL IV PRN ×2 (14:58→23:50)
--- NOTE | 2017-08-25 17:11 | PDOC PROGRESS REPORT ---
Subjective Progress Note for:: 08/25/17 Subjective:: This morning the patient is attentive and her speech is clear. She is sitting up and being fed breakfast. Reason For Visit: PULMONARY EDEMA CIRRHOSIS RESPIRATORY FAILURE Physical Exam Vital Signs: Temp Pulse Resp BP Pulse Ox 98.1 F 103 H 17 114/68 98 08/25/17 15:25 08/25/17 16:13 08/25/17 16:13 08/25/17 15:25 08/25/17 16:13 Pulse Oximeter Continuous Start: 08/12/17 10: 54 Freq: RTQ4 Status: Hold Document 08/12/17 14:08 [facility] [place]Rec: 08/12/17 14:35 [facility] [id number][place] Pulse Oximetry Assessment Oxygen Saturation (92-100) 93 Oxygen Delivery Method Bi-pap Fraction of Inspired Oxygen (FIO2) 45 Equipment Usage Equipment Discontinued Continuous SpO2 Machine # N 10 Intake & Output 08/24/17 08/25/17 08/26/17 06:59 06:59 06:59 Intake Total 2251 2962 236 Output Total 1855 1785 550 Balance 396 1177 -314 Weight 46.2 kg 46.1 kg Results Laboratory Results: 08/25/17 05:15 08/24/17 05:20 08/25/17 05:15 WBC 13.7 H RBC 3.14 L Hgb 9.8 L Hct 29.2 L MCV 93 MCH 31.4 MCHC 33.7 RDW 18.4 H Plt Count 126 L 08/11/17 08/12/17 08/14/17 04:21 03:49 03:56 NT-Pro-B Natriuret Pep 232 312 685 08/19/17 04:55 NT-Pro-B Natriuret Pep 1230 H Impressions: Thoracentesis Ultrasound 08/09/17 10:34 IMPRESSION: SUCCESSFUL THORACENTESIS USING ULTRASOUND GUIDANCE. Abdomen Ultrasound 08/11/17 00:00 IMPRESSION: Minimal pericholecystic fluid. 0.8 cm diameter prominent common bile duct, no intrahepatic ductal dilation. Otherwise, unremarkable. KUB X-Ray 08/13/17 00:00 IMPRESSION: Bowel obstruction versus ileus. NG tube placement. Chest X-Ray 08/19/17 06:00 IMPRESSION: Slight deterioration in the chest with increasing right opacities. Assessment & Plan - Diagnosis (1) Agitation Is this a current diagnosis for this admission?: Yes Plan: Related to hepatic encephalopathy and delirium as well as phenytoin toxicity. Resolving. (2) Opiate dependence, continuous Is this a current diagnosis for this admission?: Yes Plan: Currently on non opiates. I believe that the period for withdrawal has passed. (3) Pleural effusion, right Is this a current diagnosis for this admission?: Yes Plan: Chest tube placed and will be left in place. Pleural effusion is secondary to patient's cirrhosis and will reaccumulate with removal of chest tube and will continue to leak out of chest tube site. The patient is continuing to drain copious amounts of fluid from the chest. (4) Primary biliary cirrhosis Is this a current diagnosis for this admission?: Yes Plan: I have discussed the patient with her medical pathology teacher at [facility]. 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 (5) Hepatic encephalopathy Is this a current diagnosis for this admission?: Yes Plan: Likely cause for the patient's encephalopathy. Increased lactulose. Speech is improved, but patient remains confused, although her level of alertness is also improved. - Time Time Spent with patient: 35 or more minutes Medications reviewed and adjusted accordingly: Yes [facility] - Plan Summary Plan Summary: Today I discussed the patient with her daughter who told me that she had spoken to Dr. Sinha at [facility] and that he wanted her transferred there. I contacted the transfer center at [facility] and discussed the patient with a hospitalist there who in turn called and spoke with Dr. Sinha. It seems that the patient's daughter did not in fact speak with Dr. Sinha, but instead someone on his staff. I then spoke with the hospitalist and Dr. Sinha. Dr. Sinha felt that the patient would be better served by transfer to [facility]. Dr. Sinha and I were then conferenced in with Dr. Shipley who is a medical pathology teacher at [facility]. He stated that he would agree to the transfer for the purpose of managing the patient's fluid issues, i.e. her chest tube drainage. He stated that it absolutely would not be for consideration for transplant. I then discussed the patient with Walt, a hospitalist at [facility]. He accepted the patient in transfer, but noted that the patient would be on a waiting list and that that list could be long. I appreciate their help. Dr. Sinha said that he would discuss the patient with the daughter.
[2017-08-25] MEDS: RISPERIDONE 1 MG TABLET PO SCH (17:22)
[2017-08-25] MEDS: 1/2 NORMAL SALINE 1,000 ML IV PRN (19:20)
[2017-08-25] MEDS: MIRTAZAPINE 15 MG TABLET PO SCH (22:20)
[2017-08-26] MEDS: LORAZEPAM INJ 2 MG/1 ML VIAL IV PRN ×2 (04:58→14:00)
[2017-08-26] MEDS: LANSOPRAZOLE 15 MG TAB.RAP.DR PO SCH (05:02)
[2017-08-26 05:46] LABS: ABSOLUTE BASOPHILS # (AUTO) 0.1 10^3/uL (0.0-0.2); ABSOLUTE EOSINOPHILS # (AUTO) 0.3 10^3/uL (0.0-0.6); ABSOLUTE LYMPHOCYTES (AUTO) 1.4 10^3/uL (0.5-4.7); ABSOLUTE MONOCYTES (AUTO) 1.2 10^3/uL (0.1-1.4); ABSOLUTE NEUT (AUTO) 12.7 10^3/uL (1.7-8.2); BASOPHILS % (AUTO) 0.5 % (0-2); EOSINOPHILS % (AUTO) 2.1 % (0-6); HEMATOCRIT 30.3 % (36.0-47.0); HEMOGLOBIN 10.1 g/dL (12.0-15.5); LYMPHOCYTES % (AUTO) 9.1 % (13-45); MEAN CORPUSCULAR HEMOGLOBIN 31.2 pg (27.0-33.4); MEAN CORPUSCULAR HGB CONC 33.4 g/dL (32.0-36.0); MEAN CORPUSCULAR VOLUME 93 fl (80-97); MONOCYTES % (AUTO) 7.8 % (3-13); PLATELET COUNT 144 10^3/uL (150-450); RED BLOOD COUNT 3.24 10^6/uL (3.72-5.28); RED CELL DISTRIBUTION WIDTH 18.6 % (11.5-14.0); SEGMENTED NEUTROPHILS % (AUTO) 80.5 % (42-78); TOTAL CELLS COUNTED % (AUTO) 100 %; WHITE BLOOD COUNT 15.7 10^3/uL (4.0-10.5)
[2017-08-26 06:15] LABS: ALANINE AMINOTRANSFERASE 76 U/L (9-52); ALBUMIN 2.2 g/dL (3.5-5.0); ALKALINE PHOSPHATASE 598 U/L (38-126); ANION GAP 10 (5-19); ASPARTATE AMINO TRANSFERASE 110 U/L (14-36); BILIRUBIN,DIRECT 3.7 mg/dL (0.0-0.4); BILIRUBIN,TOTAL 4.6 mg/dL (0.2-1.3); BLOOD UREA NITROGEN 5 mg/dL (7-20); CARBON DIOXIDE 18 mmol/L (22-30); CHLORIDE 114 mmol/L (98-107); GLUCOSE 66 mg/dL (75-110); POTASSIUM 3.6 mmol/L (3.6-5.0); SODIUM 142.2 mmol/L (137-145); TOTAL PROTEIN 5.4 g/dL (6.3-8.2); TRIGLYCERIDES 68 mg/dL (<150)
[2017-08-26 06:33] LABS: CALCIUM 6.7 mg/dL (8.4-10.2)
[2017-08-26] MEDS ORDERED: CALCIUM GLUCONATE 1,000 MG in DEXTROSE 5%-WATER 50 ML IV ONE (07:00)
[2017-08-26] MEDS ORDERED: CALCIUM GLUCONATE 1000 MG/10 ML INJ IV ONE ×2 (08:00→11:30)
--- NOTE | 2017-08-26 09:56 | RADIOLOGY REPORT (SQ) ---
EXAM DESCRIPTION: CHEST SINGLE VIEW COMPLETED DATE/TIME: 08/26/2017 9:22 am REASON FOR STUDY: pleural effusion COMPARISON: AP chest 08/13/2017, 08/16/2017, 08/17/2017, 08/19/2017 EXAM PARAMETERS: NUMBER OF VIEWS: One view. TECHNIQUE: Single frontal radiographic view of the chest acquired. RADIATION DOSE: NA LIMITATIONS: None. FINDINGS: LUNGS AND PLEURA: Minimal right basilar atelectasis. Lungs are otherwise clear. No pleur al effusion or pneumothorax. Right chest tube unchanged. MEDIASTINUM AND HILAR STRUCTURES: No masses. Contour normal. HEART AND VASCULAR STRUCTURES: No cardiomegaly BONES: Old right humeral head replacement HARDWARE: Right chest tube in place, right triple-lumen catheter tip in the superior vena cava. OTHER: No significant right lateral chest wall air IMPRESSION: Minimal right basilar atelectasis. Right chest tube in place. No significant residual pleural effusion. No pneumothorax. No chest wal l air. TECHNICAL DOCUMENTATION: JOB ID: [id number] [employer]- All Rights Reserved Reading location - IP/workstation name: [email or web address]
[2017-08-26] MEDS: ASPIRIN 81 MG TABLET, ENT COATED PO SCH (10:37)
[2017-08-26] MEDS: THIAMINE HCL 100 MG TABLET PO SCH (10:37)
[2017-08-26] MEDS: RISPERIDONE 0.25 MG TABLET PO SCH (10:37)
[2017-08-26] MEDS: SPIRONOLACTONE 25 MG TABLET PO SCH (10:37)
[2017-08-26] MEDS: LACTULOSE SYRUP 20 GM/30 ML UDCUP PO SCH ×3 (10:38→17:32)
[2017-08-26] MEDS: 1/2 NORMAL SALINE 1,000 ML IV PRN (10:38)
[2017-08-26] MEDS: FOLIC ACID 1 MG TABLET PO SCH (10:38)
--- NOTE | 2017-08-26 14:17 | PDOC PROGRESS REPORT ---
Subjective Progress Note for:: 08/26/17 Subjective:: The patient is resting comfortably. She did have a fever overnight. Reason For Visit: PULMONARY EDEMA CIRRHOSIS RESPIRATORY FAILURE Physical Exam Vital Signs: Temp Pulse Resp BP Pulse Ox 98.0 F 86 18 133/78 H 99 08/26/17 12:14 08/26/17 12:14 08/26/17 12:14 08/26/17 12:14 08/26/17 12:14 Pulse Oximeter Continuous Start: 08/12/17 10: 54 Freq: RTQ4 Status: Hold Document 08/12/17 14:08 [facility] [place]Rec: 08/12/17 14:35 [facility] [place] [id number]) Pulse Oximetry Assessment Oxygen Saturation (92-100) 93 Oxygen Delivery Method Bi-pap Fraction of Inspired Oxygen (FIO2) 45 Equipment Usage Equipment Discontinued Continuous SpO2 Machine # N 10 Intake & Output 08/25/17 08/26/17 08/27/17 06:59 06:59 06:59 Intake Total 2962 2017 0 Output Total 1785 1815 50 Balance 1177 202 -50 Weight 46.1 kg 46.7 kg General appearance: PRESENT: no acute distress, other - Sleeping and not awakened. Respiratory exam: PRESENT: other - No increased work of breathing. No wheezes, rales, or rhonchi. No tactile fremitus. Cardiovascular exam: PRESENT: RRR. ABSENT: gallop, rubs, systolic murmur Pulses: PRESENT: other - Diminished distal pulses. GI/Abdominal exam: PRESENT: ascites, hypoactive bowel sounds, soft. ABSENT: hernia, mass, organolmegaly, tenderness Extremities exam: ABSENT: clubbing, tenderness, +1 edema Skin exam: PRESENT: dry, intact, warm Results Laboratory Results: 08/26/17 04:15 08/26/17 04:15 08/26/17 08/26/17 04:15 04:15 WBC 15.7 H RBC 3.24 L Hgb 10.1 L Hct 30.3 L MCV 93 MCH 31.2 MCHC 33.4 RDW 18.6 H Plt Count 144 L Seg Neutrophils % 80.5 H Lymphocytes % 9.1 L Monocytes % 7.8 Eosinophils % 2.1 Basophils % 0.5 Absolute Neutrophils 12.7 H Absolute Lymphocytes 1.4 Absolute Monocytes 1.2 Absolute Eosinophils 0.3 Absolute Basophils 0.1 Sodium 142.2 Potassium 3.6 Chloride 114 H Carbon Dioxide 18 L Anion Gap 10 BUN 5 L Creatinine 0.32 L Est GFR ( Amer) > 60 Est GFR (Non-Af Amer) > 60 Glucose 66 L Calcium 6.7 L* Total Bilirubin 4.6 H AST 110 H ALT 76 H Alkaline Phosphatase 598 H Total Protein 5.4 L Albumin 2.2 L Triglycerides 68 08/11/17 08/12/17 08/14/17 04:21 03:49 03:56 NT-Pro-B Natriuret Pep 232 312 685 08/19/17 04:55 NT-Pro-B Natriuret Pep 1230 H Impressions: Thoracentesis Ultrasound 08/09/17 10:34 IMPRESSION: SUCCESSFUL THORACENTESIS USING ULTRASOUND GUIDANCE. Abdomen Ultrasound 08/11/17 00:00 IMPRESSION: Minimal pericholecystic fluid. 0.8 cm diameter prominent common bile duct, no intrahepatic ductal dilation. Otherwise, unremarkable. KUB X-Ray 08/13/17 00:00 IMPRESSION: Bowel obstruction versus ileus. NG tube placement. Chest X-Ray 08/26/17 00:00 IMPRESSION: Minimal right basilar atelectasis. Right chest tube in place. No significant residual pleural effusion. No pneumothorax. No chest wall air. Assessment & Plan - Diagnosis (1) Agitation Is this a current diagnosis for this admission?: Yes Plan: Related to hepatic encephalopathy and delirium as well as phenytoin toxicity. Resolving. (2) Opiate dependence, continuous Is this a current diagnosis for this admission?: Yes Plan: Currently not on opiates. I believe that the period for withdrawal has passed. (3) Pleural effusion, right Is this a current diagnosis for this admission?: Yes Plan: Chest tube placed and will be left in place. Pleural effusion is secondary to patient's cirrhosis and will reaccumulate with removal of chest tube and will continue to leak out of chest tube site. The patient is continuing to drain copious amounts of fluid from the chest. (4) Primary biliary cirrhosis Is this a current diagnosis for this admission?: Yes Plan: I have discussed the patient with her smoking pipe liner at [facility]. 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 (5) Hepatic encephalopathy Is this a current diagnosis for this admission?: Yes Plan: Likely cause for the patient's encephalopathy. Increased lactulose. Speech is improved, but patient remains confused, although her level of alertness is also improved. (6) Fever Qualifiers: Fever type: unspecified Qualified Code(s): R50.9 - Fever, unspecified Is this a current diagnosis for this admission?: Yes Plan: Will draw blood cultures for temp greater than 100.2. Will check a CXR. I will also ask to have fluid drawn off of her abdomen to be evaluated for SBP. No obvious source of infection at this time. (7) Leukocytosis Qualifiers: Leukocytosis type: bandemia Qualified Code(s): D72.825 - Bandemia Is this a current diagnosis for this admission?: Yes Plan: Will draw blood cultures for temp greater than 100.2. Will check a CXR. I will also ask to have fluid drawn off of her abdomen to be evaluated for SBP. No obvious source of infection at this time. - Time Time Spent with patient: 35 or more minutes Medications reviewed and adjusted accordingly: Yes Anticipated discharge: [facility] Within: when bed available
[2017-08-26] MEDS: RISPERIDONE 1 MG TABLET PO SCH (17:32)
[2017-08-26] MEDS: LORAZEPAM 1 MG TABLET PO PRN (17:32)
[2017-08-26 18:13] LABS: APPEARANCE,URINE CLOUDY; BILIRUBIN,URINE MODERATE (NEGATIVE); COLOR,URINE AMBER; GLUCOSE, URINE NEGATIVE (NEGATIVE); KETONES,URINE NEGATIVE (NEGATIVE); LEUKOCYTE ESTERASE,URINE SMALL (NEGATIVE); NITRITE,URINE NEGATIVE (NEGATIVE); PROTEIN,URINE 100 mg/dL (NEGATIVE); URINE SPECIFIC GRAVITY 1.024
[2017-08-26 19:04] LABS: INTERNATIONAL RATION (INR) 1.32
[2017-08-26] MEDS: MIRTAZAPINE 15 MG TABLET PO SCH (21:19)
[2017-08-27] MEDS: LORAZEPAM 1 MG TABLET PO PRN ×2 (00:48→17:43)
[2017-08-27] MEDS: 1/2 NORMAL SALINE 1,000 ML IV PRN ×3 (00:51→17:43)
[2017-08-27] MEDS: LANSOPRAZOLE 15 MG TAB.RAP.DR PO SCH (05:03)
[2017-08-27 05:23] LABS: HEMOGLOBIN 10.4 g/dL (12.0-15.5); MEAN CORPUSCULAR HEMOGLOBIN 31.2 pg (27.0-33.4); MEAN CORPUSCULAR HGB CONC 33.6 g/dL (32.0-36.0); MEAN CORPUSCULAR VOLUME 93 fl (80-97); PLATELET COUNT 141 10^3/uL (150-450); RED BLOOD COUNT 3.34 10^6/uL (3.72-5.28); RED CELL DISTRIBUTION WIDTH 19.3 % (11.5-14.0); WHITE BLOOD COUNT 13.9 10^3/uL (4.0-10.5)
[2017-08-27 06:01] LABS: ALANINE AMINOTRANSFERASE 76 U/L (9-52); ALBUMIN 2.7 g/dL (3.5-5.0); ALKALINE PHOSPHATASE 809 U/L (38-126); ANION GAP 13 (5-19); ASPARTATE AMINO TRANSFERASE 103 U/L (14-36); BILIRUBIN,DIRECT 4.6 mg/dL (0.0-0.4); BILIRUBIN,TOTAL 5.8 mg/dL (0.2-1.3); BLOOD UREA NITROGEN 8 mg/dL (7-20); CARBON DIOXIDE 16 mmol/L (22-30); CHLORIDE 106 mmol/L (98-107); GLUCOSE 93 mg/dL (75-110); POTASSIUM 4.1 mmol/L (3.6-5.0); SODIUM 134.6 mmol/L (137-145); TOTAL PROTEIN 6.5 g/dL (6.3-8.2)
[2017-08-27 06:31] LABS: ABSOLUTE LYMPHOCYTES# (MANUAL) 0.8 10^3/uL (0.5-4.7); ABSOLUTE MONOCYTES # (MANUAL) 1.4 10^3/uL (0.1-1.4); ABSOLUTE NEUTROPHILS# (MANUAL) 11.4 10^3/uL (1.7-8.2); BASOPHILS % (MANUAL) 0 % (0-2); EOSINOPHILS % (MANUAL) 2 % (0-6); LYMPHOCYTES % (MANUAL) 6 % (13-45); MONOCYTES % (MANUAL) 10 % (3-13); SEGMENTED NEUTROPHILS % (MAN) 82 % (42-78); TOTAL CELLS COUNTED 100
[2017-08-27 06:33] LABS: ANISOCYTOSIS 2+; HYPOCHROMASIA SLIGHT; OVALOCYTES SLIGHT; PLATELET COMMENT DECREASED; POIKILOCYTOSIS SLIGHT; POLYCHROMASIA SLIGHT
--- NOTE | 2017-08-27 09:25 | RADIOLOGY REPORT (SQ) ---
EXAM DESCRIPTION: U/S ABDOMEN LIMITED W/O DOP COMPLETED DATE/TIME: 08/27/2017 8:55 am REASON FOR STUDY: ASCITES COMPARISON: Abdominal ultrasound 08/11/2017, 08/10/2017, 05/31/2017 TECHNIQUE: Dynamic and static grayscale images acquired of the abdominal 4 quadrants 2 for ascites, recorded on PACS. Additional selected color Doppler and spectral images recorded. LIMITATIONS: None. FINDINGS: 4 quadrant abdominal ultrasound was performed portably in the IMCU. No ascites. IMPRESSION: No ascites. TECHNICAL DOCUMENTATION: JOB ID: [id number] [employer]- All Rights Reserved Reading location - IP/workstation name: [email or web address]
[2017-08-27] MEDS: LORAZEPAM INJ 2 MG/1 ML VIAL IV PRN ×2 (11:21→20:35)
[2017-08-27] MEDS: FOLIC ACID 1 MG TABLET PO SCH (11:25)
[2017-08-27] MEDS: THIAMINE HCL 100 MG TABLET PO SCH (11:25)
[2017-08-27] MEDS: SPIRONOLACTONE 25 MG TABLET PO SCH (11:25)
[2017-08-27] MEDS: RISPERIDONE 0.25 MG TABLET PO SCH (11:26)
[2017-08-27] MEDS: LACTULOSE SYRUP 20 GM/30 ML UDCUP PO SCH ×3 (11:26→17:43)
[2017-08-27] MEDS: ASPIRIN 81 MG TABLET, ENT COATED PO SCH (11:26)
[2017-08-27] MEDS: DEXTROSE 5%-WATER 1000 ML 1,000 ML with SODIUM BICARBONATE 100 MEQ IV PRN ×2 (11:38)
--- NOTE | 2017-08-27 14:01 | PDOC PROGRESS REPORT ---
Subjective Progress Note for:: 08/27/17 Subjective:: This morning the patient is again agitated and confused and babbling incoherently. Reason For Visit: PULMONARY EDEMA CIRRHOSIS RESPIRATORY FAILURE Physical Exam Vital Signs: Temp Pulse Resp BP Pulse Ox 97.6 F 96 16 127/79 H 100 08/27/17 11:53 08/27/17 11:53 08/27/17 11:53 08/27/17 11:53 08/27/17 11:53 Pulse Oximeter Continuous Start: 08/12/17 10: 54 Freq: RTQ4 Status: Hold Document 08/12/17 14:08 [facility] [place]Rec: 08/12/17 14:35 [facility] [id number][place] Pulse Oximetry Assessment Oxygen Saturation (92-100) 93 Oxygen Delivery Method Bi-pap Fraction of Inspired Oxygen (FIO2) 45 Equipment Usage Equipment Discontinued Continuous SpO2 Machine # N 10 Intake & Output 08/26/17 08/27/17 08/28/17 06:59 06:59 06:59 Intake Total 2016 2435 100 Output Total 1815 300 275 Balance 202 2135 -175 Weight 46.7 kg 46.5 kg General appearance: PRESENT: other - Incoherent and agitated. Respiratory exam: PRESENT: other - No increased work of breathing. No wheezes, rales, or rhonchi. No tactile fremitus. Cardiovascular exam: PRESENT: RRR, other. ABSENT: gallop, rubs - No lateral PMI. No thrills., systolic murmur GI/Abdominal exam: PRESENT: normal bowel sounds, other - Scaffoid. ABSENT: hernia, mass, soft, tenderness Extremities exam: ABSENT: clubbing, pedal edema, tenderness, +1 edema Neurological exam: PRESENT: other - The patient is unable to cooperate with exam. Skin exam: PRESENT: dry, intact, warm Results Laboratory Results: 08/27/17 05:00 08/27/17 05:00 08/26/17 08/27/17 08/27/17 17:47 05:00 05:00 WBC 13.9 H Cancelled RBC 3.34 L Cancelled Hgb 10.4 L Cancelled Hct 31.0 L Cancelled MCV 93 Cancelled MCH 31.2 Cancelled MCHC 33.6 Cancelled RDW 19.3 H Cancelled Plt Count 141 L Cancelled Seg Neutrophils % Not Reportable Cancelled Lymphocytes % Not Reportable Cancelled Monocytes % Not Reportable Cancelled Eosinophils % Not Reportable Cancelled Basophils % Not Reportable Cancelled Absolute Neutrophils Not Reportable Cancelled Absolute Lymphocytes Not Reportable Cancelled Absolute Monocytes Not Reportable Cancelled Absolute Eosinophils Not Reportable Cancelled Absolute Basophils Not Reportable Cancelled Sodium Potassium Chloride Carbon Dioxide Anion Gap BUN Creatinine Est GFR ( Amer) Est GFR (Non-Af Amer) Glucose Calcium Total Bilirubin AST ALT Alkaline Phosphatase Total Protein Albumin Urine Color MONICA Urine Appearance CLOUDY Urine pH 5.0 Ur Specific [place] 1.024 Urine Protein 100 H Urine Glucose (UA) NEGATIVE Urine Ketones NEGATIVE Urine Blood LARGE H Urine Nitrite NEGATIVE Ur Leukocyte Esterase SMALL H Urine WBC (Auto) >182 Urine RBC (Auto) >182 08/27/17 05:00 WBC RBC Hgb Hct MCV MCH MCHC RDW Plt Count Seg Neutrophils % Lymphocytes % Monocytes % Eosinophils % Basophils % Absolute Neutrophils Absolute Lymphocytes Absolute Monocytes Absolute Eosinophils Absolute Basophils Sodium 134.6 L Potassium 4.1 Chloride 106 Carbon Dioxide 16 L Anion Gap 13 BUN 8 Creatinine 0.42 L Est GFR ( Amer) > 60 Est GFR (Non-Af Amer) > 60 Glucose 93 Calcium 8.0 L Total Bilirubin 5.8 H AST 103 H ALT 76 H Alkaline Phosphatase 809 H Total Protein 6.5 Albumin 2.7 L Urine Color Urine Appearance Urine pH Ur Specific [place] Urine Protein Urine Glucose (UA) Urine Ketones Urine Blood Urine Nitrite Ur Leukocyte Esterase Urine WBC (Auto) Urine RBC (Auto) 08/11/17 08/12/17 08/14/17 04:21 03:49 03:56 NT-Pro-B Natriuret Pep 232 312 685 08/19/17 04:55 NT-Pro-B Natriuret Pep 1230 H Impressions: Thoracentesis Ultrasound 08/09/17 10:34 IMPRESSION: SUCCESSFUL THORACENTESIS USING ULTRASOUND GUIDANCE. KUB X-Ray 08/13/17 00:00 IMPRESSION: Bowel obstruction versus ileus. NG tube placement. Chest X-Ray 08/26/17 00:00 IMPRESSION: Minimal right basilar atelectasis. Right chest tube in place. No significant residual pleural effusion. No pneumothorax. No chest wall air. Abdomen Ultrasound 08/27/17 08:47 IMPRESSION: No ascites. Assessment & Plan - Diagnosis (1) Agitation Is this a current diagnosis for this admission?: Yes Plan: Related to hepatic encephalopathy and delirium. (2) Opiate dependence, continuous Is this a current diagnosis for this admission?: Yes Plan: Currently not on opiates. I believe that the period for withdrawal has passed. (3) Pleural effusion, right Is this a current diagnosis for this admission?: Yes Plan: Chest tube placed and will be left in place. Pleural effusion is secondary to patient's cirrhosis and will reaccumulate with removal of chest tube and will continue to leak out of chest tube site. The patient is continuing to drain copious amounts of fluid from the chest. (4) Primary biliary cirrhosis Is this a current diagnosis for this admission?: Yes Plan: I have discussed the patient with her out of town collection clerk at [facility]. 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 (5) Hepatic encephalopathy Is this a current diagnosis for this admission?: Yes Plan: Likely cause for the patient's encephalopathy. Increased lactulose. Speech is improved, but patient remains confused, although her level of alertness is also improved. (6) Fever Qualifiers: Fever type: unspecified Qualified Code(s): R50.9 - Fever, unspecified Is this a current diagnosis for this admission?: Yes Plan: Will draw blood cultures for temp greater than 100.2. I had asked to have fluid drawn off of her abdomen to be evaluated for SBP. However, Abdominal ultrasound shows that there is not enough fluid for a paracentesis. No further fevers. (7) Leukocytosis Qualifiers: Leukocytosis type: bandemia Qualified Code(s): D72.825 - Bandemia Is this a current diagnosis for this admission?: Yes Plan: Will draw blood cultures for temp greater than 100.2. CXR negative. No further fevers and WBC has declined slightly. No obvious source of infection. - Time Time Spent with patient: 25-34 minutes Medications reviewed and adjusted accordingly: Yes Anticipated [facility] Within: when bed available
[2017-08-27] MEDS: RISPERIDONE 1 MG TABLET PO SCH (17:43)
[2017-08-27] MEDS: MIRTAZAPINE 15 MG TABLET PO SCH (21:05)
[2017-08-28] MEDS: DEXTROSE 5%-WATER 1000 ML 1,000 ML with SODIUM BICARBONATE 100 MEQ IV PRN ×4 (01:11→19:47)
[2017-08-28] MEDS: LORAZEPAM INJ 2 MG/1 ML VIAL IV PRN ×3 (04:35→20:57)
[2017-08-28 05:16] LABS: ABSOLUTE EOSINOPHILS # (AUTO) 0.4 10^3/uL (0.0-0.6); ABSOLUTE NEUT (AUTO) 8.2 10^3/uL (1.7-8.2); BASOPHILS % (AUTO) 0.4 % (0-2); EOSINOPHILS % (AUTO) 3.6 % (0-6); HEMATOCRIT 29.9 % (36.0-47.0); HEMOGLOBIN 10.2 g/dL (12.0-15.5); LYMPHOCYTES % (AUTO) 9.7 % (13-45); MEAN CORPUSCULAR HEMOGLOBIN 31.8 pg (27.0-33.4); MEAN CORPUSCULAR HGB CONC 34.2 g/dL (32.0-36.0); MEAN CORPUSCULAR VOLUME 93 fl (80-97); MONOCYTES % (AUTO) 9.3 % (3-13); PLATELET COUNT 132 10^3/uL (150-450); RED BLOOD COUNT 3.22 10^6/uL (3.72-5.28); RED CELL DISTRIBUTION WIDTH 19.2 % (11.5-14.0); TOTAL CELLS COUNTED % (AUTO) 100 %; WHITE BLOOD COUNT 10.7 10^3/uL (4.0-10.5)
[2017-08-28] MEDS: LANSOPRAZOLE 15 MG TAB.RAP.DR PO SCH (05:20)
[2017-08-28 05:46] LABS: ALANINE AMINOTRANSFERASE 68 U/L (9-52); ALBUMIN 2.6 g/dL (3.5-5.0); ALKALINE PHOSPHATASE 768 U/L (38-126); ANION GAP 10 (5-19); ASPARTATE AMINO TRANSFERASE 87 U/L (14-36); BILIRUBIN,TOTAL 5.5 mg/dL (0.2-1.3); BLOOD UREA NITROGEN 9 mg/dL (7-20); CALCIUM 7.4 mg/dL (8.4-10.2); CARBON DIOXIDE 22 mmol/L (22-30); CHLORIDE 98 mmol/L (98-107); GLUCOSE 107 mg/dL (75-110); POTASSIUM 3.9 mmol/L (3.6-5.0); SODIUM 129.8 mmol/L (137-145)
--- NOTE | 2017-08-28 10:07 | PDOC TRANSFER SUMMARY ---
General Admission Date/PCP: 08/09/17 00:21 CRISTELA MERA MD Admission Date: 08/13/17 Transfer Date: 08/28/17 Accepting Facility: [facility] Res[facility] Status: Full Code - Transfer Diagnosis (1) ARDS (adult respiratory distress syndrome) Is this a current diagnosis for this admission?: Yes (2) Acute encephalopathy Is this a current diagnosis for this admission?: Yes (3) Acute respiratory failure with hypoxemia Is this a current diagnosis for this admission?: Yes (4) Agitation Is this a current diagnosis for this admission?: Yes (5) Aspiration pneumonia Is this a current diagnosis for this admission?: Yes (6) Cirrhosis Is this a current diagnosis for this admission?: Yes (7) Epilepsy Is this a current diagnosis for this admission?: Yes (8) History of alcohol abuse Is this a current diagnosis for this admission?: Yes (9) Need for intravenous access Is this a current diagnosis for this admission?: Yes (10) Opiate dependence, continuous Is this a current diagnosis for this admission?: Yes (11) Pleural effusion, right Is this a current diagnosis for this admission?: Yes - Transfer Medications Home Medications: Phenytoin Sodium Extended [Dilantin 100 mg Capsule.er] 200 mg PO QAM 01/02/16 Oxycodone HCl [Oxy-Ir 5 mg Tablet] 10 mg PO Q12HP PRN MDD 2 TABS 12/24/16 Aspirin [Aspirin EC] 81 mg PO DAILY 01/10/17 Folic Acid 1 mg PO DAILY 01/10/17 Spironolactone 100 mg PO DAILY 01/10/17 Esomeprazole Magnesium [Nexium] 20 mg PO DAILY 02/02/17 Phenytoin Sodium Extended [Dilantin] 300 mg PO QPM 02/02/17 Furosemide [Lasix 20 mg Tablet] 40 mg PO DAILY 03/31/17 Thiamine HCl [Vitamin B-1] 250 mg PO DAILY 03/31/17 Ursodiol 750 mg PO DAILY 03/31/17 Alendronate Sodium [Fosamax 70 mg Tablet] 70 mg PO MO@0600 08/09/17 Lactulose [Cephulac 20 gm/30 ml Syrup UD Cup] 20 gm PO BID 08/09/17 Transfer Medications: Current Medications Aspirin (Ecotrin 81 Mg Ec Tablet) 81 mg PO DAILY [facility] Stop: 09/18/17 09:59 Last Admin: 08/27/17 11:26 Dose: 81 mg Folic Acid (Folvite 1 Mg Tablet) 1 mg PO DAILY [facility] Stop: 09/18/17 09:59 Last Admin: 08/27/17 11:25 Dose: 1 mg Heparin Sodium (Porcine) (Heparin Flush 10 Unit/Ml 5 Ml Disp.Syrg) 30 unit IV Q8 [facility] Stop: 09/13/17 13:59 Last Admin: 08/28/17 05:19 Dose: 30 unit Sodium Chloride (Nacl 0.45% 1000 Ml Iv Soln) 1,000 mls @ 75 mls/hr IV CONTINUOUS PRN PRN Reason: THIS MED IS NOT "PRN" Stop: 09/24/17 08:09 Last Admin: 08/27/17 17:43 Dose: 1,000 ml Sodium Bicarbonate 100 meq/ (Dextrose) 1,100 mls @ 75 mls/hr IV CONTINUOUS PRN PRN Reason: THIS MED IS NOT "PRN" Stop: 09/26/17 10:29 Last Admin: 08/28/17 01:11 Dose: 100 meq Lactulose (Cephulac Syrup 20 Gm/30 Ml Udcup) 20 gm PO TID [facility] Stop: 09/21/17 09:59 Last Admin: 08/27/17 17:43 Dose: 20 gm Lansoprazole (Prevacid 15 Mg Odt Tablet) 15 mg PO Q6AM [facility] Stop: 09/19/17 05:59 Last Admin: 08/28/17 05:20 Dose: 15 mg Levalbuterol HCl (Xopenex Neb 1.25 Mg/3 Ml Ampul) 1.25 mg NEB RTQ4HP PRN PRN Reason: SHORTNESS OF BREATH Stop: 09/10/17 12:34 Last Admin: 08/25/17 08:18 Dose: 1.25 mg Lorazepam (Ativan 1 Mg Tablet) 1 mg PO Q4HP PRN PRN Reason: ANXIETY/AGITATION Stop: 09/02/17 16:40 Last Admin: 08/27/17 17:43 Dose: 1 mg Lorazepam (Ativan Inj 2 Mg/1 Ml Vial) 0.5 mg IV Q4HP PRN PRN Reason: ANXIETY Stop: 09/02/17 16:41 Last Admin: 08/28/17 04:35 Dose: 0.5 mg Metoclopramide HCl (Reglan Inj/Pf 10 Mg/2 Ml Sdv) 5 mg IV Q6HP PRN PRN Reason: FOR NAUSEA/VOMITING Stop: 09/18/17 16:41 Last Admin: 08/19/17 17:35 Dose: 5 mg Mirtazapine (Remeron 15 Mg Tablet) 7.5 mg PO QHS [facility] Stop: 09/17/17 21:59 Last Admin: 08/27/17 21:05 Dose: 7.5 mg Ondansetron HCl (Zofran Odt 4 Mg Tablet) 4 mg PO Q4HP PRN PRN Reason: FOR NAUSEA/VOMITING Stop: 09/18/17 16:41 Pharmacy Profile Note (Medication Communication Order) 1 each [facility] .NOTICE NR Stop: 09/12/17 18:14 Last Admin: 08/14/17 13:18 Dose: Not Given Risperidone (Risperdal 0.25 Mg Tablet) 0.25 mg PO DAILY [facility] Stop: 09/18/17 09:59 Last Admin: 08/27/17 11:26 Dose: 0.25 mg Risperidone (Risperdal 1 Mg Tablet) 0.5 mg PO QPM [facility] Stop: 09/18/17 17:59 Last Admin: 08/27/17 17:43 Dose: 0.5 mg Spironolactone (Aldactone 25 Mg Tablet) 50 mg PO DAILY [facility] Stop: 09/19/17 09:59 Last Admin: 08/27/17 11:25 Dose: 50 mg Thiamine HCl (Thiamine 100 Mg Tablet) 100 mg PO DAILY [facility] Stop: 09/18/17 09:59 Last Admin: 08/27/17 11:25 Dose: 100 mg - Allergies Allergies/Adverse Reactions: tetracycline Allergy (Verified 08/08/17 19:22) - Diet/Activity Discharge Diet: Other (Comments) - Low sodium Hospital Course Hospital Course: Patient presented to [facility]'s emergency room on 08/08/2017 with complaints of increasing shortness of breath and dyspnea. She was found to have a large right lower lobe pneumonia by chest x-ray. She had blood cultures 2. She was then placed on IV broad-spectrum antibiotics and referred to the hospitalist service for admission. Due to worsening hypoxemia she required BiPAP initially. She was started on IV steroids and nebulizer treatments as well. Spite aggressive pulmonary care her hypoxemia worsened and she she required intubation and mechanical ventilation. She was maintained on the ventilator with pulmonary consult in the ICU by Dr. Ty Gilman. She was eventually extubated on 08/13/2017. She was noted to have an increasing right pleural effusion. On 08/13 she underwent a ultrasound-guided thoracentesis by interventional radiology. She was transferred to the stepdown unit on telemetry. She continued to have increasing agitation and hallucinations. Thought to be due to her liver disease and possibly withdrawing from opioid narcotic analgesics. Her felt that what caused her to become sick to begin with. She had been on OxyContin for over 2 years for cervical fusion. She had recently been tapered off the OxyContin by her pain management clinic. Pleural fluid was sent for testing. Unfortunately, right pleural effusion rapidly reaccumulated. She underwent chest tube placement by the surgicalist, Dr. Villatoro. Chest tube is continuously put out a large amount of straw-colored fluid. Her case was discussed with her marketing admin at [facility]. He did not feel they could offer her anything else at the present time. Patient has continued to be agitated despite receiving lactulose and normal ammonia levels. She has required IV Ativan in order for nursing to provide care for her. Unfortunately she not eating or drinking well even with family. She has made no progress over the last week and a half. Case was then discussed by Dr. Phoenix, hospitalist, with [facility] hepatology, for possible TIPS procedure. [facility] has accepted the patient in transfer. This was discussed with her family by Dr. Phoenix. Her is aware of the gravity of her situation. Unfortunately, in our institution we are limited with lack of gastroenterology services or marketing admin to offer any other options here. Physical Exam Vital Signs: Temp Pulse Resp BP Pulse Ox 97.8 F 80 18 103/63 94 08/28/17 07:18 08/28/17 07:18 08/28/17 07:18 08/28/17 07:18 08/28/17 07:18 Pulse Oximeter Continuous Start: 08/12/17 10: 54 Freq: RTQ4 Status: Hold Document 08/12/17 14:08 [facility] [place]Rec: 08/12/17 14:35 [facility] [place] [id number]) Pulse Oximetry Assessment Oxygen Saturation (92-100) 93 Oxygen Delivery Method Bi-pap Fraction of Inspired Oxygen (FIO2) 45 Equipment Usage Equipment Discontinued Continuous SpO2 Machine # N [id number] Intake & Output 08/27/17 08/28/17 08/29/17 06:59 06:59 06:59 Intake Total 2435 1900 Output Total 300 1900 Balance 2135 0 Weight 46.5 kg 49.6 kg General appearance: PRESENT: no acute distress - jaundiced, thin, well-developed Head exam: PRESENT: atraumatic, normocephalic Eye exam: PRESENT: conjunctiva pale, PERRLA, scleral icterus Ear exam: PRESENT: normal external ear exam Mouth exam: PRESENT: dry mucosa, neck supple, tongue midline, other Teeth exam: PRESENT: poor dentation Throat exam: PRESENT: post pharyngeal erythema Neck exam: ABSENT: carotid bruit, JVD, lymphadenopathy, thyromegaly Respiratory exam: PRESENT: decreased breath sounds, symmetrical, unlabored - right base Cardiovascular exam: PRESENT: RRR. ABSENT: diastolic murmur, rubs, systolic murmur Pulses: PRESENT: normal carotid pulses, normal radial pulses Vascular exam: PRESENT: normal capillary refill GI/Abdominal exam: PRESENT: diminished bowel sounds, distended, soft Rectal exam: PRESENT: deferred Extremities exam: PRESENT: full ROM, +1 edema - pedal to ankles Neurological exam: PRESENT: altered, CN II-XII grossly intact Psychiatric exam: PRESENT: agitated, flat affect Focused psych exam: PRESENT: delusional, internal stimuli, psychomotor agitation , restlessness Skin exam: PRESENT: jaundice, warm Results Laboratory Results: 08/28/17 05:02 08/28/17 05:02 08/28/17 08/28/17 05:02 05:02 WBC 10.7 H RBC 3.22 L Hgb 10.2 L Hct 29.9 L MCV 93 MCH 31.8 MCHC 34.2 RDW 19.2 H Plt Count 132 L Seg Neutrophils % 77.0 Lymphocytes % 9.7 L Monocytes % 9.3 Eosinophils % 3.6 Basophils % 0.4 Absolute Neutrophils 8.2 Absolute Lymphocytes 1.0 Absolute Monocytes 1.0 Absolute Eosinophils 0.4 Absolute Basophils 0.0 Sodium 129.8 L Potassium 3.9 Chloride 98 Carbon Dioxide 22 Anion Gap 10 BUN 9 Creatinine 0.46 L Est GFR ( Amer) > 60 Est GFR (Non-Af Amer) > 60 Glucose 107 Calcium 7.4 L Total Bilirubin 5.5 H AST 87 H ALT 68 H Alkaline Phosphatase 768 H Total Protein 6.0 L Albumin 2.6 L 08/11/17 08/12/17 08/14/17 04:21 03:49 03:56 NT-Pro-B Natriuret Pep 232 312 685 08/19/17 04:55 NT-Pro-B Natriuret Pep 1230 H Impressions: Thoracentesis Ultrasound 08/09/17 10:34 IMPRESSION: SUCCESSFUL THORACENTESIS USING ULTRASOUND GUIDANCE. KUB X-Ray 08/13/17 00:00 IMPRESSION: Bowel obstruction versus ileus. NG tube placement. Chest X-Ray 08/26/17 00:00 IMPRESSION: Minimal right basilar atelectasis. Right chest tube in place. No significant residual pleural effusion. No pneumothorax. No chest wall air. Abdomen Ultrasound 08/27/17 08:47 IMPRESSION: No ascites. Plan Discharge Plan: Patient will be transferred to [facility] for hepatology services
--- NOTE | 2017-08-28 10:15 | PDOC PROGRESS REPORT ---
Subjective Progress Note for:: 08/28/17 Subjective:: Patient is seen resting in bed. She is presently sleeping or sedated. Her is at the bedside. She apparently has either been agitated or sedated for the last 2 weeks. states she is not eating much or drinking much despite him attempting to help her at the present time. Due to her mentation unable to perform review of systems with her. Nursing report no issues overnight. Reason For Visit: PULMONARY EDEMA CIRRHOSIS RESPIRATORY FAILURE Physical Exam Vital Signs: Temp Pulse Resp BP Pulse Ox 97.8 F 80 18 103/63 94 08/28/17 07:18 08/28/17 07:18 08/28/17 07:18 08/28/17 07:18 08/28/17 07:18 Pulse Oximeter Continuous Start: 08/12/17 10: 54 Freq: RTQ4 Status: Hold Document 08/12/17 14:08 [facility] [place] (Rec: 08/12/17 14:35 [facility] [place] [id number]) Pulse Oximetry Assessment Oxygen Saturation (92-100) 93 Oxygen Delivery Method Bi-pap Fraction of Inspired Oxygen (FIO2) 45 Equipment Usage Equipment Discontinued Continuous SpO2 Machine # N 10 Intake & Output 08/27/17 08/28/17 08/29/17 06:59 06:59 06:59 Intake Total 2435 1900 Output Total 300 1900 Balance 2135 0 Weight 46.5 kg 49.6 kg General appearance: PRESENT: no acute distress, thin, well-developed, well- nourished, other - Jaundice, chronically ill-appearing Head exam: PRESENT: atraumatic, normocephalic Eye exam: PRESENT: conjunctiva pale, PERRLA, scleral icterus Ear exam: PRESENT: normal external ear exam Mouth exam: PRESENT: dry mucosa, neck supple, tongue midline, other Teeth exam: PRESENT: poor dentation Neck exam: ABSENT: carotid bruit, JVD, lymphadenopathy, thyromegaly Respiratory exam: PRESENT: decreased breath sounds, symmetrical, unlabored - Right base Cardiovascular exam: PRESENT: RRR. ABSENT: diastolic murmur, rubs, systolic murmur Vascular exam: PRESENT: normal capillary refill GI/Abdominal exam: PRESENT: distended, normal bowel sounds, soft Rectal exam: PRESENT: deferred Extremities exam: PRESENT: full ROM. ABSENT: calf tenderness, clubbing, pedal edema Musculoskeletal exam: PRESENT: full ROM Neurological exam: PRESENT: altered, CN II-XII grossly intact Psychiatric exam: PRESENT: agitated, anxious, unusual affect Focused psych exam: PRESENT: delusional, paranoid Skin exam: PRESENT: dry, jaundice, warm Results Laboratory Results: 08/28/17 05:02 08/28/17 05:02 08/28/17 08/28/17 05:02 05:02 WBC 10.7 H RBC 3.22 L Hgb 10.2 L Hct 29.9 L MCV 93 MCH 31.8 MCHC 34.2 RDW 19.2 H Plt Count 132 L Seg Neutrophils % 77.0 Lymphocytes % 9.7 L Monocytes % 9.3 Eosinophils % 3.6 Basophils % 0.4 Absolute Neutrophils 8.2 Absolute Lymphocytes 1.0 Absolute Monocytes 1.0 Absolute Eosinophils 0.4 Absolute Basophils 0.0 Sodium 129.8 L Potassium 3.9 Chloride 98 Carbon Dioxide 22 Anion Gap 10 BUN 9 Creatinine 0.46 L Est GFR ( Amer) > 60 Est GFR (Non-Af Amer) > 60 Glucose 107 Calcium 7.4 L Total Bilirubin 5.5 H AST 87 H ALT 68 H Alkaline Phosphatase 768 H Total Protein 6.0 L Albumin 2.6 L 08/11/17 08/12/17 08/14/17 04:21 03:49 03:56 NT-Pro-B Natriuret Pep 232 312 685 08/19/17 04:55 NT-Pro-B Natriuret Pep 1230 H Impressions: Thoracentesis Ultrasound 08/09/17 10:34 IMPRESSION: SUCCESSFUL THORACENTESIS USING ULTRASOUND GUIDANCE. KUB X-Ray 08/13/17 00:00 IMPRESSION: Bowel obstruction versus ileus. NG tube placement. Chest X-Ray 08/26/17 00:00 IMPRESSION: Minimal right basilar atelectasis. Right chest tube in place. No significant residual pleural effusion. No pneumothorax. No chest wall air. Abdomen Ultrasound 08/27/17 08:47 IMPRESSION: No ascites. Assessment & Plan - Diagnosis (1) Acute encephalopathy Is this a current diagnosis for this admission?: Yes Plan: Secondary to cirrhosis and chronic alcohol use. She is receiving lactulose, thiamine and folic acid. She is requiring occasional IV Ativan due to her continued agitation (2) Acute respiratory failure with hypoxemia Is this a current diagnosis for this admission?: Yes (3) Agitation Is this a current diagnosis for this admission?: Yes (4) Aspiration pneumonia Is this a current diagnosis for this admission?: Yes Plan: This is resolved. She is off antibiotics. (5) Cirrhosis Qualifiers: Hepatic cirrhosis type: alcoholic cirrhosis Is this a current diagnosis for this admission?: Yes Plan: Hospitalist service is spoken with her pipefitter helper at [facility], they do not feel they can offer her any services. This was conveyed to her family. Dr. Phoenix, contacted [facility] hepatology who have accepted the patient in transfer. (6) Epilepsy Is this a current diagnosis for this admission?: Yes Plan: No recent seizures (7) History of alcohol abuse Is this a current diagnosis for this admission?: Yes (8) Need for intravenous access Is this a current diagnosis for this admission?: Yes (9) Opiate dependence, continuous Is this a current diagnosis for this admission?: Yes (10) Pleural effusion, right Is this a current diagnosis for this admission?: Yes Plan: Chest tube continues to drain moderate to large amount of straw-colored fluid (11) ARDS (adult respiratory distress syndrome) Is this a current diagnosis for this admission?: Yes Plan: Is resolved patient is presently requiring oxygen at 2 L/min. - Time Time Spent with patient: 25-34 minutes Total Critical Time (Minutes): 25 Medications reviewed and adjusted accordingly: Yes Anticipated discharge: [facility] Within: when bed available - Inpatient Certification Based on my medical assessment, after consideration of the patient's comorbidities, presenting symptoms, or acuity I expect that the services needed warrant INPATIENT care.: Yes I certify that my determination is in accordance with my understanding of Medicare's requirements for reasonable and necessary INPATIENT services [42 CFR 412.3e].: Yes Medical Necessity: Need Close Monitoring Due to Risk of Patient Decompensation, Need For IV Fluids
[2017-08-28] MEDS: LACTULOSE SYRUP 20 GM/30 ML UDCUP PO SCH ×3 (11:53→17:32)
[2017-08-28] MEDS: SPIRONOLACTONE 25 MG TABLET PO SCH (11:54)
[2017-08-28] MEDS: RISPERIDONE 0.25 MG TABLET PO SCH (11:54)
[2017-08-28] MEDS: ASPIRIN 81 MG TABLET, ENT COATED PO SCH (11:54)
[2017-08-28] MEDS: FOLIC ACID 1 MG TABLET PO SCH (11:54)
[2017-08-28] MEDS: THIAMINE HCL 100 MG TABLET PO SCH (11:54)
[2017-08-28] MEDS: 1/2 NORMAL SALINE 1,000 ML IV PRN (11:57)
[2017-08-28] MEDS: RISPERIDONE 1 MG TABLET PO SCH (17:32)
[2017-08-28 20:07] VITALS: BP 114/88
[2017-08-28] MEDS: LORAZEPAM 1 MG TABLET PO PRN (20:30)
== END 2017-08-28 21:07 | disposition short-term general hospital (02) | DRG 207 ==
LOC: ER 18:19 → UNDOADMIN 23:10 → EH 23:10 → 4N 08-09 00:57 → EH 08-09 00:57 → 4N 08-11 21:06 → ICU 08-12 14:02 → 4N 08-12 14:02 → 3W 08-19 15:15
PROVIDERS: ADMIT Internal Medicine; ATTEND Internal Medicine
PROC: 0W993ZX Drainage of Right Pleural Cavity, Percutaneous Approach, Diagnostic (ICD-10-PCS; 2017-08-09)
PROC: 5A1955Z Respiratory Ventilation, Greater than 96 Consecutive Hours (ICD-10-PCS; principal; 2017-08-13)
PROC: 0BH17EZ Insertion of Endotracheal Airway into Trachea, Via Natural or Artificial Opening (ICD-10-PCS; 2017-08-13)
PROC: 0W9930Z Drainage of Right Pleural Cavity with Drainage Device, Percutaneous Approach (ICD-10-PCS; 2017-08-13)
PROC: 02HV33Z Insertion of Infusion Device into Superior Vena Cava, Percutaneous Approach (ICD-10-PCS; 2017-08-14)
DX: J90 Pleural effusion, not elsewhere classified (principal); J18.9 Pneumonia, unspecified organism; J96.01 Acute respiratory failure with hypoxia; K72.00 Acute and subacute hepatic failure without coma; E43 Unspecified severe protein-calorie malnutrition; F11.20 Opioid dependence, uncomplicated; R64 Cachexia; E87.0 Hyperosmolality and hypernatremia; K70.31 Alcoholic cirrhosis of liver with ascites; F10.11 Alcohol abuse, in remission; E88.09 Other disorders of plasma-protein metabolism, not elsewhere classified; E86.0 Dehydration; E87.6 Hypokalemia; D72.825 Bandemia; R50.9 Fever, unspecified; F28 Other psychotic disorder not due to a substance or known physiological condition; F41.9 Anxiety disorder, unspecified; K59.03 Drug induced constipation; G89.4 Chronic pain syndrome; M47.9 Spondylosis, unspecified; G40.909 Epilepsy, unspecified, not intractable, without status epilepticus; M81.0 Age-related osteoporosis without current pathological fracture; F32.9 Major depressive disorder, single episode, unspecified; F17.210 Nicotine dependence, cigarettes, uncomplicated; Z79.82 Long term (current) use of aspirin; Z79.899 Other long term (current) drug therapy; Z78.1 Physical restraint status; Z68.20 Body mass index [BMI] 20.0-20.9, adult
CPT/HCPCS: 31500; 32555; 36415; 36600; 71045; 74018; 76700; 76705; 80048; 80053; 80185; 81001; 82140; 82150; 82271; 82272; 82550; 82553; 82803; 83605; 83735; 83880; 84100; 84478; 84484; 85025; 85027; 85610; 85730; 87040; 87070; 87075; 87101; 87205; 89050; 93005; 93010; 93306; 93976; 94002; 94003; 94640; 94660; 94667; 94668; 94762; 94799; 96365; 96367; 96375; 99285; A9270-GY; C1751; J0330; J0456; J0610; J0696; J1165; J1170; J1642; J1644; J1885; J1940; J2060; J2250; J2270; J2543; J2704; J2765; J2920; J2930; J3010; J3360; J3370; J3411; J3475; J3480; J3490; J7030; J7050; J7060; J7120; J7512; J7620; P9047; S0164